=== PATIENT | female | born 1960 | race Caucasian/White ===

== ENCOUNTER 2020-07-26 17:53 | Inpatient (IN) | payer OTHER, SELFPAY ==
--- NOTE | 2020-07-26 | ECG_ITS ---
Test Reason : DIZZINESS Blood Pressure : / mmHG Vent. Rate : 098 BPM Atrial Rate : 098 BPM P-R Int : 146 ms QRS Dur : 078 ms QT Int : 362 ms P-R-T Axes : 041 049 022 degrees QTc Int : 462 ms Normal sinus rhythm Normal ECG When compared with ECG of 25-SEP-2008 08:14, No significant change was found Referred By: Generic ED Physician Electronically Signed By:DAKSHA LANDIS MD
--- NOTE | ~2020-07-26 | CT_ITS ---
EXAMINATION: CT ABDOMEN AND PELVIS WITH CONTRAST CLINICAL INFORMATION: Diffuse abdominal pain, worse in the right lower quadrant with distention COMPARISON: Abdominal ultrasound 07/26/2008 TECHNIQUE: Multidetector volumetric images were obtained from the superior aspect of the liver through the pubic symphysis following administration 85 mL of Omnipaque 350 intravenous contrast. Sagittal and coronal reformatted images were obtained on the technologist's workstation. Oral contrast: No This CT examination was performed using dose optimization techniques as appropriate, variously including the following: *Automated exposure control *Adjustment of mA and/or kV according to patient size (this includes techniques or standardized protocols for targeted exams where dose is matched to indication/reason for exam; i.e. extremities or head) *Use of iterative reconstruction technique DLP: 831 mGy-cm FINDINGS: LUNG BASES: The visualized lung bases are unremarkable. LIVER, GALLBLADDER, AND BILIARY TREE: The liver is enlarged and demonstrates decreased attenuation consistent with hepatic steatosis. There are some areas of focal fatty sparing adjacent to the gallbladder. Small hypodensity seen just beneath the dome of the right hemidiaphragm consistent with a small cyst. The gallbladder is unremarkable with no evidence of radiopaque gallstones, gallbladder wall thickening, or obvious pericholecystic inflammatory changes. PANCREAS: Unremarkable. SPLEEN: Unremarkable. ADRENAL GLANDS: Unremarkable. KIDNEYS AND URETERS: The kidneys are normal in size, shape, and attenuation. Indeterminate 1.5 cm mass noted in the right kidney that measures 32 Hounsfield units. This could represent a hyperattenuating cyst. No hydronephrosis, hydroureter, or calculi seen. No perinephric stranding. BLADDER: Unremarkable. GASTROINTESTINAL TRACT: Diverticular changes present in the colon without evidence of diverticulitis. The small and large bowel are unremarkable. The appendix is grossly abnormal. Dilated to nearly 2 cm. Marked inflammatory changes are present around the appendix. No extraluminal air is seen. No periappendiceal large fluid collections are seen. A tiny ill-defined fluid collection measuring 1 x 1.3 cm x 1 is seen (3:51). ABDOMINAL WALL: No significant hernia is appreciated. LYMPH NODES: No retroperitoneal lymphadenopathy. Some small retroperitoneal and brii hepatis lymph nodes are present. VASCULAR: Unremarkable. PELVIC VISCERA: An anteverted uterus is present. An abnormal adnexal mass or free intraperitoneal fluid is not seen. OSSEOUS STRUCTURES: Unremarkable. CT/CT abdomen pelvis w con IMPRESSION: 1. Acute appendicitis 2. Enlarged fatty liver 3. Benign right hepatic cyst 4. Indeterminate right renal mass. Differential diagnosis includes hyperattenuating cyst versus solid mass. Ultrasound recommended for further evaluation. This critical result was discussed with Dr. Tamara Beck at 11:45 PM on the day of the exam and it was ascertained that the content and urgency of the report was understood at the time of direct communication.
[2020-07-26 19:00] VITALS: BP 140/91; PULSE 102; RESP 16; TEMP 36.9; O2SAT 97; BMI 40.2
[2020-07-26 19:41] LABS: Glucose Urine UA NEG (NEG); Leukocyte Esterase Urine NEG (NEG); Nitrite Urine NEG (NEG); Specific Gravity - Urine <= 1.005 (1.005-1.025); Urine Blood NEG (NEG); Urine Ketones NEG (NEG); Urine Protein NEG (NEG-TRACE)
[2020-07-26 19:43] LABS: Appearance Urine CLEAR; Color Urine YELLOW
[2020-07-26 19:45] LABS: MANUAL DIFF FLAG NO
[2020-07-26 19:49] LABS: Basophils Absolute Auto 0.1 X10*3/uL (0.0-0.2); Basophils Percent Auto 0.3 % (0-2); Eosinophils Absolute Auto 0.1 X10*3/uL (0.0-0.4); Eosinophils Percent Auto 0.9 % (0-4); Hematocrit 43.3 % (37-47); Hemoglobin 14.9 g/dl (12.0-16.0); Imm Gran Abs Auto 0.06 X10*3/uL (0.00-0.03); Imm Gran Pct Auto 0.4 % (0.0-0.4); Lymphocytes Absolute Auto 2.6 X10*3/uL (1.2-4.9); Lymphocytes Percent Auto 15.7 % (20-40); Mean Corpuscular HGB Conc 34.4 g/dl (31.0-35.0); Mean Corpuscular Hemoglobin 29.6 pg (27.0-33.0); Mean Corpuscular Volume 85.9 fL (80-98); Mean Platelet Volume 9.2 fL (9.4-12.3); Monocytes Absolute Auto 1.3 X10*3/uL (0.1-1.2); Monocytes Percent Auto 7.7 % (2-11); Neutrophils Absolute Auto 12.4 X10*3/uL (2.0-8.3); Platelet Count 316 X10*3/uL (160-400); Red Blood Count 5.04 X10*6/uL (4.20-5.50); Red Cell Distribution Width 12.4 % (11.0-16.0); White Blood Count 16.5 X10*3/uL (4.8-10.8)
[2020-07-26 20:13] LABS: Alanine Aminotransferase 23 U/L (0-31); Albumin Level 4.6 g/dL (3.5-5.0); Alkaline Phosphatase 101 U/L (39-117); Anion Gap 18 (12-20); Aspartate Amino Transferase 12 U/L (5-31); Blood Urea Nitrogen 9 mg/dL (9-16); Calcium 9.9 mg/dL (8.4-10.2); Carbon Dioxide 22 mmol/L (22-29); Chloride 97 mmol/L (96-108); Creatinine Clr Calc Pharmacy 80.6; Estimated Glomerular Filt Rate > 60; Glucose Random 214 mg/dL (60-115); Lipase 16 U/L (8-78); Sodium 133 mmol/L (135-145); Total Protein 7.8 g/dL (6.5-8.0)
[2020-07-26 21:26] VITALS: BP 115/67; PULSE 84; RESP 16; O2SAT 97
--- NOTE | 2020-07-26 22:52 | ED.ABDPAIN ---
HPI - Abdominal Pain General Chief Complaint: Abdominal Pain Stated Complaint: abd pain Time Seen by Provider: 07/26/20 22:42 Source: patient Mode of arrival: ambulatory Limitations: no limitations History of Present Illness HPI narrative: Patient comes emergency room complaining of diffuse abdominal pain, worse in the right lower quadrant. Patient states it has been ongoing for 2 days, gradually getting worse, and more distended. Patient denies vomiting or diarrhea. Patient states she takes several medications that cause her to be constipated. Patient has used multiple enema has in the last 24 hours, has had bowel movements, the pain keeps increasing. MD elicited complaint: abdominal pain Related Data Home Medications Medication Instructions Recorded Confirmed ergocalciferol (vitamin D2) 1 cap PO QWEEK 07/27/20 07/27/20 hydroxychloroquine 1 tab PO BID 07/27/20 07/27/20 insulin detemir U-100 [Levemir See Protocol SUBCUT DIRECTED 07/27/20 07/27/20 U-100 Insulin] insulin syringe-needle U-100 [BD 07/27/20 07/27/20 Insulin Syringe Ultra-Fine] lisinopril 1 tab PO DAILY 07/27/20 07/27/20 lorazepam 1 tab PO TID PRN 07/27/20 07/27/20 ondansetron HCl 1 tab PO Q6-8H PRN 07/27/20 07/27/20 oxycodone 1 tab PO DIRECTED 07/27/20 07/27/20 ropinirole 1 tab PO BID 07/27/20 07/27/20 Allergies Allergy/AdvReac Type Severity Reaction Status Date / Time No Known Allergies Allergy Unverified 07/26/20 19:05 Codeine Sulfate Allergy Unknown Itching Uncoded 07/26/20 19:05 Review of Systems Review of Systems Constitutional : No Weight loss, No Fever, No Chills, No Night Sweats, No Fatigue, No Malaise ENT/Mouth : No Hearing loss, No Ear Pain, No Nasal Congestion, No Sinus Pain, No Hoarseness, No sore throat, No Rhinorrhea, No Swallowing Difficulty Eyes: No Eye Pain, No Swelling, No Redness, No Foreign Body, No Discharge, No Vision Changes Cardiovascular : No Chest Pain, No SOB, No Dyspnea on Exertion, No Orthopnea, No Edema, No Palpitations Respiratory : No Cough, No Sputum, No Wheezing, No Smoke Exposure, No Dyspnea Gastrointestinal : No Nausea, No Vomiting, No Diarrhea, chronic intermittent Constipation, complaining of diffuse abdominal pain, worse in the right lower quadrant, worsening abdominal distention over the last 24 hours. Genitourinary : no irregular bleeding, No Dysuria, No Urinary Frequency, No Hematuria, No Urinary Incontinence, No Urgency, No Flank Pain, No Urinary Flow Changes, No Hesitancy Musculoskeletal : No joint pain, No Myalgias, No Joint Swelling Skin : No Skin Lesions, No rash Neuro : No Weakness, No Numbness, No Paresthesias, No Loss of Consciousness, No Dizziness, No Headache Psych : No Anxiety/Panic, No Depression, No SI/HI/AH/VH, No Social Issues, Heme/Lymph: No Bruising, No Bleeding,No Lymphadenopathy Endocrine : No Polyuria, No Polydipsia, No Temperature Intolerance Physical Exam Vital Signs: Vital Signs: Last Vital Signs Temp 98.5 F 07/26/20 19:00 Pulse 84 07/26/20 21:26 Resp 18 07/26/20 23:05 BP 115/67 07/26/20 21:26 Pulse Ox 97 07/26/20 21:26 Body Mass Index 40.2 Appearance: Alert. Oriented X3. Looks very uncomfortable Eyes: Pupils equal, round and reactive to light. ENT: Pharynx normal. Neck: Normal inspection. Neck supple. No lymph nodes noted. No crepitus CVS: Normal heart rate and rhythm. Pulses normal. Normal S1 and S2 Respiratory: No respiratory distress. Breath sounds normal. No Wheezing. No rales Abdomen: Soft, diffuse pain to palpation, worse in the right lower quadrant with rebound Skin: Skin warm and dry. Normal skin color. Normal skin turgor. Extremities: No lower extremity edema. No lower extremity edema. No Lacerations. No Rash Neuro: Oriented X 3. No motor deficit. No sensory deficit. Moving all extermities. No slurred speech. Course Course Course Narrative: I discussed CT scan and labs with the patient, patient does have acute appendicitis. I also discussed the patient with Dr. Hillman, patient will be admitted, surgery will be done in the morning. MDM - Abdominal Pain Lab Data Result diagrams: 07/26/20 19:38 07/26/20 19:38 Labs: Lab Results 07/26/20 07/26/20 07/26/20 Range/Units 19:06 19:38 19:38 WBC 16.5 H (4.8-10.8) X10*3/uL RBC 5.04 (4.20-5.50) X10*6/uL Hgb 14.9 (12.0-16.0) g/dl Hct 43.3 (37-47) % MCV 85.9 (80-98) fL MCH 29.6 (27.0-33.0) pg MCHC 34.4 (31.0-35.0) g/dl RDW 12.4 (11.0-16.0) % Plt Count 316 (160-400) X10*3/uL MPV 9.2 L (9.4-12.3) fL Immature Gran % (Auto) 0.4 (0.0-0.4) % Neut % (Auto) 75.0 H (45-73) % Lymph % (Auto) 15.7 L (20-40) % [place] % (Auto) 7.7 (2-11) % Eos % (Auto) 0.9 (0-4) % Baso % (Auto) 0.3 (0-2) % Lymph # (Auto) 2.6 (1.2-4.9) X10*3/uL [place] # (Auto) 1.3 H (0.1-1.2) X10*3/uL Eos # (Auto) 0.1 (0.0-0.4) X10*3/uL Baso # (Auto) 0.1 (0.0-0.2) X10*3/uL Abs Immat Gran (auto) 0.06 H (0.00-0.03) X10*3/uL Absolute Neuts (auto) 12.4 H (2.0-8.3) X10*3/uL Absolute Nucleated RBC 0.000 (0.0-0.012) X10*3/uL Nucleated RBC % (auto) 0.0 (0.0-0.2) /100WBC Hold Blue Top SEE NOTE Sodium (135-145) mmol/L Potassium (3.3-5.1) mmol/L Chloride (96-108) mmol/L Carbon Dioxide (22-29) mmol/L Anion Gap (12-20) BUN (9-16) mg/dL Creatinine (0.5-1.4) mg/dL Estim Creat Clear Calc Estimated GFR Random Glucose (60-115) mg/dL Calcium (8.4-10.2) mg/dL Total Bilirubin (0.0-1.0) mg/dL AST (5-31) U/L ALT (0-31) U/L Alkaline Phosphatase (39-117) U/L Total Protein (6.5-8.0) g/dL Albumin (3.5-5.0) g/dL Lipase (8-78) U/L Urine Color YELLOW Urine Appearance CLEAR Urine pH 6.0 (5.0-8.0) Ur Specific [place] <= 1.005 (1.005-1.025) Urine Protein NEG (NEG-TRACE) MG/DL Urine Glucose (UA) NEG (NEG) MG/DL Urine Ketones NEG (NEG) MG/DL Urine Blood NEG (NEG) Urine Nitrite NEG (NEG) Ur Leukocyte Esterase NEG (NEG) 07/26/20 Range/Units 19:38 WBC (4.8-10.8) X10*3/uL RBC (4.20-5.50) X10*6/uL Hgb (12.0-16.0) g/dl Hct (37-47) % MCV (80-98) fL MCH (27.0-33.0) pg MCHC (31.0-35.0) g/dl RDW (11.0-16.0) % Plt Count (160-400) X10*3/uL MPV (9.4-12.3) fL Immature Gran % (Auto) (0.0-0.4) % Neut % (Auto) (45-73) % Lymph % (Auto) (20-40) % [place] % (Auto) (2-11) % Eos % (Auto) (0-4) % Baso % (Auto) (0-2) % Lymph # (Auto) (1.2-4.9) X10*3/uL [place] # (Auto) (0.1-1.2) X10*3/uL Eos # (Auto) (0.0-0.4) X10*3/uL Baso # (Auto) (0.0-0.2) X10*3/uL Abs Immat Gran (auto) (0.00-0.03) X10*3/uL Absolute Neuts (auto) (2.0-8.3) X10*3/uL Absolute Nucleated RBC (0.0-0.012) X10*3/uL Nucleated RBC % (auto) (0.0-0.2) /100WBC Hold Blue Top Sodium 133 L (135-145) mmol/L Potassium 4.0 (3.3-5.1) mmol/L Chloride 97 (96-108) mmol/L Carbon Dioxide 22 (22-29) mmol/L Anion Gap 18 (12-20) BUN 9 (9-16) mg/dL Creatinine 0.84 (0.5-1.4) mg/dL Estim Creat Clear Calc 80.6 Estimated GFR > 60 Random Glucose 214 H (60-115) mg/dL Calcium 9.9 (8.4-10.2) mg/dL Total Bilirubin 1.0 (0.0-1.0) mg/dL AST 12 (5-31) U/L ALT 23 (0-31) U/L Alkaline Phosphatase 101 (39-117) U/L Total Protein 7.8 (6.5-8.0) g/dL Albumin 4.6 (3.5-5.0) g/dL Lipase 16 (8-78) U/L Urine Color Urine Appearance Urine pH (5.0-8.0) Ur Specific [place] (1.005-1.025) Urine Protein (NEG-TRACE) MG/DL Urine Glucose (UA) (NEG) MG/DL Urine Ketones (NEG) MG/DL Urine Blood (NEG) Urine Nitrite (NEG) Ur Leukocyte Esterase (NEG) Imaging Data CT scan - abdomen: Radiologist's impression: FINDINGS: LUNG BASES: The visualized lung bases are unremarkable. LIVER, GALLBLADDER, AND BILIARY TREE: The liver is enlarged and demonstrates decreased attenuation consistent with hepatic steatosis. There are some areas of focal fatty sparing adjacent to the gallbladder. Small hypodensity seen just beneath the dome of the right hemidiaphragm consistent with a small cyst. The gallbladder is unremarkable with no evidence of radiopaque gallstones, gallbladder wall thickening, or obvious pericholecystic inflammatory changes. PANCREAS: Unremarkable. SPLEEN: Unremarkable. ADRENAL GLANDS: Unremarkable. KIDNEYS AND URETERS: The kidneys are normal in size, shape, and attenuation. Indeterminate 1.5 cm mass noted in the right kidney that measures 32 Hounsfield units. This could represent a hyperattenuating cyst. No hydronephrosis, hydroureter, or calculi seen. No perinephric stranding. BLADDER: Unremarkable. GASTROINTESTINAL TRACT: Diverticular changes present in the colon without evidence of diverticulitis. The small and large bowel are unremarkable. The appendix is grossly abnormal. Dilated to nearly 2 cm. Marked inflammatory changes are present around the appendix. No extraluminal air is seen. No periappendiceal large fluid collections are seen. A tiny ill-defined fluid collection measuring 1 x 1.3 cm x 1 is seen (3:51). ABDOMINAL WALL: No significant hernia is appreciated. LYMPH NODES: No retroperitoneal lymphadenopathy. Some small retroperitoneal and brii hepatis lymph nodes are present. VASCULAR: Unremarkable. PELVIC VISCERA: An anteverted uterus is present. An abnormal adnexal mass or free intraperitoneal fluid is not seen. OSSEOUS STRUCTURES: Unremarkable. CT/CT abdomen pelvis w con IMPRESSION: 1. Acute appendicitis 2. Enlarged fatty liver 3. Benign right hepatic cyst 4. Indeterminate right renal mass. Differential diagnosis includes hyperattenuating cyst versus solid mass. Ultrasound recommended for further evaluation. Discharge Plan Discharge Clinical Impression: Appendicitis Patient Disposition: Admitted As Inpatient Prescriptions: No Action ropinirole 1 mg tablet 1 tab PO BID RF: 0 lisinopril 20 mg tablet 1 tab PO DAILY RF: 0 ondansetron HCl 4 mg tablet 1 tab PO Q6-8H PRN (Reason: Nausea) RF: 0 lorazepam 0.5 mg tablet 1 tab PO TID PRN (Reason: anxiety) RF: 0 (DME) insulin syringe-needle U-100 [BD Insulin Syringe Ultra-Fine] 1 mL 31 gauge x 5/16 syringe MISCELLANEOUS DAILY RF: 0 ergocalciferol (vitamin D2) 1,250 mcg (50,000 unit) capsule 1 cap PO QWEEK RF: 0 hydroxychloroquine 200 mg tablet 1 tab PO BID RF: 0 Levemir U-100 Insulin 100 unit/mL solution See Protocol unit subcut DIRECTED RF: 0 oxycodone 10 mg tablet 1 tab PO DIRECTED RF: 0 PMFSH Past Medical History Medical History Diabetes Hypertension Pain syndrome, chronic Restless legs syndrome RSD (reflex sympathetic dystrophy) Social History Social History Alcohol intake: never Smoking Status: Never smoker Use of substances other than those prescribed or required for medical reasons: No Advance Directives: No Advance Directives Information Provided: No
[2020-07-26] MEDS: 0.9 % Sodium Chloride 1,000 ML 999 ML IVCONT (23:04)
[2020-07-26 23:05] VITALS: RESP 18
[2020-07-26] MEDS: HYDROmorphone HCl 1 MG/ML SYRINGE IVPUSH (23:06)
[2020-07-26] MEDS: ondansetron HCL 4 MG/2 ML VIAL IVPUSH (23:06)
[2020-07-26] MEDS: iohexoL 350 MG/ML 100 ML INFUS..BTL IV (23:22)
[2020-07-27] VITALS (16 sets, daily range): BP systolic 97–146; BP diastolic 59–89; PULSE 74–94; RESP 16–18; TEMP 36.3–37.1; O2SAT 95–99
[2020-07-27] MEDS: HYDROmorphone HCl 1 MG/ML SYRINGE IVPUSH ×5 (00:16→22:43)
[2020-07-27] MEDS: Piperacillin Sodium/Tazobactam 3.375 GM in 0.9 % Sodium Chloride 50 ML IV ×4 (00:21→22:43)
[2020-07-27 00:46] LABS: COVID-19 Test Negative (Negative)
[2020-07-27 01:26] LABS: Glucose, Whole Blood 172 mg/dL (60-115)
[2020-07-27] MEDS: Lactated Ringers 1,000 ML 100 ML IVCONT ×2 (01:53→20:17)
[2020-07-27] MEDS: Acetaminophen 325 MG TABLET 650 MG PO ×2 (02:49→09:50)
[2020-07-27] MEDS: LORazepam 0.5 MG TABLET PO ×2 (02:49→09:50)
[2020-07-27] MEDS: ondansetron HCL 4 MG/2 ML VIAL IVPUSH (02:50)
--- NOTE | 2020-07-27 07:32 | P.HPGS_ITS ---
History of Present Illness History of Present Illness Date of Service: 07/27/20 Chief complaint: Acute Appendicitis Narrative: Mary Hadley is a 60 year old female with a history of DM, an unspecified autoimmune disorder and RSD, presenting wih a two day history of abdominal pain starting in the mid abdomen and now localized to the right lower quadrant. The pain is associated with a low grade fever without chills, nausea without vomiting, and constipation. She denies previous episodes of similar pain. She presented to the ED and was found to be tender in the right lower quadrant and to have abdominal distension. WBC was elevated to 16K, and a CT of the abdomen revealed a thickened and inflamed appendix with a small fluid collection associated with the appendix consistent with acute appendicitis. Review of Systems Review of Systems: Yes all other systems are reviewed and are negative Constitutional: Constitutional: Reports anorexia, Reports difficulty sleeping, Denies excessive sweating and Reports poor appetite Cardiovascular: Cardiovascular: Reports no additional cardiovascular complaints Respiratory: Respiratory: Reports no additional respiratory complaints Gastrointestinal: Gastrointestinal: Reports as per HPI, Reports abdominal pain (right lower quadrant), Reports bloating, Denies diarrhea, Reports nausea and Denies vomiting Musculoskeletal: Musculoskeletal: Reports back pain Neurologic: Reports as per HPI Endocrine: Endocrine: Denies excessive sweating Hematologic/Lymphatic: Hematologic/Lymphatic: Denies lymphadenopathy PMFSH Past Medical History Medical History Diabetes Hypertension Pain syndrome, chronic Restless legs syndrome RSD (reflex sympathetic dystrophy) Social History Social History Household Members: Significant Other and Children Housing: House Alcohol intake: never Smoking Status: Current every day smoker Tobacco Type: Cigarette Cigarettes Per Day: 6 Smoked in Last 30 Days: Yes Patient Interested in Nicotine Replacement: Yes Patient Given Instructions on How to Stop Smoking: Yes Date Education Initiated: 07/27/20 Second Hand Smoke Exposure: Yes Use of substances other than those prescribed or required for medical reasons: No Substance Use Type: Marijuana Currently Displaying Signs/Symptoms of Drug Intoxication Withdrawal: No Have you been hit, kicked, punched, or otherwise hurt by someone within the past year? If so, by whom?: No Do you feel safe in your current relationship?: Yes Is there a partner from a previous relationship who is making you feel unsafe now?: No Are you made to feel afraid or neglected: No Advance Directives: No Advance Directives Information Provided: No Do you have thoughts of harming others: None Do you have a plan to hurt others: No Plan Recently lost weight without trying: No Eating poorly because of decreased appetite: No Nutrition Risks: No Nutritional Risk Patient : No : No Poor oral hygiene: No Meds Allergies Allergy/AdvReac Type Severity Reaction Status Date / Time No Known Allergies Allergy Unverified 07/26/20 19:05 Codeine Sulfate Allergy Unknown Itching Uncoded 07/26/20 19:05 Active Medications: Current Medications Generic Name Dose Route Start Last Admin Trade Name Freq PRN Reason Stop Dose Admin Acetaminophen 650 mg 07/27/20 01:12 07/27/20 02:49 Acetaminophen 325 Mg Tablet PO 650 mg Q6H PRN Administration Fever Hydromorphone HCl 1 mg 07/27/20 01:12 07/27/20 06:52 Hydromorphone Hcl 1 Mg/Ml Syringe IVPUSH 1 mg Q2H PRN Administration pain, severe Lactated Ringer's 1,000 mls @ 100 mls/hr 07/27/20 01:12 07/27/20 01:53 Lr IVCONT 100 mls/hr .Q10H [place] Administration Piperacillin Sod/Tazobactam 50 mls @ 100 mls/hr 07/27/20 06:00 07/27/20 06:52 Sod 3.375 gm/ Sodium Chloride IV 100 mls/hr Q6H [place] Administration Insulin Human Lispro 0 unit 07/27/20 06:00 Insulin Lispro 100 Unit/Ml 3 Ml Vial SUBCUT Q6H [place] Protocol Lisinopril 20 mg 07/27/20 09:00 Lisinopril 20 Mg Tablet PO DAILY [place] Protocol Lorazepam 0.5 mg 07/27/20 01:12 07/27/20 02:49 Lorazepam 0.5 Mg Tablet PO 0.5 mg TID PRN Administration anxiety Ondansetron HCl 4 mg 07/27/20 01:12 07/27/20 02:50 Ondansetron Hcl 4 Mg/2 Ml Vial IVPUSH 4 mg Q8H PRN Administration Nausea Ropinirole HCl 1 mg 07/27/20 09:00 Ropinirole Hcl 1 Mg Tablet PO BID [facility] Home Medications Medication Instructions Recorded Confirmed Last Taken Type ergocalciferol (vitamin D2) 1 cap PO Q7D 07/27/20 07/27/20 Unknown History hydroxychloroquine 1 tab PO BID 07/27/20 07/27/20 Unknown History insulin detemir U-100 [Levemir 82 unit SUBCUT BEDTIME 07/27/20 07/27/20 Unknown History U-100 Insulin] insulin syringe-needle U-100 [BD 07/27/20 07/27/20 Unknown History Insulin Syringe Ultra-Fine] lisinopril 1 tab PO DAILY 07/27/20 07/27/20 Unknown History lorazepam 1 tab PO TID PRN 07/27/20 07/27/20 Unknown History ondansetron HCl 1 tab PO Q6-8H PRN 07/27/20 07/27/20 Unknown History oxycodone 1 tab PO Q4H 07/27/20 07/27/20 Unknown History ropinirole 1 tab PO BID 07/27/20 07/27/20 Unknown History Physical Exam Vital Signs: Vital Signs: Last Vital Signs Temp 97.4 F 07/27/20 04:00 Pulse 82 07/27/20 04:00 Resp 16 07/27/20 04:00 BP 115/69 07/27/20 04:00 Pulse Ox 96 07/27/20 04:00 Body Mass Index 40.2 Const: General: cooperative, anxious, ill appearing and tired appearing Nutritional Appearance: underweight Orientation/consciousness: patient oriented x3 Limitations: no limitations HENMT: Head: Yes normocephalic and Yes atraumatic Neck: Neck: Yes normal visual inspection, Yes full ROM and Yes no JVD Resp: Effort & Inspection: normal respiratory effort, no cough, no grunting and not labored GI: Inspection: Yes Abdominal panniculus present Palpation (GI): Soft to palpation, Tenderness to palpation present (GI) in the RLQ and at McBurney's point and no masses Percussion: Yes dullness to percussion Skin: General skin exam: no rashes or lesions noted Neuro: General: patient oriented x3 Extrem: General: Yes no clubbing, cyanosis or edema Results Results Labs: Short CBC 07/26/20 Range/Units 19:38 WBC 16.5 H (4.8-10.8) X10*3/uL Hgb 14.9 (12.0-16.0) g/dl Hct 43.3 (37-47) % Plt Count 316 (160-400) X10*3/uL BMP 07/26/20 19:38 Sodium 133 L Potassium 4.0 Chloride 97 Carbon Dioxide 22 BUN 9 Creatinine 0.84 Calcium 9.9 Liver Function 07/26/20 Range/Units 19:38 Total Bilirubin 1.0 (0.0-1.0) mg/dL AST 12 (5-31) U/L ALT 23 (0-31) U/L Alkaline Phosphatase 101 (39-117) U/L Albumin 4.6 (3.5-5.0) g/dL Urine 07/26/20 Range/Units 19:06 Urine Color YELLOW Urine Appearance CLEAR Urine pH 6.0 (5.0-8.0) Ur Specific [place] <= 1.005 (1.005-1.025) Urine Protein NEG (NEG-TRACE) MG/DL Urine Glucose (UA) NEG (NEG) MG/DL Assessment and Plan (1) Appendicitis: Qualifiers: Appendicitis type: unspecified Qualified Code(s): K37 - Unspecified appendicitis Status: Acute 60 year old female patient with history of DM presenting with complaints of abdominal pain of several days duration presenting to the ED. She was determined to have appendicitis by CT abdomen and pelvis and is admitted to the surgical service for further management. I reviewed the lab and radiology findings with the patient and recommended a laparoscopic or possible open appendectomy. After discussing the procedure, alternatives and risks of the surgery, she gave her consent for the laparoscopic or possible open appendectomy. She is added on to the OR schedule for later today.
[2020-07-27 07:39] LABS: Glucose, Whole Blood 214 mg/dL (60-115)
[2020-07-27] MEDS: rOPINIRole HCL 1 MG TABLET PO ×2 (07:46→20:17)
[2020-07-27] MEDS: Insulin Lispro 100 UNIT/ML 3 ML VIAL SUBCUT ×2 (07:46→20:18)
[2020-07-27] MEDS: lisinopriL 20 MG TABLET PO (07:46)
--- NOTE | 2020-07-27 11:08 | HO.ANESPROP2 ---
[facility], [facility] Active Problems Active Problems: All Active Problems (Updated 07/27/20 @ 00:07 by Tamara Beck MD) Appendicitis (Acute) Past Medical History Medical History Diabetes Hypertension Pain syndrome, chronic Restless legs syndrome RSD (reflex sympathetic dystrophy) Social History Social History Household Members: Significant Other and Children Housing: House Alcohol intake: never Smoking Status: Current every day smoker Tobacco Type: Cigarette Cigarettes Per Day: 6 Years Smoked: 20 Smoked in Last 30 Days: Yes Patient Interested in Nicotine Replacement: Yes Patient Given Instructions on How to Stop Smoking: Yes Date Education Initiated: 07/27/20 Second Hand Smoke Exposure: Yes Use of substances other than those prescribed or required for medical reasons: No Substance Use Type: Marijuana Currently Displaying Signs/Symptoms of Drug Intoxication Withdrawal: No Have you been hit, kicked, punched, or otherwise hurt by someone within the past year? If so, by whom?: No Do you feel safe in your current relationship?: Yes Is there a partner from a previous relationship who is making you feel unsafe now?: No Are you made to feel afraid or neglected: No Are you DNR?: No Advance Directives: No Advance Directives Information Provided: No Do you have thoughts of harming others: None Do you have a plan to hurt others: No Plan Recently lost weight without trying: No Eating poorly because of decreased appetite: No Nutrition Risks: No Nutritional Risk Patient : No : No Poor oral hygiene: No Meds Allergies Allergy/AdvReac Type Severity Reaction Status Date / Time Codeine Sulfate Allergy Unknown Itching Uncoded 07/26/20 19:05 Active Medications: Current Medications Generic Name Dose Route Start Last Admin Trade Name Freq PRN Reason Stop Dose Admin Acetaminophen 650 mg 07/27/20 01:12 07/27/20 09:50 Acetaminophen 325 Mg Tablet PO 650 mg Q6H PRN Administration Fever Hydromorphone HCl 1 mg 07/27/20 01:12 07/27/20 06:52 Hydromorphone Hcl 1 Mg/Ml Syringe IVPUSH 1 mg Q2H PRN Administration pain, severe Lactated Ringer's 1,000 mls @ 100 mls/hr 07/27/20 01:12 07/27/20 01:53 Lr IVCONT 100 mls/hr .Q10H [place] Administration Piperacillin Sod/Tazobactam 50 mls @ 100 mls/hr 07/27/20 06:00 07/27/20 07:33 Sod 3.375 gm/ Sodium Chloride IV Infused Q6H [place] Infusion Insulin Human Lispro 0 unit 07/27/20 06:00 07/27/20 07:46 Insulin Lispro 100 Unit/Ml 3 Ml Vial SUBCUT 4 unit Q6H [place] Administration Protocol Lisinopril 20 mg 07/27/20 09:00 07/27/20 07:46 Lisinopril 20 Mg Tablet PO 20 mg DAILY [place] Administration Protocol Lorazepam 0.5 mg 07/27/20 01:12 07/27/20 09:50 Lorazepam 0.5 Mg Tablet PO 0.5 mg TID PRN Administration anxiety Ondansetron HCl 4 mg 07/27/20 01:12 07/27/20 02:50 Ondansetron Hcl 4 Mg/2 Ml Vial IVPUSH 4 mg Q8H PRN Administration Nausea Ropinirole HCl 1 mg 07/27/20 09:00 07/27/20 07:46 Ropinirole Hcl 1 Mg Tablet PO 1 mg BID [place] Administration Home Medications Medication Instructions Recorded Confirmed Last Taken Type ergocalciferol (vitamin D2) 1 cap PO Q7D 07/27/20 07/27/20 Unknown History hydroxychloroquine 1 tab PO BID 07/27/20 07/27/20 Unknown History insulin detemir U-100 [Levemir 82 unit SUBCUT BEDTIME 07/27/20 07/27/20 Unknown History U-100 Insulin] insulin syringe-needle U-100 [BD 07/27/20 07/27/20 Unknown History Insulin Syringe Ultra-Fine] lisinopril 1 tab PO DAILY 07/27/20 07/27/20 Unknown History lorazepam 1 tab PO TID PRN 07/27/20 07/27/20 Unknown History ondansetron HCl 1 tab PO Q6-8H PRN 07/27/20 07/27/20 Unknown History oxycodone 1 tab PO Q4H 07/27/20 07/27/20 Unknown History ropinirole 1 tab PO BID 07/27/20 07/27/20 Unknown History Exam Exam Date and Time: July 27, 2020 1108 Height,Weight and Vital Signs: Height 5 ft 2 in Weight 99.79 kg Last Vital Signs Temp 97.8 F 07/27/20 10:56 Pulse 87 07/27/20 10:56 Resp 16 07/27/20 10:56 BP 136/62 07/27/20 10:56 Pulse Ox 95 07/27/20 10:56 Pertinent Lab Results Pertinent Lab Results: Laboratory Tests 07/26/20 07/26/20 07/26/20 19:06 19:38 19:38 WBC 16.5 H RBC 5.04 Hgb 14.9 Hct 43.3 MCV 85.9 MCH 29.6 MCHC 34.4 RDW 12.4 Plt Count 316 MPV 9.2 L Immature Gran % (Auto) 0.4 Neut % (Auto) 75.0 H Lymph % (Auto) 15.7 L Mcminn % (Auto) 7.7 Eos % (Auto) 0.9 Baso % (Auto) 0.3 Lymph # (Auto) 2.6 Mcminn # (Auto) 1.3 H Eos # (Auto) 0.1 Baso # (Auto) 0.1 Abs Immat Gran (auto) 0.06 H Absolute Neuts (auto) 12.4 H Absolute Nucleated RBC 0.000 Nucleated RBC % (auto) 0.0 Hold Blue Top SEE NOTE Sodium Potassium Chloride Carbon Dioxide Anion Gap BUN Creatinine Estim Creat Clear Calc Estimated GFR POC Glucose Random Glucose Calcium Total Bilirubin AST ALT Alkaline Phosphatase Total Protein Albumin Lipase Urine Color YELLOW Urine Appearance CLEAR Urine pH 6.0 Ur Specific Kamuela <= 1.005 Urine Protein NEG Urine Glucose (UA) NEG Urine Ketones NEG Urine Blood NEG Urine Nitrite NEG Ur Leukocyte Esterase NEG COVID-19 ([facility]HA) COVID-19 Clin Com 07/26/20 07/27/20 07/27/20 19:38 00:23 01:16 WBC RBC Hgb Hct MCV MCH MCHC RDW Plt Count MPV Immature Gran % (Auto) Neut % (Auto) Lymph % (Auto) Mcminn % (Auto) Eos % (Auto) Baso % (Auto) Lymph # (Auto) Mcminn # (Auto) Eos # (Auto) Baso # (Auto) Abs Immat Gran (auto) Absolute Neuts (auto) Absolute Nucleated RBC Nucleated RBC % (auto) Hold Blue Top Sodium 133 L Potassium 4.0 Chloride 97 Carbon Dioxide 22 Anion Gap 18 BUN 9 Creatinine 0.84 Estim Creat Clear Calc 80.6 Estimated GFR > 60 POC Glucose 172 H Random Glucose 214 H Calcium 9.9 Total Bilirubin 1.0 AST 12 ALT 23 Alkaline Phosphatase 101 Total Protein 7.8 Albumin 4.6 Lipase 16 Urine Color Urine Appearance Urine pH Ur Specific Kamuela Urine Protein Urine Glucose (UA) Urine Ketones Urine Blood Urine Nitrite Ur Leukocyte Esterase COVID-19 (RADHA) Negative COVID-19 Clin Com See Note 07/27/20 07:25 WBC RBC Hgb Hct MCV MCH MCHC RDW Plt Count MPV Immature Gran % (Auto) Neut % (Auto) Lymph % (Auto) Mcminn % (Auto) Eos % (Auto) Baso % (Auto) Lymph # (Auto) Mcminn # (Auto) Eos # (Auto) Baso # (Auto) Abs Immat Gran (auto) Absolute Neuts (auto) Absolute Nucleated RBC Nucleated RBC % (auto) Hold Blue Top Sodium Potassium Chloride Carbon Dioxide Anion Gap BUN Creatinine Estim Creat Clear Calc Estimated GFR POC Glucose 214 H Random Glucose Calcium Total Bilirubin AST ALT Alkaline Phosphatase Total Protein Albumin Lipase Urine Color Urine Appearance Urine pH Ur Specific Kamuela Urine Protein Urine Glucose (UA) Urine Ketones Urine Blood Urine Nitrite Ur Leukocyte Esterase COVID-19 (RADHA) COVID-19 Clin Com Airway Mallampati Class: III TM Dist: >3cm Neck ROM: Full Heart: RRR Lungs: CTA
[2020-07-27] MEDS: Lactated Ringers 1,000 ML 20 ML IVCONT (11:11)
[2020-07-27 11:18] LABS: Glucose, Whole Blood 189 mg/dL (60-115)
--- NOTE | 2020-07-27 12:25 | MHC.SHP ---
Pre-Procedural Eval Section A The patient is an INPATIENT: Yes Section B Chief Complaint: Acute Appendicitis Allergies: Allergies Allergy/AdvReac Type Severity Reaction Status Date / Time Codeine Sulfate Allergy Unknown Itching Uncoded 07/26/20 19:05 Plan Diagnosis/Plan: Unchanged I have reviewed the history and physical and performed a pertinent physical examination on my patient. No changes have occurred unless specified.
--- NOTE | 2020-07-27 12:55 | MHC.CM.PN ---
PATIENT OFF UNIT DURING CASE MANAGEMENT ASSESSMENT. CONTACT CARD FOR THIS OVERAGE SHORTAGE AND DAMAGE CLERK LEFT BEDSIDE. \PER REVIEW OF CHART, PATIENT IS INDEPENDENT WITH HER ADLS, INCLUDING WORK CASE MANAGEMENT FOLLOWING FOR ANY DISCHARGE NEEDS.
--- NOTE | 2020-07-27 14:07 | W.PM.OPN ---
Operative Note Operative Note Date of Service: 07/27/20 Narrative: Preoperative diagnosis: Acute appendicitis Postoperative diagnosis: Same Procedure: Laparoscopic appendectomy Surgeon: Bryce Latif MD Ceramics Test Engineer: EDDIE Willson Anesthesia: General endotracheal Indications for procedure: 60 year old female patient presenting with complaints of abdominal pain in the right lower quadrant of 2 days duration found presentation to the emergency department to tenderness in the right lower quadrant. WBC is elevated at [address] of the abdomen and pelvis is positive for acute appendicitis. Operative findings: Acutely inflamed appendix with thickened mesentery Specimen: Appendix Estimated blood loss: 15 mL Complications: None Procedure details: Patient was brought to the OR and placed in a supine position. After administering general anesthesia the patient's abdomen was prepped with ChloraPrep and draped in a sterile fashion. A surgical time-out was called and consent confirmed. Patient received preoperative antibiotics and Venodyne boots were in place. Local anesthesia consisting of 0.25% Sensorcaine with epinephrine was infiltrated in periumbilical region. A 5 mm incision was made below the umbilicus and carried down through subcutaneous tissue. A Veress needle was then inserted while elevating abdominal cavity with towel clips. After a positive drop test the abdomen was insufflated to a pressure of 15 mm of mercury. The Veress needle was removed and a 5 mm trocar inserted. The camera was then inserted in the abdomen explored. A 2nd 5 mm trocars placed in the lower midline. A 12 mm trocar was then placed in the left lower quadrant. The patient was then placed in a Trendelenburg position and rotated to the left. The appendix was identified in the right lower quadrant and brought up using blunt dissecting clamps. The mesentery of the appendix was then divided using the LigaSure. The appendiceal artery was cauterized ligated with hemoclips and then divided using the LigaSure. Dissection was continued down to the base of the cecum. An Endo-ADAMS stapler with a purple reload was then used to divide the appendix at the base with the cecum. A 2nd firing of the staple or was required to come across the appendix. The appendix was then placed in Endo-Catch bag and brought out through the left lower quadrant incision. The abdomen was then irrigated with saline solution and suctioned dry. Wounds were checked for hemostasis. CO2 was then evacuated from the abdominal cavity and all trocars removed. Fascia was closed in the left lower quadrant incision using a [id number] 0 Polysorb suture. Skin was closed at all incisions using a subcuticular 4-0 Polysorb suture. Steri-Strips 2 x 2 gauze and Tegaderm were then applied. The patient tolerated the procedure well. Sponge, instrument, needle counts reported as correct. The patient was transferred to PACU in stable condition.
[2020-07-27] MEDS: fentaNYL citrate/PF 100 MCG/2 ML VIAL 25 MCG IVPUSH ×2 (14:51→14:57)
[2020-07-27] MEDS: oxyCODONE HCl Immed Release 5 MG TABLET 10 MG PO ×2 (14:54→20:18)
[2020-07-27 16:23] LABS: Glucose, Whole Blood 222 mg/dL (60-115)
[2020-07-27 20:14] LABS: Glucose, Whole Blood 265 mg/dL (60-115)
[2020-07-28] MEDS: HYDROmorphone HCl 1 MG/ML SYRINGE IVPUSH ×2 (02:28→08:15)
[2020-07-28] MEDS: oxyCODONE HCl Immed Release 5 MG TABLET 10 MG PO (05:05)
[2020-07-28] MEDS: Acetaminophen 325 MG TABLET 650 MG PO (05:05)
[2020-07-28] MEDS: Piperacillin Sodium/Tazobactam 3.375 GM in 0.9 % Sodium Chloride 50 ML IV (05:06)
[2020-07-28] MEDS: Lactated Ringers 1,000 ML 100 ML IVCONT (05:06)
--- NOTE | 2020-07-28 07:23 | P.PNGS_ITS ---
Subjective Subjective Date of Service: 07/28/20 Interval history: Patient is sore but overall feels improved. Tolerated po last night without nausea or vomiting Physical Exam Vital Signs: Vital Signs: Last Vital Signs Temp 97.3 F 07/27/20 23:43 Pulse 77 07/27/20 23:43 Resp 16 07/27/20 23:43 BP 97/59 L 07/27/20 23:43 Pulse Ox 96 07/27/20 23:43 Body Mass Index 40.2 Const: General: cooperative, comfortable, no acute distress, alert and awake Eyes: Sclerae: sclerae normal Resp: Effort & Inspection: normal respiratory effort GI: Other: incisions are clean, dry and intact with intact tegaderm dressings Skin: General skin exam: no rashes or lesions noted Extrem: General: Yes no clubbing, cyanosis or edema Progress Note: A&P Assessment and plan (1) Appendicitis: Status: Acute Assessment and Plan: POD #1 s/p laparoscopic appendectomy for acute appendicitis; patient tolerated the procedure well and her wounds are clean and intact. She is ready for discharge to home. Will follow up in the office in one week. No lifting > 10 pounds. She may resume a regular diet. She should call for fever, chills, increased abdominal pain, nausea, vomiting or other concerns. Fall Risk Details Current Medications: Current Medications Generic Name Dose Route Start Last Admin Trade Name Freq PRN Reason Stop Dose Admin Acetaminophen 650 mg 07/27/20 01:12 07/28/20 05:05 Acetaminophen 325 Mg Tablet PO 650 mg Q6H PRN Administration Fever Hydromorphone HCl 1 mg 07/27/20 14:06 07/28/20 02:28 Hydromorphone Hcl 1 Mg/Ml Syringe IVPUSH 1 mg Q2H PRN Administration Pain, Severe (Pain Scale 7-10) Lactated Ringer's 1,000 mls @ 100 mls/hr 07/27/20 01:12 07/28/20 05:06 Lr IVCONT 100 mls/hr .Q10H [place] Administration Piperacillin Sod/Tazobactam 50 mls @ 100 mls/hr 07/27/20 06:00 07/28/20 05:46 Sod 3.375 gm/ Sodium Chloride IV Infused Q6H [place] Infusion Insulin Human Lispro 0 unit 07/27/20 21:00 07/27/20 20:18 Insulin Lispro 100 Unit/Ml 3 Ml Vial SUBCUT 6 unit QIDACHS [facility] Administration Protocol Lisinopril 20 mg 07/27/20 09:00 07/27/20 07:46 Lisinopril 20 Mg Tablet PO 20 mg DAILY [place] Administration Protocol Lorazepam 0.5 mg 07/27/20 01:12 07/27/20 09:50 Lorazepam 0.5 Mg Tablet PO 0.5 mg TID PRN Administration anxiety Ondansetron HCl 4 mg 07/27/20 01:12 07/27/20 02:50 Ondansetron Hcl 4 Mg/2 Ml Vial IVPUSH 4 mg Q8H PRN Administration Nausea Oxycodone HCl 10 mg 07/27/20 15:48 07/28/20 05:05 Oxycodone Hcl Immed Release 5 Mg Tablet PO 10 mg Q4H PRN Administration Pain, Moderate (Pain Scale 4-6 Ropinirole HCl 1 mg 07/27/20 09:00 07/27/20 20:17 Ropinirole Hcl 1 Mg Tablet PO 1 mg BID [facility] Administration Time Spent With Patient Time: Total time spent is greater than 50% in coordination of care (as documented) at patient's floor/unit and/or counseling patient: Time with patient: 15 - 24 minutes
--- NOTE | 2020-07-28 07:26 | P.DS_ITS ---
DS: Providers Provider Date of Service: 07/28/20 Date of admission: 07/27/20 00:18 Primary care physician: Dayna Mancilla NP Attending physician on discharge: dave jackson DS: Diagnosis Discharge Diagnosis (1) Appendicitis: Status: Acute DS: Medications Discharge Medications Home Medications: Home Medications Medication Instructions Recorded Confirmed Levemir U-100 Insulin 82 unit SUBCUT BEDTIME 07/27/20 07/27/20 ergocalciferol (vitamin D2) 1 cap PO Q7D 07/27/20 07/27/20 hydroxychloroquine 1 tab PO BID 07/27/20 07/27/20 insulin syringe-needle U-100 [BD 07/27/20 07/27/20 Insulin Syringe Ultra-Fine] lisinopril 1 tab PO DAILY 07/27/20 07/27/20 lorazepam 1 tab PO TID PRN 07/27/20 07/27/20 ondansetron HCl 1 tab PO Q6-8H PRN 07/27/20 07/27/20 oxycodone 1 tab PO Q4H 07/27/20 07/27/20 ropinirole 1 tab PO BID 07/27/20 07/27/20 DS: Summary Hospital Course Hospital Course: Mary Hadley is a 60 year old female with a history of DM, an unspecified autoimmune disorder and RSD, presenting wih a two day history of abdominal pain starting in the mid abdomen and now localized to the right lower quadrant. The pain is associated with a low grade fever without chills, nausea without vomiting, and constipation. She denies previous episodes of similar pain. She presented to the ED and was found to be tender in the right lower quadrant and to have abdominal distension. WBC was elevated to 16K, and a CT of the abdomen revealed a thickened and inflamed appendix with a small fluid collection a ssociated with the appendix consistent with acute appendicitis. She underwent a laparoscopic appendectomy on 07/27/2020 and findings were consistent with acute appendicitis without perforation. She tolerated the procedure well and remained stable postoperatively. She was advanced to a regular diet and tolerated this. On POD #1 she is awake, reporting her chronic pain and left lower quadrant in cisional pain. She is back on her usual po pain medications. She feels ready for discharge. She will follow up in the office in one week. She should avoid lifting > 10 pounds for two weeks and avoid driving for one week. Time Spent with Patient Time attestation: Total time spent providing and/or coordinating discharge s ervices: Discharge coordination time: Less than 30 minutes Quality: Stroke Does the patient have a stroke diagnosis?: No Physical Exam Vital Signs: Vital Signs: Last Vital Signs Temp 97.3 F 07/27/20 23:43 Pulse 77 07/27/20 23:43 Resp 16 07/27/20 23:43 BP 97/59 L 07/27/20 23:43 Pulse Ox 96 07/27/20 23:43 Body Mass Index 40.2 Const: General: cooperative, comfortable and no acute distress Resp: Effort & Inspection: normal respiratory effort GI: Other: incision is clean, dry and intact with intact dressings Inspection: Yes normal to inspection Skin: General skin exam: no rashes or lesions noted Extrem: General: Yes no clubbing, cyanosis or edema DS: Data Data Completed and Pending Pending studies at discharge: Pending at discharge 07/27/20 13:51 Surgical [PTH] Routine Labs on day of discharge: Laboratory Results - last 24 hr 07/27/20 07/27/20 07/27/20 07:25 11:14 16:19 POC Glucose 214 H 189 H 222 H 07/27/20 20:05 POC Glucose 265 H Discharge Plan Discharge Patient Disposition: Home, Self-Care Discharge Diagnosis: Acute appendicitis Referrals: Dayna Mancilla NP [Primary Care Provider] - 1 Week Dave Jackson MD [Physician] - 1 Week Discharge Medications: Continued ropinirole 1 mg tablet 1 tab PO BID RF: 0 lisinopril 20 mg tablet 1 tab PO DAILY RF: 0 ondansetron HCl 4 mg tablet 1 tab PO Q6-8H PRN (Reason: Nausea) RF: 0 lorazepam 0.5 mg tablet 1 tab PO TID PRN (Reason: anxiety) RF: 0 (DME) insulin syringe-needle U-100 [BD Insulin Syringe Ultra-Fine] 1 mL 31 gauge x 5/16 syringe MISCELLANEOUS DAILY RF: 0 ergocalciferol (vitamin D2) 1,250 mcg (50,000 unit) capsule 1 cap PO Q7D RF: 0 hydroxychloroquine 200 mg tablet 1 tab PO BID RF: 0 oxycodone 10 mg tablet 1 tab PO Q4H RF: 0 Levemir U-100 Insulin 100 unit/mL solution 82 unit SUBCUT BEDTIME RF: 0 Discharge Orders: Discharge Order (Routine); Ordered 07/28/20 Ordered By: Dave Jackson Diet: advance to usual diet Activity on Discharge: No heavy lifting Stand Alone Forms: Patient Portal Discharge page Activity Restrictions/Additional Instructions: No lifting > 10 pounds for 2 weeks No driving for one week Ice to the incision x 24 hours Remove dressing in 3 days Follow up in office in one week. Care Plan Goals: Return to normal activity and diet in 2 weeks Health Concerns: Acute appendicitis Plan of Treatment: Laparoscopic appendectomy on Assessment: Acute appendicitis Patient Instructions: Laparoscopic Appendectomy (DC)
[2020-07-28 07:40] VITALS: BP 118/65; PULSE 72; RESP 20; TEMP 35.9; O2SAT 96
[2020-07-28 07:49] LABS: Glucose, Whole Blood 174 mg/dL (60-115)
[2020-07-28] MEDS: Insulin Lispro 100 UNIT/ML 3 ML VIAL SUBCUT (07:57)
[2020-07-28] MEDS: lisinopriL 20 MG TABLET PO (07:59)
[2020-07-28] MEDS: rOPINIRole HCL 1 MG TABLET PO (07:59)
--- NOTE | 2020-07-28 08:31 | MHC.CM.PN ---
PATIENT IS DISCHARGED HOME - SELF CARE. SHE IS ABLE TO ARRANGE HER TRANSPORT HOME. RN AWARE OF PLAN.
--- NOTE | 2020-07-28 10:23 | HO.POSTANES ---
Post Anesthesia Evaluation Post Anesthesia Evaluation Vital Signs: Vital Signs Temp Pulse Resp BP Pulse Ox 07/28/20 07:40 96.6 F L 72 20 118/65 96 07/27/20 23:43 97.3 F 77 16 97/59 L 96 Anesthesia: General Endotracheal-GETA Mental Status: Awake Pain Control: Satisfactory Nausea/Vomiting: None Hydration: Adequate Anesthesia-Related Issues: No Anes. Related Issues
--- NOTE | 2020-07-28 12:40 | MHC.CM.PN ---
pt discharged home today with no services prior to being seen by CM.
== END 2020-07-28 11:05 | disposition home or self-care (01) | DRG 342 ==
LOC: HO.ED 07-27 00:07 → HO.EDOVER 07-27 01:14 → HO.S3 07-27 02:02
PROVIDERS: Surgery; Admitting Provider Surgery; Emergency Provider Emergency Medicine; PCP Nurse Practitioner Adult Health; Visit Provider Surgery
PROC: 0DTJ4ZZ Resection of Appendix, Percutaneous Endoscopic Approach (ICD-10-PCS; CPT 44970; principal; 2020-07-27 12:00)
DX: K35.80 Unspecified acute appendicitis (principal); G90.50 Complex regional pain syndrome I, unspecified; G25.81 Restless legs syndrome; Z20.822 Contact with and (suspected) exposure to COVID-19; Z79.4 Long term (current) use of insulin; Z79.899 Other long term (current) drug therapy
CPT/HCPCS: 44970; 36415; 74177; 80053; 81003; 82947; 83690; 85025; 87635; 88304; 93005; 96365; 96375; 99024; 99285; J0131; J1100; J1170; J2250; J2405; J2543; J3010; Q9967

== ENCOUNTER → 2020-08-04 11:40 | Outpatient (BNVA) | payer OTHER, SELFPAY | PROVIDERS: PCP Nurse Practitioner Adult Health; Visit Provider Surgery ==

== ENCOUNTER 2021-06-26 15:52 | Emergency (ER) | payer OTHER, SELFPAY ==
--- NOTE | ~2021-06-26 | US_ITS ---
EXAMINATION: US ABDOMEN LIMITED CLINICAL INFORMATION: Right upper quadrant pain. COMPARISON: CT abdomen from 07/26/2020 TECHNIQUE: Real-time imaging of the right upper quadrant abdominal viscera. FINDINGS: PANCREAS: The visualized portions the pancreas are normal. No peripancreatic fluid. The pancreatic duct measures < 0.3 cm diameter. LIVER: There is hepatomegaly. The liver parenchyma is diffusely hyperechoic from steatosis. A small area of relative fat sparing is seen near the gallbladder fossa. No evidence of liver mass. No intrahepatic bile duct dilatation. GALLBLADDER: Normal. The gallbladder is physiologically distended without evidence of stones, sludge, polyps, wall thickening or pericholecystic fluid. COMMON BILE DUCT: The common duct measures up to maximum of 0.7 cm diameter. RIGHT KIDNEY: Normal. No hydronephrosis. No renal calculi or focal parenchymal lesions. The kidney measures 12.5 cm in maximum dimension. FREE FLUID: None. US/US abdomen limited IMPRESSION: * No acute sonographic abnormalities in the examined abdomen. * Diffuse hepatic steatosis and hepatomegaly. * No evidence of cholelithiasis, cholecystitis or biliary tract obstruction.
--- NOTE | ~2021-06-26 | CT_ITS ---
EXAMINATION: CT ABDOMEN AND PELVIS WITH CONTRAST CLINICAL INFORMATION: Right upper quadrant abdominal pain. COMPARISON: CT abdomen and pelvis from 07/26/2020. TECHNIQUE: Multidetector volumetric imaging was performed through the abdomen and pelvis after the administration of 85 mL of Omnipaque 350 intravenous contrast. Sagittal and coronal reformatted images were obtained on the technologist's workstation. This CT examination was performed using dose optimization techniques as appropriate, variously including the following: *Automated exposure control. *Adjustment of mA and/or kV according to patient size (this includes techniques or standardized protocols for targeted exams where dose is matched to indication/reason for exam; i.e. extremities or head). *Use of iterative reconstruction technique. DLP: 886 mGy-cm. FINDINGS: Lower Chest: Mild to moderate bilateral dependent atelectasis. Otherwise, no diffuse or focal parenchymal abnormalities in the visualized lung bases. No demonstrated significant abnormalities of the visualized cardiac structures. Liver, Biliary Ducts, and Gallbladder: The liver is enlarged, measuring up to 2.2 cm in craniocaudal dimension. Generalized hypoattenuation of the liver parenchyma consistent with underlying hepatic steatosis. Focal fatty sparing along the gallbladder fossa. There is a 1 cm hypoattenuating nodule along the right hepatic dome with characteristics of a small hepatic cyst versus hemangioma. No suspicious focal hepatic lesions. No biliary ductal dilatation. The gallbladder is physiologically distended without radiopaque gallstones, pericholecystic fluid, or significant gallbladder wall thickening. Pancreas: The pancreas is normal in appearance. Adrenal Glands: The adrenal glands are normal in appearance. Spleen: The spleen is normal in size. There is a nonspecific 2 cm hypoattenuating lesion within the lateral aspect of the spleen measuring greater than simple fluid density (30 Hounsfield units). Kidneys and Ureters: There is a 1.4 cm hypoattenuating lesion within the posterior aspect of the interpolar region of the right hepatic lobe that measures greater than simple fluid density (34-40 Hounsfield units). Otherwise, the kidneys demonstrate symmetric nephrograms without evidence of nephrolithiasis or hydronephrosis. No ureterolithiasis or hydroureter. Urinary Bladder: The urinary bladder is moderately distended without focal wall thickening. No bladder calculi are demonstrated. Gastrointestinal System: The stomach is decompressed and therefore not well evaluated on this exam. The small bowel is of normal caliber without regions of abnormal wall enhancement. Sigmoid colon diverticulosis without evidence of diverticulitis. Otherwise, the colon is normal in appearance without focal wall thickening or pericolonic inflammatory change. Changes of prior appendectomy. Genitourinary: No demonstrated adnexal soft tissue masses. Intra-abdominal and Retroperitoneal Spaces: No intra-abdominal free fluid collections or gas. No mesenteric, retroperitoneal, or inguinal lymphadenopathy. Vasculature: The abdominal aorta is of normal contour and caliber with mild calcific atherosclerotic disease. Musculoskeletal: Mild to moderate multilevel degenerative changes of the spine, most notably at L5-S1. No lytic or sclerotic osseous lesions demonstrated. Moderate subcutaneous edema within the inferior anterior abdominal wall suggestive of injection sites. No soft tissue masses demonstrated. CT/CT abdomen pelvis w con IMPRESSION: 1. No demonstrated acute intra-abdominal abnormalities to explain the patient's symptoms. 2. Hepatomegaly with hepatic steatosis. 3. A 1.4 cm lesion within the right kidney demonstrates nonsimple characteristics but is not fully characterized on this exam. While this may represent a complicated renal cyst, renal cortical CT or MR is recommended to fully characterize. 4. There is also a nonspecific 2 cm lesion within the spleen. This could be concurrently further characterized with multiphase CT or MRI. 5. Diverticulosis without evidence of diverticulitis.
[2021-06-26 16:45] VITALS: BP 149/87; PULSE 100; RESP 19; TEMP 36.7; O2SAT 95; BMI 38.8
[2021-06-26 16:51] LABS: MANUAL DIFF FLAG NO
[2021-06-26 17:06] LABS: Alanine Aminotransferase 21 U/L (0-31); Albumin Level 4.3 g/dL (3.5-5.0); Alkaline Phosphatase 131 U/L (39-117); Anion Gap 14 (12-20); Aspartate Amino Transferase 14 U/L (5-31); Bilirubin Total 0.6 mg/dL (0.0-1.0); Blood Urea Nitrogen 11 mg/dL (9-16); Calcium 9.6 mg/dL (8.4-10.2); Carbon Dioxide 23 mmol/L (22-29); Chloride 101 mmol/L (96-108); Creatinine Clr Calc Pharmacy 81.9; Estimated Glomerular Filt Rate > 60; Glucose Random 175 mg/dL (60-115); Potassium 4.3 mmol/L (3.3-5.1); Sodium 134 mmol/L (135-145); Total Protein 7.8 g/dL (6.5-8.0)
[2021-06-26 17:08] LABS: Basophils Percent Auto 0.3 % (0-2); Eosinophils Absolute Auto 0.3 X10*3/uL (0.0-0.4); Hematocrit 42.5 % (37.0-47.0); Hemoglobin 14.5 g/dl (12.0-16.0); Imm Gran Abs Auto 0.02 X10*3/uL (0.00-0.03); Imm Gran Pct Auto 0.2 % (0.0-0.4); Mean Corpuscular HGB Conc 34.1 g/dl (31.0-35.0); Mean Corpuscular Hemoglobin 29.4 pg (27.0-33.0); Mean Platelet Volume 9.4 fL (9.4-12.3); Monocytes Absolute Auto 0.9 X10*3/uL (0.1-1.2); Monocytes Percent Auto 6.9 % (2-11); Neutrophils Absolute Auto 8.2 x10*3/uL (2.0-8.3); Neutrophils Percent Auto 66.6 % (45-73); Platelet Count 315 X10*3/uL (160-400); Red Blood Count 4.94 X10*6/uL (4.20-5.50); Red Cell Distribution Width 12.4 % (11.0-16.0); White Blood Count 12.3 X10*3/uL (4.8-10.8)
[2021-06-26 17:27] LABS: Appearance Urine CLEAR; Color Urine YELLOW; Glucose Urine UA NEG (NEG); Leukocyte Esterase Urine NEG (NEG); Nitrite Urine NEG (NEG); PH 5.5 (5.0-8.0); Specific Gravity - Urine <= 1.005 (1.005-1.025); Urine Blood NEG (NEG); Urine Ketones NEG (NEG); Urine Protein NEG (NEG-TRACE)
[2021-06-26 21:58] LABS: Glucose, Whole Blood 144 mg/dL (60-115)
--- NOTE | 2021-06-26 22:11 | ED.ABDPAIN ---
HPI - Abdominal Pain General Chief Complaint: Abdominal Pain Stated Complaint: extreme stomach pain/nausea/headaches Time Seen by Provider: 06/26/21 22:03 Source: patient Mode of arrival: ambulatory Limitations: no limitations History of Present Illness HPI narrative: Patient with no significant abdominal complaints in the past status post appendectomy noticed pain in right upper quadrant since today morning gradual increasing increases on taking a deep breath and food feel nauseated did not eat much all day today feels slightly bloated, no fever no chills patient never had similar pain in the past no history of kidney stone noted urinary complaints Related Data Home Medications Medication Instructions Recorded Confirmed ergocalciferol (vitamin D2) 1,250 1 cap PO Q7D 07/27/20 08/04/20 mcg (50,000 unit) capsule hydroxychloroquine 200 mg tablet 1 tab PO BID 07/27/20 08/04/20 insulin detemir U-100 100 unit/mL 82 unit SUBCUT BEDTIME 07/27/20 08/04/20 subcutaneous solution (Levemir U-100 Insulin) insulin syringe-needle U-100 1 mL 07/27/20 08/04/20 31 gauge x 5/16 (BD Insulin Syringe Ultra-Fine) lisinopril 20 mg tablet 1 tab PO DAILY 07/27/20 08/04/20 lorazepam 0.5 mg tablet 1 tab PO TID PRN 07/27/20 08/04/20 ondansetron HCl 4 mg tablet 1 tab PO Q6-8H PRN 07/27/20 08/04/20 ropinirole 1 mg tablet 1 tab PO BID 07/27/20 08/04/20 Previous Rx's Medication Instructions Recorded fluconazole 100 mg tablet 100 mg PO DAILY #7 tab 08/04/20 (Diflucan) tramadol 50 mg tablet 50 mg PO Q6H PRN #20 tab 06/27/21 Allergies Allergy/AdvReac Type Severity Reaction Status Date / Time Codeine Sulfate Allergy Unknown Itching Uncoded 06/26/21 16:50 Review of Systems Review of Systems Yes all other systems are reviewed and are negative PMFSH Past Medical History Medical History Diabetes Hypertension Pain syndrome, chronic Restless legs syndrome RSD (reflex sympathetic dystrophy) Surgical History History of appendectomy Social History Social History Household Members: Significant Other and Children Housing: House Alcohol intake: never Cigarettes Per Day: 6 Years Smoked: 20 Second Hand Smoke Exposure: Yes Substance Use Type: Marijuana Advance Directives: No service: No Current occupational status: employed Physical Exam ED Vital Signs: Vital Signs - 24 hr 06/26/21 16:45 06/26/21 23:48 Temperature 98.1 F 98.5 F Pulse Rate 100 88 Respiratory Rate 19 16 Blood Pressure 149/87 H 106/52 L Pulse Oximetry 95 96 BMI result Body Mass Index 38.8 Appearance: Alert. Oriented X3. In moderate distress Eyes: No pallor or icterus ENT: Pharynx normal. Oral Mucosa moist Neck: Normal inspection. Neck supple. CVS: Normal heart rate and rhythm. Pulses normal. Respiratory: No respiratory distress. Equal air entry bilateral, no wheezing/rales/rhonchi Abdomen: Soft, right upper quadrant tenderness with guarding, Bowel sounds are present, no mass palpable, no CVA tenderness Skin: Skin warm and dry. Normal skin color. Normal skin turgor. Extremities: No lower extremity edema. No calf tenderness Neuro: Oriented X 3. MDM - Abdominal Pain MDM Narrative Medical decision making narrative: Patient right upper quadrant tenderness status post appendectomy likely has gallstones/cholecystitis will get ultrasound to rule out patient had CT scan done in 08/04 at that time there were no gallstones Patient's CT scan negative for any acute pathology likely patient's pain is from hepatic steatosis. Will discharge patient home on tramadol Differential Diagnosis Differential diagnosis: Likely calculus of kidney, diverticulitis, pancreatitis, peptic ulcer disease and small bowel obstruction Differential diagnosis narrative:: Cholecystitis Lab Data Attestation: I reviewed the patient's lab results. Result diagrams: 06/26/21 16:47 06/26/21 16:47 Labs: Lab Results 06/26/21 06/26/21 06/26/21 Range/Units 16:47 16:47 17:10 WBC 12.3 H (4.8-10.8) X10*3/uL RBC 4.94 (4.20-5.50) X10*6/uL Hgb 14.5 (12.0-16.0) g/dl Hct 42.5 (37.0-47.0) % MCV 86.0 (80.0-98.0) fL MCH 29.4 (27.0-33.0) pg MCHC 34.1 (31.0-35.0) g/dl RDW 12.4 (11.0-16.0) % Plt Count 315 (160-400) X10*3/uL MPV 9.4 (9.4-12.3) fL Immature Gran % (Auto) 0.2 (0.0-0.4) % Neut % (Auto) 66.6 (45-73) % Lymph % (Auto) 24.0 (20-40) % [place] % (Auto) 6.9 (2-11) % Eos % (Auto) 2.0 (0-4) % Baso % (Auto) 0.3 (0-2) % Lymph # (Auto) 3.0 (1.2-4.9) X10*3/uL [place] # (Auto) 0.9 (0.1-1.2) X10*3/uL Eos # (Auto) 0.3 (0.0-0.4) X10*3/uL Baso # (Auto) 0.0 (0.0-0.2) X10*3/uL Abs Immat Gran (auto) 0.02 (0.00-0.03) X10*3/uL Absolute Neuts (auto) 8.2 (2.0-8.3) x10*3/uL Absolute Nucleated RBC 0.000 (0.0-0.012) X10*3/uL Nucleated RBC % (auto) 0.0 (0.0-0.2) /100WBC Sodium 134 L (135-145) mmol/L Potassium 4.3 (3.3-5.1) mmol/L Chloride 101 (96-108) mmol/L Carbon Dioxide 23 (22-29) mmol/L Anion Gap 14 (12-20) BUN 11 (9-16) mg/dL Creatinine 0.80 (0.5-1.4) mg/dL Estim Creat Clear Calc 81.9 Estimated GFR > 60 POC Glucose (60-115) mg/dL Random Glucose 175 H (60-115) mg/dL Calcium 9.6 (8.4-10.2) mg/dL Total Bilirubin 0.6 (0.0-1.0) mg/dL AST 14 (5-31) U/L ALT 21 (0-31) U/L Alkaline Phosphatase 131 H D (39-117) U/L Total Protein 7.8 (6.5-8.0) g/dL Albumin 4.3 (3.5-5.0) g/dL Lipase 29 (8-78) U/L Urine Color YELLOW Urine Appearance CLEAR Urine pH 5.5 (5.0-8.0) Ur Specific [place] <= 1.005 (1.005-1.025) Urine Protein NEG (NEG-TRACE) MG/DL Urine Glucose (UA) NEG (NEG) MG/DL Urine Ketones NEG (NEG) MG/DL Urine Blood NEG (NEG) Urine Nitrite NEG (NEG) Ur Leukocyte Esterase NEG (NEG) 06/26/21 Range/Units 21:53 WBC (4.8-10.8) X10*3/uL RBC (4.20-5.50) X10*6/uL Hgb (12.0-16.0) g/dl Hct (37.0-47.0) % MCV (80.0-98.0) fL MCH (27.0-33.0) pg MCHC (31.0-35.0) g/dl RDW (11.0-16.0) % Plt Count (160-400) X10*3/uL MPV (9.4-12.3) fL Immature Gran % (Auto) (0.0-0.4) % Neut % (Auto) (45-73) % Lymph % (Auto) (20-40) % [place] % (Auto) (2-11) % Eos % (Auto) (0-4) % Baso % (Auto) (0-2) % Lymph # (Auto) (1.2-4.9) X10*3/uL [place] # (Auto) (0.1-1.2) X10*3/uL Eos # (Auto) (0.0-0.4) X10*3/uL Baso # (Auto) (0.0-0.2) X10*3/uL Abs Immat Gran (auto) (0.00-0.03) X10*3/uL Absolute Neuts (auto) (2.0-8.3) x10*3/uL Absolute Nucleated RBC (0.0-0.012) X10*3/uL Nucleated RBC % (auto) (0.0-0.2) /100WBC Sodium (135-145) mmol/L Potassium (3.3-5.1) mmol/L Chloride (96-108) mmol/L Carbon Dioxide (22-29) mmol/L Anion Gap (12-20) BUN (9-16) mg/dL Creatinine (0.5-1.4) mg/dL Estim Creat Clear Calc Estimated GFR POC Glucose 144 H (60-115) mg/dL Random Glucose (60-115) mg/dL Calcium (8.4-10.2) mg/dL Total Bilirubin (0.0-1.0) mg/dL AST (5-31) U/L ALT (0-31) U/L Alkaline Phosphatase (39-117) U/L Total Protein (6.5-8.0) g/dL Albumin (3.5-5.0) g/dL Lipase (8-78) U/L Urine Color Urine Appearance Urine pH (5.0-8.0) Ur Specific [place] (1.005-1.025) Urine Protein (NEG-TRACE) MG/DL Urine Glucose (UA) (NEG) MG/DL Urine Ketones (NEG) MG/DL Urine Blood (NEG) Urine Nitrite (NEG) Ur Leukocyte Esterase (NEG) Discharge Plan Discharge Clinical Impression: Abdominal pain Patient Disposition: Home, Self-Care Instructions: Abdominal Pain (ED) Additional Instructions: Etiology of abdominal pain is not very clear You have fat in your liver may be the cause for the pain Pain medication as prescribed and follow with PCP Prescriptions: New tramadol 50 mg tablet 50 mg PO Q6H PRN (Reason: pain) Qty: 20 0RF No Action ropinirole 1 mg tablet 1 tab PO BID 0RF lisinopril 20 mg tablet 1 tab PO DAILY 0RF ondansetron HCl 4 mg tablet 1 tab PO Q6-8H PRN (Reason: Nausea) 0RF lorazepam 0.5 mg tablet 1 tab PO TID PRN (Reason: anxiety) 0RF (DME) insulin syringe-needle U-100 [BD Insulin Syringe Ultra-Fine] 1 mL 31 gauge x 5/16 syringe MISCELLANEOUS DAILY 0RF ergocalciferol (vitamin D2) 1,250 mcg (50,000 unit) capsule 1 cap PO Q7D 0RF hydroxychloroquine 200 mg tablet 1 tab PO BID 0RF Levemir U-100 Insulin 100 unit/mL solution 82 unit SUBCUT BEDTIME 0RF fluconazole [Diflucan] 100 mg tablet 100 mg PO DAILY Qty: 7 0RF Stand Alone Forms: Work/School Release
[2021-06-26] MEDS: Morphine Sulfate 4 MG/ML CARTRIDGE IVPUSH (22:18)
[2021-06-26] MEDS: 0.9 % Sodium Chloride 1,000 ML 999 ML IV (22:18)
[2021-06-26] MEDS: ondansetron HCL 4 MG/2 ML VIAL IVPUSH (22:18)
--- NOTE | 2021-06-26 22:21 | PC.NURSE ---
Pt medicated for pain/nausea per MAR. U/S at bedside.
[2021-06-26 22:26] LABS: Lipase 29 U/L (8-78)
[2021-06-26] MEDS: iohexoL 350 MG/ML 100 ML INFUS..BTL 85 ML IV (23:29)
[2021-06-26 23:48] VITALS: BP 106/52; PULSE 88; RESP 16; TEMP 36.9; O2SAT 96
[2021-06-27] MEDS: Ketorolac Tromethamine 30 MG/ML VIAL IVPUSH (00:12)
[2021-06-27 09:07] LABS: Glucose, Whole Blood 175 mg/dL (60-115)
== END 2021-06-27 00:31 | disposition home or self-care (01) ==
PROVIDERS: Emergency Provider Internal Medicine
DX: R10.11 Right upper quadrant pain (principal); E11.9 Type 2 diabetes mellitus without complications; I10 Essential (primary) hypertension; F12.90 Cannabis use, unspecified, uncomplicated; Z79.4 Long term (current) use of insulin; Z79.899 Other long term (current) drug therapy
CPT/HCPCS: 36415; 74177; 76705; 80053; 81003; 82947; 83690; 85025; 96361; 96374; 96375; 99283; 99284; J1885; J2270; J2405; Q9967

== ENCOUNTER 2021-11-01 12:36 | Inpatient (IN) | payer OTHER, SELFPAY ==
--- NOTE | ~2021-11-01 | CT_ITS ---
EXAMINATION: CT HEAD WITHOUT CONTRAST CLINICAL INFORMATION: Lightheadedness. COMPARISON: CT of the head done on 09/24/2008. TECHNIQUE: Contiguous axial imaging was performed from the skull base to vertex without intravenous administration of contrast. This CT examination was performed using dose optimization techniques as appropriate, variously including the following: *Automated exposure control *Adjustment of mA and/or kV according to patient size (this includes techniques or standardized protocols for targeted exams where dose is matched to indication/reason for exam; i.e. extremities or head) *Use of iterative reconstruction technique DLP: 655.5 mGy-cm FINDINGS: There is no evidence of acute intracranial hemorrhage or territorial infarction. No abnormal mass effect or midline shift is seen. Hirsch to white matter differentiation is well preserved. No extra-axial fluid collections are identified. The ventricles are normal in size. Subcentimeter stable hypodensity is present within the left basal ganglia, most consistent with a prominent virchow paula space or old lacunar infarction (171:6). Mild prominent extra-axial space is noted around both frontal lobes, similar to prior study. The osseous structures and soft tissues are normal. Dense opacification associated with hypodensity within the left maxillary sinus associated with asymmetric sclerosis of the sinus marx, most consistent with chronic sinusitis with superimposed fungal disease or inspissated secretions (3:2) Partial opacification of the right mastoid air cell is also noted, new since prior study. CT/CT head/brain wo con IMPRESSION: 1. No acute intracranial pathology. Reidentified stable subcentimeter old lacunar infarction versus prominent virchow paula space at the left basal ganglia, unchanged since 09/24/2008. 2. Abnormal left maxillary sinus showing features consistent with chronic sinusitis with superimposed fungal disease or inspissated secretions shows progression since prior study. 3. Partial opacification of the right mastoid air cells, new since prior study.
--- NOTE | ~2021-11-01 | MR_ITS ---
EXAMINATION: MR BRAIN WITHOUT CONTRAST CLINICAL INFORMATION: Slurred speech. COMPARISON: CT head from 11/01/2021. Brain MRI from 10/03/2008. TECHNIQUE: MRI of the brain was obtained using routine sequences without contrast. FINDINGS: No focal restricted diffusion is demonstrated to suggest acute or subacute cerebral ischemia. No evidence of acute or chronic hemorrhagic products on heme-sensitive imaging. Scattered periventricular and deep white matter T2 FLAIR hyperintensities consistent with mild underlying microangiopathy. Prominent perivascular space caudal to the left basal ganglia. Proportional prominence of the ventricles and sulcal spaces without evidence of obstructive hydrocephalus. No abnormal mass effect. No midline shift. Normal appearance of the pituitary gland. Normal positioning of the cerebellar tonsils. Normal arterial and venous vascular flow voids are present. Normal, homogeneous marrow signal. Complete opacification of an atelectatic left maxillary sinus with T2 hypointense material suggestive of chronically inspissated mucus versus sequela of allergic fungal colonization. Otherwise, mild mucosal thickening of the paranasal sinuses. Moderate right-sided mastoid effusion. No signal abnormalities within the left-sided mastoid. MR/MR head/brain wo con IMPRESSION: 1. No acute intracranial abnormalities. 2. Mild underlying microangiopathy. 3. Complete opacification of an atelectatic left maxillary sinus with partially calcified material suggestive of chronic inspissated mucus versus sequela of allergic fungal colonization. Moderate right-sided mastoid effusion.
--- NOTE | ~2021-11-01 | XR_ITS ---
EXAMINATION: XR CHEST CLINICAL INFORMATION: Lightheadedness. COMPARISON: Chest done on 07/18/2008. TECHNIQUE: Frontal view of the chest was obtained. FINDINGS: Mild pulmonary venous congestion and mild enlargement of the cardiac mediastinal silhouette is present, may represent mild CHF. Both lungs are clear. No evidence of any pleural effusion or right upper abdomen is unremarkable. The findings are new since 07/18/2008. XR/XR chest 1V IMPRESSION: Mild pulmonary venous congestion and mild enlargement of the cardiac mediastinal silhouette, appear new since prior study, may represent mild CHF.
[2021-11-01 13:05] VITALS: BP 106/57; BP 119/78; PULSE 70; PULSE 75; RESP 16; TEMP 36.9; O2SAT 94; O2SAT 97; BMI 39.3
--- NOTE | 2021-11-01 14:16 | ECG_ITS ---
Test Reason : weakness Blood Pressure : / mmHG Vent. Rate : 071 BPM Atrial Rate : 071 BPM P-R Int : 154 ms QRS Dur : 072 ms QT Int : 396 ms P-R-T Axes : 036 038 021 degrees QTc Int : 430 ms Normal sinus rhythm Normal ECG When compared with ECG of 26-JUL-2020 21:40, No significant change was found Referred By: Montserrat Lopez Electronically Signed By:RODNEY HUGHES
--- NOTE | 2021-11-01 14:35 | ED_ITS ---
HPI - Weakness General Chief complaint: Weakness Stated complaint: NAUSEA/VOMITING Time Seen by Provider: 11/01/21 13:44 Source: patient and EMS Mode of arrival: EMS History of Present Illness HPI Narrative: 61-year-old female with a past medical history of diabetes, HTN, restless leg syndrome, chronic pain syndrome, BIBA c/o nausea, vomiting, fatigue/weakness, headache, and lightheadedness x3 days. Reports head pressure behind eyes, denies headache being maximal at onset. Denies taking AC. Sister and concerned patient was having a stroke due to slurred speech this a.m., & sister at bedside reports patient is still not at her baseline, appears slow to respond/not herself. Reports subjective fever and chills. Denies vision change/loss, neck pain, back pain, chest pain/shortness of breath, abdominal pain, diarrhea, numb ness/tingling MD Complaint: generalized weakness and lack of energy Onset (ago): day(s) Duration: constant Related Data Home Medications Medication Instructions Recorded Confirmed ergocalciferol (vitamin D2) 1,250 1 cap PO Q7D 07/27/20 08/04/20 mcg (50,000 unit) capsule hydroxychloroquine 200 mg tablet 1 tab PO BID 07/27/20 08/04/20 insulin detemir U-100 100 unit/mL 82 unit subcut BEDTIME 07/27/20 08/04/20 subcutaneous solution (Levemir U-100 Insulin) insulin syringe-needle U-100 1 mL 07/27/20 08/04/20 31 gauge x 5/16 (BD Insulin Syringe Ultra-Fine) lisinopril 20 mg tablet 1 tab PO DAILY 07/27/20 08/04/20 lorazepam 0.5 mg tablet 1 tab PO TID PRN anxiety 07/27/20 08/04/20 ondansetron HCl 4 mg tablet 1 tab PO Q6-8H PRN Nausea 07/27/20 08/04/20 ropinirole 1 mg tablet 1 tab PO BID 07/27/20 08/04/20 Previous Rx's Medication Instructions Recorded fluconazole 100 mg tablet 100 mg PO DAILY #7 tabs 08/04/20 (Diflucan) tramadol 50 mg tablet 50 mg PO Q6H PRN pain #20 tabs 06/27/21 Allergies Allergy/AdvReac Type Severity Reaction Status Date / Time Codeine Sulfate Allergy Unknown Itching Uncoded 06/26/21 16:50 Review of Systems Review of Systems: Constitutional: +subj Fever, + Chills, No Night Sweats, + Fatigue, + Malaise ENT/Mouth: No Hearing loss, No Ear Pain, No Nasal Congestion, + Sinus Pain, No Hoarseness, + sore throat, No Rhinorrhea, No Swallowing Difficulty Eyes: No Eye Pain, No Swelling, No Redness, No Vision Changes Cardiovascular: No Chest Pain, No SOB, No Dyspnea on Exertion, No Orthopnea, No Edema, No Palpitations Respiratory: No Cough, No Sputum, No Dyspnea Gastrointestinal: + Nausea, + Vomiting, No Diarrhea, No Constipation, No Abd ominal pain Genitourinary: No Dysuria, No Urinary Frequency, No Hematuria, No Urinary Incontinence/retention, No Urinary Flow Changes, No Hesitancy Musculoskeletal: No joint pain, + Myalgias, No Joint Swelling Skin: No Skin Lesions, No rash Neuro: + Weakness, No Numbness, No Paresthesias, No Loss of Consciousness, + lightheadedness, + Headache Yes all other systems are reviewed and are negative Constitutional: Constitutional: Reports as per HPI Neurologic: Denies Abnormal speech present [facility] Past Medical History Attestation statement: The following information was validated with the patient. Medical History Autoimmune disorder Diabetes Hypertension Pain syndrome, chronic Restless legs syndrome RSD (reflex sympathetic dystrophy) Surgical History History of appendectomy Social History Social History Household Members: Significant Other and Children Housing: House Alcohol intake: never Patient Tobacco Use Status: Current everyday Tobacco user Cigarettes Per Day: 6 Years Smoked: 20 Smoked in Last 30 Days: Yes Second Hand Smoke Exposure: Yes Use of substances other than those prescribed or required for medical reasons: Yes Substance Use Type: Marijuana Substance Use Frequency: Occasionally Substance Use Frequency Other:: uses marijuana for sleep Advance Directives: No service: No Current occupational status: employed Physical Exam Vital Signs: Vital Signs: Last Vital Signs Temp 98.5 F 11/01/21 13:05 Pulse 82 11/01/21 16:10 Resp 16 11/01/21 13:05 BP 118/64 11/01/21 16:10 Pulse Ox 94 11/01/21 13:05 O2 Del Method 11/01/21 13:05 BMI result Body Mass Index 39.3 Const: General: cooperative, healthy appearing, no acute distress, alert and awake Orientation/consciousness: patient oriented x3 Limitations: no limitations HEENT: Head: Yes normal to inspection and Yes atraumatic Ears: hearing grossly normal bilaterally, TM's normal bilaterally and mastoids normal General nose exam: Normal external nose present Face and sinus: Yes normal facial exam Mouth: Normal oral and palatal mucosa present Throat: Yes posterior oropharynx normal, Yes tonsils normal and No uvula laterally displaced Eyes: General: appearance normal, both eyes and all related structures Pupils: Equal, round and reactive pupils present EOM: EOMs intact bilaterally Neck: Neck: Yes normal visual inspection, Yes full ROM and Yes no meningeal signs Resp: Effort & Inspection: normal respiratory effort and no respiratory distress Auscultation: clear to auscultation bilaterally, no crackles, no rales and no rhonchi Cardio: Rate: regular rate Heart sounds: S1 normal heart sound present and S2 normal heart sound present GI: Inspection: Yes normal to inspection Palpation (GI): Soft to palpation, nontender, no guarding and not rigid : General: Yes no CVA tenderness Back/Spine/Pelvis: Back: no CVA tenderness Skin: Rashes: no rashes Wounds: no wounds Neuro: General: patient oriented x3, tone normal, moves all extremities, no meningeal signs, no focal motor deficits and CN's II-XI intact bilaterally Cranial nerves: Yes CN's II-XII intact bilaterally and Yes Equal, round and reactive pupils present Cognition (Neuro): normal cognition Speech: No Abnormal speech present Motor exam (neuro): 5/5 motor strength present throughout, Pronator motor function not present and no tremor noted Coordination: [id number] test normal Romberg Test: Negative Extrem: General: Yes normal to inspection and Yes no pedal edema Course Course Course Narrative: -1534--no leukocytosis. Chronic hyponatremia. Potassium mildly elevated to 5.2. Chloride mildly low and bicarb mildly elevated. -troponin negative. BNP 114 -UA negative. COVID-19 negative XR chest 1V IMPRESSION: Mild pulmonary venous congestion and mild enlargement of the cardiac mediastinal silhouette, appear new since prior study, may represent mild CHF. CT head/brain wo con IMPRESSION: 1. No acute intracranial pathology. Reidentified stable subcentimeter old lacunar infarction versus prominent virchow paula space at the left basal ganglia, unchanged since 09/24/2008. ? 2. Abnormal left maxillary sinus showing features consistent with chronic sinusitis with superimposed fungal disease or inspissated secretions shows progression since prior study. 3. Partial opacification of the right mastoid air cells, new since prior study. > Plan to admit for further management and likely MRI in the AM. Case discussed with Dr. Rodriguez who is in agreement with plan MDM - Weakness MDM Narrative Medical decision making narrative: 61-year-old female with a past medical history of diabetes, HTN, restless leg syndrome, chronic pain syndrome, BIBA c/o nausea, vomiting, fatigue/weakness, headache, and lightheadedness x3 days. On exam vital signs stable, NAD, A&O x3, no focal neuro deficits, lungs CTA, abdomen soft/nontender. Concern for viral illness vs metabolic/infectious etiologies including dehydration vs ? CVA/TIA. Lower suspicion for SAH. Unlikely appendicitis/diverticulitis/cholecystitis/lithiasis or pancreatitis NIHSS=0 Plan: EKG, labs, UA, CXR, head CT, IVF, orthostatic vital signs, re-evaluate, +/-admission Differential Diagnosis Differential diagnosis: Likely UTI, anemia, hypoglycemia and dehydration Medical Records Attestation: I reviewed the patient's medical records. Lab Data Attestation: I reviewed the patient's lab results. Result diagrams: 11/01/21 14:53 11/01/21 14:53 Labs: Lab Results 11/01/21 11/01/21 11/01/21 Range/Units 14:48 14:53 14:53 WBC 9.1 (4.8-10.8) X10*3/uL RBC 4.23 (4.20-5.50) X10*6/uL Hgb 12.6 (12.0-16.0) g/dl Hct 38.1 (37.0-47.0) % MCV 90.1 (80.0-98.0) fL MCH 29.8 (27.0-33.0) pg MCHC 33.1 (31.0-35.0) g/dl RDW 12.9 (11.0-16.0) % Plt Count 248 (160-400) X10*3/uL MPV 9.3 L (9.4-12.3) fL Immature Gran % (Auto) 0.2 (0.0-0.4) % Neut % (Auto) 72.2 (45-73) % Lymph % (Auto) 19.3 L (20-40) % Hawkins % (Auto) 7.3 (2-11) % Eos % (Auto) 0.7 (0-4) % Baso % (Auto) 0.3 (0-2) % Lymph # (Auto) 1.8 (1.2-4.9) X10*3/uL [place] # (Auto) 0.7 (0.1-1.2) X10*3/uL Eos # (Auto) 0.1 (0.0-0.4) X10*3/uL Baso # (Auto) 0.0 (0.0-0.2) X10*3/uL Abs Immat Gran (auto) 0.02 (0.00-0.03) X10*3/uL Absolute Neuts (auto) 6.5 (2.0-8.3) x10*3/uL Absolute Nucleated RBC 0.000 (0.0-0.012) X10*3/uL Nucleated RBC % (auto) 0.0 (0.0-0.2) /100WBC Sodium 133 L (135-145) mmol/L Potassium 5.2 H D (3.3-5.1) mmol/L Chloride 94 L (96-108) mmol/L Carbon Dioxide 33 H (22-29) mmol/L Anion Gap 11 L (12-20) BUN 12 (9-16) mg/dL Creatinine 0.75 (0.5-1.4) mg/dL Estim Creat Clear Calc 88.1 Estimated GFR > 60 Random Glucose 196 H (60-115) mg/dL Calcium 9.6 (8.4-10.2) mg/dL Magnesium 1.8 (1.6-2.6) mg/dL Total Bilirubin 0.7 (0.0-1.0) mg/dL Direct Bilirubin 0.2 (0.0-0.5) mg/dL AST 11 (5-31) U/L ALT 22 (0-31) U/L Alkaline Phosphatase 100 D (39-117) U/L Ammonia (13-55) umol/L Troponin I High Sens (<3.5-17.0) ng/L B-Natriuretic Peptide (<100) pg/mL Total Protein 6.8 (6.5-8.0) g/dL Albumin 4.0 (3.5-5.0) g/dL Lipase 15 (8-78) U/L Urine Color Urine Appearance Urine pH (5.0-8.0) Ur Specific [place] (1.005-1.025) Urine Protein (Neg-Trace) mg/dL Urine Glucose (UA) (Negative) mg/dL Urine Ketones (Negative) mg/dL Urine Blood (Negative) Urine Nitrite (Negative) Ur Leukocyte Esterase (Negative) COVID-19 (RADHA) Negative (Negative) COVID-19 Clin Com See Note 11/01/21 11/01/21 11/01/21 Range/Units 14:53 14:53 14:53 WBC (4.8-10.8) X10*3/uL RBC (4.20-5.50) X10*6/uL Hgb (12.0-16.0) g/dl Hct (37.0-47.0) % MCV (80.0-98.0) fL MCH (27.0-33.0) pg MCHC (31.0-35.0) g/dl RDW (11.0-16.0) % Plt Count (160-400) X10*3/uL MPV (9.4-12.3) fL Immature Gran % (Auto) (0.0-0.4) % Neut % (Auto) (45-73) % Lymph % (Auto) (20-40) % [place] % (Auto) (2-11) % Eos % (Auto) (0-4) % Baso % (Auto) (0-2) % Lymph # (Auto) (1.2-4.9) X10*3/uL [place] # (Auto) (0.1-1.2) X10*3/uL Eos # (Auto) (0.0-0.4) X10*3/uL Baso # (Auto) (0.0-0.2) X10*3/uL Abs Immat Gran (auto) (0.00-0.03) X10*3/uL Absolute Neuts (auto) (2.0-8.3) x10*3/uL Absolute Nucleated RBC (0.0-0.012) X10*3/uL Nucleated RBC % (auto) (0.0-0.2) /100WBC Sodium (135-145) mmol/L Potassium (3.3-5.1) mmol/L Chloride (96-108) mmol/L Carbon Dioxide (22-29) mmol/L Anion Gap (12-20) BUN (9-16) mg/dL Creatinine (0.5-1.4) mg/dL Estim Creat Clear Calc Estimated GFR Random Glucose (60-115) mg/dL Calcium (8.4-10.2) mg/dL Magnesium (1.6-2.6) mg/dL Total Bilirubin (0.0-1.0) mg/dL Direct Bilirubin (0.0-0.5) mg/dL AST (5-31) U/L ALT (0-31) U/L Alkaline Phosphatase (39-117) U/L Ammonia 24 (13-55) umol/L Troponin I High Sens < 3.5 (<3.5-17.0) ng/L B-Natriuretic Peptide 114 H (<100) pg/mL Total Protein (6.5-8.0) g/dL Albumin (3.5-5.0) g/dL Lipase (8-78) U/L Urine Color Urine Appearance Urine pH (5.0-8.0) Ur Specific [place] (1.005-1.025) Urine Protein (Neg-Trace) mg/dL Urine Glucose (UA) (Negative) mg/dL Urine Ketones (Negative) mg/dL Urine Blood (Negative) Urine Nitrite (Negative) Ur Leukocyte Esterase (Negative) COVID-19 (RADHA) (Negative) COVID-19 Clin Com 11/01/21 Range/Units 16:23 WBC (4.8-10.8) X10*3/uL RBC (4.20-5.50) X10*6/uL Hgb (12.0-16.0) g/dl Hct (37.0-47.0) % MCV (80.0-98.0) fL MCH (27.0-33.0) pg MCHC (31.0-35.0) g/dl RDW (11.0-16.0) % Plt Count (160-400) X10*3/uL MPV (9.4-12.3) fL Immature Gran % (Auto) (0.0-0.4) % Neut % (Auto) (45-73) % Lymph % (Auto) (20-40) % [place] % (Auto) (2-11) % Eos % (Auto) (0-4) % Baso % (Auto) (0-2) % Lymph # (Auto) (1.2-4.9) X10*3/uL [place] # (Auto) (0.1-1.2) X10*3/uL Eos # (Auto) (0.0-0.4) X10*3/uL Baso # (Auto) (0.0-0.2) X10*3/uL Abs Immat Gran (auto) (0.00-0.03) X10*3/uL Absolute Neuts (auto) (2.0-8.3) x10*3/uL Absolute Nucleated RBC (0.0-0.012) X10*3/uL Nucleated RBC % (auto) (0.0-0.2) /100WBC Sodium (135-145) mmol/L Potassium (3.3-5.1) mmol/L Chloride (96-108) mmol/L Carbon Dioxide (22-29) mmol/L Anion Gap (12-20) BUN (9-16) mg/dL Creatinine (0.5-1.4) mg/dL Estim Creat Clear Calc Estimated GFR Random Glucose (60-115) mg/dL Calcium (8.4-10.2) mg/dL Magnesium (1.6-2.6) mg/dL Total Bilirubin (0.0-1.0) mg/dL Direct Bilirubin (0.0-0.5) mg/dL AST (5-31) U/L ALT (0-31) U/L Alkaline Phosphatase (39-117) U/L Ammonia (13-55) umol/L Troponin I High Sens (<3.5-17.0) ng/L B-Natriuretic Peptide (<100) pg/mL Total Protein (6.5-8.0) g/dL Albumin (3.5-5.0) g/dL Lipase (8-78) U/L Urine Color Yellow Urine Appearance Clear Urine pH 6.0 (5.0-8.0) Ur Specific [place] 1.020 (1.005-1.025) Urine Protein Negative (Neg-Trace) mg/dL Urine Glucose (UA) 250 H (Negative) mg/dL Urine Ketones Negative (Negative) mg/dL Urine Blood Negative (Negative) Urine Nitrite Negative (Negative) Ur Leukocyte Esterase Negative (Negative) COVID-19 (RADHA) (Negative) COVID-19 Clin Com Discharge Plan Discharge Clinical Impression: Weakness, Nausea & vomiting, Lightheadedness Patient Disposition: Admitted As Inpatient Prescriptions: No Action ropinirole 1 mg tablet 1 tab PO BID lisinopril 20 mg tablet 1 tab PO DAILY ondansetron HCl 4 mg tablet 1 tab PO Q6-8H PRN (Reason: Nausea) lorazepam 0.5 mg tablet 1 tab PO TID PRN (Reason: anxiety) (DME) insulin syringe-needle U-100 [BD Insulin Syringe Ultra-Fine] 1 mL 31 gauge x 5/16 syringe MISCELLANEOUS DAILY ergocalciferol (vitamin D2) 1,250 mcg (50,000 unit) capsule 1 cap PO Q7D hydroxychloroquine 200 mg tablet 1 tab PO BID Levemir U-100 Insulin 100 unit/mL solution 82 unit SUBCUT BEDTIME tramadol 50 mg tablet 50 mg PO Q6H PRN (Reason: pain) Qty: 20 0RF fluconazole [Diflucan] 100 mg tablet 100 mg PO DAILY Qty: 7 0RF
[2021-11-01 14:59] LABS: MANUAL DIFF FLAG NO
[2021-11-01] MEDS: ondansetron HCL 4 MG/2 ML VIAL IVPUSH (15:03)
[2021-11-01] MEDS: diphenhydrAMINE HCL 50 MG/ML VIAL 12.5 MG IVPUSH (15:03)
[2021-11-01 15:06] LABS: Ammonia 24 umol/L (13-55)
[2021-11-01 15:07] LABS: Basophils Percent Auto 0.3 % (0-2); Eosinophils Absolute Auto 0.1 X10*3/uL (0.0-0.4); Eosinophils Percent Auto 0.7 % (0-4); Hematocrit 38.1 % (37.0-47.0); Hemoglobin 12.6 g/dl (12.0-16.0); Imm Gran Abs Auto 0.02 X10*3/uL (0.00-0.03); Imm Gran Pct Auto 0.2 % (0.0-0.4); Lymphocytes Absolute Auto 1.8 X10*3/uL (1.2-4.9); Lymphocytes Percent Auto 19.3 % (20-40); Mean Corpuscular HGB Conc 33.1 g/dl (31.0-35.0); Mean Corpuscular Hemoglobin 29.8 pg (27.0-33.0); Mean Corpuscular Volume 90.1 fL (80.0-98.0); Mean Platelet Volume 9.3 fL (9.4-12.3); Monocytes Absolute Auto 0.7 X10*3/uL (0.1-1.2); Monocytes Percent Auto 7.3 % (2-11); Neutrophils Absolute Auto 6.5 x10*3/uL (2.0-8.3); Neutrophils Percent Auto 72.2 % (45-73); Platelet Count 248 X10*3/uL (160-400); Red Blood Count 4.23 X10*6/uL (4.20-5.50); Red Cell Distribution Width 12.9 % (11.0-16.0); White Blood Count 9.1 X10*3/uL (4.8-10.8)
[2021-11-01] MEDS: 0.9 % Sodium Chloride 1,000 ML 999 ML IV (15:09)
[2021-11-01 15:16] LABS: Alanine Aminotransferase 22 U/L (0-31); Alkaline Phosphatase 100 U/L (39-117); Anion Gap 11 (12-20); Aspartate Amino Transferase 11 U/L (5-31); Bilirubin Direct 0.2 mg/dL (0.0-0.5); Bilirubin Total 0.7 mg/dL (0.0-1.0); Blood Urea Nitrogen 12 mg/dL (9-16); Calcium 9.6 mg/dL (8.4-10.2); Carbon Dioxide 33 mmol/L (22-29); Chloride 94 mmol/L (96-108); Creatinine Clr Calc Pharmacy 88.1; Estimated Glomerular Filt Rate > 60; Glucose Random 196 mg/dL (60-115); Lipase 15 U/L (8-78); Magnesium 1.8 mg/dL (1.6-2.6); Potassium 5.2 mmol/L (3.3-5.1); Sodium 133 mmol/L (135-145); Total Protein 6.8 g/dL (6.5-8.0)
[2021-11-01 15:16] LABS: COVID-19 Test Negative (Negative)
[2021-11-01 15:20] LABS: B Type Natriuretic Peptide 114 pg/mL (<100); Troponin-I High Sensitivity < 3.5 ng/L (<3.5-17.0)
[2021-11-01 16:05] VITALS: BP 103/60; PULSE 74
[2021-11-01 16:10] VITALS: BP 112/61; BP 118/64; PULSE 77; PULSE 82
--- NOTE | 2021-11-01 16:14 | PC.NURSE ---
pt a&ox3, vss, ortho stat vitals complete - pt noted some nausea upon sitting and slight dizziness on standing, urine sample obtained.
--- NOTE | 2021-11-01 16:25 | P.HPHOSP_ITS ---
History of Present Illness Date of Service: 11/01/21 Chief Complaint: Weakness 61-year-old female with a past medical history of diabetes, HTN, restless leg syndrome, chronic pain syndrome due to RSD, presented with nausea, vomiting, fatigue and generalized weakness, weakness, headache, and lightheadedness x3 days. she was having pressure behind her yees, and was having slur speech, and family was concern of her having stroke and brought to the ED. CT head show no acute finding. Labs are unremarkable other than sodium of 133 Review of Systems Review of Systems: Gen: no fever Resp: no sob, no cough CV: no chest, no LUKE, no leg edema GI: No n/v, no abd pain Neuro: No confusion [facility] Medical History Autoimmune disorder Diabetes Hypertension Pain syndrome, chronic Restless legs syndrome RSD (reflex sympathetic dystrophy) Surgical History History of appendectomy Social History Household Members: Significant Other and Children Housing: House Alcohol intake: never Patient Tobacco Use Status: Current everyday Tobacco user Tobacco use type: Cigarette Cigarettes Per Day: 6 Years Smoked: 20 Smoked in Last 30 Days: Yes Patient Interested in Nicotine Replacement: No Patient Given Instructions on How to Stop Smoking: No (declined) Second Hand Smoke Exposure: No Use of substances other than those prescribed or required for medical reasons: Yes Substance Use Type: Marijuana Substance Use Frequency: Occasionally Substance Use Frequency Other:: uses marijuana for sleep Advance Directives: No Advance Directives Information Provided: No Advance Directives on File: No service: No Current occupational status: employed Meds Allergies Allergy/AdvReac Type Severity Reaction Status Date / Time Codeine Sulfate Allergy Unknown Itching Uncoded 06/26/21 16:50 Active Medications: Current Medications Pharmacy Consult (Consult Rx Perform Med Rec) 1 each MISCELLANE ONCE PRN PRN Reason: Consult order Home Medications Medication Instructions Recorded Confirmed Last Taken Type hydroxychloroquine 200 mg tablet 1 tab PO BID 07/27/20 11/01/21 Unknown History insulin detemir U-100 100 unit/mL 50 unit subcut BID 07/27/20 11/01/21 11/01/21 History subcutaneous solution (Levemir U-100 Insulin) insulin syringe-needle U-100 1 mL 07/27/20 08/04/20 Unknown History 31 gauge x 5/16 (BD Insulin Syringe Ultra-Fine) lisinopril 20 mg tablet 1 tab PO BEDTIME 07/27/20 11/01/21 Unknown History lorazepam 0.5 mg tablet 1 tab PO TID PRN anxiety 07/27/20 11/01/21 Unknown History ondansetron HCl 4 mg tablet 1 tab PO Q8H PRN Nausea 07/27/20 11/01/21 Unknown Hi story ropinirole 1 mg tablet 2 tab PO BEDTIME 07/27/20 11/01/21 Unknown History aspirin 81 mg capsule 81 mg PO DAILY 11/01/21 11/01/21 Unknown History cholecalciferol (vitamin D3) 1,250 1 cap PO MO@1000 11/01/21 11/01/21 Unknown History mcg (50,000 unit) capsule dulaglutide 1.5 mg/0.5 mL 1.5 mg subcut SA@1000 11/01/21 11/01/21 Unknown History subcutaneous pen injector (Trulicity) duloxetine 20 mg capsule,delayed 20 mg PO BID 11/01/21 11/01/21 Unknown History release gabapentin 800 mg tablet 800 mg PO TID 11/01/21 11/01/21 Unknown History magnesium 250 mg tablet 250 mg PO DAILY 11/01/21 11/01/21 Unknown History nicotine 7 mg/24 hr daily 1 patch transdermal Q24H 11/01/21 11/01/21 Unknown History transdermal patch oxycodone 10 mg tablet 10 mg PO Q4H PRN Pain, Moderate 11/01/21 11/01/21 Unknown History oxycodone 15 mg tablet 15 mg PO BEDTIME PRN Pain (Scale 11/01/21 11/01/21 Unknown History Score 4-6) Physical Exam Vital Signs and Narrative: Vital Signs: Last Vital Signs Temp 98.5 F 11/01/21 13:05 Pulse 82 11/01/21 16:10 Resp 16 11/01/21 13:05 BP 118/64 11/01/21 16:10 Pulse Ox 94 11/01/21 13:05 O2 Del Method 11/01/21 13:05 BMI result Body Mass Index 39.3 Const: Other: Constitutional: Alert, in no distress, overweight. Mental Status: Oriented to person, place and time. Eyes: Pupils are equal, round and reactive to light. Ear, Nose and Throat: Oropharynx clear, mucous membranes moist. Ears and nose without eformities. Trachea midline. Respiratory: Clear to auscultation. No wheezing, rales or rhonchi. Cardiovascular: S1 S2 regular. No murmurs, rubs or gallops. Gastrointestinal: Abdomen soft, non-tender, non-distended. Normal bowel sounds.? Neurologic: Cranial nerves II-XII grossly intact. No focal neurological deficits. Moves all extremities spontaneously.? Skin: No rashes or lesions.? Musculoskeletal: No cyanosis or clubbing. Psychiatric: Normal mood and affect? Results Labs CBC and Chem 7: 11/01/21 14:53 11/01/21 14:53 Labs: Laboratory Results - last 24 hr 11/01/21 11/01/21 11/01/21 14:48 14:53 14:53 MCV 90.1 MCH 29.8 MCHC 33.1 RDW 12.9 Plt Count 248 MPV 9.3 L Immature Gran % (Auto) 0.2 Neut % (Auto) 72.2 Lymph % (Auto) 19.3 L [place] % (Auto) 7.3 Eos % (Auto) 0.7 Baso % (Auto) 0.3 Lymph # (Auto) 1.8 [place] # (Auto) 0.7 Eos # (Auto) 0.1 Baso # (Auto) 0.0 Abs Immat Gran (auto) 0.02 Absolute Neuts (auto) 6.5 Absolute Nucleated RBC 0.000 Nucleated RBC % (auto) 0.0 Anion Gap 11 L Estim Creat Clear Calc 88.1 Estimated GFR > 60 Random Glucose 196 H Calcium 9.6 Magnesium 1.8 Total Bilirubin 0.7 Direct Bilirubin 0.2 AST 11 ALT 22 Alkaline Phosphatase 100 D Ammonia B-Natriuretic Peptide Total Protein 6.8 Albumin 4.0 Lipase 15 COVID-19 (RADHA) Negative COVID-19 Clin Com See Note 11/01/21 11/01/21 14:53 14:53 MCV MCH MCHC RDW Plt Count MPV Immature Gran % (Auto) Neut % (Auto) Lymph % (Auto) [place] % (Auto) Eos % (Auto) Baso % (Auto) Lymph # (Auto) [place] # (Auto) Eos # (Auto) Baso # (Auto) Abs Immat Gran (auto) Absolute Neuts (auto) Absolute Nucleated RBC Nucleated RBC % (auto) Anion Gap Estim Creat Clear Calc Estimated GFR Random Glucose Calcium Magnesium Total Bilirubin Direct Bilirubin AST ALT Alkaline Phosphatase Ammonia 24 B-Natriuretic Peptide 114 H Total Protein Albumin Lipase COVID-19 (RADHA) COVID-19 Clin Com Imaging Radiologist's Impressions: Impressions Chest X-Ray 11/01/21 14:32 IMPRESSION: Mild pulmonary venous congestion and mild enlargement of the cardiac mediastinal silhouette, appear new since prior study, may represent mild CHF. Head CT 11/01/21 14:36 IMPRESSION: 1. No acute intracranial pathology. Reidentified stable subcentimeter old lacunar infarction versus prominent virchow paula space at the left basal ganglia, unchanged since 09/24/2008. 2. Abnormal left maxillary sinus showing features consistent with chronic sinusitis with superimposed fungal disease or inspissated secretions shows progression since prior study. 3. Partial opacification of the right mastoid air cells, new since prior study. Assessment and Plan (1) Weakness: Status: Resolved Plan Patient with nonspecific symptoms of generalized weakness, ? slur speech.. normal CT.. Doubt CVA or even TIA.. JACOBSON likely from sinusitis Plan: Observe overnight, MRI and consider neuro consult. Pain med PRN for headache, Sinusitis likely non-infectious, consider nasal steroid spray Quality Stroke Does the patient have a stroke diagnosis?: No VTE Prior VTE?: No VTE Risk Level:: Medical - low VTE Device Contraindication: Treatment Not Indicated VTE Drug Contraindication: Treatment Not Indicated
[2021-11-01 16:34] LABS: Appearance Urine Clear; Color Urine Yellow; Glucose Urine UA 250 mg/dL (Negative); Leukocyte Esterase Urine Negative (Negative); Nitrite Urine Negative (Negative); Urine Blood Negative (Negative); Urine Ketones Negative (Negative); Urine Protein Negative (Neg-Trace)
[2021-11-01 16:49] LABS: Amphetamine Screen Urine Not Detected (Not Detect); Barbiturates, Urine Not Detected (Not Detect); Benzodiazepines Screen Urine Not Detected (Not Detect); Cannabinoid Screen Urine POSITIVE (Not Detect); Cocaine Screen Urine Not Detected (Not Detect); Fentanyl, urine POSITIVE (Not Detect); Opiate Screen Urine Not Detected (Not Detect); Phencyclidine Screen Urine Not Detected (Not Detect)
--- NOTE | 2021-11-01 17:19 | PHA.MEDREC ---
MED REC COMPLETE, NO ISSUES. Of note, patient has run out of hydroxychloroquine and has not been taking for over a month, I left on list because she is still supposed to be on this as far as she knows. Pharmacy Consult ? Medication Reconciliation Pharmacy has completed the medication reconciliation.
[2021-11-01] MEDS: Butalb/Acetamin/Caff 50/325/40 TABLET 1 TAB PO (18:11)
[2021-11-01] MEDS: oxyCODONE HCl Immed Release 15 MG TABLET PO (20:27)
[2021-11-01] MEDS: Gabapentin 400 MG CAPSULE 800 MG PO (20:28)
[2021-11-01] MEDS: rOPINIRole HCL 1 MG TABLET 2 MG PO (21:11)
[2021-11-01 21:25] LABS: Glucose, Whole Blood 277 mg/dL (60-115)
[2021-11-01 21:56] VITALS: BP 111/61; PULSE 80; RESP 16; O2SAT 93
[2021-11-01] MEDS: Insulin Lispro 100 UNIT/ML 3 ML VIAL SUBCUT (22:02)
--- NOTE | 2021-11-01 23:08 | PC.NURSE ---
pt sleeping, RR even and unlabored.
--- NOTE | 2021-11-02 02:32 | PC.NURSE ---
RN-RN report given.
[2021-11-02] MEDS: ondansetron HCL 4 MG/2 ML VIAL IVPUSH (02:58)
[2021-11-02] MEDS: oxyCODONE HCl Immed Release 5 MG TABLET 10 MG PO ×3 (02:58→15:46)
[2021-11-02] MEDS: Acetaminophen 325 MG TABLET 650 MG PO ×2 (03:06→10:04)
[2021-11-02 03:31] VITALS: BMI 39.5
[2021-11-02 06:57] LABS: Cholesterol 285 mg/dL; HDL Cholesterol 32 mg/dL; LDL Cholesterol Calculated 190 mg/dl; Triglycerides 319 mg/dL
[2021-11-02 07:11] VITALS: BP 144/75; PULSE 66; RESP 12; TEMP 36.6; O2SAT 96
[2021-11-02 07:23] LABS: Glucose, Whole Blood 160 mg/dL (60-115)
[2021-11-02] MEDS: Insulin Lispro 100 UNIT/ML 3 ML VIAL SUBCUT ×2 (08:07→11:56)
[2021-11-02] MEDS: Gabapentin 400 MG CAPSULE 800 MG PO ×2 (08:09→15:45)
[2021-11-02] MEDS: 0.9 % Sodium Chloride Flush 3 ML SYRINGE IVFLUSH (08:12)
--- NOTE | 2021-11-02 09:37 | MHC.CM.PN ---
met with pt and dgter pt lives with spouse is independent does not anticapate needing services when dcd
--- NOTE | 2021-11-02 11:17 | P.CNNE_ITS ---
History of Present Illness Data of Consult Service Date: 11/02/21 Primary Care Provider: Dayna Mancilla NP [facility] Reason for consult: Slurred speech 61 years old woman with history of migraine headaches and young age and pain syndrome came to hospital with lethargy and apparently change in her speech. She said that she was suffering from a flu-like illness for few days and was having generalized body aches and pains and lethargy. Her initial evaluation revealed couple of findings prompting this consultation. When I saw her she was feeling better. There was no double vision or loss of vision. Review of Systems Review of Systems: As in HPI [facility] Past Medical History Medical History Autoimmune disorder Diabetes Hypertension Pain syndrome, chronic Restless legs syndrome RSD (reflex sympathetic dystrophy) Surgical History Surgical History History of appendectomy Social History Social History Household Members: Significant Other and Children Housing: House Alcohol intake: never Patient Tobacco Use Status: Current everyday Tobacco user Tobacco use type: Cigarette Cigarettes Per Day: 6 Years Smoked: 20 Smoked in Last 30 Days: Yes Patient Interested in Nicotine Replacement: No Patient Given Instructions on How to Stop Smoking: No (declined) Second Hand Smoke Exposure: No Use of substances other than those prescribed or required for medical reasons: Yes Substance Use Type: Marijuana Substance Use Frequency: Occasionally Substance Use Frequency Other:: uses marijuana for sleep Advance Directives: No Advance Directives Information Provided: No (Declined) Advance Directives on File: No service: No Current occupational status: employed Meds Allergies Allergy/AdvReac Type Severity Reaction Status Date / Time Codeine Sulfate Allergy Unknown Itching Uncoded 06/26/21 16:50 Active Medications: Current Medications Acetaminophen (Acetaminophen Supp 650 Mg Supp.Rect) 650 mg DC Q6H PRN PRN Reason: Pain, Mild (Pain Scale 1-3) Acetaminophen (Acetaminophen 325 Mg Tablet) 650 mg PO Q6H PRN PRN Reason: Breakthrough Pain Last Admin: 11/02/21 10:04 Dose: 650 mg Dextrose (Dextrose 50 % 25 Gm/50 Ml Syringe) 25 gm IVPUSH Q15M PRN; Protocol PRN Reason: per Hypoglycemia Standing Ord. Gabapentin (Gabapentin 400 Mg Capsule) 800 mg PO TID [facility] Last Admin: 11/02/21 08:09 Dose: 800 mg Glucose (Glucose Gel 15 Gm Gel..Gram.) 15 gm PO Q15M PRN; Protocol PRN Reason: per Hypoglycemia Standing Ord. Insulin Human Lispro (Insulin Lispro 100 Unit/Ml 3 Ml Vial) 0 unit SUBCUT QIDACHS [facility]; Protocol Last Admin: 11/02/21 08:07 Dose: 2 unit Ondansetron HCl (Ondansetron Hcl 4 Mg/2 Ml Vial) 4 mg IVPUSH Q8H PRN PRN Reason: Nausea and Vomiting Last Admin: 11/02/21 02:58 Dose: 4 mg Oxycodone HCl (Oxycodone Hcl Immed Release 15 Mg Tablet) 15 mg PO BEDTIME PRN PRN Reason: Pain (Scale Score 4-6) Last Admin: 11/01/21 20:27 Dose: 15 mg Oxycodone HCl (Oxycodone Hcl Immed Release 5 Mg Tablet) 10 mg PO Q4H PRN PRN Reason: Pain, Moderate Last Admin: 11/02/21 08:08 Dose: 10 mg Pharmacy Consult (Consult Rx Perform Med Rec) 1 each MISCELLANE ONCE PRN PRN Reason: Consult order Ropinirole HCl (Ropinirole Hcl 1 Mg Tablet) 2 mg PO BEDTIME [facility] Last Admin: 11/01/21 21:11 Dose: 2 mg Sodium Chloride (0.9 % Sodium Chloride Flush 3 Ml Syringe) [facility] Last Admin: 11/02/21 08:12 Dose: 3 ml Home Medications Medication Instructions Recorded Confirmed Last Taken Type hydroxychloroquine 200 mg tablet 1 tab PO BID 07/27/20 11/01/21 Unknown History insulin detemir U-100 100 unit/mL 50 unit subcut BID 07/27/20 11/01/21 11/01/21 History subcutaneous solution (Levemir U-100 Insulin) insulin syringe-needle U-100 1 mL 07/27/20 08/04/20 Unknown History 31 gauge x 5/16 (BD Insulin Syringe Ultra-Fine) lisinopril 20 mg tablet 1 tab PO BEDTIME 07/27/20 11/01/21 Unknown History lorazepam 0.5 mg tablet 1 tab PO TID PRN anxiety 07/27/20 11/01/21 Unknown History ondansetron HCl 4 mg tablet 1 tab PO Q8H PRN Nausea 07/27/20 11/01/21 Unknown History ropinirole 1 mg tablet 2 tab PO BEDTIME 07/27/20 11/01/21 Unknown History aspirin 81 mg capsule 81 mg PO DAILY 11/01/21 11/01/21 Unknown History cholecalciferol (vitamin D3) 1,250 1 cap PO MO@1000 11/01/21 11/01/21 Unknown History mcg (50,000 unit) capsule dulaglutide 1.5 mg/0.5 mL 1.5 mg subcut SA@1000 11/01/21 11/01/21 Unknown History subcutaneous pen injector (Trulicity) duloxetine 20 mg capsule,delayed 20 mg PO BID 11/01/21 11/01/21 Unknown History release gabapentin 800 mg tablet 800 mg PO TID 11/01/21 11/01/21 Unknown History magnesium 250 mg tablet 250 mg PO DAILY 11/01/21 11/01/21 Unknown History nicotine 7 mg/24 hr daily 1 patch transdermal Q24H 11/01/21 11/01/21 Unknown History transdermal patch oxycodone 10 mg tablet 10 mg PO Q4H PRN Pain, Moderate 11/01/21 11/01/21 Unknown History oxycodone 15 mg tablet 15 mg PO BEDTIME PRN Pain (Scale 11/01/21 11/01/21 Unknown History Score 4-6) Physical Exam Vital Signs: Vital Signs: Last Vital Signs Temp 97.9 F 11/02/21 07:11 Pulse 66 11/02/21 07:11 Resp 12 11/02/21 07:11 BP 144/75 H 11/02/21 07:11 Pulse Ox 96 11/02/21 07:11 O2 Del Method 11/02/21 07:11 BMI result Body Mass Index 39.5 Neuro: Other: she was alert and awake with normal spontaneity of speech fluency comprehension and affect. She was able to name and repeat. Speech was normal. Face was symmetrical. Tongue was midline. Visual hernandez were normal. There was no pronator drift. Oupcfe-ub-mgmv testing was normal. Deep tendon reflexes were trace to absent with flexor plantars. Results Labs CBC & Chem 7: 11/01/21 14:53 11/01/21 14:53 Labs: Short CBC 11/01/21 Range/Units 14:53 WBC 9.1 (4.8-10.8) X10*3/uL Hgb 12.6 (12.0-16.0) g/dl Hct 38.1 (37.0-47.0) % Plt Count 248 (160-400) X10*3/uL BMP 11/01/21 14:53 Sodium 133 L Potassium 5.2 H D Chloride 94 L Carbon Dioxide 33 H BUN 12 Creatinine 0.75 Calcium 9.6 Liver Function 11/01/21 Range/Units 14:53 Total Bilirubin 0.7 (0.0-1.0) mg/dL Direct Bilirubin 0.2 (0.0-0.5) mg/dL AST 11 (5-31) U/L ALT 22 (0-31) U/L Alkaline Phosphatase 100 D (39-117) U/L Albumin 4.0 (3.5-5.0) g/dL Urine 11/01/21 Range/Units 16:23 Urine Color Yellow Urine Appearance Clear Urine pH 6.0 (5.0-8.0) Ur Specific Grayling 1.020 (1.005-1.025) Urine Protein Negative (Neg-Trace) mg/dL Urine Glucose (UA) 250 H (Negative) mg/dL Noncontrast head CT of brain revealed [id number]-[id number] cortical frontoparietal atrophy in the left maxillary sinus lesion probably chronic sinusitis. MRI of brain revealed minimal microvascular changes and the left maxillary sinus lesion Assessment and Plan (1) Encephalopathy: Status: Acute probably multifactorial reason for lethargy and difficulty speaking at onset from drugs, migraine, and metabolic abnormalities including hyponatremia. Now she was better. She should readdress her pain medicines to avoid complications. (2) Migraine headache without aura: Status: Acute For now, sumatriptan 50 mg 1 q.day p.r.n. 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 Outpatient ENT evaluation is recommen ded. Procedures Date of Service Date of Service: 11/02/21
[2021-11-02 11:20] VITALS: BP 134/65; PULSE 82; RESP 16; TEMP 36.7; O2SAT 98
[2021-11-02 11:32] LABS: Glucose, Whole Blood 270 mg/dL (60-115)
--- NOTE | 2021-11-02 12:15 | MHC.CM.PN ---
pt dcd home no skilled services ordered by
--- NOTE | 2021-11-02 15:48 | P.DS_ITS ---
DS: Providers Provider Date of Service: 11/02/21 Date of admission: 11/02/21 01:49 Primary care physician: Dayna Mancilla NP Consults: 11/01/21 17:33 Consult to Neurology Routine Consulting Provider: Shena Kaplan Reason for consultation: slurs speech Has provider been notified: No 11/02/21 11:29 Consult to Infectious Diseases Routine Consulting Provider: Carmelina Moy Reason for consultation: ? fungal sinusitis Has provider been notified: No DS: Diagnosis Discharge Diagnosis (1) Weakness: Status: Resolved DS: Summary Hospital Course Hospital Course: Patient was observed observed overnight without any further neurological changes. MRI showed no acute finding but maxiliar sinusitis as below. She was seen by Neurology and recommended to to be be treated with sumatriptin for likely migraine and outpatient follow up with sinus finding Time Spent with Patient Time attestation: Total time spent providing and/or coordinating discharge services: Discharge coordination time: Less than 30 minutes Quality: Safe Use of Opioids Does Pt have an Active Cancer Diagnosis on the Problem List?: No Quality: Stroke Does the patient have a stroke diagnosis?: No Physical Exam Vital Signs: Vital Signs: Last Vital Signs Temp 97.2 F 11/02/21 16:00 Pulse 78 11/02/21 16:00 Resp 18 11/02/21 16:00 BP 143/72 H 11/02/21 16:00 Pulse Ox 94 11/02/21 16:00 O2 Del Method 11/02/21 16:00 BMI result Body Mass Index 39.5 DS: Data Data Completed and Pending Completed studies during hospitalization [Text1]: Procedures Resection of Appendix, Percutaneous Endoscopic Approach (07/27/20) Discharge Plan Discharge Anticipated Discharge Date/Time: 11/02/21 16:09 Patient Disposition: Home, Self-Care Discharge Diagnosis: Migraine headach Referrals: Dayna Mancilla NP [Primary Care Provider] - 1 Week Discharge Medications: New sumatriptan succinate [Imitrex] 50 mg tablet 50 mg PO DAILY MRX1 PRN (Reason: migraine headache) Qty: 10 0RF Rx Instructions: do not exceed 4 doses per 24 hrs Continued ropinirole 1 mg tablet 2 tab PO BEDTIME Label Comments: PATIENT TAKES BOTH TABS AT BEDTIME INSTEAD OF BID lisinopril 20 mg tablet 1 tab PO BEDTIME ondansetron HCl 4 mg tablet 1 tab PO Q8H PRN (Reason: Nausea) lorazepam 0.5 mg tablet 1 tab PO TID PRN (Reason: anxiety) (DME) insulin syringe-needle U-100 [BD Insulin Syringe Ultra-Fine] 1 mL 31 gauge x 5/16 syringe MISCELLANEOUS DAILY hydroxychloroquine 200 mg tablet 1 tab PO BID Levemir U-100 Insulin 100 unit/mL solution 50 unit SUBCUT BID magnesium 250 mg Tablet 250 mg PO DAILY aspirin 81 mg Capsule 81 mg PO DAILY Trulicity 1.5 mg/0.5 mL Pen Injector 1.5 mg SUBCUT SA@1000 oxycodone 15 mg Tablet 15 mg PO BEDTIME PRN (Reason: Pain (Scale Score 4-6)) gabapentin 800 mg Tablet 800 mg PO TID oxycodone 10 mg Tablet 10 mg PO Q4H PRN (Reason: Pain, Moderate) Label Comments: TAKES 10 MG DURING DAYTIME, AND 15 MG ONLY AT NIGHT cholecalciferol (vitamin D3) 1,250 mcg (50,000 unit) capsule 1 cap PO MO@1000 duloxetine 20 mg Capsule,Delayed Release(Dr/Ec) 20 mg PO BID nicotine 7 mg/24 hr Patch 24 Hour 1 patch TRANSDERMAL Q24H Discharge Orders: Discharge Order (Routine); Ordered 11/02/21 Ordered By: Francois Gomez Diet: Advance to usual diet Activity on Discharge: As tolerated Stand Alone Forms: Patient Portal Discharge page Care Plan Goals: full work up of sinus mass and resolution of migraine headache Health Concerns: sinus mass, migraine headache Plan of Treatment: tKE IMITREX RECOMMENDED FOR MIGRAINE HEADACHE, FOLLOW UP WITH YOUR DOCTOR IN A WEE FOLLOW UP WITH AN ENT DOCTOR FOR MASS IN SINUS: CALL FOR APPOINTMENT [facility], [facility] [address], [place] [address] ENT [facility] Assessment: ABOVE Discharge Date/Time: 11/02/21 16:42
[2021-11-02 16:00] VITALS: BP 143/72; PULSE 78; RESP 18; TEMP 36.2; O2SAT 94
== END 2021-11-02 16:42 | disposition home or self-care (01) | DRG 103 ==
LOC: HO.ED 16:44 → HO.EDOVER 11-02 01:51 → HO.IMC 11-02 02:17
PROVIDERS: Physician Assistant; Admitting Provider Hospitalist; Emergency Provider Emergency Medicine; PCP Nurse Practitioner Adult Health; Visit Provider Internal Medicine
DX: G43.009 Migraine without aura, not intractable, without status migrainosus (principal); G90.50 Complex regional pain syndrome I, unspecified; G93.40 Encephalopathy, unspecified; E87.1 Hypo-osmolality and hyponatremia; I10 Essential (primary) hypertension; J32.9 Chronic sinusitis, unspecified; G25.81 Restless legs syndrome; E11.9 Type 2 diabetes mellitus without complications; F17.210 Nicotine dependence, cigarettes, uncomplicated; Z20.822 Contact with and (suspected) exposure to COVID-19; Z71.6 Tobacco abuse counseling; Z88.5 Allergy status to narcotic agent; Z79.4 Long term (current) use of insulin; Z79.82 Long term (current) use of aspirin; Z79.899 Other long term (current) drug therapy
CPT/HCPCS: 36415; 70450; 70551; 71045; 80048; 80061; 80076; 80307; 81003; 82140; 82947; 83690; 83735; 83880; 84484; 85025; 87635; 93005; 96361; 96374; 96375; 99219; 99285; J1200; J2405

== ENCOUNTER 2023-07-18 00:38 | Emergency (ER) | payer OTHER, SELFPAY ==
--- NOTE | 2023-07-18 | ECG_ITS ---
Test Reason : CHEST PAIN Blood Pressure : / mmHG Vent. Rate : 094 BPM Atrial Rate : 094 BPM P-R Int : 140 ms QRS Dur : 074 ms QT Int : 356 ms P-R-T Axes : 061 064 038 degrees QTc Int : 445 ms Normal sinus rhythm Normal ECG When compared with ECG of 01-NOV-2021 14:26, No significant change was found Referred By: Generic ED Physician Electronically Signed By:ANGEL TERESA
[2023-07-18 01:01] VITALS: BP 156/87; PULSE 105; RESP 16; TEMP 37.4; O2SAT 95; BMI 45.0
[2023-07-18 01:19] LABS: MANUAL DIFF FLAG NO
[2023-07-18 01:24] LABS: Basophils Absolute Auto 0.1 X10*3/uL (0.0-0.2); Basophils Percent Auto 0.4 % (0-2); Eosinophils Absolute Auto 0.3 X10*3/uL (0.0-0.4); Hematocrit 40.8 % (37.0-47.0); Hemoglobin 13.8 g/dl (12.0-16.0); Imm Gran Abs Auto 0.06 X10*3/uL (0.00-0.03); Imm Gran Pct Auto 0.5 % (0.0-0.4); Lymphocytes Absolute Auto 2.5 X10*3/uL (1.2-4.9); Lymphocytes Percent Auto 18.6 % (20-40); Mean Corpuscular HGB Conc 33.8 g/dl (31.0-35.0); Mean Corpuscular Volume 88.7 fL (80.0-98.0); Mean Platelet Volume 9.1 fL (9.4-12.3); Monocytes Percent Auto 7.2 % (2-11); Neutrophils Absolute Auto 9.4 x10*3/uL (2.0-8.3); Neutrophils Percent Auto 71.3 % (45-73); Platelet Count 282 X10*3/uL (160-400); Red Cell Distribution Width 12.9 % (11.0-16.0); White Blood Count 13.2 X10*3/uL (4.8-10.8)
[2023-07-18 01:33] LABS: Anion Gap 16 (12-20); Blood Urea Nitrogen 11 mg/dL (9-16); Carbon Dioxide 25 mmol/L (22-29); Chloride 101 mmol/L (96-108); Estimated Glomerular Filt Rate > 60; Glucose Random 123 mg/dL (60-115); Potassium 4.1 mmol/L (3.3-5.1); Sodium 138 mmol/L (135-145)
[2023-07-18 01:43] LABS: Troponin-I High Sensitivity < 2.7 ng/L (<3.5-17.0)
--- OUTSIDE RECORDS SUMMARY | 2023-07-18 03:24 | XMS_ITS | Continuity of Care Document ---
Author Organization [facility] ter Address [address] [place] [id number]- Care Team Providers Care Sheep Sorter Name Role Phone Charo DUMONT, Dayna Primary Care Physician [phone] [place] [facility] [place] 04/19/22 - 05/29/[address] [id number] Attending Physician: Chelsea Zhu MD Admitting Physician: Chelsea Zhu MD Referring Physician: Dayna Mancilla NP Allergies, Adverse Reactions, Alerts Substance Reaction Severity Status codeine Active Lactose Active Immunizations Given and Recorded Vaccine Date Status Refusal Reason SARS-CoV-2 (COVID-19) mRNA-1273 vaccine 03/30/21 R ecorded influenza virus vaccine, inactivated 1 01/16/17 Gi daniel influenza virus vaccine, inactivated 01/12/16 Give n influenza virus vaccine, inactivated 02/04/15 Give n pneumococcal 23-valent vaccine 02/04/15 Given 1Result Comment: 54299-324-06 Medications aspirin 81 mg oral tablet 1 tablet = 81 mg, By Mouth, Daily, # 30 tablet, 0 Refills, Maintenance, Tablet Start Date: 11/12/11 Status: Ordered BD INSULIN SYR UF 1 ML [id number] BD INSULIN SYR UF 1 ML [id number], See Instructions, # 100 Unknown, 3 Refills, Maintenance, USE TO INJECT INSULIN ONCE A DAY FOR DX E11.9, 157.4, cm, 08/01/20 11:31:00 EDT, Height Start Date: 10/09/20 Status: Ordered BD INSULIN SYR UF 1 ML [id number] BD INSULIN SYR UF 1 ML [id number], See Instructions, # 180 Unknown, 1 Refills, Maintenance, USE TO INJECT INSULIN TWICE A DAY FOR DX E11.9, 04/18/22 10:30:00 EST, 156, cm, 04/18/22 9:46:00 EST, Height Start Date: 04/18/22 Status: Ordered duloxetine 20 mg oral enteric coated capsule 1 capsule, By Mouth, 2 times a day, # 180 capsule, 1 Refills, Maintenance, 02/25/22 9:26:00 EST, [id number], 156, cm, 01/14/22 15:09:00 EDT, Height Start Date: 02/25/22 Status: Ordered Fish Oil By Mouth, Daily, 0 Refills, Maintenance, 01/27/19 9:06:45 EST Start Date: 01/27/19 Status: Ordered gabapentin 800 mg oral tablet 1 tablet = 800 mg, By Mouth, 3 times a day with meals, # 270 tablet, 2 Refills, Maintenance, 10/05/21 10:32:00 EDT, Tablet, [facility]/pharmacy #[id number], 156, cm, 07/26/21 9:18:00 EDT, Height Start Date: 10/05/21 Stop Date: 07/02/22 Status: Ordered hydrocortisone 2.5% topical cream 1 application, Topically, 3 times a day, # 56 Gm, 1 Refills, Maintenance, 08/19/14 9:54:02, Cream, 1 application Topically 3 times a day,x30 days Start Date: 08/19/14 Stop Date: 10/18/14 Status: Ordered hydroxychloroquine 200 mg oral tablet 1 tablet = 200 mg, By Mouth, 2 times a day, 0 Refills, Maintenance Start Date: 04/10/11 Status: Ordered insulin detemir 100 units/mL subcutaneous solution = 50 units, Subcutaneous Injection, 2 times a day, # 30 mL, 5 Refills, Maintenance, 02/01/22 13:33:00 EST, Solution, [id number], please fill early . higher dose, 156, cm, 01/14/22 15:09:00 EDT, Height Start Date: 02/01/22 Stop Date: 07/31/22 Status: Ordered Insulin Syringe, BD Ultra-Fine 1 cc 31 G x 8 mm (5/16in) See Instructions, # 100 each, Refills 3, Tot. Refills 3, Maintenance, use to inject insulin twice aday for DX E11.9, 12/27/21 9:49:00 EDT, Compound, 156, cm, 07/26/21 9:18:00 EDT, Height Start Date: 12/27/21 Status: Ordered lisinopril 20 mg oral tablet 1, tablet, By Mouth, Daily, # 90 tablet, Refills 1, Maintenance, 04/01/22 6:54:00 EST, Route to Pharmacy Electronically, [id number], 156, cm, 01/14/22 15:09:00 EDT, Height Start Date: 04/01/22 Status: Ordered LORazepam 0.5 mg oral tablet 1 tablet = 0.5 mg, By Mouth, 3 times a day, PRN for anxiety, for 30 days, # 30 tablet, 1 Refills, Acute 07/12/22 9:53:00 EDT, 05/13/22 9:53:00 EST, Tablet, [facility]/pharmacy #[id number], 156, cm, 05/10/22 10:53:00 EST, Height Start Date: 05/13/22 Stop Date: 07/12/22 Status: Ordered Nicoderm C-Q 7 mg/24 hr transdermal film, extended release 1 patch, By Mouth, Daily, # 30 patch, 5 Refills, Maintenance, 07/26/21 9:34:00 EDT, [facility]/pharmacy #[id number], 156, cm, 07/26/21 9:18:00 EDT, Height Start Date: 07/26/21 Stop Date: 01/22/22 Status: Ordered ondansetron 4 mg oral tablet 1 tablet, By Mouth, Every 8 hours, PRN NEEDED FOR NAUSEA AND VOMITING FOR, # 9 tablet, 3 Refills, Maintenance, 03/15/22 15:20:00 EST, [id number], 156, cm, 01/14/22 15:09:00 EDT, Height Start Date: 03/15/22 Stop Date: 03/20/22 Status: Ordered One Touch Ultra 2 Glucose Meter See Instructions, # 1 each, Refills 0, Tot. Refills 0, Maintenance, Test Blood sugar twice daily Dxe11.9, 05/30/17 15:14:47, Replacement meter. Pt meter is not working, Compound Start Date: 05/30/17 Status: Ordered One Touch Ultra Test Strips See Instructions, # 200 each, Refills 3, Tot. Refills 3, Maintenance, DX: E11.9 test blood sugars 2times daily 90 day supply, 12/08/19 11:14:00 EDT, Compound, 157.4, cm, 09/01/19 8:41:00 EDT, Height Start Date: 12/08/19 Status: Ordered oxyCODONE 10 mg oral tablet 1 tablet = 10 mg, By Mouth, Every 4 hours, for 28 days, [employer] checked., # 168 tablet, 0 Refills, Acute 06/10/22 14:02:00 EDT, 05/13/22 14:02:00 EST, [facility]/pharmacy #[id number], Partial fill upon patient request;, 156, cm, 05/10/22 10:53:00 EST, Height Start Date: 05/13/22 Stop Date: 06/10/22 Status: Ordered oxyCODONE 15 mg oral tablet 1 tablet = 15 mg, By Mouth, Daily at bedtime, PRN as needed for pain, fill on 05/24/22, # 28 tablet,0 Refills, Maintenance, 05/23/22 18:35:00 EST, Tablet, [facility]/pharmacy #[id number], Partial fill upon patient request if the prescription is for a schedule II o... Start Date: 05/23/22 Stop Date: 06/20/22 Status: Ordered Pt.'s Own Meds CBD, Daily, Maintenance, 01/27/19 9:06:59 EST Start Date: 01/27/19 Status: Ordered rOPINIRole 1 mg oral tablet 1 tablet, By Mouth, 2 times a day, # 180 tablet, 1 Refills, Maintenance, 03/27/22 18:34:00 EST, [id number], 156, cm, 01/14/22 15:09:00 EDT, Height Start Date: 03/27/22 Status: Ordered Trulicity Pen 1.5 mg/0.5 mL subcutaneous solution See Instructions, INJECT 0.5 ML SUBCUTANEOUS INJECTION EVERY WEEK, # 2 Unknown, 2 Refills, Maintenance, 04/29/22 10:00:00 EST, [id number], 156, cm, 04/18/22 9:46:00 EST, Height Start Date: 04/29/22 Status: Ordered Vitamin B Complex oral tablet, extended release 1 tablet, By Mouth, Daily, 0 Refills, Maintenance, 11/26/18 9:26:13 EDT Start Date: 11/26/18 Status: Ordered Vitamin D3 50,000 intl units oral capsule 1 capsule = 1,250 mcg, By Mouth, Every week, # 12 capsule, 2 Refills, Maintenance, 06/26/21 8:37:00EDT, Capsule, [id number], Partial fill upon patient request if the prescription is for a schedule II opioid drug., 156, cm, 03/15/21 15:01:00 E... Start Date: 06/26/21 Status: Ordered Problem List Condition Confirmation Course Effective Dates Status Health St atus Informant DJD (degenerative joint disease) of cervical spine Confirmed Active Current use of insulin Confirmed Active Depression Confirmed Active Diabetes mellitus Confirmed Active DM (diabetes mellitus), type 2 Confirmed Active Dyslipidemia Confirmed Active Family history: Breast disease Confirmed Active GERD - Gastro-esophageal reflux disease Confirmed Active Long-term current use of opiate analgesic Confirmed Active Hypertension Confirmed Active RSD (reflex sympathetic dystrophy) Confirmed Active Severe obesity (BMI 35.0-39.9) with comorbidity Confirmed Active Tinea pedis Confirmed 09/01/11 Active Tobacco abuse disorder Confirmed Active Tobacco Use Disorder Confirmed Active Social History Social History Type Response Smoking Status Current every day sm oker; Type: Cigarettes; Tobacco use times per day: 4-5; entered on: 01/16/17 Sex Patient Care team information Care Team Personnel Name: Dayna Mancilla NP Position: S PCO Associate Professional Member Role: PCP Address: Address: [address] [place] [address], [address] [place] [address]- Care Team Related Persons Name: IRMA FUNG Address: [address] [place] [address] Name: NONE, [place] Address: [place] [address]
--- OUTSIDE RECORDS SUMMARY | 2023-07-18 03:24 | XMS_ITS | Continuity of Care Document ---
Author Organization [facility] Address [address] [place] [address]- Care Team Providers Care Manufacturing Engineering Intern Name Role Phone Charo DUMONT, Dayna Primary Care Physician Encounter [facility] [place] Date(s): 05/19/23 - 06/18/23 [facility] [address] [place] [id number]- Allergies, Adverse Reactions, Alerts Substance Reaction Severity Status codeine Active Lactose Active Immunizations Given and Recorded Vaccine Date Status Refusal Reason SARS-CoV-2 (COVID-19) mRNA-1273 vaccine 03/30/21 R ecorded influenza virus vaccine, inactivated 1 01/16/17 Gi daniel influenza virus vaccine, inactivated 01/12/16 Give n influenza virus vaccine, inactivated 02/04/15 Give n pneumococcal 23-valent vaccine 02/04/15 Given 1Result Comment: 32105-989-05 Medications aspirin 81 mg oral tablet 1 tablet = 81 mg, By Mouth, Daily, # 30 tablet, 0 Refills, Maintenance, Tablet Start Date: 11/12/11 Status: Ordered Dexcom 7 reader Dexcom 7 reader, See Instructions, # 1 each, Refills 0, Tot. Refills 0, Maintenance, DX: E11.9 testblood sugars 4 times daily, 05/09/23 14:07:00 EST, Supply, 156, cm, 04/10/23 7:57:00 EST, Height Start Date: 05/09/23 Status: Ordered Dexcom 7 sensors Dexcom 7 sensors, See Instructions, # 3 each, Refills 11, Tot. Refills 11, Maintenance, DX: E11.9 Test blood sugars 4 times daily, 05/09/23 14:07:00 EST, Supply, 156, cm, 04/10/23 7:57:00 EST, Height Start Date: 05/09/23 Status: Ordered duloxetine 20 mg oral enteric coated capsule 1 capsule, By Mouth, 2 times a day, # 180 capsule, 1 Refills, Maintenance, 02/13/23 8:22:00 EST, [facility], 156, cm, 01/03/23 11:15:00 EDT, Height Start Date: 02/13/23 Status: Ordered Fiasp FlexTouch 100 units/mL injectable solution = 22 units, Subcutaneous Infusion, 3 times a day before meals, # 20 mL, 11 Refills, Maintenance, 04/11/23 10:00:00 EST, [id number], Partial fill upon patient request if the prescription is for a schedule II opioid drug., 156, cm, 04/10/23 7:57... Start Date: 04/11/23 Stop Date: 04/05/24 Status: Ordered Fish Oil By Mouth, Daily, 0 Refills, Maintenance, 01/27/19 9:06:45 EST Start Date: 01/27/19 Status: Ordered gabapentin 800 mg oral tablet 1 tablet, By Mouth, 3 times a day with meals, # 270 tablet, 2 Refills, Maintenance, 02/20/23 17:40:00 EST, [facility], 156, cm, 01/03/23 11:15:00 EDT, Height Start Date: 02/20/23 Status: Ordered Humalog Kwik Pen 100 units/mL subcutaneous injection = 15 units, Subcutaneous Injection, 3 times a day before meals, # 15 mL, 2 Refills, Maintenance, 01/24/23 11:19:00 EST, Solution, [id number], Partial fill upon patient request if the prescription is for a schedule II opioid drug., 156, cm, 10... Start Date: 01/24/23 Stop Date: 04/24/23 Status: Ordered hydrocortisone 2.5% topical cream 1 application, Topically, 3 times a day, # 56 Gm, 1 Refills, Maintenance, 08/19/14 9:54:02, Cream, 1 application Topically 3 times a day,x30 days Start Date: 08/19/14 Stop Date: 10/18/14 Status: Ordered hydroxychloroquine 200 mg oral tablet 1 tablet = 200 mg, By Mouth, 2 times a day, 0 Refills, Maintenance Start Date: 04/10/11 Status: Ordered Insulin Lispro KwikPen 100 units/mL injectable solution See Instructions, INJECT 22 UNITS SUBCUTANEOUS THREE TIMES DAILY BEFORE A MEAL, # 20 mL, 11 Refills, Maintenance, 04/11/23 8:04:00 EST, [facility]/pharmacy #[id number], 156, cm, 04/10/23 7:57:00 EST, Height Start Date: 04/11/23 Status: Ordered Insulin Syringe, BD Ultra-Fine 1 [...] Daily, # 90 tablet, Refills 1, Maintenance, 02/13/23 8:22:00 EST, Route to Pharmacy Electronically, [id number], 156, cm, 01/03/23 11:15:00 EDT, Height Start Date: 02/13/23 Status: Ordered Nicoderm C-Q 7 mg/24 hr transdermal film, extended release 1 patch, By Mouth, Daily, # 30 patch, 5 Refills, Maintenance, 07/26/21 9:34:00 EDT, [facility]/pharmacy #[id number], 156, cm, 07/26/21 9:18:00 EDT, Height Start Date: 07/26/21 Stop Date: 01/22/22 Status: Ordered ondansetron 4 mg oral tablet 1 tablet, By Mouth, Every 8 hours, # 15 tablet, 1 Refills, Maintenance, 05/19/23 14:51:00 EST, [facility], 156, cm, 04/10/23 7:57:00 EST, Height Start Date: 05/19/23 Stop Date: 05/24/23 Status: Ordered oxyCODONE 10 mg oral tablet 1 tablet = 10 mg, By Mouth, Every 4 hours, HAND II THERMAL CUTTER checked. 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 Fill on 06/17/23, # 28 tablet, 0 Refills, Maintenance, 06/16/23 12:11:00 EDT, Tablet, [facility]/pharmacy #[id number], Partial fillupon patient request if the prescription is for a s... Start Date: 06/16/23 Stop Date: 07/14/23 Status: Ordered Pen [place], 31 G x 5 mm BD Ultra Fine III See Instructions, # 100 each, Refills 5, Tot. Refills 5, Maintenance, use as directed for Type 2 Diabetes Mellitus, 01/04/23 17:52:00 EDT, Supply, 156, cm, 01/03/23 11:15:00 EDT, Height Start Date: 01/04/23 Stop Date: 07/03/23 Status: Ordered Pt.'s Own Meds CBD, Daily, Maintenance, 01/27/19 9:06:59 EST Start Date: 01/27/19 Status: Ordered rOPINIRole 1 mg oral tablet 1 tablet, By Mouth, 2 times a day, # 180 tablet, 1 Refills, Maintenance, 03/12/23 8:31:00 EST, [id number], 156, cm, 01/03/23 11:15:00 EDT, Height Start Date: 03/12/23 Status: Ordered Toujeo SoloStar 300 units/mL subcutaneous solution See Instructions, INJECT 40 UNITS SUBCUTANEOUS INJECTION 2 TIMES A DAY,X30 DAYS, # 9 Unknown, 2 Refills, Maintenance, 03/30/23 19:14:00 EST, [facility]/pharmacy #[id number], 156, cm, 01/03/23 11:15:00 EDT, Height Start Date: 03/30/23 Status: Ordered Vitamin B Complex oral tablet, extended release 1 tablet, By Mouth, Daily, 0 Refills, Maintenance, 11/26/18 9:26:13 EDT Start Date: 11/26/18 Status: Ordered Vitamin D3 50,000 intl units oral capsule 1 capsule = 1,250 mcg, By Mouth, Every week, # 13 capsule, 3 Refills, Maintenance, 07/21/22 10:38:00 EDT, Capsule, [id number], Partial fill upon patient request if the prescription is for a schedule II opioid drug., 156, cm, 07/12/22 13:52:00... Start Date: 07/21/22 Stop Date: 07/16/23 Status: Ordered Problem List Condition Confirmation Course [...] (reflex sympathetic dystrophy) Confirmed Active Severe obesity Confirmed Active Tinea pedis Confirmed 09/01/11 Active Tobacco abuse disorder Confirmed Active Tobacco Use Disorder Confirmed Active Social History Social History Type Response Smoking Status Current every day sm oker; Type: Cigarettes; Tobacco use times per day: 4-5; entered on: 01/16/17 Sex Patient Care team information Care Team Personnel Name: Dayna Mancilla NP Position: [facility] PCO Associate Professional Member Role: PCP Address: Address: [address] [place] [address], [address] [place] [address]- Care Team Related Persons Name: IRMA FUNG Address: home [address] [place] [address] Name: NONE, GIVEN Address: [place] [address]
--- OUTSIDE RECORDS SUMMARY | 2023-07-18 03:24 | XMS_ITS | Continuity of Care Document ---
Author Organization [facility] Address [address] [place] [address]- Care Team Providers Care Penal Officer Name Role Phone Dayna Mancilla NP Primary Care Physician [place] [facility] [place] [id number] Date(s): 03/15/21 - 03/22/21 [facility] [address] [place] [id number]- Encounter Diagnosis Annual visit for general adult medical examination without abnormal findings (Discharge Diagnosis) - 03/18/21 Attending Physician: Dayna Mancilla NP Allergies, Adverse Reactions, Alerts Substance Reaction Severity Status codeine Active Lactose Active Immunizations Given and Recorded Vaccine Date Status Refusal Reason influenza virus vaccine, inactivated 1 01/16/17 Gi daniel influenza virus vaccine, inactivated 01/12/16 Give n influenza virus vaccine, inactivated 02/04/15 Give n pneumococcal 23-valent vaccine 02/04/15 Given 1Result Comment: [id number] Medications aspirin 81 mg oral tablet 1 tablet = 81 mg, By Mouth, Daily, # 30 tablet, 0 Refills, Maintenance, Tablet Start Date: 11/12/11 Status: Ordered BD INSULIN SYR UF 1 ML [id number] BD INSULIN SYR UF 1 ML [id number], See Instructions, # 100 Unknown, 3 Refills, Maintenance, USE TO INJECT INSULIN ONCE A DAY FOR DX E11.9, 157.4, cm, 08/01/20 11:31:00 EDT, Height Start Date: 10/09/20 Status: Ordered buPROPion 150 mg/12 hours (SR) oral tablet, extended release 1 tablet = 150 mg, By Mouth, 2 times a day, # 60 tablet, 5 Refills, Maintenance, 05/03/20 11:33:00 EST, ER Tablet, [facility]/pharmacy #[id number], 157.4, cm, 04/13/20 9:03:00 EST, Height Start Date: 05/03/20 Stop Date: 10/30/20 Status: Ordered Fish Oil By Mouth, Daily, 0 Refills, Maintenance, 01/27/19 9:06:45 EST Start Date: 01/27/19 Status: Ordered gabapentin 800 mg oral tablet 1 tablet = 800 mg, By Mouth, 3 times a day with meals, # 270 tablet, 2 Refills, Maintenance, 09/04/20 17:31:00 EDT, Tablet, [facility]/pharmacy #[id number], 157.4, cm, 08/01/20 11:31:00 EDT, Height Start Date: 09/04/20 Stop Date: 06/01/21 Status: Ordered hydrocortisone 2.5% topical cream 1 [...] insulin detemir 100 units/mL subcutaneous solution = 42 units, Subcutaneous Injection, 2 times a day, for 30 days, # 20 mL, 5 Refills, Hard Stop 05/21/21 9:09:00 EST, 11/22/20 9:09:00 EDT, Solution, [facility]/pharmacy #[id number], please fill early . higher dose, 157.4, cm, 11/09/20 15:53:00 EDT, Height Start Date: 11/22/20 Stop Date: 05/21/21 Status: Ordered Insulin Syringe, BD Ultra-Fine 1 cc 31 G x 8 mm (5/16in) See Instructions, # 100 each, Refills 3, Tot. Refills 3, Maintenance, use to inject insulin once a day for DX E11.9, 02/07/21 11:48:00 EST, Compound, 157.4, cm, 12/11/20 13:18:00 EDT, Height Start Date: 02/07/21 Status: Ordered lisinopril 20 mg oral tablet 20 mg, 1, tablet, By Mouth, Daily, # 90 tablet, Refills 1, Tot. Refills 1, Maintenance, 10/20/20 8:36:00 EDT, [id number].4, cm, 08/01/20 11:31:00 EDT, Height Start Date: 10/20/20 Stop Date: 04/18/21 Status: Ordered LORazepam 0.5 mg oral tablet 1 tablet = 0.5 mg, By Mouth, 3 times a day, PRN for anxiety, for 30 days, # 30 tablet, 3 Refills, Acute 06/23/21 8:00:00 EDT, 02/23/21 8:00:00 EST, [id number] 157.4, cm, 12/11/20 13:18:00 EDT, Height Start Date: 02/23/21 Stop Date: 06/23/21 Status: Ordered Nicoderm C-Q 7 mg/24 hr transdermal film, extended release 1 patch, By Mouth, Daily, # 30 patch, 5 Refills, Maintenance, 09/01/19 9:18:00 EDT, [facility]/pharmacy #[id number], 157.4, cm, 09/01/19 8:41:00 EDT, Height Start Date: 09/01/19 Stop Date: 02/28/20 Status: Ordered One Touch Ultra 2 Glucose [...] Height Start Date: 12/08/19 Status: Ordered oxyCODONE 15 mg oral tablet 1 tablet = 15 mg, By Mouth, Daily at bedtime, PRN as needed for pain, for 28 days, Fill on 03/06/21, # 28 tablet, 0 Refills, Acute 04/02/21 12:35:00 EST, 03/05/21 12:35:00 EST, Tablet, [facility]/pharmacy #[id number], Partial fill upon patient request if the presc... Start Date: 03/05/21 Stop Date: 04/02/21 Status: Ordered Pt.'s Own Meds CBD, Daily, Maintenance, 01/27/19 9:06:59 EST Start Date: 01/27/19 Status: Ordered rOPINIRole 1 mg oral tablet 1 tablet, By Mouth, 2 times a day, # 180 tablet, 1 Refills, Maintenance, 10/06/20 14:51:00 EDT, [facility], 157.4, cm, 08/01/20 11:31:00 EDT, Height Start Date: 10/06/20 Status: Ordered Trulicity Pen 0.75 mg/0.5 mL subcutaneous solution 0.5 mL = 0.75 mg, Subcutaneous Injection, Every week, rotate injection sites, # 2.5 mL, 5 Refills, Maintenance, 08/31/20 16:54:00 EDT, Solution, [facility]/pharmacy #[id number], Partial fill upon patient request if the prescription is for a schedule II opioid drug... Start Date: 08/31/20 Stop Date: 02/27/21 Status: Ordered Vitamin B Complex oral tablet, extended release 1 tablet, By Mouth, Daily, 0 Refills, Maintenance, 11/26/18 9:26:13 EDT Start Date: 11/26/18 Status: Ordered Vitamin D3 50,000 intl units oral capsule 1 capsule = 50,000 International_Units, By Mouth, Every week, # 13 capsule, 3 Refills, Maintenance,10/19/15 16:05:10, Capsule Start Date: 10/19/15 Stop Date: 10/13/16 Status: Ordered Problem List Condition Effective Dates Status Health Status Inform ant DJD (degenerative joint dise ase) of cervical spine(Confirmed) Active Current use of insulin(Confirmed) Active Depression(Confirmed) Active Diabetes mellitus(Confirmed) Active DM (diabetes mellitus), type 2(Confirmed) Active Dyslipidemia(Confirmed) Active Family history: Breast disease(Confirmed) Active GERD - Gastro-esophageal ref lux disease(Confirmed) Active Long-term current use of opi ate analgesic(Confirmed) Active Hypertension(Confirmed) Active RSD (reflex sympathetic dystrophy)(Confirmed) Active Severe obesity(Confirmed) Active Tinea pedis(Confirmed) 09/01/11 Active Tobacco abuse disorder(Confirmed) Active Tobacco Use Disorder(Confirmed) Active Diagnosis Diagnosis Type Effective Dates Health Status Clinical Service Informant Annual visit for general adult medical examination without abnormal findings Discharge Diagnosis 03/18/21 Vital Signs Most recent to oldest [Reference Range]: 1 Height 156 cm (03/15/21 3:01 PM) Weight 98.6 kg (03/15/21 3:01 PM) Oxygen Saturation [94-100 %] 98 % (03/15/21 3:01 PM) Pulse Rate [55-90 bpm] 104 bpm *H* (03/15/21 3:01 PM) Body Mass Index [18.5-24.99] 40.52 *>HHI* (03/15/21 3:01 PM) Blood Pressure [90-138/55-84 mm Hg] 132/ 86mm Hg (03/15/21 3:01 PM) Temperature [96.8-100.4 DegF] 98.4 DegF (03/15/21 3:01 PM) Mode of Delivery (Oxygen) Room air (03/15/21 3:01 PM) Blood pressure sites Arm, left (03/15/21 3:01 PM) Temperature Route Oral (03/15/21 3:01 PM) Weight Obtained Via Standing scale (03/15/21 3:01 PM) Social History Social History Type Response Smoking Status Current every day osmany lam; Type: Cigarettes; Tobacco use times per day: 4-5; entered on: 01/16/17 Sex
--- OUTSIDE RECORDS SUMMARY | 2023-07-18 03:24 | XMS_ITS | Continuity of Care Document ---
Author Organization [facility] Address [address] [place] [id number]- Care Team Providers Care Customer Service Advisor Name Role Phone Charo DUMONT, Dayna Primary Care Physician [phone] Encounter [facility] Date(s): 04/29/22 - 05/29/22 [facility] [address] [place] [id number] Allergies, Adverse Reactions, Alerts Substance Reaction Severity Status codeine Active Lactose Active Immunizations Given and Recorded Vaccine Date Status Refusal Reason SARS-CoV-2 (COVID-19) mRNA-1273 vaccine 03/30/21 R ecorded influenza virus vaccine, inactivated 1 01/16/17 Gi daniel influenza virus vaccine, inactivated 01/12/16 Give n influenza virus vaccine, inactivated 02/04/15 Give n pneumococcal 23-valent vaccine 02/04/15 Given 1Result Comment: [id number] Medications aspirin 81 mg oral tablet 1 tablet = 81 mg, By Mouth, Daily, # 30 tablet, 0 Refills, Maintenance, Tablet Start Date: 11/12/11 Status: Ordered BD INSULIN SYR UF 1 ML [id number] BD INSULIN SYR UF 1 ML [id number], See Instructions, # 100 Unknown, 3 Refills, Maintenance, USE TO INJECT INSULIN ONCE A DAY FOR DX E11.9, 157.4, cm, 08/01/20 11:31:00 EDT, Height Start Date: 10/09/20 Status: Ordered BD INSULIN SYR UF 1 ML [id number] BD INSULIN SYR UF 1 ML [id number], See Instructions, # 180 Unknown, 1 Refills, Maintenance, USE TO INJECT INSULIN TWICE A DAY FOR DX E11.9, 04/18/22 10:30:00 EST, 156, cm, 04/18/22 9:46:00 EST, Height Start Date: 04/18/22 Status: Ordered duloxetine 20 mg oral enteric coated capsule 1 capsule, By Mouth, 2 times a day, # 180 capsule, 1 Refills, Maintenance, 02/25/22 9:26:00 EST, [facility], 156, cm, 01/14/22 15:09:00 EDT, Height Start Date: 02/25/22 Status: Ordered Fish Oil By Mouth, Daily, 0 Refills, Maintenance, 01/27/19 9:06:45 EST Start Date: 01/27/19 Status: Ordered gabapentin 800 mg oral tablet 1 tablet = 800 mg, By Mouth, 3 times a day with meals, # 270 tablet, 2 Refills, Maintenance, 10/05/21 10:32:00 EDT, Tablet, [facility]/pharmacy #[id number], 156, cm, 07/26/21 9:18:00 EDT, Height [...] 5 Refills, Maintenance, 02/01/22 13:33:00 EST, Solution, [facility]/pharmacy #[id number], please fill early . higher dose, [...] 04/01/22 6:54:00 EST, Route to Pharmacy Electronically, [id number], 156, cm, 01/14/22 15:09:00 EDT, Height Start Date: 04/01/22 Status: Ordered LORazepam 0.5 mg oral tablet 1 tablet = 0.5 mg, By Mouth, 3 times a day, PRN for anxiety, for 30 days, # 30 tablet, 1 Refills, Acute 07/12/22 9:53:00 EDT, 05/13/22 9:53:00 EST, Tablet, [facility]/pharmacy #[id number], 156, cm, 05/10/22 10:53:00 EST, Height Start Date: 05/13/22 Stop Date: 07/12/22 Status: Ordered Nicoderm C-Q 7 mg/24 hr transdermal film, extended release 1 patch, By Mouth, Daily, # 30 patch, 5 Refills, Maintenance, 07/26/21 9:34:00 EDT, [facility]/pharmacy #[id number], 156, cm, 07/26/21 9:18:00 EDT, Height Start Date: 07/26/21 Stop Date: 01/22/22 Status: Ordered ondansetron 4 mg oral tablet 1 tablet, By Mouth, Every 8 hours, PRN NEEDED FOR NAUSEA AND VOMITING FOR, # 9 tablet, 3 Refills, Maintenance, 03/15/22 15:20:00 EST, [facility], 156, cm, 01/14/22 15:09:00 EDT, Height Start [...] Mouth, Every 4 hours, for 28 days, VALVE FITTER checked., # 168 tablet, 0 Refills, Acute 06/10/22 14:02:00 EDT, 05/13/22 14:02:00 EST, [facility]/pharmacy #[id number], Partial fill upon patient request;, 156, cm, 05/10/22 10:53:00 EST, Height Start Date: 05/13/22 Stop Date: 06/10/22 Status: Ordered oxyCODONE 15 mg oral tablet 1 tablet = 15 mg, By Mouth, Daily at bedtime, PRN as needed for pain, fill on 05/24/22, # 28 tablet,0 Refills, Maintenance, 05/23/22 18:35:00 EST, Tablet, [facility]/pharmacy #[id number], Partial fill upon patient request if the prescription is for a schedule II o... Start Date: 05/23/22 Stop Date: 06/20/22 Status: Ordered Pt.'s Own Meds CBD, Daily, Maintenance, 01/27/19 9:06:59 EST Start Date: 01/27/19 Status: Ordered rOPINIRole 1 mg oral tablet 1 tablet, By Mouth, 2 times a day, # 180 tablet, 1 Refills, Maintenance, 03/27/22 18:34:00 EST, [facility], 156, cm, 01/14/22 15:09:00 EDT, Height Start Date: 03/27/22 Status: Ordered Trulicity Pen 1.5 mg/0.5 mL subcutaneous solution See Instructions, INJECT 0.5 ML SUBCUTANEOUS INJECTION EVERY WEEK, # 2 Unknown, 2 Refills, Maintenance, 04/29/22 10:00:00 EST, [facility], 156, cm, 04/18/22 9:46:00 EST, Height Start Date: 04/29/22 Status: Ordered Vitamin B Complex oral tablet, extended release 1 tablet, By Mouth, Daily, 0 Refills, Maintenance, 11/26/18 9:26:13 EDT Start Date: 11/26/18 Status: Ordered Vitamin D3 50,000 intl units oral capsule 1 capsule = 1,250 mcg, By Mouth, Every week, # 12 capsule, 2 Refills, Maintenance, 06/26/21 8:37:00EDT, Capsule, [id number], Partial fill upon patient request if the [...] Team Personnel Name: Dayna Mancilla NP Position: [facility] PCO Associate Professional Member Role: PCP Address: Address: [address] [place] [address], [address] [place] [address]- Care Team Related Persons Name: IRMA FUNG Address: [address] [place] [address] Name: NONE, GIVEN Address: [place] [address]
--- OUTSIDE RECORDS SUMMARY | 2023-07-18 03:24 | XMS_ITS | Continuity of Care Document ---
Author Organization [facility] Adult Address [address] [place] [address]- Care Team Providers Care Governor Assembler Name Role Phone Charo DUMONT, Dayna Primary Care Physician Encounter [facility] [place] Date(s): 10/25/20 - 11/24/20 [facility] [address] [place] [phone]- Allergies, Adverse Reactions, Alerts Substance Reaction Severity Status codeine Active Lactose Active Immunizations Given and Recorded Vaccine Date Status Refusal Reason influenza virus vaccine, inactivated 1 01/16/17 Gi daniel influenza virus vaccine, inactivated 01/12/16 Give n influenza virus vaccine, inactivated 02/04/15 Give n pneumococcal 23-valent vaccine 02/04/15 Given 1Result Comment: 95150-523-42 Medications aspirin 81 mg oral tablet 1 tablet = 81 mg, By Mouth, Daily, # 30 tablet, 0 Refills, Maintenance, Tablet Start Date: 11/12/11 Status: Ordered BD INSULIN SYR UF 1 ML [id number] BD INSULIN SYR UF 1 ML [id number], See Instructions, # 100 Unknown, 3 Refills, Maintenance, USE TO INJECT INSULIN ONCE A DAY FOR DX E11.9, 157.4, cm, 08/01/20 11:31:00 EDT, Height Start Date: 10/09/20 Status: Ordered buPROPion 150 mg/12 hours (SR) oral tablet, extended release 1 tablet = 150 mg, By Mouth, 2 times a day, # 60 tablet, 5 Refills, Maintenance, 05/03/20 11:33:00 EST, ER Tablet, [id number], 157.4, cm, 04/13/20 9:03:00 EST, Height Start Date: 05/03/20 Stop Date: 10/30/20 Status: Ordered Fish Oil By Mouth, Daily, 0 Refills, Maintenance, 01/27/19 9:06:45 EST Start Date: 01/27/19 Status: Ordered gabapentin 800 mg oral tablet 1 tablet = 800 mg, By Mouth, 3 times a day with meals, # 270 tablet, 2 Refills, Maintenance, 09/04/20 17:31:00 EDT, Tablet, [facility] #[id number], 157.4, cm, 08/01/20 11:31:00 EDT, Height [...] 05/21/21 9:09:00 EST, 11/22/20 9:09:00 EDT, Solution, [facility]/pharmacy #[id number], please fill early . higher dose, 157.4, cm, 11/09/20 15:53:00 EDT, Height Start Date: 11/22/20 Stop Date: 05/21/21 Status: Ordered Insulin Syringe, BD Ultra-Fine 1 cc 31 G x 8 mm (5/16in) See Instructions, # 100 each, Refills 3, Tot. Refills 3, Maintenance, use to inject insulin once a day for DX E11.9, 08/01/20 14:49:00 EDT, Compound, 157.4, cm, 08/01/20 11:31:00 EDT, Height Start Date: 08/01/20 Status: Ordered lisinopril 20 mg oral tablet 20 mg, 1, tablet, By Mouth, Daily, # 90 tablet, Refills 1, Tot. Refills 1, Maintenance, 10/20/20 8:36:00 EDT, [id number] 157.4, cm, 08/01/20 11:31:00 EDT, Height Start Date: 10/20/20 Stop Date: 04/18/21 Status: Ordered LORazepam 0.5 mg oral tablet 1 tablet = 0.5 mg, By Mouth, 3 times a day, PRN for anxiety, for 30 days, # 30 tablet, 3 Refills, Acute 02/06/21 9:44:00 EST, 10/09/20 9:44:00 EDT, Tablet, [facility]/pharmacy #[id number], 157.4, cm, 08/01/20 11:31:00 EDT, Height Start Date: 10/09/20 Stop Date: 02/06/21 Status: Ordered Nicoderm C-Q 7 mg/24 hr transdermal film, extended release 1 patch, By Mouth, Daily, # 30 patch, 5 Refills, Maintenance, 09/01/19 9:18:00 EDT, [facility]/pharmacy #[id number], 157.4, cm, 09/01/19 8:41:00 EDT, Height Start Date: 09/01/19 Stop Date: 02/28/20 Status: Ordered ondansetron 4 mg oral tablet 1 tablet, By Mouth, Every 8 hours, PRN NEEDED FOR NAUSEA AND VOMITING, for 5 days, # 9 tablet, 3Refills, Physician Stop, [id number], 157.4, cm, 11/09/20 15:53:00 EDT, Height Start Date: 11/23/20 Stop Date: 11/28/20 Status: Ordered One Touch Ultra 2 Glucose [...] 10 mg, By Mouth, Every 4 hours, FLAT SHEET MAKER checked., # 168 tablet, 0 Refills, Acute 03/16/21 14:35:00 EST, 09/12/20 16:45:00 EDT, [id number], Partial fill upon patient request;, 09/13/20,157.4, cm, 08/01/20 11:31:00 EDT, Height Start Date: 09/12/20 Stop Date: 03/16/21 Status: Ordered OxyCONTIN 15 mg oral tablet, extended release 1 tablet = 15 mg, By Mouth, Daily at bedtime, # 28 tablet, 0 Refills, Maintenance, 11/09/20 16:21:00 EDT, ER Tablet, [facility]/pharmacy #[id number], Partial fill upon patient request if the prescription is for aschedule II opioid drug., 157.4, cm, 11/09/20 15:53... Start Date: 11/09/20 Stop Date: 12/07/20 Status: Ordered Pt.'s Own Meds CBD, Daily, Maintenance, 01/27/19 9:06:59 EST Start Date: 01/27/19 Status: Ordered rOPINIRole 1 mg oral tablet 1 tablet, By Mouth, 2 times a day, # 180 tablet, 1 Refills, Maintenance, 10/06/20 14:51:00 EDT, [id number], 157.4, cm, 08/01/20 11:31:00 EDT, Height Start Date: 10/06/20 Status: Ordered Trulicity Pen 0.75 mg/0.5 mL subcutaneous solution 0.5 mL = 0.75 mg, Subcutaneous Injection, Every week, rotate injection sites, # 2.5 mL, 5 Refills, Maintenance, 08/31/20 16:54:00 EDT, Solution, [facility]/pharmacy #[id number], Partial fill upon patient request if the [...] Hypertension(Confirmed) Active RSD (reflex sympathetic dystrophy)(Confirmed) Active Tinea pedis(Confirmed) 09/01/11 Active Tobacco abuse disorder(Confirmed) Active Tobacco Use Disorder(Confirmed) Active Social History Social History Type Response Smoking Status Current every day osmany lam; Type: Cigarettes; Tobacco use times per day: 4-5; entered on: 01/16/17 Sex
--- OUTSIDE RECORDS SUMMARY | 2023-07-18 03:24 | XMS_ITS | Continuity of Care Document ---
Author Organization [facility] Adult Address [address] [place] [address]- Care Team Providers Care Early Education Teacher Name Role Phone Charo DUMONT, Dayna Primary Care Physician [place] [facility] [place](s[place] 05/20/23 - 06/19/23 [facility] [address] [place] [phone]- Allergies, Adverse Reactions, Alerts Substance Reaction Severity Status codeine Active Lactose Active Immunizations Given and Recorded Vaccine Date Status Refusal Reason SARS-CoV-2 (COVID-19) mRNA-1273 vaccine 03/30/21 R ecorded influenza virus vaccine, inactivated 1 01/16/17 Gi daniel influenza virus vaccine, inactivated 01/12/16 Give n influenza virus vaccine, inactivated 02/04/15 Give n pneumococcal 23-valent vaccine 02/04/15 Given 1Result Comment: 86281-646-20 Medications aspirin 81 mg oral tablet 1 [...] capsule, 1 Refills, Maintenance, 02/13/23 8:22:00 EST, [id number], 156, cm, 01/03/23 11:15:00 EDT, Height Start [...] Refills, Maintenance, 02/20/23 17:40:00 EST, [facility], 156, cm, 01/03/23 11:15:00 EDT, Height Start [...] mL, 11 Refills, Maintenance, 04/11/23 8:04:00 EST, [facility]/pharmacy #[id number], 156, cm, 04/10/23 7:57:00 EST, Height [...] EST, Route to Pharmacy Electronically, [facility], 156, cm, 01/03/23 11:15:00 EDT, Height Start Date: 02/13/23 Status: Ordered Nicoderm C-Q 7 mg/24 hr transdermal film, extended release 1 patch, By Mouth, Daily, # 30 patch, 5 Refills, Maintenance, 07/26/21 9:34:00 EDT, [facility]/pharmacy #[id number], 156, cm, 07/26/21 9:18:00 EDT, Height Start Date: 07/26/21 Stop Date: 01/22/22 Status: Ordered ondansetron 4 mg oral tablet 1 tablet, By Mouth, Every 8 hours, # 15 tablet, 1 Refills, Maintenance, 05/19/23 14:51:00 EST, [facility], 156, cm, 04/10/23 7:57:00 EST, Height Start Date: 05/19/23 Stop Date: 05/24/23 Status: Ordered oxyCODONE 10 mg oral tablet 1 tablet = 10 mg, By Mouth, Every 4 hours, AREA SECRETARY checked. fill on 06/05/23, # 168 tablet, 0 Refills, Maintenance, 06/03/23 7:13:00 EDT, [id number], Partial fill upon patient request;, 156, cm, 04/10/23 7:57:00 EST, Height Start Date: 06/03/23 Stop Date: 07/01/23 Status: Ordered oxyCODONE 15 mg oral tablet 1 tablet = 15 mg, By Mouth, Daily at bedtime, PRN as needed for pain, superintendent generating plant checked. Fill on 06/17/23, # 28 tablet, 0 Refills, Maintenance, 06/16/23 12:11:00 EDT, Tablet, [facility]/pharmacy #[id number], Partial fillupon patient request if the prescription is for a s... Start Date: 06/16/23 Stop Date: 07/14/23 Status: Ordered Pen [place], 31 G x 5 mm BD Ultra [...] tablet, 1 Refills, Maintenance, 03/12/23 8:31:00 EST, [facility] ST[facility] [id number], 156, cm, 01/03/23 11:15:00 EDT, Height Start Date: 03/12/23 Status: Ordered Toujeo SoloStar 300 units/mL subcutaneous solution See Instructions, INJECT 40 UNITS SUBCUTANEOUS INJECTION 2 TIMES A DAY,X30 DAYS, # 9 Unknown, 2 Refills, Maintenance, 03/30/23 19:14:00 EST, [facility]/pharmacy #[id number], 156, cm, 01/03/23 11:15:00 EDT, Height Start Date: 03/30/23 Status: Ordered Vitamin B Complex oral tablet, extended release 1 tablet, By Mouth, Daily, 0 Refills, Maintenance, 11/26/18 9:26:13 EDT Start Date: 11/26/18 Status: Ordered Vitamin D3 50,000 intl units oral capsule 1 capsule = 1,250 mcg, By Mouth, Every week, # 13 capsule, 3 Refills, Maintenance, 07/21/22 10:38:00 EDT, Capsule, [id number], Partial fill upon patient request if the [...] Team Personnel Name: Dayna Mancilla NP Position: [facility] PCO Associate Professional Member Role: PCP Address: Address: [address] [place] [address], [address] [place] [address]- Care Team Related Persons Name: IRMA FUNG Address: home [address] [place] [address] Name: NONE, GIVEN Address: [place] [address]
--- OUTSIDE RECORDS SUMMARY | 2023-07-18 03:24 | XMS_ITS | Continuity of Care Document ---
Author Organization [facility] Adult Address [address] [place] [address]- Care Team Providers Care Insurance Claims Specialist Name Role Phone Charo DUMONT, Dayna Primary Care Physician [phone] Encounter [facility] Date(s): 06/03/22 - 07/03/22 [facility] Adult [address] [place] [address]- Allergies, Adverse Reactions, Alerts Substance Reaction Severity Status codeine Active Lactose Active Immunizations Given and Recorded Vaccine Date Status Refusal Reason SARS-CoV-2 (COVID-19) mRNA-1273 vaccine 03/30/21 R ecorded influenza virus vaccine, inactivated 1 01/16/17 Gi daniel influenza virus vaccine, inactivated 01/12/16 Give n influenza virus vaccine, inactivated 02/04/15 Give n pneumococcal 23-valent vaccine 02/04/15 Given 1Result Comment: 48750-737-35 Medications aspirin 81 mg oral tablet 1 tablet = 81 mg, By Mouth, Daily, # 30 tablet, 0 Refills, Maintenance, Tablet Start Date: 11/12/11 Status: Ordered BD INSULIN SYR UF 1 ML [id number] BD INSULIN SYR UF 1 ML [id number], See Instructions, # 100 Unknown, 3 Refills, Maintenance, USE TO INJECT INSULIN ONCE A DAY FOR DX E11.9, 157.4, cm, 08/01/20 11:31:00 EDT, Height Start Date: 10/09/20 Status: Ordered BD INSULIN SYR UF 1 ML [id number] BD INSULIN SYR UF 1 ML [id number], See Instructions, # 180 Unknown, 1 Refills, Maintenance, USE TO INJECT INSULIN TWICE A DAY FOR DX E11.9, 04/18/22 10:30:00 EST, 156, cm, 04/18/22 9:46:00 EST, Height Start Date: 04/18/22 Status: Ordered duloxetine 20 mg oral enteric coated capsule 1 capsule, By Mouth, 2 times a day, # 180 capsule, 1 Refills, Maintenance, 02/25/22 9:26:00 EST, [facility], 156, cm, 01/14/22 15:09:00 EDT, Height Start Date: 02/25/22 Status: Ordered Fish Oil By Mouth, Daily, 0 Refills, Maintenance, 01/27/19 9:06:45 EST Start Date: 01/27/19 Status: Ordered gabapentin 800 mg oral tablet 1 tablet = 800 mg, By Mouth, 3 times a day with meals, # 270 tablet, 2 Refills, Maintenance, 10/05/21 10:32:00 EDT, Tablet, [facility]/pharmacy #[id number], 156, cm, 07/26/21 9:18:00 EDT, Height Start Date: 10/05/21 Stop Date: 07/02/22 Status: Ordered Humalog Kwik Pen 100 units/mL subcutaneous injection = 15 units, Subcutaneous Injection, 3 times a day before meals, # 15 mL, 0 Refills, Maintenance, 06/07/22 12:45:00 EDT, Solution, [id number], Partial fill upon patient request if the prescription is for a schedule II opioid drug., 156, cm, ... Start Date: 06/07/22 Stop Date: 07/07/22 Status: Ordered hydrocortisone 2.5% topical cream 1 [...] insulin detemir 100 units/mL subcutaneous solution = 80 units, Subcutaneous Injection, 2 times a day, # 50 mL, 5 Refills, Maintenance, 06/10/22 11:10:00 EDT, Solution, [id number], please fill early . higher dose, 156, cm, 05/10/22 10:53:00 EST, Height Start Date: 06/10/22 Stop Date: 12/07/22 Status: Ordered Insulin Syringe, BD Ultra-Fine 1 cc 31 G x 8 mm (516in) See Instructions, # 100 each, Refills 3, Tot. Refills 3, Maintenance, use to inject insulin twice aday for DX E11.9, 12/27/21 9:49:00 EDT, Compound, 156, cm, 07/26/21 9:18:00 EDT, Height Start Date: 12/27/21 Status: Ordered lisinopril 20 mg oral tablet 1, tablet, By Mouth, Daily, # 90 tablet, Refills 1, Maintenance, 04/01/22 6:54:00 EST, Route to Pharmacy Electronically, [facility] [id number], 156, cm, 01/14/22 15:09:00 EDT, Height Start Date: 04/01/22 Status: Ordered LORazepam 0.5 mg oral tablet 1 tablet = 0.5 mg, By Mouth, 3 times a day, PRN for anxiety, for 30 days, # 30 tablet, 1 Refills, Acute 07/12/22 9:53:00 EDT, 05/13/22 9:53:00 EST, Tablet, [facility]/pharmacy #[id number], 156, cm, 05/10/22 10:53:00 EST, Height Start Date: 05/13/22 Stop Date: 07/12/22 Status: Ordered Nicoderm C-Q 7 mg/24 hr transdermal film, extended release 1 patch, By Mouth, Daily, # 30 patch, 5 Refills, Maintenance, 07/26/21 9:34:00 EDT, [facility]/pharmacy #0373, 156, cm, 07/26/21 9:18:00 EDT, Height Start Date: 07/26/21 Stop Date: 01/22/22 Status: Ordered ondansetron 4 mg oral tablet 1 tablet, By Mouth, Every 8 hours, PRN NEEDED FOR NAUSEA AND VOMITING FOR, # 9 tablet, 3 Refills, Maintenance, 06/27/22 10:42:00 EDT, [facility]/pharmacy #[id number], 156, cm, 05/10/22 10:53:00 EST, Height Start Date: 06/27/22 Stop Date: 07/17/22 Status: Ordered One Touch Ultra 2 Glucose [...] Mouth, Every 4 hours, for 28 days, MOTOR ANALYST checked., # 168 tablet, 0 Refills, Acute 07/08/22 11:09:00 EDT, 06/10/22 11:09:00 EDT, [id number], [facility] fill upon patient request;, 156, cm, 05/10/22 10:53:00 EST, Height Start Date: 06/10/22 Stop Date: 07/08/22 Status: Ordered oxyCODONE 15 mg oral tablet 1 tablet = 15 mg, By Mouth, Daily at bedtime, PRN as needed for pain, bath steward/stewardess checked, # 28 tablet, 0 Refills, Maintenance, 06/21/22 7:10:00 EDT, Tablet, [id number], Partial fill upon patient request if the prescription is for a schedule II opioid... Start Date: 06/21/22 Stop Date: 07/19/22 Status: Ordered Pen [place], 31 G x 5 mm BD Ultra Fine III See Instructions, # 100 each, Refills 5, Tot. Refills 5, Maintenance, use as directed for Type 2 Diabetes Mellitus, 06/07/22 12:51:00 EDT, Supply, 156, cm, 05/10/22 10:53:00 EST, Height Start Date: 06/07/22 Stop Date: 12/04/22 Status: Ordered Pt.'s Own Meds CBD, Daily, Maintenance, 01/27/19 9:06:59 EST Start Date: 01/27/19 Status: Ordered rOPINIRole 1 mg oral tablet 1 tablet, By Mouth, 2 times a day, # 180 tablet, 1 Refills, Maintenance, 03/27/22 18:34:00 EST, [facility], 156, cm, 01/14/22 15:09:00 EDT, Height Start Date: 03/27/22 Status: Ordered Trulicity Pen 1.5 mg/0.5 mL subcutaneous solution See Instructions, INJECT 0.5 ML SUBCUTANEOUS INJECTION EVERY WEEK, # 2 Unknown, 2 Refills, Maintenance, 04/29/22 10:00:00 EST, [facility]20, 156, cm, 04/18/22 9:46:00 EST, Height Start Date: 04/29/22 Status: Ordered Vitamin B Complex oral tablet, extended release 1 tablet, By Mouth, Daily, 0 Refills, Maintenance, 11/26/18 9:26:13 EDT Start Date: 11/26/18 Status: Ordered Vitamin D3 50,000 intl units oral capsule 1 capsule = 1,250 mcg, By Mouth, Every week, # 12 capsule, 2 Refills, Maintenance, 06/26/21 8:37:00EDT, Capsule, [facility]/pharmacy #[id number], Partial fill upon patient request if the [...] Team Personnel Name: Dayna Mancilla NP Position: [facility] PCO Associate Professional Member Role: PCP Address: Address: [address] [place] [address] Floor [facility] [place] [address]- Care Team Related Persons Name: IRMA FUNG Address: [address] [place] [address] Name: NONE, GIVEN Address: [place] [address]
--- OUTSIDE RECORDS SUMMARY | 2023-07-18 03:24 | XMS_ITS | Continuity of Care Document ---
Author Organization [facility] Adult Address [address] [place] [address]- Care Team Providers Care Candy Puller Name Role Phone Dayna Mancilla NP Primary Care Physician [phone] Encounter [facility] [place] Date(s): 04/26/19 - 05/03/19 [facility] Adult [address] [place] [phone]- [facility] Encounter Diagnosis Abdominal pain(Discharge Diagnosis) - 04/26/19 Long-term current use of opiate analgesic(Discharge Diagnosis) - 04/26/19 Attending Physician: Dayna Mancilla NP Allergies, Adverse Reactions, Alerts Substance Reaction Severity Status codeine Active Lactose Active Immunizations Given and Recorded Vaccine Date Status Refusal Reason influenza virus vaccine, inactivated 1 01/16/17 Gi daniel influenza virus vaccine, inactivated 01/12/16 Give n influenza virus vaccine, inactivated 02/04/15 Give n pneumococcal 23-valent vaccine 02/04/15 Given 1Result Comment: [id number] Medications aspirin 81 mg oral tablet 1 tablet = 81 mg, By Mouth, Daily, # 30 tablet, 0 Refills, Maintenance, Tablet Start Date: 11/12/11 Status: Ordered Chantix Continuing Month 1 mg oral tablet 1 tablet = 1 mg, By Mouth, 2 times a day, for 4 week(s), # 56 tablet, 5 Refills, Acute 05/13/19 9:48:30 EST, 11/26/18 9:48:30 EDT, Tablet Start Date: 11/26/18 Stop Date: 05/13/19 Status: Ordered Chantix Starter Pack 0.5 mg-1 mg oral tablet 1 tablet, By Mouth, 2 times a day, as directed on package labeling, # 53 tablet, 0 Refills, Maintenance, 11/26/18 9:48:20 EDT, Tablet, 1 tablet By Mouth 2 times a day,Instr:as directed on package labeling Start Date: 11/26/18 Status: Ordered Fish Oil By Mouth, Daily, 0 Refills, Maintenance, 01/27/19 9:06:45 EST Start Date: 01/27/19 Status: Ordered gabapentin 800 mg oral tablet 1 tablet = 800 mg, By Mouth, 3 times a day with meals, # 270 tablet, 2 Refills, Maintenance, 01/06/19 18:27:00 EDT, Tablet Start Date: 01/06/19 Stop Date: 10/03/19 Status: Ordered hydrocortisone 2.5% topical cream 1 [...] insulin detemir 100 units/mL subcutaneous solution = 20 units, Subcutaneous Injection, Daily at bedtime, # 10 mL, 2 Refills, Maintenance, 08/07/18 15:18:24 EDT, Solution Start Date: 08/07/18 Stop Date: 11/05/18 Status: Ordered Insulin Syringe, BD Ultra-Fine 1 cc 31 G x 8 mm (5/16in) See Instructions, # 100 each, Refills 3, Tot. Refills 3, Maintenance, use to inject insulin once a day for DX E11.9, 08/28/18 9:06:32 EDT, Compound Start Date: 08/28/18 Status: Ordered lisinopril 20 mg oral tablet 20 mg, 1, tablet, By Mouth, Daily, # 90 tablet, Refills 1, Tot. Refills 1, Maintenance, 05/03/19 12:16:00 EST, Route to Pharmacy Electronically, [facility]/pharmacy #[id number], 157.4, cm, 04/26/19 15:53:00 EST, Height Start Date: 05/03/19 Stop Date: 10/30/19 Status: Ordered LORazepam 0.5 mg oral tablet 1 tablet = 0.5 mg, By Mouth, 2 times a day, PRN as needed for anxiety, for 30 days, # 60 tablet, 2 Refills, Acute 06/05/19 13:57:00 EDT, 03/07/19 13:57:00 EST, Tablet, [facility]/pharmacy #0373, 157.4, cm, 03/04/19 8:46:00 EST, Height Start Date: 03/07/19 Stop Date: 06/05/19 Status: Ordered LORazepam 0.5 mg oral tablet 1 tablet = 0.5 mg, By Mouth, 3 times a day, PRN for anxiety, for 10 days, # 30 tablet, 0 Refills, Acute 05/06/19 16:28:00 EST, 04/26/19 16:28:00 EST, Tablet, [facility]/pharmacy #[id number], 157.4, cm, 04/26/19 15:53:00 EST, Height Start Date: 04/26/19 Stop Date: 05/06/19 Status: Ordered One Touch Ultra 2 Glucose Meter See Instructions, # 1 each, Refills 0, Tot. Refills 0, Maintenance, Test Blood sugar twice daily Dxe11.9, 05/30/17 15:14:47, Replacement meter. Pt meter is not working, Compound Start Date: 05/30/17 Status: Ordered One Touch Ultra Test Strips See Instructions, # 3 box, Refills 0, Tot. Refills 0, Maintenance, use to test BS 2 times a day forDX E11.9 90 day supply, 05/28/17 10:53:07, Compound Start Date: 05/28/17 Status: Ordered oxyCODONE 10 mg oral tablet 1 tablet = 10 mg, By Mouth, Every 4 hours, for 28 days, HEAD START DIRECTOR checked., # 168 tablet, 0 Refills, Acute 05/24/19 16:25:00 EDT, 04/26/19 16:25:00 EST, [id number], Partial fill upon patient request; ok to fill early traveling, 157.4, cm, 04/26/19 1... Start Date: 04/26/19 Stop Date: 05/24/19 Status: Ordered Pt.'s Own Meds CBD, Daily, Maintenance, 01/27/19 9:06:59 EST Start Date: 01/27/19 Status: Ordered ranitidine 300 mg oral capsule 1 capsule = 300 mg, By Mouth, Daily at bedtime, # 30 capsule, 1 Refills, Maintenance, 05/08/17 16:47:03, Capsule Start Date: 05/08/17 Stop Date: 07/07/17 Status: Ordered rOPINIRole 1 mg oral tablet 1 tablet = 1 mg, By Mouth, 2 times a day, # 180 tablet, 1 Refills, Maintenance, 01/06/19 11:43:21 EDT Start Date: 01/06/19 Status: Ordered Vitamin B Complex oral tablet, [...] Current use of insulin(Confirmed) Active Depression(Confirmed) Active DM (diabetes mellitus), type 2(Confirmed) Active Dyslipidemia(Confirmed) Active Family history: Breast disease(Confirmed) Active GERD - Gastro-esophageal ref lux disease(Confirmed) Active Long-term current use of opi ate analgesic(Confirmed) Active Hypertension(Confirmed) Active RSD (reflex sympathetic dystrophy)(Confirmed) Active Tinea pedis(Confirmed) 09/01/11 Active Tobacco abuse disorder(Confirmed) Active Tobacco Use Disorder(Confirmed) Active Diagnosis Diagnosis Type Effective Dates Health Status Cl inical Service Informant Abdominal pain Discharge Diagnosis 04/26/19 Long-term current use of opiate analgesic Discharge Diagnosis 04/26/19 Vital Signs Most recent to oldest [Reference Range]: 1 Height 157.40 cm (04/26/19 3:53 PM) Weight 98.4 kg (04/26/19 3:53 PM) Oxygen Saturation [94-100 %] 98 % (04/26/19 3:53 PM) Pulse Rate [55-90 bpm] 89 bpm (04/26/19 3:53 PM) Body Mass Index [18.5-24.99] 39.72 *>HHI* (04/26/19 3:53 PM) Blood Pressure [90-138/55-84 mm Hg] 130/ 70mm Hg (04/26/19 3:53 PM) Blood pressure sites Arm, left (04/26/19 3:53 PM) Temperature Route Oral (04/26/19 3:53 PM) Weight Obtained Via Standing scale (04/26/19 3:53 PM) Social History Social History Type Response Smoking Status Current every day osmany lam; Type: Cigarettes; Tobacco use times per day: 4-5; entered on: 01/16/17 Sex
--- OUTSIDE RECORDS SUMMARY | 2023-07-18 03:24 | XMS_ITS | Continuity of Care Document ---
Author Organization [facility] Adult Address [address] [place] [address]- Care Team Providers Care Pharm Tech Name Role Phone Charo DUMONT, Dayna Primary Care Physician [phone] [place]counter [facility] [place](s[place] 04/10/23 - 04/17/23 [facility] Adult [address] [place] [phone]- Attending Physician: Not on Staff, Attending MD Allergies, Adverse Reactions, Alerts Substance Reaction Severity Status codeine Active Lactose Active Immunizations Given and Recorded Vaccine Date Status Refusal Reason SARS-CoV-2 (COVID-19) mRNA-1273 vaccine 03/30/21 R ecorded influenza virus vaccine, inactivated 1 01/16/17 Gi daniel influenza virus vaccine, inactivated 01/12/16 Give n influenza virus vaccine, inactivated 02/04/15 Give n pneumococcal 23-valent vaccine 02/04/15 Given 1Result Comment: [id number] Medications aspirin 81 mg oral tablet 1 tablet = 81 mg, By Mouth, Daily, # 30 tablet, 0 Refills, Maintenance, Tablet Start Date: 11/12/11 Status: Ordered duloxetine 20 mg oral enteric coated capsule 1 capsule, By Mouth, 2 times a day, # 180 capsule, 1 Refills, Maintenance, 02/13/23 8:22:00 EST, [id number], 156, cm, 01/03/23 11:15:00 EDT, Height Start Date: 02/13/23 Status: Ordered Fiasp FlexTouch 100 units/mL injectable solution = 22 units, Subcutaneous Infusion, 3 times a day before meals, # 20 mL, 11 Refills, Maintenance, 04/11/23 10:00:00 EST, [id number], Partial fill upon patient request if the prescription is for a schedule II opioid drug., 156, cm, 04/10/23 7:57... Start Date: 04/11/23 Stop Date: 04/05/24 Status: Ordered Fish Oil By Mouth, Daily, 0 Refills, Maintenance, 01/27/19 9:06:45 EST Start Date: 01/27/19 Status: Ordered Freestyle Ganesh Monitor See Instructions, # 1 each, Maintenance, Freestle 2 ganesh DX: E11.9 test blood sugars 5 times daily, 08/07/22 11:57:00 EDT, Supply, 156, cm, 07/12/22 13:52:00 EDT, Height Start Date: 08/07/22 Stop Date: 09/06/22 Status: Ordered Freestyle Ganesh Sensor See Instructions, # 6 each, Refills 3, Tot. Refills 3, Maintenance, Freestyle 2 sensors DX: E11.9 test blood sugars 5 times daily change sensors every 1 days, 08/07/22 12:00:00 EDT, Supply, 156, cm, 07/12/22 13:52:00 EDT, Height Start Date: 08/07/22 Stop Date: 12/05/22 Status: Ordered gabapentin 800 mg oral tablet 1 tablet, By Mouth, 3 times a day with meals, # 270 tablet, 2 Refills, Maintenance, 02/20/23 17:40:00 EST, [id number], 156, cm, 01/03/23 11:15:00 EDT, Height Start Date: 02/20/23 Status: Ordered Humalog Kwik Pen 100 units/mL subcutaneous injection = 15 units, Subcutaneous Injection, 3 times a day before meals, # 15 mL, 2 Refills, Maintenance, 01/24/23 11:19:00 EST, Solution, [facility]/pharmacy #[id number], Partial fill upon patient request if the prescription is for a schedule II opioid drug., 156, cm, ... Start Date: 01/24/23 Stop Date: 04/24/23 Status: [...] mL, 11 Refills, Maintenance, 04/11/23 8:04:00 EST, [facility]/pharmacy #[id number], 156, cm, 04/10/23 7:57:00 EST, Height [...] EST, Route to Pharmacy Electronically, [facility], 156, cm, 01/03/23 11:15:00 EDT, Height Start Date: 02/13/23 Status: Ordered Nicoderm C-Q 7 mg/24 hr transdermal film, extended release 1 patch, By Mouth, Daily, # 30 patch, 5 Refills, Maintenance, 07/26/21 9:34:00 EDT, [facility]/pharmacy #[id number], 156, cm, 07/26/21 9:18:00 EDT, Height Start Date: 07/26/21 Stop Date: 01/22/22 Status: Ordered ondansetron 4 mg oral tablet 1 tablet, By Mouth, Every 8 hours, # 15 tablet, 1 Refills, Maintenance, 02/27/23 15:56:00 EST, [facility], 156, cm, 01/03/23 11:15:00 EDT, Height Start Date: 02/27/23 Stop Date: 03/04/23 Status: Ordered One Touch Ultra 2 Glucose [...] 10 mg, By Mouth, Every 4 hours, MODELING DIRECTOR checked., # 168 tablet, 0 Refills, Maintenance, 04/10/23 10:51:00 EST, [facility]/pharmacy #[id number], Partial fill upon patient request;, 156, cm, 04/10/23 7:57:00EST, Height Start Date: 04/10/23 Stop Date: 05/08/23 Status: Ordered oxyCODONE 15 mg oral tablet 1 tablet = 15 mg, By Mouth, Daily at bedtime, PRN as needed for pain, ground support agent checked fill 04/23/23, # 28tablet, 0 Refills, Maintenance, 04/17/23 17:59:00 EST, Tablet, [id number], Partial fill upon patient request if the prescription is for a sched... Start Date: 04/17/23 Stop Date: 05/15/23 Status: Ordered Pen [place], 31 G x 5 mm BD Ultra [...] tablet, 1 Refills, Maintenance, 03/12/23 8:31:00 EST, [facility], 156, cm, 01/03/23 11:15:00 EDT, Height Start Date: 03/12/23 Status: Ordered Toujeo SoloStar 300 units/mL subcutaneous solution See Instructions, INJECT 40 UNITS SUBCUTANEOUS INJECTION 2 TIMES A DAY,X30 DAYS, # 9 Unknown, 2 Refills, Maintenance, 03/30/23 19:14:00 EST, [id number], 156, cm, 01/03/23 11:15:00 EDT, Height Start Date: 03/30/23 Status: Ordered Vitamin B Complex oral tablet, extended release 1 tablet, By Mouth, Daily, 0 Refills, Maintenance, 11/26/18 9:26:13 EDT Start Date: 11/26/18 Status: Ordered Vitamin D3 50,000 intl units oral capsule 1 capsule = 1,250 mcg, By Mouth, Every week, # 13 capsule, 3 Refills, Maintenance, 07/21/22 10:38:00 EDT, Capsule, [id number], Partial fill upon patient request [...] Confirmed Active Tobacco Use Disorder Confirmed Active Vital Signs Most recent to oldest [Reference Range]: 1 Height 156 cm (04/10/23 7:57 AM) Weight Obtained Via Patient/family state d (04/10/23 7:57 AM) Social History Social History Type Response Smoking Status Current every day sm oker; Type: Cigarettes; Tobacco use times per day: 4-5; entered on: 01/16/17 Sex Patient Care team information Care Team Personnel Name: Dayna Mancilla NP Position: S PCO Associate Professional Member Role: PCP Address: Address: [address] [facility], [address] [place] [address]- Care Team Related Persons Name: IRMA FUNG Address: home [address] [place] [address] Name: NONE, GIVEN Address: [place] [address]
--- OUTSIDE RECORDS SUMMARY | 2023-07-18 03:24 | XMS_ITS | Continuity of Care Document ---
Author Organization [facility] Adult Address [address] [place] [address]- Care Team Providers Care Small Equipment Operator Name Role Phone Charo DUMONT, Dayna Primary Care Physician Encounter [facility] [place] Date(s): 11/29/21 - 12/29/21 [facility] Adult [address] [place] [address]- Allergies, Adverse Reactions, Alerts Substance Reaction Severity Status codeine Active Lactose Active Immunizations Given and Recorded Vaccine Date Status Refusal Reason SARS-CoV-2 (COVID-19) mRNA-1273 vaccine 03/30/21 R ecorded influenza virus vaccine, inactivated 1 01/16/17 Gi daniel influenza virus vaccine, inactivated 01/12/16 Give n influenza virus vaccine, inactivated 02/04/15 Give n pneumococcal 23-valent vaccine 02/04/15 Given 1Result Comment: 47505-548-41 Medications aspirin 81 mg oral tablet 1 tablet = 81 mg, By Mouth, Daily, # 30 tablet, 0 Refills, Maintenance, Tablet Start Date: 11/12/11 Status: Ordered BD INSULIN SYR UF 1 ML [id number] BD INSULIN SYR UF 1 ML [id number], See Instructions, # 100 Unknown, 3 Refills, Maintenance, USE TO INJECT INSULIN ONCE A DAY FOR DX E11.9, 157.4, cm, 08/01/20 11:31:00 EDT, Height Start Date: 10/09/20 Status: Ordered duloxetine 20 mg oral enteric coated capsule See Instructions, TAKE 1 CAPSULE BY MOUTH TWICE A DAY, # 60 capsule, 5 Refills, [facility] [id number], 156, cm, 07/26/21 9:18:00 EDT, Height Start Date: 09/05/21 Status: Ordered Fish Oil By Mouth, Daily, 0 Refills, Maintenance, 01/27/19 9:06:45 EST Start Date: 01/27/19 Status: Ordered gabapentin 800 mg oral tablet 1 tablet = 800 mg, By Mouth, 3 times a day with meals, # 270 tablet, 2 Refills, Maintenance, 10/05/21 10:32:00 EDT, Tablet, [facility]/pharmacy #[id number], 156, cm, 07/26/21 9:18:00 EDT, [...] day, # 30 mL, 5 Refills, Maintenance, 07/26/21 9:29:00 EDT, Solution, [facility]/pharmacy #[id number], please fill early . higher dose, 156, cm, 07/26/21 9:18:00 EDT,Height Start Date: 07/26/21 Stop Date: 01/22/22 Status: Ordered Insulin Syringe, BD Ultra-Fine 1 [...] Mouth, Daily, # 90 tablet, Refills 1, Route to Pharmacy Electronically, [facility] [id number], 156, cm, 07/26/21 9:18:00 EDT, Height Start Date: 09/29/21 Status: Ordered LORazepam 0.5 mg oral tablet 1 tablet = 0.5 mg, By Mouth, 3 times a day, PRN for anxiety, for 30 days, # 30 tablet, 3 Refills, Acute 01/05/22 9:32:00 EDT, 09/07/21 9:32:00 EDT, Tablet, [facility]/pharmacy #[id number], 156, cm, 07/26/21 9:18:00 EDT, Height Start Date: 09/07/21 Stop Date: 01/05/22 Status: Ordered Medrol Dosepak 4 mg oral tablet See Instructions, 1 pack/packet By Mouth Once, # 1 pack/packet, 0 Refills, Soft Stop, 09/14/21 13:28:00 EDT, Tablet, [facility]/pharmacy #[id number], Partial fill upon patient request if the prescription is for aschedule II opioid drug., 156, cm, 07/26/21 9:18:00... Start Date: 09/14/21 Status: Ordered Nicoderm C-Q 7 mg/24 hr transdermal film, extended release 1 patch, By Mouth, Daily, # 30 patch, 5 Refills, Maintenance, 07/26/21 9:34:00 EDT, [facility]/pharmacy #[id number], 156, cm, 07/26/21 9:18:00 EDT, Height Start Date: 07/26/21 Stop Date: 01/22/22 Status: Ordered ondansetron 4 mg oral tablet 1 tablet, By Mouth, Every 8 hours, PRN NEEDED FOR NAUSEA AND VOMITING FOR, # 15 tablet, 1 Refills, Maintenance, 12/03/21 9:44:00 EDT, [facility] 12258, 156, cm, 07/26/21 9:18:00 EDT, Height Start Date: 12/03/21 Stop Date: 12/08/21 Status: Ordered One Touch Ultra 2 Glucose [...] 10 mg, By Mouth, Every 4 hours, [employer] checked.fill on 12/28/21, # 168 tablet, 0 Refills, Acute 03/16/22 13:49:00 EST, 12/13/21 8:05:00 EDT, [id number], Partial fill upon patient request;, 156, cm, 07/26/21 9:18:00 EDT, Height Start Date: 12/13/21 Stop Date: 03/16/22 Status: Ordered oxyCODONE 15 mg oral tablet 1 tablet = 15 mg, By Mouth, Daily at bedtime, PRN as needed for pain, for 28 days, fill on 12/08/21,# 28 tablet, 0 Refills, Acute 01/01/22 19:48:00 EDT, 12/04/21 19:48:00 EDT, Tablet, [id number], Partial fill upon patient request if the prescr... Start Date: 12/04/21 Stop Date: 01/01/22 Status: Ordered Pt.'s Own Meds CBD, Daily, Maintenance, 01/27/19 9:06:59 EST Start Date: 01/27/19 Status: Ordered rOPINIRole 1 mg oral tablet 1 tablet, By Mouth, 2 times a day, # 180 tablet, 1 Refills, Maintenance, 10/06/20 14:51:00 EDT, [facility], 157.4, cm, 08/01/20 11:31:00 EDT, Height Start Date: 10/06/20 Status: Ordered rOPINIRole 1 mg oral tablet See Instructions, TAKE 1 TABLET BY MOUTH TWICE A DAY, # 180 tablet, 1 Refills, 10/05/21 11:54:00 EDT, [id number], 156, cm, 07/26/21 9:18:00 EDT, Height Start Date: 10/05/21 Status: Ordered Trulicity Pen 1.5 mg/0.5 mL subcutaneous solution See Instructions, INJECT 0.5 ML SUBCUTANEOUS INJECTION EVERY WEEK, # 2 Unknown, 5 Refills, Maintenance, 12/24/21 14:39:00 EDT, [facility], 156, cm, 07/26/21 9:18:00 EDT, Height Start Date: 12/24/21 Status: Ordered Vitamin B Complex oral tablet, extended release 1 tablet, By Mouth, Daily, 0 Refills, Maintenance, 11/26/18 9:26:13 EDT Start Date: 11/26/18 Status: Ordered Vitamin D3 50,000 intl units oral capsule 1 capsule = 1,250 mcg, By Mouth, Every week, # 12 capsule, 2 Refills, Maintenance, 06/26/21 8:37:00EDT, Capsule, [id number], Partial fill upon patient request if [...] opiate analgesic Confirmed Active Hypertension Confirmed Active Obese class II Confirmed Active RSD (reflex sympathetic dystrophy) Confirmed Active Tinea pedis Confirmed 09/01/11 Active Tobacco abuse disorder Confirmed Active Tobacco Use Disorder Confirmed Active Social History Social History Type Response Smoking Status Current every day sm oker; Type: Cigarettes; Tobacco use times per day: 4-5; entered on: 01/16/17 Sex Patient Care team information Personnel Name: Dayna Mancilla NP Address: Address: [address] [place] [address], [address] [place], [place] [address]
--- OUTSIDE RECORDS SUMMARY | 2023-07-18 03:24 | XMS_ITS | Continuity of Care Document ---
Author Organization [facility] Adult Address [address] [place] [phone]- Care Team Providers Care Dining Room Hostess Name Role Phone Charo DUMONT, Dayna Primary Care Physician [place] [facility] [place]/02[place]22 - 05/02/22 [facility] Adult [address] [place] [address]- Allergies, Adverse Reactions, Alerts Substance Reaction Severity Status codeine Active Lactose Active Immunizations Given and Recorded Vaccine Date Status Refusal Reason SARS-CoV-2 (COVID-19) mRNA-1273 vaccine 03/30/21 R ecorded influenza virus vaccine, inactivated 1 01/16/17 Gi daniel influenza virus vaccine, inactivated 01/12/16 Give n influenza virus vaccine, inactivated 02/04/15 Give n pneumococcal 23-valent vaccine 02/04/15 Given 1Result Comment: 29084-245-06 Medications aspirin 81 mg oral tablet 1 tablet = 81 mg, By Mouth, Daily, # 30 tablet, 0 Refills, Maintenance, Tablet Start Date: 11/12/11 Status: Ordered BD INSULIN SYR UF 1 ML [id number] BD INSULIN SYR UF 1 ML [id number], See Instructions, # 100 Unknown, 3 Refills, Maintenance, USE TO INJECT INSULIN ONCE A DAY FOR DX E11.9, 157.4, cm, 08/01/20 11:31:00 EDT, Height Start Date: 10/09/20 Status: Ordered BD INSULIN SYR UF 1 ML [id number] BD INSULIN SYR UF 1 ML [id number], See Instructions, # 180 Unknown, 1 Refills, Maintenance, USE TO INJECT INSULIN TWICE A DAY FOR DX E11.9, 04/18/22 10:30:00 EST, 156, cm, 04/18/22 9:46:00 EST, Height Start Date: 04/18/22 Status: Ordered duloxetine 20 mg oral enteric coated capsule 1 capsule, By Mouth, 2 times a day, # 180 capsule, 1 Refills, Maintenance, 02/25/22 9:26:00 EST, [facility], 156, cm, 01/14/22 15:09:00 EDT, Height Start Date: 02/25/22 Status: Ordered Fish Oil By Mouth, Daily, 0 Refills, Maintenance, 01/27/19 9:06:45 EST Start Date: 01/27/19 Status: Ordered gabapentin 800 mg oral tablet 1 tablet = 800 mg, By Mouth, 3 times a day with meals, # 270 tablet, 2 Refills, Maintenance, 10/05/21 10:32:00 EDT, Tablet, [id number], 156, cm, 07/26/21 9:18:00 EDT, [...] 04/01/22 6:54:00 EST, Route to Pharmacy Electronically, [id number], 156, cm, 01/14/22 15:09:00 EDT, Height Start Date: 04/01/22 Status: Ordered LORazepam 0.5 mg oral tablet 1 tablet = 0.5 mg, By Mouth, 3 times a day, PRN for anxiety, for 30 days, # 30 tablet, 3 Refills, Acute 05/14/22 17:30:00 EST, 01/14/22 17:30:00 EDT, Tablet, [facility]/pharmacy #[id number], 156, cm, 01/14/22 15:09:00 EDT, Height Start Date: 01/14/22 Stop Date: 05/14/22 Status: Ordered Nicoderm C-Q 7 mg/24 hr transdermal film, extended release 1 patch, By Mouth, Daily, # 30 patch, 5 Refills, Maintenance, 07/26/21 9:34:00 EDT, [facility]/pharmacy #0373, 156, cm, 07/26/21 9:18:00 EDT, Height Start Date: 07/26/21 Stop Date: 01/22/22 Status: Ordered ondansetron 4 mg oral tablet 1 tablet, By Mouth, Every 8 hours, PRN NEEDED FOR NAUSEA AND VOMITING FOR, # 9 tablet, 3 Refills, Maintenance, 03/15/22 15:20:00 EST, [facility], 156, cm, 01/14/22 15:09:00 EDT, Height Start [...] 10 mg, By Mouth, Every 4 hours, AIRCRAFT METALSMITH checked. ok to fill early pt is leaving town tomorrow. cancel previous script that was sent, # 168 tablet, 0 Refills, Acute 03/16/23 16:16:00 EST, 04/15/22 17:08:00 EST, [id number], [facility] fill u... Start Date: 04/15/22 Stop Date: 03/16/23 Status: Ordered oxyCODONE 15 mg oral tablet 1 tablet = 15 mg, By Mouth, Daily at bedtime, PRN as needed for pain, for 28 days, fill on 04/26/22,# 28 tablet, 0 Refills, Acute 05/23/22 13:06:00 EST, 04/25/22 13:06:00 EST, Tablet, [id number], Partial fill upon patient request if the prescr... Start Date: 04/25/22 Stop Date: 05/23/22 Status: Ordered Pt.'s Own Meds CBD, Daily, Maintenance, 01/27/19 9:06:59 EST Start Date: 01/27/19 Status: Ordered rOPINIRole 1 mg oral tablet 1 tablet, By Mouth, 2 times a day, # 180 tablet, 1 Refills, Maintenance, 03/27/22 18:34:00 EST, [facility], 156, cm, 01/14/22 15:09:00 EDT, Height Start Date: 03/27/22 Status: Ordered Trulicity Pen 1.5 mg/0.5 mL subcutaneous solution See Instructions, INJECT 0.5 ML SUBCUTANEOUS INJECTION EVERY WEEK, # 2 Unknown, 2 Refills, Maintenance, 04/29/22 10:00:00 EST, [facility], 156, cm, 04/18/22 9:46:00 EST, Height Start Date: 04/29/22 Status: Ordered Vitamin B Complex oral tablet, extended release 1 tablet, By Mouth, Daily, 0 Refills, Maintenance, 11/26/18 9:26:13 EDT Start Date: 11/26/18 Status: Ordered Vitamin D3 50,000 intl units oral capsule 1 capsule = 1,250 mcg, By Mouth, Every week, # 12 capsule, 2 Refills, Maintenance, 06/26/21 8:37:00EDT, Capsule, [facility], Partial fill upon patient request if the [...] dystrophy) Confirmed Active Severe obesity Confirmed Active Severe obesity (BMI 35.0-39.9) with [...] Associate Professional Member Role: PCP Address: Address: [address] [place] [address], [address] [place] [address]- Care Team Related Persons Name: IRMA FUNG Address: home [address] [place] [address] Name: NONE, GIVEN Address: [place] [address]
--- OUTSIDE RECORDS SUMMARY | 2023-07-18 03:24 | XMS_ITS | Continuity of Care Document ---
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 Name Role Phone Charo DUMONT, Dayna Primary Care Physician Encounter [facility] [place] Date(s): 12/14/19 - 01/13/20 [facility] Adult [address] [place] [address]- [facility] Allergies, Adverse Reactions, Alerts Substance Reaction Severity Status codeine Active Lactose Active Immunizations Given and Recorded Vaccine Date Status Refusal Reason influenza virus vaccine, inactivated 1 01/16/17 Gi daniel influenza virus vaccine, inactivated 01/12/16 Give n influenza virus vaccine, inactivated 02/04/15 Give n pneumococcal 23-valent vaccine 02/04/15 Given 1Result Comment: 46247-298-41 Medications aspirin 81 mg oral tablet 1 tablet = 81 mg, By Mouth, Daily, # 30 tablet, 0 Refills, Maintenance, Tablet Start Date: 11/12/11 Status: Ordered buPROPion 150 mg/12 hours (SR) oral tablet, extended release 1 tablet = 150 mg, By Mouth, 2 times a day, # 60 tablet, 5 Refills, Maintenance, 09/28/19 7:36:00 EDT, ER Tablet, [facility], 157.4, cm, 09/01/19 8:41:00 EDT, Height Start Date: 09/28/19 Stop Date: 03/26/20 Status: Ordered Fish Oil By Mouth, Daily, 0 Refills, Maintenance, 01/27/19 9:06:45 EST Start Date: 01/27/19 Status: Ordered gabapentin 800 mg oral tablet 1 tablet = 800 mg, By Mouth, 3 times a day with meals, # 270 tablet, 2 Refills, Maintenance, 12/15/19 8:56:00 EDT, Tablet, [facility]/pharmacy #4200, 157.4, cm, 09/01/19 8:41:00 EDT, Height Start Date: 12/15/19 Stop Date: 09/10/20 Status: Ordered hydrocortisone 2.5% topical cream 1 [...] insulin detemir 100 units/mL subcutaneous solution = 55 units, Subcutaneous Injection, Daily at bedtime, # 15 mL, 2 Refills, Maintenance, 02/16/20 15:41:00 EST, Solution, [facility]/pharmacy #0373, 157.4, cm, 09/01/19 8:41:00 EDT, Height Start Date: 02/16/20 Stop Date: 05/16/20 Status: Ordered insulin detemir 100 units/mL subcutaneous solution = 55 units, Subcutaneous Injection, Daily at bedtime, for 30 days, # 15 mL, 2 Refills, Hard Stop 02/16/20 15:41:00 EST, 11/18/19 15:41:00 EDT, Solution, [facility]/pharmacy #0373, 157.4, cm, 09/01/19 8:41:00 EDT, Height Start Date: 11/18/19 Stop Date: 02/16/20 Status: Ordered Insulin Syringe, BD Ultra-Fine 1 cc 31 G x 8 mm (5/16in) See Instructions, # 100 each, Refills 3, Tot. Refills 3, Maintenance, use to inject insulin once a day for DX E11.9, 09/09/19 13:23:00 EDT, [facility], 157.4, cm, 09/01/19 8:41:00 EDT, Height Start Date: 09/09/19 Status: Ordered lisinopril 20 mg oral tablet 20 mg, 1, tablet, By Mouth, Daily, # 90 tablet, Refills 1, Tot. Refills 1, Maintenance, 10/26/19 8:36:00 EDT, Route to Pharmacy Electronically, [facility]/pharmacy #0373, 157.4, cm, 09/01/19 8:41:00 EDT, Height Start Date: 10/26/19 Stop Date: 04/23/20 Status: Ordered LORazepam 0.5 mg oral tablet 1 tablet = 0.5 mg, By Mouth, 3 times a day, PRN for anxiety, for 30 days, # 30 tablet, 3 Refills, Acute 05/06/20 16:04:00 EST, 01/07/20 16:04:00 EDT, Tablet, [facility]/pharmacy #0373, 157.4, cm, 01/07/20 15:32:00 EDT, Height Start Date: 01/07/20 Stop Date: 05/06/20 Status: Ordered Nicoderm C-Q 7 mg/24 hr transdermal film, extended release 1 patch, By Mouth, Daily, # 30 patch, 5 Refills, Maintenance, 09/01/19 9:18:00 EDT, [facility]/pharmacy #0373, 157.4, cm, 09/01/19 8:41:00 EDT, Height [...] 10 mg, By Mouth, Every 4 hours, DIE DESIGNER APPRENTICE 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
--- OUTSIDE RECORDS SUMMARY | 2023-07-18 03:24 | XMS_ITS | Continuity of Care Document ---
Author Organization [facility] Adult Address [address] [place] [address]- Care Team Providers Care Excelsior Cutter Name Role Phone Charo DUMONT, Dayna Primary Care Physician Encounter [facility] [place] Date(s): 07/22/19 - 08/21/19 [facility] Adult [address] [place] [phone]- [facility] Attending Physician: Delvin Bustillos Admitting Physician: Delvin Bustillos Referring Physician: AdmtrDelvin Allergies, Adverse Reactions, Alerts Substance Reaction Severity Status codeine Active Lactose Active Immunizations Given and Recorded Vaccine Date Status Refusal Reason influenza virus vaccine, inactivated 1 01/16/17 Gi daniel influenza virus vaccine, inactivated 01/12/16 Give n influenza virus vaccine, inactivated 02/04/15 Give n pneumococcal 23-valent vaccine 02/04/15 Given 1Result Comment: 24593-537-15 Medications aspirin 81 mg oral tablet 1 tablet = 81 mg, By Mouth, Daily, # 30 tablet, 0 Refills, Maintenance, Tablet Start Date: 11/12/11 Status: Ordered Chantix Starter Pack 0.5 mg-1 [...] 05/03/19 12:16:00 EST, Route to Pharmacy Electronically, [facility]0373, 157.4, cm, 04/26/19 15:53:00 EST, Height Start Date: 05/03/19 Stop Date: 10/30/19 Status: Ordered One Touch Ultra 2 Glucose [...] 10 mg, By Mouth, Every 4 hours, BELT LOOP MAKER 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
--- OUTSIDE RECORDS SUMMARY | 2023-07-18 03:24 | XMS_ITS | Continuity of Care Document ---
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 Name Role Phone Charo DUMONT, Dayna Primary Care Physician Encounter [facility] [place] Date(s): 07/22/19 - 07/29/19 [facility] ([facility] Adult [address] [place] [address]- [facility] Encounter Diagnosis DM (diabetes mellitus), type 2(Discharge Diagnosis) - 07/22/19 Attending Physician: Not on Staff, Attending MD Allergies, Adverse Reactions, Alerts Substance Reaction Severity Status codeine Active Lactose Active Immunizations Given and Recorded Vaccine Date Status Refusal Reason influenza virus vaccine, inactivated 1 01/16/17 Gi daniel influenza virus vaccine, inactivated 01/12/16 Give n influenza virus vaccine, inactivated 02/04/15 Give n pneumococcal 23-valent vaccine 02/04/15 Given 1Result Comment: [id number] Medications aspirin 81 mg oral tablet 1 [...] 05/03/19 12:16:00 EST, Route to Pharmacy Electronically, [facility]/pharmacy #[id number], 157.4, cm, 04/26/19 15:53:00 EST, [...] 10 mg, By Mouth, Every 4 hours, RETURN TO FACTORY CLERK checked., # 168 tablet, 0 Refills, Acute 03/16/20 16:00:00 EST, 07/20/19 16:49:00 EDT, [facility]/pharmacy #[id number], Partial fill upon patient request;, 07/21/19,157.4, cm, 06/03/19 8:51:00 EDT, Height Start Date: 07/20/19 Stop Date: 03/16/20 Status: Ordered Pt.'s Own [...] tablet, 0 Refills, Maintenance, 07/08/19 10:01:00 EDT, [facility]/pharmacy #0373, 157.4, cm, 06/03/19 8:51:00 EDT, [...] Dates Health Status Cl inical Service Informant DM (diabetes mellitus), type 2 Discharge Diagnosis 07/22/19 Social History Social History Type Response Smoking Status Current every day osmany lam; Type: Cigarettes; Tobacco use times per day: 4-5; entered on: 01/16/17 Sex
--- OUTSIDE RECORDS SUMMARY | 2023-07-18 03:25 | XMS_ITS | Continuity of Care Document ---
Author Organization [facility] Adult Address [address] [place] [address]- Care Team Providers Care Ethical Hacker Name Role Phone Charo DUMONT, Dayna Primary Care Physician [phone] Encounter [facility] Date(s): 07/28/20 - 08/27/20 [facility] Adult [address] [place] [address]- Allergies, Adverse Reactions, Alerts Substance Reaction Severity Status codeine Active Lactose Active Immunizations Given and Recorded Vaccine Date Status Refusal Reason influenza virus vaccine, inactivated 1 01/16/17 Gi daniel influenza virus vaccine, inactivated 01/12/16 Give n influenza virus vaccine, inactivated 02/04/15 Give n pneumococcal 23-valent vaccine 02/04/15 Given 1Result Comment: 55577-806-68 Medications aspirin 81 mg oral tablet 1 tablet = 81 mg, By Mouth, Daily, # 30 tablet, 0 Refills, Maintenance, Tablet Start Date: 11/12/11 Status: Ordered buPROPion 150 mg/12 hours (SR) oral tablet, extended release 1 tablet = 150 mg, By Mouth, 2 times a day, # 60 tablet, 5 Refills, Maintenance, 05/03/20 11:33:00 EST, ER Tablet, [facility]/pharmacy #0373, 157.4, cm, 04/13/20 9:03:00 EST, Height Start Date: 05/03/20 Stop Date: 10/30/20 Status: Ordered Fish Oil By Mouth, Daily, 0 Refills, Maintenance, 01/27/19 9:06:45 EST Start Date: 01/27/19 Status: Ordered gabapentin 800 mg oral tablet 1 tablet = 800 mg, By Mouth, 3 times a day with meals, # 270 tablet, 2 Refills, Maintenance, 12/15/19 8:56:00 EDT, Tablet, [facility]/pharmacy #[id number], 157.4, cm, 09/01/19 8:41:00 EDT, Height [...] insulin detemir 100 units/mL subcutaneous solution = 82 units, Subcutaneous Injection, Daily at bedtime, for 30 days, # 15 mL, 5 Refills, Hard Stop 02/05/21 13:11:00 EST, 08/09/20 13:11:00 EDT, Solution, [facility]/pharmacy #0373, please fill early . higherdose, 157.4, cm, 08/01/20 11:31:00 EDT, Height Start Date: 08/09/20 Stop Date: 02/05/21 Status: Ordered Insulin Syringe, BD Ultra-Fine 1 [...] tablet, Refills 1, Tot. Refills 1, Maintenance, 04/23/20 8:36:00 EST, Route to Pharmacy Electronically, [facility]/pharmacy #0373, 157.4, cm, 04/13/20 9:03:00 EST, Height Start Date: 04/23/20 Stop Date: 10/20/20 Status: Ordered LORazepam 0.5 mg oral tablet 1 tablet = 0.5 mg, By Mouth, 3 times a day, PRN for anxiety, for 30 days, # 30 tablet, 3 Refills, Acute 10/13/20 16:18:00 EDT, 06/15/20 16:18:00 EDT, Tablet, [facility]/pharmacy #0373, 157.4, cm, 04/13/20 9:03:00 EST, Height Start Date: 06/15/20 Stop Date: 10/13/20 Status: Ordered Nicoderm C-Q 7 mg/24 hr transdermal film, extended release 1 patch, By Mouth, Daily, # 30 patch, 5 Refills, Maintenance, 09/01/19 9:18:00 EDT, [facility]/pharmacy #[facility]3, 157.4, cm, 09/01/19 8:41:00 EDT, Height Start Date: 09/01/19 Stop Date: 02/28/20 Status: Ordered ondansetron 4 mg oral tablet See Instructions, TAKE 1 TABLET BY MOUTH EVERY 8 HOURS NEEDED FOR NAUSEA AND VOMITING FOR 5 DAYS, # 9 tablet, 3 Refills, Maintenance, [facility], 157.4, cm, 04/13/20 9:03:00 EST, Height Start Date: 07/17/20 Status: Ordered One Touch Ultra 2 Glucose [...] 10 mg, By Mouth, Every 4 hours, LINER MAN checked., # 168 tablet, 0 Refills, Acute 03/16/21 11:04:00 EST, 08/15/20 13:05:00 EDT, [facility], Partial fill upon patient request;, 08/16/20,157.4, cm, 05/18/21 11:31:00 EDT, Height Start Date: 08/15/20 Stop Date: 03/16/21 Status: Ordered Pt.'s Own Meds CBD, Daily, Maintenance, 01/27/19 9:06:59 EST Start Date: 01/27/19 Status: Ordered rOPINIRole 1 mg oral tablet 1 tablet = 1 mg, By Mouth, 2 times a day, # 180 tablet, 1 Refills, Maintenance, 04/17/20 13:52:00 EST, [facility], 157.4, cm, 04/13/20 9:03:00 EST, Height Start Date: 04/17/20 Status: Ordered Trulicity Pen 0.75 mg/0.5 mL subcutaneous solution 0.5 mL = 0.75 mg, Subcutaneous Injection, Every week, rotate injection sites, # 2.5 mL, 0 Refills, Maintenance, 07/25/20 14:16:00 EDT, Solution, [id number], Partial fill upon patient request if the prescription is for a schedule II opioid drug... Start Date: 07/25/20 Stop Date: 08/24/20 Status: Ordered Vitamin B Complex oral tablet, extended release 1 tablet, By Mouth, Daily, 0 Refills, Maintenance, 11/26/18 9:26:13 EDT Start Date: 11/26/18 Status: Ordered Vitamin D3 50,000 intl units oral capsule 1 capsule = 50,000 International_Units, By Mouth, Every week, # 13 capsule, 3 Refills, Maintenance,10/19/15 16:05:10, Capsule Start Date: 10/19/15 Stop Date: 10/13/16 Status: Ordered Zofran 4 mg oral tablet 1 tablet = 4 mg, By Mouth, Every 8 hours, PRN as needed for nausea/vomiting, # 15 tablet, 1 Refills, Maintenance, 04/13/20 9:35:00 EST, Tablet, [id number], Partial fill upon patient request if the prescription is for a schedule II opioid drug.... Start Date: 04/13/20 Stop Date: 04/23/20 Status: Ordered Problem List Condition Effective Dates [...]
--- OUTSIDE RECORDS SUMMARY | 2023-07-18 03:25 | XMS_ITS | Continuity of Care Document ---
Author Organization [facility] Adult Address [address] [place] [address]- Care Team Providers Care Anode Rebuilder Name Role Phone Charo DUMONT, Dayna Primary Care Physician [phone] Encounter [facility] Date(s): 01/23/22 - 02/22/22 [facility] Adult [address] [place] [address]- Allergies, Adverse Reactions, Alerts Substance Reaction Severity Status codeine Active Lactose Active Immunizations Given and Recorded Vaccine Date Status Refusal Reason SARS-CoV-2 (COVID-19) mRNA-1273 vaccine 03/30/21 R ecorded influenza virus vaccine, inactivated 1 01/16/17 Gi daniel influenza virus vaccine, inactivated 01/12/16 Give n influenza virus vaccine, inactivated 02/04/15 Give n pneumococcal 23-valent vaccine 02/04/15 Given 1Result Comment: [id number] Medications aspirin 81 mg oral tablet 1 tablet = 81 mg, By Mouth, Daily, # 30 tablet, 0 Refills, Maintenance, Tablet Start Date: 11/12/11 Status: Ordered BD INSULIN SYR UF 1 ML [id number] BD INSULIN SYR UF 1 ML [id number], See Instructions, # 100 Unknown, 3 Refills, Maintenance, USE TO INJECT INSULIN ONCE A DAY FOR DX E11.9, 157.4, cm, 08/01/20 11:31:00 EDT, Height Start Date: 10/09/20 Status: Ordered duloxetine 20 mg oral enteric coated capsule See Instructions, TAKE 1 CAPSULE BY MOUTH TWICE A DAY, # 60 capsule, 5 Refills, [id number], 156, cm, 07/26/21 9:18:00 EDT, Height Start Date: 09/05/21 Status: Ordered Fish Oil By Mouth, Daily, 0 Refills, Maintenance, 01/27/19 9:06:45 EST Start Date: 01/27/19 Status: Ordered gabapentin 800 mg oral tablet 1 tablet = 800 mg, By Mouth, 3 times a day with meals, # 270 tablet, 2 Refills, Maintenance, 10/05/21 10:32:00 EDT, Tablet, [facility]/pharmacy #2071, 156, cm, 07/26/21 9:18:00 EDT, [...] 5 Refills, Maintenance, 02/01/22 13:33:00 EST, Solution, [facility]/pharmacy #[id number], please fill early . higher [...] tablet, Refills 1, Route to Pharmacy Electronically, [facility], 156, cm, 07/26/21 9:18:00 EDT, Height Start Date: 09/29/21 Status: Ordered LORazepam 0.5 mg oral tablet 1 tablet = 0.5 mg, By Mouth, 3 times a day, PRN for anxiety, for 30 days, # 30 tablet, 3 Refills, Acute 05/14/22 17:30:00 EST, 01/14/22 17:30:00 EDT, Tablet, [facility]/pharmacy #[id number], 156, cm, 01/14/22 15:09:00 EDT, Height Start Date: 01/14/22 Stop Date: 05/14/22 Status: Ordered Medrol Dosepak 4 mg oral tablet See Instructions, 1 pack/packet By Mouth Once, # 1 pack/packet, 0 Refills, Soft Stop, 09/14/21 13:28:00 EDT, Tablet, [facility]/pharmacy #[id number], Partial fill upon patient request if the prescription is for aschedule II opioid drug., 156, cm, 07/26/21 9:18:00... Start Date: 09/14/21 Status: Ordered Nicoderm C-Q 7 mg/24 hr transdermal film, extended release 1 patch, By Mouth, Daily, # 30 patch, 5 Refills, Maintenance, 07/26/21 9:34:00 EDT, [facility]/pharmacy #0373, 156, cm, 07/26/21 9:18:00 EDT, Height Start Date: 07/26/21 Stop Date: 01/22/22 Status: Ordered ondansetron 4 mg oral tablet 1 tablet, By Mouth, Every 8 hours, PRN NEEDED FOR NAUSEA AND VOMITING FOR, # 9 tablet, 3 Refills, Maintenance, 01/22/22 16:28:00 EST, [facility], 156, cm, 01/14/22 15:09:00 EDT, Height Start Date: 01/22/22 Stop Date: 01/27/22 Status: Ordered One Touch Ultra 2 Glucose [...] 10 mg, By Mouth, Every 4 hours, DIRECTOR SEARCH checked.Fill on 02/20/22, # 168 tablet, 0 Refills, Acute 03/15/23 16:09:00 EST, 02/19/22 17:40:00 EST, [id number], Partial fill upon patient request;, 156, cm, 01/14/22 15:09:00 EDT, Height Start Date: 02/19/22 Stop Date: 03/15/23 Status: Ordered oxyCODONE 15 mg oral tablet 1 tablet = 15 mg, By Mouth, Daily at bedtime, PRN as needed for pain, for 28 days, fill on 02/01/22, # 28 tablet, 0 Refills, Acute 03/01/22 9:28:00 EST, 02/01/22 9:28:00 EST, Tablet, [id number], Partial fill upon patient request if the prescri... Start Date: 02/01/22 Stop Date: 03/01/22 Status: Ordered Pt.'s Own Meds CBD, Daily, Maintenance, 01/27/19 9:06:59 EST Start Date: 01/27/19 Status: Ordered rOPINIRole 1 mg oral tablet 1 tablet, By Mouth, 2 times a day, # 180 tablet, 1 Refills, Maintenance, 10/06/20 14:51:00 EDT, [facility], 157.4, cm, 08/01/20 11:31:00 EDT, Height Start Date: 10/06/20 Status: Ordered rOPINIRole 1 mg oral tablet See Instructions, TAKE 1 TABLET BY MOUTH TWICE A DAY, # 180 tablet, 1 Refills, 10/05/21 11:54:00 EDT, [id number], 156, cm, 07/26/21 9:18:00 EDT, Height Start Date: 10/05/21 Status: Ordered Trulicity Pen 3 mg/0.5 mL subcutaneous solution 0.5 mL = 3 mg, Subcutaneous Injection, Every week, rotate injection sites, # 2.5 mL, 1 Refills, Maintenance, 01/14/22 15:32:00 EDT, Solution, [id number], Partial fill upon patient request if the prescription is for a schedule II opioid drug.,... Start Date: 01/14/22 Stop Date: 03/15/22 Status: Ordered Vitamin B Complex oral tablet, extended release 1 tablet, By Mouth, Daily, 0 Refills, Maintenance, 11/26/18 9:26:13 EDT Start Date: 11/26/18 Status: Ordered Vitamin D3 50,000 intl units oral capsule 1 capsule = 1,250 mcg, By Mouth, Every week, # 12 capsule, 2 Refills, Maintenance, 06/26/21 8:37:00EDT, Capsule, [facility], Partial fill upon patient request if the [...] Professional Member Role: PCP Address: Address: [address] [facility], [address] [place] [address]- Care Team Related Persons Name: IRMA FUNG Address: home [address] [place] [address] Name: NONE, GIVEN Address: [place] [address]
--- OUTSIDE RECORDS SUMMARY | 2023-07-18 03:25 | XMS_ITS | Continuity of Care Document ---
Author Organization [facility] Adult Address [address] [place] [address]- Care Team Providers Care Glazier Helper Name Role Phone Charo DUMONT, Dayna Primary Care Physician Encounter [facility] [place] Date(s): 02/25/23 - 03/27/23 [facility] Adult [address] [place] [address]- Allergies, Adverse Reactions, Alerts Substance Reaction Severity Status codeine Active Lactose Active Immunizations Given and Recorded Vaccine Date Status Refusal Reason SARS-CoV-2 (COVID-19) mRNA-1273 vaccine 03/30/21 R ecorded influenza virus vaccine, inactivated 1 01/16/17 Gi daniel influenza virus vaccine, inactivated 01/12/16 Give n influenza virus vaccine, inactivated 02/04/15 Give n pneumococcal 23-valent vaccine 02/04/15 Given 1Result Comment: [id number] Medications aspirin 81 mg oral tablet 1 tablet = 81 mg, By Mouth, Daily, # 30 tablet, 0 Refills, Maintenance, Tablet Start Date: 11/12/11 Status: Ordered duloxetine 20 mg oral enteric coated capsule 1 capsule, By Mouth, 2 times a day, # 180 capsule, 1 Refills, Maintenance, 02/13/23 8:22:00 EST, [facility], 156, cm, 01/03/23 11:15:00 EDT, Height Start Date: 02/13/23 Status: Ordered Fish Oil By Mouth, Daily, [...] Refills, Maintenance, 02/20/23 17:40:00 EST, [facility], 156, cm, 01/03/23 11:15:00 EDT, Height Start Date: 02/20/23 Status: Ordered Humalog Kwik Pen 100 units/mL subcutaneous injection = 15 units, Subcutaneous Injection, 3 times a day before meals, # 15 mL, 2 Refills, Maintenance, 01/24/23 11:19:00 EST, Solution, [id number], Partial fill upon patient request if the prescription is for a schedule II opioid drug., 156, cm, 10/... Start Date: 01/24/23 Stop Date: 04/24/23 Status: [...] Maintenance Start Date: 04/10/11 Status: Ordered insulin glargine (concentrated) 300 units/mL subcutaneous solution = 40 units, Subcutaneous Injection, 2 times a day, # 6 mL, 4 Refills, Maintenance, 11/27/22 14:19:00 EDT, Solution, [id number], Partial fill upon patient request if the prescription is for a schedule II opioid drug., 156, cm, 10/16/22 15:36:00... Start Date: 11/27/22 Stop Date: 04/26/23 Status: Ordered Insulin Syringe, BD Ultra-Fine 1 [...] 02/13/23 8:22:00 EST, Route to Pharmacy Electronically, [facility], 156, cm, 01/03/23 11:15:00 EDT, Height Start Date: 02/13/23 Status: Ordered Nicoderm C-Q 7 mg/24 hr transdermal film, extended release 1 patch, By Mouth, Daily, # 30 patch, 5 Refills, Maintenance, 07/26/21 9:34:00 EDT, [facility], 156, cm, 07/26/21 9:18:00 EDT, Height Start Date: 07/26/21 Stop Date: 01/22/22 Status: Ordered ondansetron 4 mg oral tablet 1 tablet, By Mouth, Every 8 hours, # 15 tablet, 1 Refills, Maintenance, 02/27/23 15:56:00 EST, [facility], 156, cm, 01/03/23 11:15:00 EDT, Height Start [...] 10 mg, By Mouth, Every 4 hours, BATTERY STARTER checked. fill on 03/14/23, # 168 tablet, 0 Refills, Maintenance, 03/13/23 14:40:00 EST, [facility]/pharmacy #[id number], Partial fill upon patient request;, 156, cm,01/03/23 11:15:00 EDT, Height Start Date: 03/13/23 Stop Date: 04/10/23 Status: Ordered oxyCODONE 15 mg oral tablet 1 tablet = 15 mg, By Mouth, Daily at bedtime, PRN as needed for pain, patrol captain checked fill 03/26/23, # 28 tablet, 0 Refills, Maintenance, 03/24/23 12:53:00 EST, Tablet, [facility]/pharmacy #2071, Partial fill upon patient request if the prescription is for a sche... Start Date: 03/24/23 Stop Date: 04/21/23 Status: Ordered Pen [place], 31 G x 5 mm BD Ultra [...] tablet, 1 Refills, Maintenance, 03/12/23 8:31:00 EST, [facility] 220[facility], 156, cm, 01/03/23 11:15:00 EDT, Height Start Date: 03/12/23 Status: Ordered Vitamin B Complex oral tablet, extended release 1 tablet, By Mouth, Daily, 0 Refills, Maintenance, 11/26/18 9:26:13 EDT Start Date: 11/26/18 Status: Ordered Vitamin D3 50,000 intl units oral capsule 1 capsule = 1,250 mcg, By Mouth, Every week, # 13 capsule, 3 Refills, Maintenance, 07/21/22 10:38:00 EDT, Capsule, [facility], Partial fill upon patient request if the [...] Team Personnel Name: Dayna Mancilla NP Position: [facility] PCO Associate Professional Member Role: PCP Address: Address: [address] [place] [address], [address] [place] [address]- Care Team Related Persons Name: IRMA FUNG Address: home [address] [place] [id number] Name: NONE, GIVEN Address: [place] [address]
--- OUTSIDE RECORDS SUMMARY | 2023-07-18 03:25 | XMS_ITS | Continuity of Care Document ---
Author Organization [facility] Address [address] [place] [address]- Care Team Providers Care Public Finance Specialist Name Role Phone Charo DUMONT, Dayna Primary Care Physician Encounter [facility] Date(s): 09/04/20 - 10/04/20 [facility] [address] [place] [address]- Allergies, Adverse Reactions, Alerts Substance Reaction Severity Status codeine Active Lactose Active Immunizations Given and Recorded Vaccine Date Status Refusal Reason influenza virus vaccine, inactivated 1 01/16/17 Gi daniel influenza virus vaccine, inactivated 01/12/16 Give n influenza virus vaccine, inactivated 02/04/15 Give n pneumococcal 23-valent vaccine 02/04/15 Given 1Result Comment: [id number] Medications aspirin 81 mg oral tablet 1 tablet = 81 mg, By Mouth, Daily, # 30 tablet, 0 Refills, Maintenance, Tablet Start Date: 11/12/11 Status: Ordered buPROPion 150 mg/12 hours (SR) oral tablet, extended release 1 tablet = 150 mg, By Mouth, 2 times a day, # 60 tablet, 5 Refills, Maintenance, 05/03/20 11:33:00 EST, ER Tablet, [facility]/pharmacy #0373, 157.4, cm, 04/13/20 9:03:00 EST, Height Start Date: 05/03/20 Stop Date: 10/30/20 Status: Ordered Fish Oil By Mouth, Daily, 0 Refills, Maintenance, 01/27/19 9:06:45 EST Start Date: 01/27/19 Status: Ordered gabapentin 800 mg oral tablet 1 tablet = 800 mg, By Mouth, 3 times a day with meals, # 270 tablet, 2 Refills, Maintenance, 09/04/20 17:31:00 EDT, Tablet, [facility]/pharmacy #2071, 157.4, cm, 08/01/20 11:31:00 EDT, Height [...] Daily at bedtime, for 30 days, # 20 mL, 5 Refills, Hard Stop 03/06/21 13:42:00 EST, 09/07/20 13:42:00 EDT, Solution, [facility]/pharmacy #2071, please fill early . higherdose, 157.4, cm, 08/01/20 11:31:00 EDT, Height Start Date: 09/07/20 Stop Date: 03/06/21 Status: Ordered Insulin Syringe, BD Ultra-Fine 1 [...] 04/23/20 8:36:00 EST, Route to Pharmacy Electronically, [facility]/pharmacy #0373, 157.4, cm, 04/13/20 9:03:00 EST, Height Start Date: 04/23/20 Stop Date: 10/20/20 Status: Ordered LORazepam 0.5 mg oral tablet 1 tablet = 0.5 mg, By Mouth, 3 times a day, PRN for anxiety, for 30 days, # 30 tablet, 3 Refills, Acute 10/13/20 16:18:00 EDT, 06/15/20 16:18:00 EDT, Tablet, [facility]/pharmacy #0373, 157.4, cm, 04/13/20 9:03:00 EST, Height [...] 9 tablet, 3 Refills, Maintenance, [facility], 157.4, cm, 04/13/20 9:03:00 EST, Height Start [...] 10 mg, By Mouth, Every 4 hours, SHEET ROLLER OPERATOR checked., # 168 tablet, 0 Refills, Acute 03/16/21 14:35:00 EST, 09/12/20 16:45:00 EDT, [id number], Partial fill upon patient request;, 09/13/20,157.4, cm, 08/01/20 11:31:00 EDT, Height Start Date: 09/12/20 Stop Date: 03/16/21 Status: Ordered Pt.'s Own [...] 5 Refills, Maintenance, 08/31/20 16:54:00 EDT, Solution, [facility], Partial fill upon [...] nausea/vomiting, # 15 tablet, 1 Refills, Maintenance, 09/04/20 14:45:00 EDT, Tablet, [facility]/pharmacy #3171, Partial fill upon patient request if the prescription is for a schedule II opioid drug... Start Date: 09/04/20 Stop Date: 09/14/20 Status: Ordered Problem List Condition Effective Dates [...]
--- OUTSIDE RECORDS SUMMARY | 2023-07-18 03:25 | XMS_ITS | Continuity of Care Document ---
Author Organization [facility] Adult Address [address] [place] [address]- Care Team Providers Care Plant Pathology Teacher Name Role Phone Charo TOOL ROOM MACHINIST, Dayna Primary Care Physician Encounter [facility] [place] Date(s): 02/02/20 - 03/03/20 [facility] Adult [address] [place] [address]- Allergies, Adverse Reactions, Alerts Substance Reaction Severity Status codeine Active Lactose Active Immunizations Given and Recorded Vaccine Date Status Refusal Reason influenza virus vaccine, inactivated 1 01/16/17 Gi daniel influenza virus vaccine, inactivated 01/12/16 Give n influenza virus vaccine, inactivated 02/04/15 Give n pneumococcal 23-valent vaccine 02/04/15 Given 1Result Comment: [id number] Medications aspirin 81 mg oral tablet 1 [...] Date: 09/28/19 Stop Date: 03/26/20 Status: Ordered ergocalciferol 06510 iu oral capsule TAKE 1 CAPSULE BY MOUTH ONCE A WEEK Start Date: 01/31/20 Status: Ordered Fish Oil By Mouth, Daily, 0 Refills, Maintenance, 01/27/19 9:06:45 EST Start Date: 01/27/19 Status: Ordered gabapentin 800 mg oral tablet 1 tablet = 800 mg, By Mouth, 3 times a day with meals, # 270 tablet, 2 Refills, Maintenance, 12/15/19 8:56:00 EDT, Tablet, [facility]/pharmacy #4200, 157.4, cm, 09/01/19 8:41:00 EDT, Height [...] 2 Refills, Maintenance, 02/16/20 15:41:00 EST, Solution, [facility]/pharmacy #0373, 157.4, cm, 09/01/19 8:41:00 EDT, Height Start Date: 02/16/20 Stop Date: 05/16/20 Status: Ordered insulin detemir 100 units/mL subcutaneous solution = 70 units, Subcutaneous Injection, Daily at bedtime, for 30 days, # 15 mL, 5 Refills, Hard Stop 08/09/20 12:53:00 EDT, 02/11/20 12:53:00 EST, Solution, [facility]/pharmacy #0373, please fill early . higherdose, 157.4, cm, 02/02/20 12:10:00 EST, Height Start Date: 02/11/20 Stop Date: 08/09/20 Status: Ordered Insulin Syringe, BD Ultra-Fine 1 [...] 10/26/19 8:36:00 EDT, Route to Pharmacy Electronically, [facility]/pharmacy #0373, 157.4, cm, 09/01/19 8:41:00 EDT, Height Start Date: 10/26/19 Stop Date: 04/23/20 Status: Ordered LORazepam 0.5 mg oral tablet 1 tablet = 0.5 mg, By Mouth, 3 times a day, PRN for anxiety, for 30 days, # 30 tablet, 3 Refills, Acute 05/06/20 16:04:00 EST, 01/07/20 16:04:00 EDT, Tablet, [facility]/pharmacy #0373, 157.4, cm, 01/07/20 15:32:00 EDT, Height Start Date: 01/07/20 Stop Date: 05/06/20 Status: Ordered Nicoderm C-Q 7 mg/24 hr transdermal film, extended release 1 patch, By Mouth, Daily, # 30 patch, 5 Refills, Maintenance, 09/01/19 9:18:00 EDT, [facility]/pharmacy #0373, 157.4, cm, 09/01/19 8:41:00 EDT, Height [...] 10 mg, By Mouth, Every 4 hours, TEST HOLE DRILLER checked., # 168 tablet, 0 Refills, Acute 03/16/20 13:59:00 EST, 02/29/20 14:33:00 EST, [facility]/pharmacy #0373, Partial fill upon patient request;, 157.4, cm, 02/02/20 12:10:00 EST, Height Start Date: 02/29/20 Stop Date: 03/16/20 Status: Ordered Pt.'s Own Meds CBD, Daily, Maintenance, 01/27/19 9:06:59 EST Start Date: 01/27/19 Status: Ordered rOPINIRole 1 mg oral tablet 1 tablet = 1 mg, By Mouth, 2 times a day, # 180 tablet, 1 Refills, Maintenance, 10/12/19 15:53:00 EDT, [facility]/pharmacy #0373, 157.4, cm, 09/01/19 8:41:00 EDT, Height [...]
--- OUTSIDE RECORDS SUMMARY | 2023-07-18 03:25 | XMS_ITS | Continuity of Care Document ---
Author Organization [facility] Adult Address [address] [place] [address]- Care Team Providers Care Dot Net Architect Name Role Phone Charo DUMONT, Dayna Primary Care Phys[place] [facility] [place] 01[place]10[place]23 [facility] [address] [place] [id number]- Attending Physician: Dayna Mancilla NP Allergies, Adverse Reactions, Alerts Substance Reaction Severity Status codeine Active Lactose Active Immunizations Given and Recorded Vaccine Date Status Refusal Reason SARS-CoV-2 (COVID-19) mRNA-1273 vaccine 03/30/21 R ecorded influenza virus vaccine, inactivated 1 01/16/17 Gi daniel influenza virus vaccine, inactivated 01/12/16 Give n influenza virus vaccine, inactivated 02/04/15 Give n pneumococcal 23-valent vaccine 02/04/15 Given 1Result Comment: [id number] Medications aspirin 81 mg oral tablet 1 tablet = 81 mg, By Mouth, Daily, # 30 tablet, 0 Refills, Maintenance, Tablet Start Date: 11/12/11 Status: Ordered duloxetine 20 mg oral enteric coated capsule 1 capsule, By Mouth, 2 times a day, # 180 capsule, 1 Refills, Maintenance, 10/14/22 11:08:00 EDT, [id number], 156, cm, 07/12/22 13:52:00 EDT, Height Start Date: 10/14/22 Status: Ordered Fish Oil By Mouth, Daily, [...] 2 Refills, Maintenance, 10/05/21 10:32:00 EDT, Tablet, [facility]acy #[id number], 156, cm, 07/26/21 9:18:00 EDT, Height Start Date: 10/05/21 Stop Date: 07/02/22 Status: Ordered Humalog Kwik Pen 100 units/mL subcutaneous injection = 15 units, Subcutaneous Injection, 3 times a day before meals, # 15 mL, 5 Refills, Maintenance, 07/12/22 14:12:00 EDT, Solution, [facility]/pharmacy #[id number], Partial fill upon patient request if the prescription is for a schedule II opioid drug., 156, cm, ... Start Date: 07/12/22 Stop Date: 01/08/23 Status: Ordered hydrocortisone 2.5% topical cream 1 [...] 4 Refills, Maintenance, 11/27/22 14:19:00 EDT, Solution, [facility]/pharmacy #[id number], Partial fill upon patient request [...] Daily, # 90 tablet, Refills 1, Maintenance, 09/24/22 19:24:00 EDT, Route to Pharmacy Electronically, [id number], 156, cm, 07/12/22 13:52:00 EDT, Height Start Date: 09/24/22 Status: Ordered LORazepam 0.5 mg oral tablet 1 tablet = 0.5 mg, By Mouth, 3 times a day, PRN for anxiety, for 30 days, # 30 tablet, 1 Refills, Acute 03/04/23 11:39:00 EST, 01/03/23 11:39:00 EDT, Tablet, [id number], 156, cm, 01/03/23 11:15:00 EDT, Height Start Date: 01/03/23 Stop Date: 03/04/23 Status: Ordered Nicoderm C-Q 7 mg/24 hr transdermal film, extended release 1 patch, By Mouth, Daily, # 30 patch, 5 Refills, Maintenance, 07/26/21 9:34:00 EDT, [id number], 156, cm, 07/26/21 9:18:00 EDT, Height Start Date: 07/26/21 Stop Date: 01/22/22 Status: Ordered ondansetron 4 mg oral tablet 1 tablet = 4 mg, By Mouth, Every 8 hours, # 15 tablet, 1 Refills, Maintenance, 01/03/23 11:41:00 EDT, Tablet, [id number], Partial fill upon patient request if the prescription is for a schedule II opioid drug., 156, cm, 01/03/23 11:15:00 EDT,... Start Date: 01/03/23 Stop Date: 01/13/23 Status: Ordered ondansetron 4 mg oral tablet 1 tablet, By Mouth, Every 8 hours, PRN NEEDED FOR NAUSEA AND VOMITING FOR, # 9 tablet, 3 Refills, Maintenance, 06/27/22 10:42:00 EDT, [id number], 156, cm, 05/10/22 10:53:00 EST, Height [...] 10 mg, By Mouth, Every 4 hours, [employer] [employer] checked. fill on 12/24/22, # 168 tablet, 0 Refills, Maintenance, 12/20/22 9:01:00 EDT, [id number], Partial fill upon patient request;, 156, cm, 10/16/22 15:36:00 EDT, Height Start Date: 12/20/22 Stop Date: 01/17/23 Status: Ordered oxyCODONE 15 mg oral tablet 1 tablet = 15 mg, By Mouth, Daily at bedtime, PRN as needed for pain, eeo officer checked fill 12/04/22, # 28 tablet, 0 Refills, Maintenance, 12/31/22 14:48:00 EDT, Tablet, [id number], Partial fill upon patient request if the prescription is for a sche... Start Date: 12/31/22 Stop Date: 01/28/23 Status: Ordered Pen [place], 31 G x 5 mm BD Ultra [...] day, # 180 tablet, 1 Refills, Maintenance, 09/20/22 12:48:00 EDT, [id number], 156, cm, 07/12/22 13:52:00 EDT, Height Start Date: 09/20/22 Status: Ordered Vitamin B Complex oral tablet, [...] oldest [Reference Range]: 1 Height 156 cm (01/03/23 11:15 AM) Weight 105 kg (01/03/23 11:15 AM) Oxygen Saturation [94-100 %] 95 % (01/03/23 11:15 AM) Pulse Rate [55-90 bpm] 93 bpm *H* (01/03/23 11:15 AM) Body Mass Index [18.5-24.99 kg/m2] 43.15 kg/m2 *>HHI* (01/03/23 11:15 AM) Blood Pressure [90-138/55-84 mm Hg] 134/ 77mm Hg (01/03/23 11:15 AM) Mode of Delivery (Oxygen) Room air (01/03/23 11:15 AM) Blood pressure sites Arm, left (01/03/23 11:15 AM) Weight Obtained Via Standing scale (01/03/23 11:15 AM) Social History Social History Type Response Smoking Status Current every day sm oker; Type: Cigarettes; Tobacco use times per day: 4-5; entered on: 01/16/17 Sex Note * Christen Collins: PERFORM, SIGN, VERIFY Event Display: Patient Education/Instruction Authored Date: [id number] [facility] *[facility] Clinical Summary Name FRANCIS FUNG Age 62 Years 1960 PCP Charo DUMONT, Dayna PCP Visit Date 01/03/2023 11:11:00 Additional Instructions: next comp eval avialable 3 motnh lian phone dm Scheduled Appointments?? Future Appointments ?Diabetic??Teachi ?Phone:??--?Fax:??-- ?Appt. Date:??01/28/2023?9:00 AM ?Scheduled Provider:??Maryuri Dutta Follow-Up Instructions ?? 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 Discuss any questions related to medications with your provider. New Medications [facility] [address], [place] [id number], [phone] Lorazepam (LORazepam 0.5 mg oral tablet) 1 tab(s) Oral 3 times a day as needed for anxiety for 30 Days. Refills: 1. Next Dose: Medications to Continue with No Changes [id number] [address], [place] [id number], [phone] Ondansetron (ondansetron 4 mg oral tablet) 1 tab(s) Oral every 8 hours for 5 Days. Refills: 1. Next Dose: Oxycodone (oxyCODONE 10 mg oral tablet) 1 tab(s) Oral every 4 hours for 28 Days. [employer] checked. fill on 12/24/22. Refills: 0. Next Dose: These medications were not printed or sent to your pharmacy Aspirin (aspirin 81 mg oral tablet) 1 tab(s) Oral Daily. Refills: 0. Next Dose: Cholecalciferol (Vitamin D3 50,000 intl units oral capsule) 1 capsule Oral every week for 90 Days. Refills: 3. Next Dose: Duloxetine (duloxetine 20 mg oral enteric coated capsule) 1 capsule Oral twice a day. Refills: 1. Next Dose: Durable Medical Equipment (Freestyle Ganesh Monitor) Freestle 2 ganesh DX: E11.9 test blood sugars 5 times daily. Refills: 0. Next Dose: Durable Medical Equipment (Freestyle Ganesh Sensor) Freestyle 2 sensors DX: E11.9 test blood sugars 5 times daily change sensors every 1 days. Refills: 3. Next Dose: Durable Medical Equipment (Insulin Syringe, BD Ultra-Fine 1 cc 31 G x 8 mm (5/16in)) use to inject insulin twice a day for DX E11.9. Refills: 3. Next Dose: Durable Medical Equipment (One Touch Ultra 2 Glucose Meter) Test Blood sugar twice daily Dx e11.9. Refills: 0. Next Dose: Durable Medical Equipment (One Touch Ultra Test Strips) DX: E11.9 test blood sugars 2 times daily 90 day supply. Refills: 3. Next Dose: Durable Medical Equipment (Pen [place], 31 G x 5 mm BD Ultra Fine III) use as directed for Type 2 Diabetes Mellitus. Refills: 5. Next Dose: Gabapentin (gabapentin 800 mg oral tablet) 1 tab(s) Oral 3 times a day with meals for 90 Days. Refills: 2. Next Dose: Hydrocortisone Topical (hydrocortisone 2.5% topical cream) 1 flip Topically 3 times a day for 30 Days. Refills: 1. Next Dose: Hydroxychloroquine (hydroxychloroquine 200 mg oral tablet) 1 tab(s) Oral twice a day. Next Dose: Insulin Detemir (insulin detemir 100 units/mL subcutaneous solution) 80 unit(s) Subcutaneous Injection twice a day for 30 Days. Refills: 5. Next Dose: Insulin Glargine (insulin glargine (concentrated) 300 units/mL subcutaneous solution) 40 unit(s) Subcutaneous Injection twice a day for 30 Days. Refills: 4. Next Dose: Insulin Lispro (Humalog Kwik Pen 100 units/mL subcutaneous injection) 15 unit(s) Subcutaneous Injection 3 times a day before meals for 30 Days. Refills: 5. Next Dose: Lisinopril (lisinopril 20 mg oral tablet) 1 tab(s) Oral Daily. Refills: 1. Next Dose: Miscellaneous Rx (BD INSULIN SYR UF 1 ML [id number]) USE TO INJECT INSULIN ONCE A DAY FOR DX E11.9. Refills: 3. Next Dose: Miscellaneous Rx (BD INSULIN SYR UF 1 ML [id number]) USE TO INJECT INSULIN TWICE A DAY FOR DX E11.9. Refills: 1. Next Dose: Multivitamin (Vitamin B Complex oral tablet, extended release) 1 tab(s) Oral Daily. Next Dose: Nicotine (Nicoderm C-Q 7 mg/24 hr transdermal film, extended release) 1 patch(es) Oral Daily for 30Days. Refills: 5. Next Dose: [place]-3 Polyunsaturated Fatty Acids (Fish Oil) Oral Daily. Next Dose: Ondansetron (ondansetron 4 mg oral tablet) 1 tab(s) Oral every 8 hours as needed NEEDED FOR NAUSEA AND VOMITING FOR for 5 Days. Refills: 3. Next Dose: Oxycodone (oxyCODONE 15 mg oral tablet) 1 tab(s) Oral Daily at Bedtime as needed as needed for painfor 28 Days. eeo officer checked fill 12/04/22. Refills: 0. Next Dose: Pt.'s Own Meds CBD Daily. Next Dose: Ropinirole (rOPINIRole 1 mg oral tablet) 1 tab(s) Oral twice a day. Refills: 1. Next Dose: Allergy Info:?? Lactose; codeine Medications Given This Visit Future Orders ?Lumbar Spine 2 or 3 Views? Order Date:01/03/23?- Complete on or after?01/03/23 Vital Signs Height 156 cm Weight 105 kg BMI 43.15 kg/m2 Blood Pressure 134 mm Hg/77 mm Hg Temperature Pulse Rate 93 bpm Respiratory Rate 02 Sat Mode of Delivery 95 %/Room air You can now view a summary of your hospital visit from the comfort of your home through a free online portal called [email or web address]. [email or web address] is a website that allows you to securely view your medical information including discharge summary, medications and follow-up visits. ??You can alsosend a secure electronic message to your doctor???s office to request appointments, renew medications or just ask a question. You can enroll at [email or web address] or register during your next office visit. Disclaimer:?? The information provided is of a general nature and is intended to be used in conjunction with the recommendations and advice of your health care practitioner. ??Every effort has been made to ensure that the information provided is accurate and complete at the time it is provided to you however, as your needs change, or, as new ??information becomes available, different or additional instructions may be required. If you have questions, please consult with your primary care provider or pharmacist, as appropriate. ??This information is not intended to serve as substitution for assessment and evaluation by a qualified health care provider. If you do not have a primary care provider, you may find a [facility] provider by calling [employer] at [phone]. [facility], in keeping with [facility] guidance, no longer requires face masks for staff, patientsor visitors in most situations. Similar to time spent indoors at other locations, there is the chance that you were exposed to respiratory viruses during your time with us (such as flu or COVID-19).? If you develop symptoms concerning for a viral respiratory infection, please seek testing (and treatment if indicated) from your medical provider or home test kit. For information about the plan of care including goals and instructions for your diagnosis, please see the patient education orders section of this document. Patient Education Materials?? The content of this educational material or handout may have been modified, supplemented, or adapted from its original content and format to support your individualized medical care. * Jamel Mayes: PERFORM, SIGN, VERIFY Event Display: Patient Education/Instruction Authored Date: [id number] [facility] *B[facility] Clinical Summary Name FRANCIS FUNG Age 62 Years 1960 PCP Charo DUMONT, Dayna PCP Visit Date 01/03/2023 11:11:00 Additional Instructions: next comp eval avialable 3 motnh lian phone dm Scheduled Appointments?? Future Appointments ?Diabetic??Teachi ?Phone:??--?Fax:??-- ?Appt. Date:??01/28/2023?9:00 AM ?Scheduled Provider:??Maryuri Dutta Follow-Up Instructions ?? 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 Discuss any questions related to medications with your provider. New Medications [id number] [address], [place] [id number], [phone] Lorazepam (LORazepam 0.5 mg oral tablet) 1 tab(s) Oral 3 times a day as needed for anxiety for 30 Days. Refills: 1. Next Dose: Medications to Continue with No Changes [id number] [address], [place] [id number], [phone] Ondansetron (ondansetron 4 mg oral tablet) 1 tab(s) Oral every 8 hours for 5 Days. Refills: 1. Next Dose: Oxycodone (oxyCODONE 10 mg oral tablet) 1 tab(s) Oral every 4 hours for 28 Days. [employer] checked. fill on 12/24/22. Refills: 0. Next Dose: These medications were not printed or sent to your pharmacy Aspirin (aspirin 81 mg oral tablet) 1 tab(s) Oral Daily. Refills: 0. Next Dose: Cholecalciferol (Vitamin D3 50,000 intl units oral capsule) 1 capsule Oral every week for 90 Days. Refills: 3. Next Dose: Duloxetine (duloxetine 20 mg oral enteric coated capsule) 1 capsule Oral twice a day. Refills: 1. Next Dose: Durable Medical Equipment (Freestyle Ganesh Monitor) Freestle 2 ganesh DX: E11.9 test blood sugars 5 times daily. Refills: 0. Next Dose: Durable Medical Equipment (Freestyle Ganesh Sensor) Freestyle 2 sensors DX: E11.9 test blood sugars 5 times daily change sensors every 1 days. Refills: 3. Next Dose: Durable Medical Equipment (Insulin Syringe, BD Ultra-Fine 1 cc 31 G x 8 mm (5/16in)) use to inject insulin twice a day for DX E11.9. Refills: 3. Next Dose: Durable Medical Equipment (One Touch Ultra 2 Glucose Meter) Test Blood sugar twice daily Dx e11.9. Refills: 0. Next Dose: Durable Medical Equipment (One Touch Ultra Test Strips) DX: E11.9 test blood sugars 2 times daily 90 day supply. Refills: 3. Next Dose: Durable Medical Equipment (Pen [place], 31 G x 5 mm BD Ultra Fine III) use as directed for Type 2 Diabetes Mellitus. Refills: 5. Next Dose: Gabapentin (gabapentin 800 mg oral tablet) 1 tab(s) Oral 3 times a day with meals for 90 Days. Refills: 2. Next Dose: Hydrocortisone Topical (hydrocortisone 2.5% topical cream) 1 flip Topically 3 times a day for 30 Days. Refills: 1. Next Dose: Hydroxychloroquine (hydroxychloroquine 200 mg oral tablet) 1 tab(s) Oral twice a day. Next Dose: Insulin Detemir (insulin detemir 100 units/mL subcutaneous solution) 80 unit(s) Subcutaneous Injection twice a day for 30 Days. Refills: 5. Next Dose: Insulin Glargine (insulin glargine (concentrated) 300 units/mL subcutaneous solution) 40 unit(s) Subcutaneous Injection twice a day for 30 Days. Refills: 4. Next Dose: Insulin Lispro (Humalog Kwik Pen 100 units/mL subcutaneous injection) 15 unit(s) Subcutaneous Injection 3 times a day before meals for 30 Days. Refills: 5. Next Dose: Lisinopril (lisinopril 20 mg oral tablet) 1 tab(s) Oral Daily. Refills: 1. Next Dose: Miscellaneous Rx (BD INSULIN SYR UF 1 ML [id number]) USE TO INJECT INSULIN ONCE A DAY FOR DX E11.9. Refills: 3. Next Dose: Miscellaneous Rx (BD INSULIN SYR UF 1 ML [id number]) USE TO INJECT INSULIN TWICE A DAY FOR DX E11.9. Refills: 1. Next Dose: Multivitamin (Vitamin B Complex oral tablet, extended release) 1 tab(s) Oral Daily. Next Dose: Nicotine (Nicoderm C-Q 7 mg/24 hr transdermal film, extended release) 1 patch(es) Oral Daily for 30Days. Refills: 5. Next Dose: [place]-3 Polyunsaturated Fatty Acids (Fish Oil) Oral Daily. Next Dose: Ondansetron (ondansetron 4 mg oral tablet) 1 tab(s) Oral every 8 hours as needed NEEDED FOR NAUSEA AND VOMITING FOR for 5 Days. Refills: 3. Next Dose: Oxycodone (oxyCODONE 15 mg oral tablet) 1 tab(s) Oral Daily at Bedtime as needed as needed for painfor 28 Days. eeo officer checked fill 12/04/22. Refills: 0. Next Dose: Pt.'s Own Meds CBD Daily. Next Dose: Ropinirole (rOPINIRole 1 mg oral tablet) 1 tab(s) Oral twice a day. Refills: 1. Next Dose: Allergy Info:?? Lactose; codeine Medications Given This Visit Future Orders ?Lumbar Spine 2 or 3 Views? Order Date:01/03/23?- Complete on or after?01/03/23 Vital Signs Height 156 cm Weight 105 kg BMI 43.15 kg/m2 Blood Pressure 134 mm Hg/77 mm Hg Temperature Pulse Rate 93 bpm Respiratory Rate 02 Sat Mode of Delivery 95 %/Room air You can now view a summary of your hospital visit from the comfort of your home through a free online portal called [email or web address]. [email or web address] is a website that allows you to securely view your medical information including discharge summary, medications and follow-up visits. ??You can alsosend a secure electronic message to your doctor???s office to request appointments, renew medications or just ask a question. You can enroll at [email or web address] or register during your next office visit. Disclaimer:?? The information provided is of a general nature and is intended to be used in conjunction with the recommendations and advice of your health care practitioner. ??Every effort has been made to ensure that the information provided is accurate and complete at the time it is provided to you however, as your needs change, or, as new ??information becomes available, different or additional instructions may be required. If you have questions, please consult with your primary care provider or pharmacist, as appropriate. ??This information is not intended to serve as substitution for assessment and evaluation by a qualified health care provider. If you do not have a primary care provider, you may find a [facility] provider by calling [employer] [facility] at [phone]. [facility], in keeping with [facility] guidance, no longer requires face masks for staff, patientsor visitors in most situations. Similar to time spent indoors at other locations, there is the chance that you were exposed to respiratory viruses during your time with us (such as flu or COVID-19).? If you develop symptoms concerning for a viral respiratory infection, please seek testing (and treatment if indicated) from your medical provider or home test kit. For information about the plan of care including goals and instructions for your diagnosis, please see the patient education orders section of this document. Patient Education Materials?? The content of this educational material or handout may have been modified, supplemented, or adapted from its original content and format to support your individualized medical care. * Dayna Mancilla NP: PERFORM, SIGN, VERIFY Event Display: Patient Education/Instruction Authored Date: [id number] [facility] *BMP [place] [facility] Clinical Summary Name FRANCIS FUNG Age 62 Years 1960 PCP Dayna Mancilla NP PCP Visit Date 01/03/2023 11:11:00 Additional Instructions: next comp eval avialable 3 motnh lian phone dm Scheduled Appointments?? Future Appointments ?Diabetic??Teachi ?Phone:??--?Fax:??-- ?Appt. Date:??01/28/2023?9:00 AM ?Scheduled Provider:??Mayruri Dutta Follow-Up Instructions ?? 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 Discuss any questions related to medications with your provider. New Medications [id number] [address], [place] [id number], [phone] Lorazepam (LORazepam 0.5 mg oral tablet) 1 tab(s) Oral 3 times a day as needed for anxiety for 30 Days. Refills: 1. Next Dose: Medications to Continue with No Changes [id number] [address], [place] [id number], [phone] Ondansetron (ondansetron 4 mg oral tablet) 1 tab(s) Oral every 8 hours for 5 Days. Refills: 1. Next Dose: Oxycodone (oxyCODONE 10 mg oral tablet) 1 tab(s) Oral every 4 hours for 28 Days. [employer] checked. fill on 12/24/22. Refills: 0. Next Dose: These medications were not printed or sent to your pharmacy Aspirin (aspirin 81 mg oral tablet) 1 tab(s) Oral Daily. Refills: 0. Next Dose: Cholecalciferol (Vitamin D3 50,000 intl units oral capsule) 1 capsule Oral every week for 90 Days. Refills: 3. Next Dose: Duloxetine (duloxetine 20 mg oral enteric coated capsule) 1 capsule Oral twice a day. Refills: 1. Next Dose: Durable Medical Equipment (Freestyle Ganesh Monitor) Freestle 2 ganesh DX: E11.9 test blood sugars 5 times daily. Refills: 0. Next Dose: Durable Medical Equipment (Freestyle Ganesh Sensor) Freestyle 2 sensors DX: E11.9 test blood sugars 5 times daily change sensors every 1 days. Refills: 3. Next Dose: Durable Medical Equipment (Insulin Syringe, BD Ultra-Fine 1 cc 31 G x 8 mm (5/16in)) use to inject insulin twice a day for DX E11.9. Refills: 3. Next Dose: Durable Medical Equipment (One Touch Ultra 2 Glucose Meter) Test Blood sugar twice daily Dx e11.9. Refills: 0. Next Dose: Durable Medical Equipment (One Touch Ultra Test Strips) DX: E11.9 test blood sugars 2 times daily 90 day supply. Refills: 3. Next Dose: Durable Medical Equipment (Pen [place], 31 G x 5 mm BD Ultra Fine III) use as directed for Type 2 Diabetes Mellitus. Refills: 5. Next Dose: Gabapentin (gabapentin 800 mg oral tablet) 1 tab(s) Oral 3 times a day with meals for 90 Days. Refills: 2. Next Dose: Hydrocortisone Topical (hydrocortisone 2.5% topical cream) 1 flip Topically 3 times a day for 30 Days. Refills: 1. Next Dose: Hydroxychloroquine (hydroxychloroquine 200 mg oral tablet) 1 tab(s) Oral twice a day. Next Dose: Insulin Detemir (insulin detemir 100 units/mL subcutaneous solution) 80 unit(s) Subcutaneous Injection twice a day for 30 Days. Refills: 5. Next Dose: Insulin Glargine (insulin glargine (concentrated) 300 units/mL subcutaneous solution) 40 unit(s) Subcutaneous Injection twice a day for 30 Days. Refills: 4. Next Dose: Insulin Lispro (Humalog Kwik Pen 100 units/mL subcutaneous injection) 15 unit(s) Subcutaneous Injection 3 times a day before meals for 30 Days. Refills: 5. Next Dose: Lisinopril (lisinopril 20 mg oral tablet) 1 tab(s) Oral Daily. Refills: 1. Next Dose: Miscellaneous Rx (BD INSULIN SYR UF 1 ML [id number]) USE TO INJECT INSULIN ONCE A DAY FOR DX E11.9. Refills: 3. Next Dose: Miscellaneous Rx (BD INSULIN SYR UF 1 ML [id number]) USE TO INJECT INSULIN TWICE A DAY FOR DX E11.9. Refills: 1. Next Dose: Multivitamin (Vitamin B Complex oral tablet, extended release) 1 tab(s) Oral Daily. Next Dose: Nicotine (Nicoderm C-Q 7 mg/24 hr transdermal film, extended release) 1 patch(es) Oral Daily for 30Days. Refills: 5. Next Dose: [place]-3 Polyunsaturated Fatty Acids (Fish Oil) Oral Daily. Next Dose: Ondansetron (ondansetron 4 mg oral tablet) 1 tab(s) Oral every 8 hours as needed NEEDED FOR NAUSEA AND VOMITING FOR for 5 Days. Refills: 3. Next Dose: Oxycodone (oxyCODONE 15 mg oral tablet) 1 tab(s) Oral Daily at Bedtime as needed as needed for painfor 28 Days. eeo officer checked fill 12/04/22. Refills: 0. Next Dose: Pt.'s Own Meds CBD Daily. Next Dose: Ropinirole (rOPINIRole 1 mg oral tablet) 1 tab(s) Oral twice a day. Refills: 1. Next Dose: Allergy Info:?? Lactose; codeine Medications Given This Visit Future Orders ?Lumbar Spine 2 or 3 Views? Order Date:01/03/23?- Complete on or after?01/03/23 Vital Signs Height 156 cm Weight 105 kg BMI 43.15 kg/m2 Blood Pressure 134 mm Hg/77 mm Hg Temperature Pulse Rate 93 bpm Respiratory Rate 02 Sat Mode of Delivery 95 %/Room air You can now view a summary of your hospital visit from the comfort of your home through a free online portal called [email or web address]. [email or web address] is a website that allows you to securely view your medical information including discharge summary, medications and follow-up visits. ??You can alsosend a secure electronic message to your doctor???s office to request appointments, renew medications or just ask a question. You can enroll at [email or web address] or register during your next office visit. Disclaimer:?? The information provided is of a general nature and is intended to be used in conjunction with the recommendations and advice of your health care practitioner. ??Every effort has been made to ensure that the information provided is accurate and complete at the time it is provided to you however, as your needs change, or, as new ??information becomes available, different or additional instructions may be required. If you have questions, please consult with your primary care provider or pharmacist, as appropriate. ??This information is not intended to serve as substitution for assessment and evaluation by a qualified health care provider. If you do not have a primary care provider, you may find a [facility] provider by calling [employer] [facility] at [phone]. [facility], in keeping with [facility] guidance, no longer requires face masks for staff, patientsor visitors in most situations. Similar to time spent indoors at other locations, there is the chance that you were exposed to respiratory viruses during your time with us (such as flu or COVID-19).? If you develop symptoms concerning for a viral respiratory infection, please seek testing (and treatment if indicated) from your medical provider or home test kit. For information about the plan of care including goals and instructions for your diagnosis, please see the patient education orders section of this document. Patient Education Materials?? The content of this educational material or handout may have been modified, supplemented, or adapted from its original content and format to support your individualized medical care. Patient Care team information Care Team Personnel Name: Dayna Mancilla NP Position: [facility] Associate Professional Member Role: PCP Address: Address: [address], [address]rd [place] [address]- Care Team Related Persons Name: IRMA FUNG Address: home [address] [place] [address] Name: NONE, GIVEN Address: [place] [address]
--- OUTSIDE RECORDS SUMMARY | 2023-07-18 03:25 | XMS_ITS | Continuity of Care Document ---
Author Organization [facility] Adult Address [address] [place] [address]- Care Team Providers Care Care Attendant Name Role Phone Charo DUMONT, Dayna Primary Care Physician Encounter [facility] Date(s): 01/14/22 - 01/21/22 [facility] Adult [address] [place] [address]- Attending Physician: Not on Staff, Attending MD [...] pneumococcal 23-valent vaccine 02/04/15 Given 1Result Comment: [id number] Medications aspirin 81 mg oral tablet 1 tablet = 81 mg, By Mouth, Daily, # 30 tablet, 0 Refills, Maintenance, Tablet Start Date: 11/12/11 Status: Ordered BD INSULIN SYR UF 1 ML [id number] BD INSULIN SYR UF 1 ML [id number], See Instructions, # 100 Unknown, 3 Refills, Maintenance, USE TO INJECT INSULIN ONCE A DAY FOR DX E11.9, 157.4, cm, 08/01/20 11:31:00 EDT, Height Start Date: 10/09/20 Status: Ordered duloxetine 20 mg oral enteric coated capsule See Instructions, TAKE 1 CAPSULE BY MOUTH TWICE A DAY, # 60 capsule, 5 Refills, [facility], 156, cm, 07/26/21 9:18:00 EDT, Height Start Date: 09/05/21 Status: Ordered Fish Oil By Mouth, Daily, 0 Refills, Maintenance, 01/27/19 9:06:45 EST Start Date: 01/27/19 Status: Ordered gabapentin 800 mg oral tablet 1 tablet = 800 mg, By Mouth, 3 times a day with meals, # 270 tablet, 2 Refills, Maintenance, 10/05/21 10:32:00 EDT, Tablet, [facility]/pharmacy #2071, 156, cm, 07/26/21 9:18:00 EDT, [...] 5 Refills, Maintenance, 07/26/21 9:29:00 EDT, Solution, [facility]/pharmacy #0373, please fill early . higher dose, [...] tablet, Refills 1, Route to Pharmacy Electronically, [facility], 156, cm, 07/26/21 9:18:00 EDT, Height Start Date: 09/29/21 Status: Ordered LORazepam 0.5 mg oral tablet 1 tablet = 0.5 mg, By Mouth, 3 times a day, PRN for anxiety, for 30 days, # 30 tablet, 3 Refills, Acute 05/14/22 17:30:00 EST, 01/14/22 17:30:00 EDT, Tablet, [facility]/pharmacy #[id number], 156, cm, 01/14/22 15:09:00 EDT, Height Start Date: 01/14/22 Stop Date: 05/14/22 Status: Ordered Medrol Dosepak 4 mg oral tablet See Instructions, 1 pack/packet By Mouth Once, # 1 pack/packet, 0 Refills, Soft Stop, 09/14/21 13:28:00 EDT, Tablet, [facility]/pharmacy #[id number], Partial fill upon patient request if the prescription is for aschedule II opioid drug., 156, cm, 07/26/21 9:18:00... Start Date: 09/14/21 Status: Ordered Nicoderm C-Q 7 mg/24 hr transdermal film, extended release 1 patch, By Mouth, Daily, # 30 patch, 5 Refills, Maintenance, 07/26/21 9:34:00 EDT, [facility]/pharmacy #0373, 156, cm, 07/26/21 9:18:00 EDT, Height Start Date: 07/26/21 Stop Date: 01/22/22 Status: Ordered ondansetron 4 mg oral tablet 1 tablet, By Mouth, Every 8 hours, PRN NEEDED FOR NAUSEA AND VOMITING FOR, # 15 tablet, 1 Refills, Maintenance, 12/03/21 9:44:00 EDT, [facility], 156, cm, 07/26/21 9:18:00 EDT, Height Start [...] 10 mg, By Mouth, Every 4 hours, CONTINUITY MANAGER checked.fill on 12/28/21, # 168 tablet, 0 Refills, Acute 03/16/22 13:49:00 EST, 12/13/21 8:05:00 EDT, [id number], Partial fill upon patient request;, 156, cm, 07/26/21 9:18:00 EDT, Height Start Date: 12/13/21 Stop Date: 03/16/22 Status: Ordered oxyCODONE 15 mg oral tablet 1 tablet = 15 mg, By Mouth, Daily at bedtime, PRN as needed for pain, for 28 days, fill on 01/04/22, # 28 tablet, 0 Refills, Acute 01/31/22 17:10:00 EST, 01/03/22 17:10:00 EDT, Tablet, [id number], Partial fill upon patient request if the presc... Start Date: 01/03/22 Stop Date: 01/31/22 Status: Ordered Pt.'s Own Meds CBD, Daily, Maintenance, 01/27/19 9:06:59 EST Start Date: 01/27/19 Status: Ordered rOPINIRole 1 mg oral tablet 1 tablet, By Mouth, 2 times a day, # 180 tablet, 1 Refills, Maintenance, 10/06/20 14:51:00 EDT, [facility], 157.4, cm, 08/01/20 11:31:00 EDT, Height Start [...] Refills, Maintenance, 01/14/22 15:32:00 EDT, Solution, [facility], Partial fill upon patient request if the [...] 2 Refills, Maintenance, 06/26/21 8:37:00EDT, Capsule, [facility], Partial fill upon patient request if the [...] oldest [Reference Range]: 1 Height 156 cm (01/14/22 3:09 PM) Weight 97.7 kg (01/14/22 3:09 PM) Oxygen Saturation [94-100 %] 98 % (01/14/22 3:09 PM) Pulse Rate [55-90 bpm] 96 bpm *H* (01/14/22 3:09 PM) Body Mass Index [18.5-24.99 kg/m2] 40.15 kg/m2 *>HHI* (01/14/22 3:09 PM) Blood Pressure [90-138/55-84 mm Hg] 116/ 79mm Hg (01/14/22 3:09 PM) Blood pressure sites Arm, right (01/14/22 3:09 PM) Weight Obtained Via Standing scale (01/14/22 3:09 PM) Social History Social History Type Response Smoking Status Current every day osmany genaro; Type: Cigarettes; Tobacco use times per day: 4-5; entered on: 01/16/17 Sex Note * Carolyn Delgadillo: PERFORM, SIGN, VERIFY Event Display: Patient Education/Instruction Authored Date: [id number] [facility] *[facility] Clinical Summary Name FRANCIS FUNG Age 61 Years 1960 PCP Charo DUMONT, Dayna PCP Visit Date 01/14/2022 14:49:00 Additional Instructions: Scheduled Appointments?? Future Appointments ?No Future Appointments Scheduled Follow-Up Instructions ?? Diagnosis Hyperlipidemia, unspecified; Spondylosis without myelopathy or radiculopathy, cervical region; Polyneuropathy, unspecified; Type 2 diabetes mellitus without complications; Essential (primary) hypertension Medications: Please continue your medications until treatment is completed or stopped by your provider. Discuss any questions related to medications with your provider. Medications to Continue Taking That Have Changed [facility]/pharmacy #[id number], [address] [facility], [place] [id number], [phone] - dulaglutide (Trulicity Pen 3 mg/0.5 mL subcutaneous solution) 0.5 Milliliter Subcutaneous Injection every week for 30 Days. rotate injection sites. Refills: 1. Next Dose: Medications to Continue with No Changes These medications were not printed or sent to your pharmacy Aspirin (aspirin 81 mg oral tablet) 1 tab(s) Oral Daily. Refills: 0. Next Dose: Cholecalciferol (Vitamin D3 50,000 intl units oral capsule) 1 capsule Oral every week. Refills: 2. Next Dose: Duloxetine (duloxetine 20 mg oral enteric coated capsule) TAKE 1 CAPSULE BY MOUTH TWICE A DAY. Refills: 5. Next Dose: Durable Medical Equipment (Insulin Syringe, [...] 90 day supply. Refills: 3. Next Dose: Gabapentin (gabapentin 800 mg oral [...] Detemir (insulin detemir 100 units/mL subcutaneous solution) 50 unit(s) Subcutaneous Injection twice a day for 30 Days. Refills: 5. Next Dose: Lisinopril (lisinopril 20 mg oral tablet) 1 tab(s) Oral Daily. Refills: 1. Next Dose: MethylPREDNISolone (Medrol Dosepak 4 mg oral tablet) 1 pack/packet By Mouth Once. Refills: 0. Next Dose: Miscellaneous Rx (BD INSULIN SYR UF 1 ML [id number]) USE TO INJECT INSULIN ONCE A DAY FOR DX E11.9. Refills: 3. Next Dose: Multivitamin (Vitamin B Complex oral tablet, extended release) 1 tab(s) Oral Daily. Next Dose: Nicotine (Nicoderm C-Q 7 mg/24 hr transdermal film, extended release) 1 patch(es) Oral Daily for 30Days. Refills: 5. Next Dose: [place]-3 Polyunsaturated Fatty Acids (Fish Oil) Oral Daily. Next Dose: Ondansetron (ondansetron 4 mg oral tablet) 1 tab(s) Oral every 8 hours as needed NEEDED FOR NAUSEA AND VOMITING FOR for 5 Days. Refills: 1. Next Dose: Oxycodone (oxyCODONE 10 mg oral tablet) 1 tab(s) Oral every 4 hours. CONTINUITY MANAGER checked.fill on 12/28/21. Refills: 0. Next Dose: Oxycodone (oxyCODONE 15 mg oral tablet) 1 tab(s) Oral Daily at Bedtime as needed as needed for painfor 28 Days. fill on 01/04/22. Refills: 0. Next Dose: Pt.'s Own Meds CBD Daily. Next Dose: Ropinirole (rOPINIRole 1 mg oral tablet) TAKE 1 TABLET BY MOUTH TWICE A DAY. Refills: 1. Next Dose: Ropinirole (rOPINIRole 1 mg oral tablet) 1 tab(s) Oral twice a day. Refills: 1. Next Dose: Allergy Info:?? Lactose; codeine Medications Given This Visit Future Orders ?Comprehensive Metabolic Panel? Order Date:01/14/22?- Complete on or after?01/14/22 ?Lipid Panel? Order Date:01/14/22?- Complete on or after?01/14/22 ?Hemoglobin A1C (Monitoring)? Order Date:01/14/22?- Complete on or after?01/14/22 Vital Signs Height 156 cm Weight 97.7 kg BMI 40.15 kg/m2 Blood Pressure 116 mm Hg/79 mm Hg Temperature Pulse Rate 96 bpm Respiratory Rate 02 Sat Mode of Delivery 98 %/ You can now view a summary of your hospital visit from the comfort of your home through a free online portal called [employer]. [employer] is a website that allows you to securely view your medical information including discharge summary, medications and follow-up visits. ??You can alsosend a secure electronic message to your doctor???s office to request appointments, renew medications or just ask a question. You can enroll at [email or web address] or register during your next office visit. [...] primary care provider, you may find a [facility] provider by calling [facility] at [phone]. For information about the plan of care including goals and instructions for your diagnosis, please see the patient education orders section of this document. Patient Education Materials?? The content of this educational material or handout may have been modified, supplemented, or adapted from its original content and format to support your individualized medical care. * Christen Collins: PERFORM, SIGN, VERIFY Event Display: Patient Education/Instruction Authored Date: [facility] *[facility] Clinical Summary Name FRANCIS FUNG Age 61 Years 1960 PCP Charo DUMONT, Dayna PCP Visit Date 01/14/2022 14:49:00 Additional Instructions: Scheduled Appointments?? Future Appointments ?No Future Appointments Scheduled Follow-Up Instructions ?? Diagnosis Hyperlipidemia, unspecified; Spondylosis without myelopathy or radiculopathy, cervical region; Polyneuropathy, unspecified; Type 2 diabetes mellitus without complications; Essential (primary) hypertension Medications: Please continue your medications until treatment is completed or stopped by your provider. Discuss any questions related to medications with your provider. Medications to Continue Taking That Have Changed [facility]/pharmacy #[id number], [address] [place], [place] [id number], [phone] - dulaglutide (Trulicity Pen 3 mg/0.5 mL subcutaneous solution) 0.5 Milliliter Subcutaneous Injection every week for 30 Days. rotate injection sites. Refills: 1. Next Dose: Medications to Continue with No Changes These medications were not printed or sent to your pharmacy Aspirin (aspirin 81 mg oral tablet) 1 tab(s) Oral Daily. Refills: 0. Next Dose: Cholecalciferol (Vitamin D3 50,000 intl units oral capsule) 1 capsule Oral every week. Refills: 2. Next Dose: Duloxetine (duloxetine 20 mg oral enteric coated capsule) TAKE 1 CAPSULE BY MOUTH TWICE A DAY. Refills: 5. Next Dose: Durable Medical Equipment (Insulin Syringe, [...] 90 day supply. Refills: 3. Next Dose: Gabapentin (gabapentin 800 mg oral [...] Detemir (insulin detemir 100 units/mL subcutaneous solution) 50 unit(s) Subcutaneous Injection twice a day for 30 Days. Refills: 5. Next Dose: Lisinopril (lisinopril 20 mg oral tablet) 1 tab(s) Oral Daily. Refills: 1. Next Dose: MethylPREDNISolone (Medrol Dosepak 4 mg oral tablet) 1 pack/packet By Mouth Once. Refills: 0. Next Dose: Miscellaneous Rx (BD INSULIN SYR UF 1 ML [id number]) USE TO INJECT INSULIN ONCE A DAY FOR DX E11.9. Refills: 3. Next Dose: Multivitamin (Vitamin B Complex oral tablet, extended release) 1 tab(s) Oral Daily. Next Dose: Nicotine (Nicoderm C-Q 7 mg/24 hr transdermal film, extended release) 1 patch(es) Oral Daily for 30Days. Refills: 5. Next Dose: [place]-3 Polyunsaturated Fatty Acids (Fish Oil) Oral Daily. Next Dose: Ondansetron (ondansetron 4 mg oral tablet) 1 tab(s) Oral every 8 hours as needed NEEDED FOR NAUSEA AND VOMITING FOR for 5 Days. Refills: 1. Next Dose: Oxycodone (oxyCODONE 10 mg oral tablet) 1 tab(s) Oral every 4 hours. CONTINUITY MANAGER checked.fill on 12/28/21. Refills: 0. Next Dose: Oxycodone (oxyCODONE 15 mg oral tablet) 1 tab(s) Oral Daily at Bedtime as needed as needed for painfor 28 Days. fill on 01/04/22. Refills: 0. Next Dose: Pt.'s Own Meds CBD Daily. Next Dose: Ropinirole (rOPINIRole 1 mg oral tablet) TAKE 1 TABLET BY MOUTH TWICE A DAY. Refills: 1. Next Dose: Ropinirole (rOPINIRole 1 mg oral tablet) 1 tab(s) Oral twice a day. Refills: 1. Next Dose: Allergy Info:?? Lactose; codeine Medications Given This Visit Future Orders ?Comprehensive Metabolic Panel? Order Date:01/14/22?- Complete on or after?01/14/22 ?Lipid Panel? Order Date:01/14/22?- Complete on or after?01/14/22 ?Hemoglobin A1C (Monitoring)? Order Date:01/14/22?- Complete on or after?01/14/22 Vital Signs Height 156 cm Weight 97.7 kg BMI 40.15 kg/m2 Blood Pressure 116 mm Hg/79 mm Hg Temperature Pulse Rate 96 bpm Respiratory Rate 02 Sat Mode of Delivery 98 %/ You can now view a summary of your hospital visit from the comfort of your home through a free online portal called [employer]ss[employer]vy. [employer]vy is a website that allows you to securely view your medical information including discharge summary, medications and follow-up visits. ??You can alsosend a secure electronic message to your doctor???s office to request appointments, renew medications or just ask a question. You can enroll at [email or web address] or register during your next office visit. [...] primary care provider, you may find a [facility] provider by calling [facility] at [phone]. For information about the plan of care [...] Team Personnel Name: Dayna Mancilla NP Position: [facility] Associate Professional Member Role: PCP Address: Address: [address] [facility], [address]rd [place] [address]- Care Team Related Persons Name: IRMA FUNG Address: home [address] [place] [id number] Name: NONE, GIVEN Address: [place] [address]
--- OUTSIDE RECORDS SUMMARY | 2023-07-18 03:25 | XMS_ITS | Continuity of Care Document ---
Author Organization [facility] Adult Address [address] [place] [address]- Care Team Providers Care Operating System Designer Name Role Phone Charo DUMONT, Dayna Primary Care Physician [phone] [facility] Date(s): 09/01/19 - 10/01/19 [facility] Adult [address] [place] [address] [facility] Attending Physician: Delvin Bustillos Admitting Physician: Delvin Bustillos Referring Physician: AdmtrDelvin Allergies, Adverse Reactions, Alerts Substance Reaction Severity Status codeine Active Lactose Active Immunizations Given and Recorded Vaccine Date Status Refusal Reason influenza virus vaccine, inactivated 1 01/16/17 Gi daniel influenza virus vaccine, inactivated 01/12/16 Give n influenza virus vaccine, inactivated 02/04/15 Give n pneumococcal 23-valent vaccine 02/04/15 Given 1Result Comment: [id number] Medications aspirin 81 mg oral tablet 1 [...] insulin detemir 100 units/mL subcutaneous solution = 30 units, Subcutaneous Injection, Daily at bedtime, # 10 mL, 2 Refills, Maintenance, 09/09/19 13:23:00 EDT, Solution, [facility]/pharmacy #0373, 157.4, cm, 09/01/19 8:41:00 EDT, Height Start Date: 09/09/19 Stop Date: 12/08/19 Status: Ordered Insulin Syringe, BD Ultra-Fine 1 [...] 05/03/19 12:16:00 EST, Route to Pharmacy Electronically, [facility]/pharmacy #0373, 157.4, cm, 04/26/19 15:53:00 EST, Height Start Date: 05/03/19 Stop Date: 10/30/19 Status: Ordered Nicoderm C-Q 7 mg/24 hr transdermal film, extended release 1 patch, By Mouth, Daily, # 30 patch, 5 Refills, Maintenance, 09/01/19 9:18:00 EDT, [facility]/pharmacy #0373, 157.4, cm, 09/01/19 8:41:00 EDT, [...] 10 mg, By Mouth, Every 4 hours, ORGANIZATION DEVELOPMENT CONSULTANT checked., # 168 tablet, 0 Refills, Acute 03/16/20 10:12:00 EST, 09/07/19 12:33:00 EDT, [facility]/pharmacy #[id number], Partial fill upon patient request; [place] to fillearly for travel, 09/13/19, 157.4, cm, 09/01/19 8:4... Start Date: 09/07/19 Stop Date: 03/16/20 Status: Ordered Pt.'s Own [...] tablet, 0 Refills, Maintenance, 07/08/19 10:01:00 EDT, [facility]/pharmacy #0373, 157.4, cm, 06/03/19 8:51:00 EDT, [...]
--- OUTSIDE RECORDS SUMMARY | 2023-07-18 03:25 | XMS_ITS | Continuity of Care Document ---
Author Organization [facility] Adult Address [address] [place] [address]- Care Team Providers Care Non Emergency Services Ambulance Driver Name Role Phone Charo DUMONT, Dayna Primary Care Physician [phone] Encounter [facility] Date(s): 05/10/22 - 06/09/22 [facility] Adult [address] [place] [address]- Allergies, Adverse Reactions, Alerts Substance Reaction Severity Status codeine Active Lactose Active Immunizations Given and Recorded Vaccine Date Status Refusal Reason SARS-CoV-2 (COVID-19) mRNA-1273 vaccine 03/30/21 R ecorded influenza virus vaccine, inactivated 1 01/16/17 Gi daniel influenza virus vaccine, inactivated 01/12/16 Give n influenza virus vaccine, inactivated 02/04/15 Give n pneumococcal 23-valent vaccine 02/04/15 Given 1Result Comment: [id number] Medications aspirin 81 mg oral tablet 1 tablet = 81 mg, By Mouth, Daily, # 30 tablet, 0 Refills, Maintenance, Tablet Start Date: 11/12/11 Status: Ordered BD INSULIN SYR UF 1 ML [id number] BD INSULIN SYR UF 1 ML [id number], See Instructions, # 100 Unknown, 3 Refills, Maintenance, USE TO INJECT INSULIN ONCE A DAY FOR DX E11.9, 157.4, cm, 08/01/20 11:31:00 EDT, Height Start Date: 10/09/20 Status: Ordered BD INSULIN SYR UF 1 ML [id number] BD INSULIN SYR UF 1 ML [id number], See Instructions, # 180 Unknown, 1 Refills, Maintenance, USE TO INJECT INSULIN TWICE A DAY FOR DX E11.9, 04/18/22 10:30:00 EST, 156, cm, 04/18/22 9:46:00 EST, Height Start Date: 04/18/22 Status: Ordered duloxetine 20 mg oral enteric coated capsule 1 capsule, By Mouth, 2 times a day, # 180 capsule, 1 Refills, Maintenance, 02/25/22 9:26:00 EST, [facility], 156, cm, 01/14/22 15:09:00 EDT, Height Start Date: 02/25/22 Status: Ordered Fish Oil By Mouth, Daily, 0 Refills, Maintenance, 01/27/19 9:06:45 EST Start Date: 01/27/19 Status: Ordered gabapentin 800 mg oral tablet 1 tablet = 800 mg, By Mouth, 3 times a day with meals, # 270 tablet, 2 Refills, Maintenance, 10/05/21 10:32:00 EDT, Tablet, [facility]/pharmacy #2071, 156, cm, 07/26/21 9:18:00 EDT, [...] EST, Route to Pharmacy Electronically, [facility], 156, cm, 01/14/22 15:09:00 EDT, Height Start Date: 04/01/22 Status: Ordered LORazepam 0.5 mg oral tablet 1 tablet = 0.5 mg, By Mouth, 3 times a day, PRN for anxiety, for 30 days, # 30 tablet, 1 Refills, Acute 07/12/22 9:53:00 EDT, 05/13/22 9:53:00 EST, Tablet, [facility]/pharmacy #2071, 156, cm, 05/10/22 10:53:00 EST, Height Start Date: 05/13/22 Stop Date: 07/12/22 Status: Ordered Nicoderm C-Q 7 mg/24 hr transdermal film, extended release 1 patch, By Mouth, Daily, # 30 patch, 5 Refills, Maintenance, 07/26/21 9:34:00 EDT, [facility]/pharmacy #0373, 156, cm, 07/26/21 9:18:00 EDT, Height Start Date: 07/26/21 Stop Date: 01/22/22 Status: Ordered ondansetron 4 mg oral tablet 1 tablet, By Mouth, Every 8 hours, PRN NEEDED FOR NAUSEA AND VOMITING FOR, # 9 tablet, 3 Refills, Maintenance, 03/15/22 15:20:00 EST, [facility], 156, cm, 01/14/22 15:09:00 EDT, Height Start [...] Mouth, Every 4 hours, for 28 days, IMPLEMENTATION ADVISOR checked., # 168 tablet, 0 Refills, Acute 06/10/22 14:02:00 EDT, 05/13/22 14:02:00 EST, [id number], [facility] fill upon patient request;, 156, cm, 05/10/22 10:53:00 EST, Height Start Date: 05/13/22 Stop Date: 06/10/22 Status: Ordered oxyCODONE 15 mg oral tablet 1 tablet = 15 mg, By Mouth, Daily at bedtime, PRN as needed for pain, fill on 05/24/22, # 28 tablet,0 Refills, Maintenance, 05/23/22 18:35:00 EST, Tablet, [id number], Partial fill upon patient request if the prescription is for a schedule II o... Start Date: 05/23/22 Stop Date: 06/20/22 Status: Ordered Pen Patriot, 31 G x 5 mm BD Ultra [...] 1 Refills, Maintenance, 03/27/22 18:34:00 EST, [facility], 156, cm, 01/14/22 15:09:00 EDT, Height Start Date: 03/27/22 Status: Ordered Trulicity Pen 1.5 mg/0.5 mL subcutaneous solution See Instructions, INJECT 0.5 ML SUBCUTANEOUS INJECTION EVERY WEEK, # 2 Unknown, 2 Refills, Maintenance, 04/29/22 10:00:00 EST, [facility], 156, cm, 04/18/22 9:46:00 EST, Height Start Date: 04/29/22 Status: Ordered Vitamin B Complex oral tablet, extended release 1 tablet, By Mouth, Daily, 0 Refills, Maintenance, 11/26/18 9:26:13 EDT Start Date: 11/26/18 Status: Ordered Vitamin D3 50,000 intl units oral capsule 1 capsule = 1,250 mcg, By Mouth, Every week, # 12 capsule, 2 Refills, Maintenance, 06/26/21 8:37:00EDT, Capsule, [facility]/pharmacy #0373, Partial fill upon patient request if [...] Associate Professional Member Role: PCP Address: Address: [address] [place] [address], [address] Floor [facility] [place] [address]- [place] Care Team Related Persons Name: IRMA FUNG Address: [address] [place] [address] Name: NONE, GIVEN Address: [place] [address]
--- OUTSIDE RECORDS SUMMARY | 2023-07-18 03:25 | XMS_ITS | Continuity of Care Document ---
Author Organization [facility] Adult Address [address] [place] [address]- Care Team Providers Care Blood Bank Calendar Control Clerk Name Role Phone Charo DUMONT, Dayna Primary Care Physician Encounter [facility] Date(s): 08/05/22 - 09/04/22 [facility] Adult [address] [place] [phone]- Allergies, Adverse Reactions, Alerts Substance Reaction Severity Status codeine Active Lactose Active Immunizations Given and Recorded Vaccine Date Status Refusal Reason SARS-CoV-2 (COVID-19) mRNA-1273 vaccine 03/30/21 R ecorded influenza virus vaccine, inactivated 1 01/16/17 Gi daniel influenza virus vaccine, inactivated 01/12/16 Give n influenza virus vaccine, inactivated 02/04/15 Give n pneumococcal 23-valent vaccine 02/04/15 Given 1Result Comment: 21057-430-76 Medications aspirin 81 mg oral tablet 1 tablet = 81 mg, By Mouth, Daily, # 30 tablet, 0 Refills, Maintenance, Tablet Start Date: 11/12/11 Status: Ordered BD INSULIN SYR UF 1 ML [id number] BD INSULIN SYR UF 1 ML [id number], See Instructions, # 100 Unknown, 3 Refills, Maintenance, USE TO INJECT INSULIN ONCE A DAY FOR DX E11.9, 157.4, cm, 08/01/20 11:31:00 EDT, Height Start Date: 10/09/20 Status: Ordered BD INSULIN SYR UF 1 ML [id number] BD INSULIN SYR UF 1 ML [id number], See Instructions, # 180 Unknown, 1 Refills, Maintenance, USE TO INJECT INSULIN TWICE A DAY FOR DX E11.9, 04/18/22 10:30:00 EST, 156, cm, 04/18/22 9:46:00 EST, Height Start Date: 04/18/22 Status: Ordered duloxetine 20 mg oral enteric coated capsule 1 capsule, By Mouth, 2 times a day, # 180 capsule, 1 Refills, Maintenance, 02/25/22 9:26:00 EST, [facility], 156, cm, 01/14/22 15:09:00 EDT, Height Start [...] 2 Refills, Maintenance, 10/05/21 10:32:00 EDT, Tablet, [facility]/pharmacy #207, 156, cm, 07/26/21 9:18:00 EDT, Height Start Date: 10/05/21 Stop Date: 07/02/22 Status: Ordered Humalog Kwik Pen 100 units/mL subcutaneous injection = 15 units, Subcutaneous Injection, 3 times a day before meals, # 15 mL, 5 Refills, Maintenance, 07/12/22 14:12:00 EDT, [facility], [id number], [facility] upon [...] 5 Refills, Maintenance, 06/10/22 11:10:00 EDT, Solution, [facility]/pharmacy #[id number], please fill early . higher [...] 04/01/22 6:54:00 EST, Route to Pharmacy Electronically, [id number], 156, cm, 01/14/22 15:09:00 EDT, Height Start Date: 04/01/22 Status: Ordered LORazepam 0.5 mg oral tablet 1 tablet = 0.5 mg, By Mouth, 3 times a day, PRN for anxiety, for 30 days, # 30 tablet, 1 Refills, Acute 09/30/22 18:20:00 EDT, 08/01/22 18:20:00 EDT, Tablet, [facility]/pharmacy #[id number], 156, cm, 07/12/22 13:52:00 EDT, Height Start Date: 08/01/22 Stop Date: 09/30/22 Status: Ordered Nicoderm C-Q 7 mg/24 hr transdermal film, extended release 1 patch, By Mouth, Daily, # 30 patch, 5 Refills, Maintenance, 07/26/21 9:34:00 EDT, [facility]/pharmacy #0373, 156, cm, 07/26/21 9:18:00 EDT, Height Start Date: 07/26/21 Stop Date: 01/22/22 Status: Ordered ondansetron 4 mg oral tablet 1 tablet, By Mouth, Every 8 hours, PRN NEEDED FOR NAUSEA AND VOMITING FOR, # 9 tablet, 3 Refills, Maintenance, 06/27/22 10:42:00 EDT, [facility]/pharmacy #[id number], 156, cm, 05/10/22 10:53:00 EST, [...] 10 mg, By Mouth, Every 4 hours, HEALTH INFORMATION ASSISTANT checked. fill 09/03/22, # 168 tablet, 0 Refills, Maintenance, 09/03/22 7:02:00 EDT, [facility]/pharmacy #[id number], Partial fill upon patient request;, 156, cm, 07/12/22 13:52:00 EDT, Height Start Date: 09/03/22 Stop Date: 10/01/22 Status: Ordered oxyCODONE 15 mg oral tablet 1 tablet = 15 mg, By Mouth, Daily at bedtime, PRN as needed for pain, sql tech checked fill 07/19 23, # 28tablet, 0 Refills, Maintenance, 07/16/22 7:43:00 EDT, Tablet, [id number], Partial fill uponpatient request if the prescription is for a schedu... Start Date: 07/16/22 Stop Date: 08/13/22 Status: Ordered Pen [place], 31 G x 5 mm BD Ultra [...] 1 Refills, Maintenance, 03/27/22 18:34:00 EST, [facility], 156, cm, 01/14/22 15:09:00 EDT, Height Start Date: 03/27/22 Status: Ordered Vitamin B Complex oral tablet, [...] Associate Professional Member Role: PCP Address: Address: [address] [place] [address], [address] [place] [address]- Care Team Related Persons Name: IRMA FUNG Address: home [address] [place] [address] Name: NONE, GIVEN Address: [place] [address]
--- OUTSIDE RECORDS SUMMARY | 2023-07-18 03:25 | XMS_ITS | Continuity of Care Document ---
Author Organization [facility] Adult Address [address] [place] [address]- Care Team Providers Care Supervisor Microbiology Technologists Name Role Phone Charo DUMONT, Dayna Primary Care Physician [phone] [place] [facility] [place](s): 07/10/23 - 07/17/23 [facility] Adult [address] [place] [phone]- Attending Physician: Dayna Mancilla NP Allergies, Adverse Reactions, Alerts Substance Reaction Severity Status codeine Active Lactose Active Immunizations Given and Recorded Vaccine Date Status Refusal Reason SARS-CoV-2 (COVID-19) mRNA-1273 vaccine 03/30/21 R ecorded influenza virus vaccine, inactivated 1 01/16/17 Gi daniel influenza virus vaccine, inactivated 01/12/16 Give n influenza virus vaccine, inactivated 02/04/15 Give n pneumococcal 23-valent vaccine 02/04/15 Given 1Result Comment: 42431-335-81 Medications aspirin 81 mg oral tablet 1 [...] capsule, 1 Refills, Maintenance, 02/13/23 8:22:00 EST, [facility], 156, cm, 01/03/23 11:15:00 EDT, Height Start [...] Refills, Maintenance, 02/20/23 17:40:00 EST, [facility], 156, cm, 01/03/23 11:15:00 EDT, Height Start [...] mL, 11 Refills, Maintenance, 04/11/23 8:04:00 EST, [facility]/pharmacy #0373, 156, cm, 04/10/23 7:57:00 EST, Height [...] 02/13/23 8:22:00 EST, Route to Pharmacy Electronically, [id number], 156, cm, 01/03/23 11:15:00 EDT, Height Start Date: 02/13/23 Status: Ordered Mounjaro 2.5 mg/0.5 mL subcutaneous solution = 2.5 mg, Subcutaneous Injection, Every week, rotate injection sites, # 4 each, 0 Refills, Maintenance, 07/10/23 8:43:00 EDT, Solution, [facility]/pharmacy #[id number], Partial fill upon patient request if the prescription is for a schedule II opioid drug., 156, c... Start Date: 07/10/23 Stop Date: 08/09/23 Status: Ordered nicotine 14 mg/24 hr transdermal film, extended release 1 patch, Topically, Daily, # 30 patch, 1 Refills, Maintenance, 07/10/23 8:49:00 EDT, Patch, [facility]/pharmacy #[id number], Partial fill upon patient request if the prescription is for a schedule II opioid drug., 1 patch Topically Daily,x30 days, 156, cm, 2... Start Date: 07/10/23 Stop Date: 09/08/23 Status: Ordered ondansetron 4 mg oral tablet 1 tablet, By Mouth, Every 8 hours, # 15 tablet, 1 Refills, Maintenance, 07/11/23 10:48:00 EDT, [facility], 156, cm, 07/10/23 8:06:00 EDT, Height Start Date: 07/11/23 Stop Date: 07/16/23 Status: Ordered oxyCODONE 10 mg oral tablet 1 tablet = 10 mg, By Mouth, Every 4 hours, PRODUCT ADVISOR checked. fill on 07/03/23, # 168 tablet, 0 Refills, Maintenance, 06/30/23 14:37:00 EDT, [id number], Partial fill upon patient request;, 156, cm, 04/10/23 7:57:00 EST, Height Start Date: 06/30/23 Stop Date: 07/28/23 Status: Ordered oxyCODONE 15 mg oral tablet 1 tablet = 15 mg, By Mouth, Daily at bedtime, PRN as needed for pain, reconciliation manager checked. Fill on 07/15/23,# 28 tablet, 0 Refills, Maintenance, 07/14/23 17:18:00 EDT, Tablet, [id number], Partial fill upon patient request if the prescription is for a... Start Date: 07/14/23 Stop Date: 08/11/23 Status: Ordered Pen [place], 31 G x 5 mm BD Ultra [...] Refills, Maintenance, 03/12/23 8:31:00 EST, [facility], 156, cm, 01/03/23 11:15:00 EDT, Height Start [...] oldest [Reference Range]: 1 Height 156 cm (07/10/23 8:06 AM) Weight 102.27 kg (07/10/23 8:06 AM) Body Mass Index [18.5-24.99 kg/m2] 42.02 kg/m2 *>HHI* (07/10/23 8:06 AM) Weight Obtained Via Patient/family state d (07/10/23 8:06 AM) Social History Social History Type Response Smoking Status Current every day sm oker; Type: Cigarettes; Tobacco use times per day: 4-5; entered on: 01/16/17 Sex Patient Care team information Care Team Personnel Name: Dayna Mancilla NP Position: [facility] PCO Associate Professional Member Role: PCP Address: Address: [address] [facility], 3rd [place] [address]- Care Team Related Persons Name: IRMA FUNG Address: home [address] [place] [address] Name: NONE, GIVEN Address: [place] [address]
--- OUTSIDE RECORDS SUMMARY | 2023-07-18 03:25 | XMS_ITS | Continuity of Care Document ---
Author Organization [facility] Adult Address [address] [place] [address]- Care Team Providers Care Condenser Operator Name Role Phone Charo DUMONT, Dayna Primary Care Physician En[place] [facility] [place] Date(s): 10/17/22 - 11/16/22 [facility] Adult [address] [place] [phone]- Attending Physician: Delvin Bustillos Admitting Physician: AdmDelvin elder Referring Physician: AdmtrDelvin Allergies, Adverse Reactions, Alerts Substance Reaction Severity Status codeine Active Lactose Active Immunizations Given and Recorded Vaccine Date Status Refusal Reason SARS-CoV-2 (COVID-19) mRNA-1273 vaccine 03/30/21 R ecorded influenza virus vaccine, inactivated 1 01/16/17 Gi daniel influenza virus vaccine, inactivated 01/12/16 Give n influenza virus vaccine, inactivated 02/04/15 Give n pneumococcal 23-valent vaccine 02/04/15 Given 1Result Comment: [id number] Medications aspirin 81 mg oral tablet 1 tablet = 81 mg, By Mouth, Daily, # 30 tablet, 0 Refills, Maintenance, Tablet Start Date: 11/12/11 Status: Ordered BD INSULIN SYR UF 1 ML [id number] BD INSULIN SYR UF 1 ML [id number], See Instructions, # 100 Unknown, 3 Refills, Maintenance, USE TO INJECT INSULIN ONCE A DAY FOR DX E11.9, 157.4, cm, 08/01/20 11:31:00 EDT, Height Start Date: 10/09/20 Status: Ordered BD INSULIN SYR UF 1 ML [id number] BD INSULIN SYR UF 1 ML [id number], See Instructions, # 180 Unknown, 1 Refills, Maintenance, USE TO INJECT INSULIN TWICE A DAY FOR DX E11.9, 04/18/22 10:30:00 EST, 156, cm, 04/18/22 9:46:00 EST, Height Start Date: 04/18/22 Status: Ordered duloxetine 20 mg oral enteric coated capsule 1 capsule, By Mouth, 2 times a day, # 180 capsule, 1 Refills, Maintenance, 10/14/22 11:08:00 EDT, [facility], 156, cm, 07/12/22 13:52:00 EDT, Height Start [...] 5 Refills, Maintenance, 06/10/22 11:10:00 EDT, Solution, [facility]/pharmacy #[id number], please fill early . higher dose, 156, cm, 05/10/22 10:53:00 EST, Height Start Date: 06/10/22 Stop Date: 12/07/22 Status: Ordered insulin glargine (concentrated) 300 units/mL subcutaneous solution = 40 units, Subcutaneous Injection, 2 times a day, # 6 mL, 0 Refills, Maintenance, 10/21/22 10:09:00 EDT, Solution, [facility]/pharmacy #[id number], Partial fill upon patient request if the prescription is for a schedule II opioid drug., 156, cm, 10/16/22 15:36:00... Start Date: 10/21/22 Stop Date: 11/20/22 Status: Ordered Insulin Syringe, BD Ultra-Fine 1 [...] 09/24/22 19:24:00 EDT, Route to Pharmacy Electronically, [facility], 156, cm, 07/12/22 13:52:00 EDT, Height Start Date: 09/24/22 Status: Ordered Nicoderm C-Q 7 mg/24 hr transdermal film, extended release 1 patch, By Mouth, Daily, # 30 patch, 5 Refills, Maintenance, 07/26/21 9:34:00 EDT, [facility]/pharmacy #0373, 156, cm, 07/26/21 9:18:00 EDT, Height Start Date: 07/26/21 Stop Date: 01/22/22 Status: Ordered ondansetron 4 mg oral tablet 1 tablet, By Mouth, Every 8 hours, PRN NEEDED FOR NAUSEA AND VOMITING FOR, # 9 tablet, 3 Refills, Maintenance, 06/27/22 10:42:00 EDT, [facility]/pharmacy #[id number], 156, cm, 05/10/22 10:53:00 EST, Height [...] 10 mg, By Mouth, Every 4 hours, ICING AND GLAZE MAKER checked. fill on 10/29/22, # 168 tablet, 0 Refills, Maintenance, 10/19/22 8:45:00 EDT, [facility]/pharmacy #[id number], Partial fill upon patient request;, 156, cm, 10/16/22 15:36:00 EDT, Height Start Date: 10/19/22 Stop Date: 11/16/22 Status: Ordered oxyCODONE 15 mg oral tablet 1 tablet = 15 mg, By Mouth, Daily at bedtime, PRN as needed for pain, lecturer in marketing checked fill 11/06/22, # 28 tablet, 0 Refills, Maintenance, 11/04/22 12:38:00 EDT, Tablet, [facility]/pharmacy #[id number], Partial fill upon patient request if the prescription is for a sche... Start Date: 11/04/22 Stop Date: 12/02/22 Status: Ordered Pen [place], 31 G x 5 mm BD Ultra [...] 3 Refills, Maintenance, 07/21/22 10:38:00 EDT, Capsule, [facility]/pharmacy #[id number], Partial fill upon patient request if [...] Response Smoking Status Current every day sm genaro; Type: Cigarettes; Tobacco use times per day: 4-5; entered on: 01/16/17 Sex EKG study * Event Display: EKG Authored Date: * Event Display: EKG Authored Date: Laboratory * Event Display: Non BH Lab Results Authored Date: * Event Display: Laboratory Result Scanned Authored Date: * Event Display: Laboratory Result Scanned Authored Date: Radiology * Event Display: Ultrasound Abdomen, Non-BH Authored Date: * Event Display: X-Ray Spine, Non- BH Authored Date: Patient Care team information Care Team Personnel Name: Dayna Mancilla NP Position: [facility] PCO Associate Professional Member Role: PCP Address: Address: [address] [place] [address], [address] [place] [address]- Care Team Related Persons Name: IRMA FUNG Address: home [address] [place] [id number] Name: NONE, GIVEN Address: [place] [address]
--- OUTSIDE RECORDS SUMMARY | 2023-07-18 03:25 | XMS_ITS | Continuity of Care Document ---
Author Organization [facility] Adult Address [address] [place] [address]- Care Team Providers Care Cellophane Bath Mixer Name Role Phone Charo DUMONT, Dayna Primary Care Physician [phone] [place] [facility] [place]23 [facility] Adult [address] [place] [phone]- Allergies, Adverse Reactions, Alerts Substance Reaction Severity Status codeine Active Lactose Active Immunizations Given and Recorded Vaccine Date Status Refusal Reason SARS-CoV-2 (COVID-19) mRNA-1273 vaccine 03/30/21 R ecorded influenza virus vaccine, inactivated 1 01/16/17 Gi daniel influenza virus vaccine, inactivated 01/12/16 Give n influenza virus vaccine, inactivated 02/04/15 Give n pneumococcal 23-valent vaccine 02/04/15 Given 1Result Comment: 47605-439-66 Medications aspirin 81 mg oral tablet 1 tablet = 81 mg, By Mouth, Daily, # 30 tablet, 0 Refills, Maintenance, Tablet Start Date: 11/12/11 Status: Ordered duloxetine 20 mg oral enteric coated capsule 1 capsule, By Mouth, 2 times a day, # 180 capsule, 1 Refills, Maintenance, 02/13/23 8:22:00 EST, [facility], 156, cm, 01/03/23 11:15:00 EDT, Height Start [...] Refills, Maintenance, 02/20/23 17:40:00 EST, [facility], 156, cm, 01/03/23 11:15:00 EDT, Height Start [...] 02/13/23 8:22:00 EST, Route to Pharmacy Electronically, [facility] 70[facility], 156, cm, 01/03/23 11:15:00 EDT, Height Start [...] tablet, 1 Refills, Maintenance, 02/27/23 15:56:00 EST, [facility] 06[facility], 156, cm, 01/03/23 11:15:00 EDT, Height Start [...] 10 mg, By Mouth, Every 4 hours, CHAIN MAKER MACHINE checked. fill on 03/14/23, # 168 tablet, 0 Refills, Maintenance, 03/13/23 14:40:00 EST, [facility]/pharmacy #[id number], Partial fill upon patient request;, 156, cm,01/03/23 11:15:00 EDT, Height Start Date: 03/13/23 Stop Date: 04/10/23 Status: Ordered oxyCODONE 15 mg oral tablet 1 tablet = 15 mg, By Mouth, Daily at bedtime, PRN as needed for pain, form setter checked fill 02/26/23, # 28 tablet, 0 Refills, Maintenance, 02/24/23 19:09:00 EST, Tablet, [facility]/pharmacy #[id number], Partial fill upon patient request if the prescription is for a rex... Start Date: 02/24/23 Stop Date: 03/24/23 Status: Ordered Pen [place], 31 G x 5 mm BD Ultra [...] tablet, 1 Refills, Maintenance, 03/12/23 8:31:00 EST, [facility] ST[facility] 15514, 156, cm, 01/03/23 11:15:00 EDT, Height Start Date: 03/12/23 Status: Ordered Vitamin B Complex oral tablet, extended release 1 tablet, By Mouth, Daily, 0 Refills, Maintenance, 11/26/18 9:26:13 EDT Start Date: 11/26/18 Status: Ordered Vitamin D3 50,000 intl units oral capsule 1 capsule = 1,250 mcg, By Mouth, Every week, # 13 capsule, 3 Refills, Maintenance, 07/21/22 10:38:00 EDT, Capsule, [facility], Partial fill upon patient request if the [...] Associate Professional Member Role: PCP Address: Address: [address] [place] [address], [address] [place] [address]- Care Team Related Persons Name: IRMA FUNG Address: home [address] [place] [address] Name: NONE, GIVEN Address: [place] [address]
--- OUTSIDE RECORDS SUMMARY | 2023-07-18 03:25 | XMS_ITS | Continuity of Care Document ---
Author Organization [facility] Adult Address [address] [place] [address]- Care Team Providers Care Timber Framer Helper Name Role Phone Charo DUMONT, Dyana Primary Care Physician [phone] Encounter [facility] [place] Date(s): 04/26/19 - 05/06/19 [facility] Adult [address] [place] [address]- [facility] Attending Physician: Delvin Bustillos Admitting Physician: Delvin Bustillos Referring Physician: AdmtrDelvin Allergies, Adverse Reactions, Alerts Substance Reaction Severity Status codeine Active Lactose Active Immunizations Given and Recorded Vaccine Date Status Refusal Reason influenza virus vaccine, inactivated 1 01/16/17 Gi daniel influenza virus vaccine, inactivated 01/12/16 Give n influenza virus vaccine, inactivated 02/04/15 Give n pneumococcal 23-valent vaccine 02/04/15 Given 1Result Comment: 25115-414-91 Medications aspirin 81 mg oral tablet 1 [...] 05/03/19 12:16:00 EST, Route to Pharmacy Electronically, [facility]/pharmacy #0373, 157.4, cm, 04/26/19 15:53:00 EST, Height Start Date: 05/03/19 Stop Date: 10/30/19 Status: Ordered LORazepam 0.5 mg oral tablet 1 tablet = 0.5 mg, By Mouth, 2 times a day, PRN as needed for anxiety, for 30 days, # 60 tablet, 2 Refills, Acute 06/05/19 13:57:00 EDT, 03/07/19 13:57:00 EST, Tablet, [facility]/pharmacy #0373, 157.4, cm, 03/04/19 8:46:00 EST, Height Start Date: 03/07/19 Stop Date: 06/05/19 Status: Ordered One Touch Ultra 2 Glucose [...] Mouth, Every 4 hours, for 28 days, VICE PRESIDENT OF DEVELOPMENT checked., # 168 tablet, 0 Refills, Acute 05/24/19 16:25:00 EDT, 04/26/19 16:25:00 EST, [facility]/pharmacy #0373, Partial fill upon patient request; ok [...]
--- OUTSIDE RECORDS SUMMARY | 2023-07-18 03:25 | XMS_ITS | Continuity of Care Document ---
Author Organization [facility] Adult Address [address] [place] [address]- Care Team Providers Care Plant Machinist Name Role Phone Charo DUMONT, Dayna Primary Care Physician [phone] En[place] [facility] [place] Date(s): 10/17/22 - 10/24/22 [facility] Adult [address] [place] [address]- Attending Physician: Not on Staff, Attending MD [...] pneumococcal 23-valent vaccine 02/04/15 Given 1Result Comment: [id number] Medications aspirin 81 mg oral tablet 1 tablet = 81 mg, By Mouth, Daily, # 30 tablet, 0 Refills, Maintenance, Tablet Start Date: 11/12/11 Status: Ordered BD INSULIN SYR UF 1 ML [id number] BD INSULIN SYR UF 1 ML [id number], See Instructions, # 100 Unknown, 3 Refills, Maintenance, USE TO INJECT INSULIN ONCE A DAY FOR DX E11.9, 157.4, cm, 08/01/20 11:31:00 EDT, Height Start Date: 10/09/20 Status: Ordered BD INSULIN SYR UF 1 ML [id number] BD INSULIN SYR UF 1 ML [id number], See Instructions, # 180 Unknown, 1 Refills, Maintenance, USE TO INJECT INSULIN TWICE A DAY FOR DX E11.9, 04/18/22 10:30:00 EST, 156, cm, 04/18/22 9:46:00 EST, Height Start Date: 04/18/22 Status: Ordered duloxetine 20 mg oral enteric coated capsule 1 capsule, By Mouth, 2 times a day, # 180 capsule, 1 Refills, Maintenance, 10/14/22 11:08:00 EDT, [facility], 156, cm, 07/12/22 13:52:00 EDT, Height Start [...] 2 Refills, Maintenance, 10/05/21 10:32:00 EDT, Tablet, [facility]/pharmacy #[id number], 156, cm, 07/26/21 9:18:00 EDT, [...] 5 Refills, Maintenance, 06/10/22 11:10:00 EDT, Solution, [facility]/pharmacy #2071, please fill early . higher dose, 156, cm, 05/10/22 10:53:00 EST, Height Start Date: 06/10/22 Stop Date: 12/07/22 Status: Ordered insulin glargine (concentrated) 300 units/mL subcutaneous solution = 40 units, Subcutaneous Injection, 2 times a day, # 6 mL, 0 Refills, Maintenance, 10/21/22 10:09:00 EDT, Solution, [facility]/pharmacy #[id number], Partial fill upon patient request [...] 09/24/22 19:24:00 EDT, Route to Pharmacy Electronically, [facility] 43144, 156, cm, 07/12/22 13:52:00 EDT, Height Start Date: 09/24/22 Status: Ordered Nicoderm C-Q 7 mg/24 hr transdermal film, extended release 1 patch, By Mouth, Daily, # 30 patch, 5 Refills, Maintenance, 07/26/21 9:34:00 EDT, [facility]/pharmacy #0373, 156, cm, 07/26/21 9:18:00 EDT, Height Start Date: 07/26/21 Stop Date: 01/22/22 Status: Ordered ondansetron 4 mg oral tablet 1 tablet, By Mouth, Every 8 hours, PRN NEEDED FOR NAUSEA AND VOMITING FOR, # 9 tablet, 3 Refills, Maintenance, 06/27/22 10:42:00 EDT, [facility]/pharmacy #[id number], 156, cm, 05/10/22 10:53:00 EST, [...] 10 mg, By Mouth, Every 4 hours, PATIENT FINANCIAL SERVICES SPECIALIST checked. fill on 10/29/22, # 168 tablet, 0 Refills, Maintenance, 10/19/22 8:45:00 EDT, [facility]/pharmacy #[id number], Partial fill upon patient request;, 156, cm, 10/16/22 15:36:00 EDT, Height Start Date: 10/19/22 Stop Date: 11/16/22 Status: Ordered oxyCODONE 15 mg oral tablet 1 tablet = 15 mg, By Mouth, Daily at bedtime, PRN as needed for pain, title examiner checked fill 10/09/22, # 28 tablet, 0 Refills, Maintenance, 10/08/22 5:58:00 EDT, Tablet, [id number], Partial fill upon patient request if the prescription is for a sched... Start Date: 10/08/22 Stop Date: 11/05/22 Status: Ordered Pen [place], 31 G x 5 mm BD Ultra [...] oldest [Reference Range]: 1 Height 156 cm (10/16/22 3:36 PM) Weight 97.72 kg (10/16/22 3:36 PM) Body Mass Index [18.5-24.99 kg/m2] 40.15 kg/m2 *>HHI* (10/16/22 3:36 PM) Weight Obtained Via Patient/family state d (10/16/22 3:36 PM) Social History Social History Type Response Smoking Status Current every day sm oker; Type: Cigarettes; Tobacco use times per day: 4-5; entered on: 01/16/17 Sex Patient Care team information Care Team Personnel Name: Dayna Mancilla NP Position: [facility] PCO Associate Professional Member Role: PCP Address: Address: [address] [place] [address], [address] [place] [address]- Care Team Related Persons Name: IRMA FUNG Address: home [address] [place] [id number] Name: NONE, GIVEN Address: [place] [address]
--- OUTSIDE RECORDS SUMMARY | 2023-07-18 03:26 | XMS_ITS | Continuity of Care Document ---
Author Organization [facility] Adult Address [address] [place] [address]- Care Team Providers Care Medical Apparatus Model Maker Name Role Phone Charo DUMONT, Dayna Primary Care Physician Encounter [facility] Date(s): 03/27/20 - 04/26/20 [facility] Adult [address] [place] [address]- Allergies, Adverse Reactions, Alerts Substance Reaction Severity Status codeine Active Lactose Active Immunizations Given and Recorded Vaccine Date Status Refusal Reason influenza virus vaccine, inactivated 1 01/16/17 Gi daniel influenza virus vaccine, inactivated 01/12/16 Give n influenza virus vaccine, inactivated 02/04/15 Give n pneumococcal 23-valent vaccine 02/04/15 Given 1Result Comment: 47918-612-00 Medications aspirin 81 mg oral tablet 1 [...] 2 Refills, Maintenance, 12/15/19 8:56:00 EDT, Tablet, [facility]/pharmacy #[id number], 157.4, cm, 09/01/19 8:41:00 [...] 08/09/20 12:53:00 EDT, 02/11/20 12:53:00 EST, Solution, [facility]/pharmacy #0373, please fill early . higherdose, 157.4, cm, 02/02/20 12:10:00 EST, Height Start Date: 02/11/20 Stop Date: 08/09/20 Status: Ordered insulin detemir 100 units/mL subcutaneous solution = 82 units, Subcutaneous Injection, Daily at bedtime, for 30 days, # 15 mL, 5 Refills, Hard Stop 10/17/20 11:28:00 EDT, 04/20/20 11:28:00 EST, Solution, [facility]/pharmacy #0373, please fill early . higherdose, 157.4, cm, 04/13/20 9:03:00 EST, Height Start Date: 04/20/20 Stop Date: 10/17/20 Status: Ordered Insulin Syringe, BD Ultra-Fine 1 [...] 04/23/20 8:36:00 EST, [id number], cm, 04/13/20 9:03:00 EST, Height Start Date: 04/23/20 Stop Date: 10/20/20 Status: Ordered LORazepam 0.5 mg oral tablet 1 tablet = 0.5 mg, By Mouth, 3 times a day, PRN for anxiety, for 30 days, # 30 tablet, 3 Refills, Acute 07/25/20 12:25:00 EDT, 03/27/20 12:25:00 EST, [facility].4, cm, 02/02/20 12:10:00 EST, Height Start Date: 03/27/20 Stop Date: 07/25/20 Status: Ordered Nicoderm C-Q 7 mg/24 hr transdermal film, extended release 1 patch, By Mouth, Daily, # 30 patch, 5 Refills, Maintenance, 09/01/19 9:18:00 EDT, [facility]/pharmacy #0373, 157.4, cm, 09/01/19 8:41:00 EDT, Height [...] 10 mg, By Mouth, Every 4 hours, CUSTOMS AND BORDER PROTECTION OFFICER checked., # 168 tablet, 0 Refills, Acute 03/16/21 14:07:00 EST, 04/25/20 14:49:00 EST, [facility]/pharmacy #[id number], Partial fill upon patient request;, 04/26/20,157.4, cm, 04/13/20 9:03:00 EST, Height Start Date: 04/25/20 Stop Date: 03/16/21 Status: Ordered Pt.'s Own Meds CBD, Daily, Maintenance, 01/27/19 9:06:59 EST Start Date: 01/27/19 Status: Ordered rOPINIRole 1 mg oral tablet 1 tablet = 1 mg, By Mouth, 2 times a day, # 180 tablet, 1 Refills, Maintenance, 04/17/20 13:52:00 EST, [facility], 157.4, cm, 04/13/20 9:03:00 EST, Height Start Date: 04/17/20 Status: Ordered Vitamin B Complex oral tablet, [...]
--- OUTSIDE RECORDS SUMMARY | 2023-07-18 03:26 | XMS_ITS | Continuity of Care Document ---
Author Organization [facility] Adult Address [address] [place] [address]- Care Team Providers Care Product Test Specialist Name Role Phone Charo DUMONT, Dayna Primary Care Physician [phone] Encounter [facility] Date(s): 07/26/20 - 08/25/20 [facility] Adult [address] [place] [address]- Allergies, Adverse Reactions, Alerts Substance Reaction Severity Status codeine Active Lactose Active Immunizations Given and Recorded Vaccine Date Status Refusal Reason influenza virus vaccine, inactivated 1 01/16/17 Gi daniel influenza virus vaccine, inactivated 01/12/16 Give n influenza virus vaccine, inactivated 02/04/15 Give n pneumococcal 23-valent vaccine 02/04/15 Given 1Result Comment: [id number] Medications aspirin 81 mg oral tablet 1 tablet = 81 mg, By Mouth, Daily, # 30 tablet, 0 Refills, Maintenance, Tablet Start Date: 11/12/11 Status: Ordered buPROPion 150 mg/12 hours (SR) oral tablet, extended release 1 tablet = 150 mg, By Mouth, 2 times a day, # 60 tablet, 5 Refills, Maintenance, 05/03/20 11:33:00 EST, ER Tablet, [facility]/pharmacy #0373, 157.4, cm, 04/13/20 9:03:00 EST, Height Start Date: 05/03/20 Stop Date: 10/30/20 Status: Ordered Fish Oil By Mouth, Daily, 0 Refills, Maintenance, 01/27/19 9:06:45 EST Start Date: 01/27/19 Status: Ordered gabapentin 800 mg oral tablet 1 tablet = 800 mg, By Mouth, 3 times a day with meals, # 270 tablet, 2 Refills, Maintenance, 12/15/19 8:56:00 EDT, Tablet, [facility]/pharmacy #[id number], 157.4, cm, 09/01/19 8:41:00 EDT, Height [...] EST, 08/09/20 13:11:00 EDT, Solution, [facility]/pharmacy #0373, please fill early . higherdose, 157.4, [...] EST, Route to Pharmacy Electronically, [facility]/pharmacy #0373, 157.4, cm, 04/13/20 9:03:00 EST, Height Start Date: 04/23/20 Stop Date: 10/20/20 Status: Ordered LORazepam 0.5 mg oral tablet 1 tablet = 0.5 mg, By Mouth, 3 times a day, PRN for anxiety, for 30 days, # 30 tablet, 3 Refills, Acute 10/13/20 16:18:00 EDT, 06/15/20 16:18:00 EDT, Tablet, [facility]/pharmacy #0373, 157.4, cm, 04/13/20 9:03:00 EST, Height [...] 9 tablet, 3 Refills, Maintenance, [facility], 157.4, cm, 04/13/20 9:03:00 EST, Height Start [...] 10 mg, By Mouth, Every 4 hours, BANQUET STEWARDESS checked., # 168 tablet, 0 Refills, Acute 03/16/21 11:04:00 EST, 08/15/20 13:05:00 EDT, [id number], Partial fill upon patient request;, 08/16/20,157.4, cm, [...]
--- OUTSIDE RECORDS SUMMARY | 2023-07-18 03:26 | XMS_ITS | Continuity of Care Document ---
Author Organization [facility] ter Address [address] [place] [id number]- Care Team Providers Care Master Planner Name Role Phone Dayna Mancilla NP Primary Care Physician [place] [facility] [place] [place] [id number] Date(s): 10/10/22 - 01/23/[address] [address]- Attending Physician: Chelsea Blue MD Admitting Physician: Chelsea Blue MD Referring Physician: Dayna Mancilla NP Allergies, Adverse Reactions, Alerts Substance Reaction Severity Status codeine Active Lactose Active Immunizations Given and Recorded Vaccine Date Status Refusal Reason SARS-CoV-2 (COVID-19) mRNA-5176 vaccine 03/30/21 R ecorded influenza virus vaccine, inactivated 1 01/16/17 Gi daniel influenza virus vaccine, inactivated 01/12/16 Give n influenza virus vaccine, inactivated 02/04/15 Give n pneumococcal 23-valent vaccine 02/04/15 Given 1Result Comment: [id number] Medications aspirin 81 mg oral tablet 1 tablet = 81 mg, By Mouth, Daily, # 30 tablet, 0 Refills, Maintenance, Tablet Start Date: 11/12/11 Status: Ordered duloxetine 20 mg oral enteric coated capsule 1 capsule, By Mouth, 2 times a day, # 180 capsule, 1 Refills, Maintenance, 10/14/22 11:08:00 EDT, [facility], 156, cm, 07/12/22 13:52:00 EDT, Height Start [...] 2 Refills, Maintenance, 10/05/21 10:32:00 EDT, Tablet, [facility]/pharmacy #[id number], 156, cm, 07/26/21 9:18:00 EDT, Height Start Date: 10/05/21 Stop Date: 07/02/22 Status: Ordered Humalog Kwik Pen 100 units/mL subcutaneous injection = 15 units, Subcutaneous Injection, 3 times a day before meals, # 15 mL, 5 Refills, Maintenance, 07/12/22 14:12:00 EDT, Solution, [facility]/pharmacy #[id number], Partial fill upon patient [...] 4 Refills, Maintenance, 11/27/22 14:19:00 EDT, Solution, [facility]/pharmacy #[id number], Partial fill upon patient [...] 09/24/22 19:24:00 EDT, Route to Pharmacy Electronically, [id number], 156, cm, 07/12/22 13:52:00 EDT, Height Start Date: 09/24/22 Status: Ordered LORazepam 0.5 mg oral tablet 1 tablet = 0.5 mg, By Mouth, 3 times a day, PRN for anxiety, for 30 days, # 30 tablet, 1 Refills, Acute 03/04/23 11:39:00 EST, 01/03/23 11:39:00 EDT, Tablet, [facility]/pharmacy #[id number], 156, cm, 01/03/23 11:15:00 EDT, Height Start Date: 01/03/23 Stop Date: 03/04/23 Status: Ordered Nicoderm C-Q 7 mg/24 hr transdermal film, extended release 1 patch, By Mouth, Daily, # 30 patch, 5 Refills, Maintenance, 07/26/21 9:34:00 EDT, [facility]/pharmacy #0373, 156, cm, 07/26/21 9:18:00 EDT, Height Start Date: 07/26/21 Stop Date: 01/22/22 Status: Ordered ondansetron 4 mg oral tablet 1 tablet = 4 mg, By Mouth, Every 8 hours, # 15 tablet, 1 Refills, Maintenance, 01/03/23 11:41:00 EDT, Tablet, [facility]/pharmacy #[id number], Partial fill upon patient [...] 10 mg, By Mouth, Every 4 hours, EQUIPMENT VALIDATION SPECIALIST checked., # 168 tablet, 0 Refills, Maintenance, 01/17/23 15:16:00 EDT, [id number], Partial fill upon patient request;, 156, cm, 01/03/23 11:15:00 EDT, Height Start Date: 01/17/23 Stop Date: 02/14/23 Status: Ordered oxyCODONE 15 mg oral tablet 1 tablet = 15 mg, By Mouth, Daily at bedtime, PRN as needed for pain, hazard mitigation officer checked fill 12/04/22, # 28 tablet, 0 Refills, Maintenance, 12/31/22 14:48:00 EDT, Tablet, [facility], Partial fill upon patient request if the prescription is for a sche... Start Date: 12/31/22 Stop Date: 01/28/23 Status: Ordered Pen Dexter, 31 G x 5 mm BD Ultra [...] Associate Professional Member Role: PCP Address: Address: [address] [place] [address], [address] [place] [address]- Care Team Related Persons Name: IRMA FUNG Address: home [address] [place] [id number] Name: NONE, GIVEN Address: [place] [address]
--- OUTSIDE RECORDS SUMMARY | 2023-07-18 03:26 | XMS_ITS | Continuity of Care Document ---
Author Organization [facility] Adult Address [address] [place] [address]- Care Team Providers Care Sleep Technician Name Role Phone Charo DUMONT, Dayna Primary Care Physician Encounter [facility] Date(s): 06/26/22 - 07/26/22 [facility] Adult [address] [place] [phone]- Allergies, Adverse Reactions, Alerts Substance Reaction Severity Status codeine Active Lactose Active Immunizations Given and Recorded Vaccine Date Status Refusal Reason SARS-CoV-2 (COVID-19) mRNA-1273 vaccine 03/30/21 R ecorded influenza virus vaccine, inactivated 1 01/16/17 Gi daniel influenza virus vaccine, inactivated 01/12/16 Give n influenza virus vaccine, inactivated 02/04/15 Give n pneumococcal 23-valent vaccine 02/04/15 Given 1Result Comment: [id number] Medications aspirin 81 mg oral tablet 1 tablet = 81 mg, By Mouth, Daily, # 30 tablet, 0 Refills, Maintenance, Tablet Start Date: 11/12/11 Status: Ordered BD INSULIN SYR UF 1 ML [id number] BD INSULIN SYR UF 1 ML [id number], See Instructions, # 100 Unknown, 3 Refills, Maintenance, USE TO INJECT INSULIN ONCE A DAY FOR DX E11.9, 157.4, cm, 08/01/20 11:31:00 EDT, Height Start Date: 10/09/20 Status: Ordered BD INSULIN SYR UF 1 ML [id number] BD INSULIN SYR UF 1 ML [id number], See Instructions, # 180 Unknown, 1 Refills, Maintenance, USE TO INJECT INSULIN TWICE A DAY FOR DX E11.9, 04/18/22 10:30:00 EST, 156, cm, 04/18/22 9:46:00 EST, Height Start Date: 04/18/22 Status: Ordered duloxetine 20 mg oral enteric coated capsule 1 capsule, By Mouth, 2 times a day, # 180 capsule, 1 Refills, Maintenance, 02/25/22 9:26:00 EST, [facility] 147[facility], 156, cm, 01/14/22 15:09:00 EDT, Height Start Date: 02/25/22 Status: Ordered Fish Oil By Mouth, Daily, 0 Refills, Maintenance, 01/27/19 9:06:45 EST Start Date: 01/27/19 Status: Ordered gabapentin 800 mg oral tablet 1 tablet = 800 mg, By Mouth, 3 times a day with meals, # 270 tablet, 2 Refills, Maintenance, 10/05/21 10:32:00 EDT, Tablet, [facility]/pharmacy #2071, 156, cm, 07/26/21 9:18:00 EDT, [...] 04/01/22 6:54:00 EST, Route to Pharmacy Electronically, [facility], 156, cm, 01/14/22 15:09:00 EDT, Height Start Date: 04/01/22 Status: Ordered Nicoderm C-Q 7 mg/24 hr transdermal film, extended release 1 patch, By Mouth, Daily, # 30 patch, 5 Refills, Maintenance, 07/26/21 9:34:00 EDT, [facility]/pharmacy #0373, 156, cm, 07/26/21 9:18:00 EDT, Height Start Date: 07/26/21 Stop Date: 01/22/22 Status: Ordered ondansetron 4 mg oral tablet 1 tablet, By Mouth, Every 8 hours, PRN NEEDED FOR NAUSEA AND VOMITING FOR, # 9 tablet, 3 Refills, Maintenance, 06/27/22 10:42:00 EDT, [facility]/pharmacy #[id number], 156, cm, 05/10/22 10:53:00 EST, [...] Mouth, Every 4 hours, for 28 days, DESULFURIZER MACHINE checked. ok to fill on 07/07/22 doregardprevious script, # 168 tablet, 0 Refills, Acute 08/02/22 17:20:00 EDT, 07/05/22 17:20:00 EDT, [facility]/pharmacy #[id number], Partial fill upon patient request;, 1... Start Date: 07/05/22 Stop Date: 08/02/22 Status: Ordered oxyCODONE 15 mg oral tablet 1 tablet = 15 mg, By Mouth, Daily at bedtime, PRN as needed for pain, material cutter checked fill 07/19 22, # 28tablet, 0 Refills, Maintenance, 07/16/22 7:43:00 EDT, Tablet, [facility]/pharmacy #[id number], Partial fill uponpatient request if the prescription is for a schedu... Start Date: 07/16/22 Stop Date: 08/13/22 Status: Ordered Pen Rice, 31 G x 5 mm BD Ultra [...] tablet, 1 Refills, Maintenance, 03/27/22 18:34:00 EST, [id number], cm, 01/14/22 15:09:00 EDT, Height Start Date: 03/27/22 Status: Ordered Vitamin B Complex oral tablet, extended release 1 tablet, By Mouth, Daily, 0 Refills, Maintenance, 11/26/18 9:26:13 EDT Start Date: 11/26/18 Status: Ordered Vitamin D3 50,000 intl units oral capsule 1 capsule = 1,250 mcg, By Mouth, Every week, # 13 capsule, 3 Refills, Maintenance, 07/21/22 10:38:00 EDT, Capsule, [facility], Partial fill upon patient request if the [...] Associate Professional Member Role: PCP Address: Address: [address] [place] [address], [address] [place] [address]- Care Team Related Persons Name: IRMA FUNG Address: home [address] [place] [id number] Name: NONE, GIVEN Address: [place] [address]
--- OUTSIDE RECORDS SUMMARY | 2023-07-18 03:26 | XMS_ITS | Continuity of Care Document ---
Author Organization [facility] Adult Address [address] [place] [address]- Care Team Providers Care Inventory Planner Name Role Phone Dayna Mancilla NP Primary Care Physician Encounter [facility] Date(s): 07/25/20 - 08/01/20 [facility] Adult [address] [place] [address]- Attending Physician: Dayna Mancilla NP Allergies, Adverse Reactions, Alerts Substance Reaction Severity Status codeine Active Lactose Active Immunizations Given and Recorded Vaccine Date Status Refusal Reason influenza virus vaccine, inactivated 1 01/16/17 Gi daniel influenza virus vaccine, inactivated 01/12/16 Give n influenza virus vaccine, inactivated 02/04/15 Give n pneumococcal 23-valent vaccine 02/04/15 Given 1Result Comment: [id number] Medications aspirin 81 mg oral tablet 1 [...] 08/09/20 12:53:00 EDT, 02/11/20 12:53:00 EST, Solution, [facility]/pharmacy #0373, please fill early . higherdose, 157.4, cm, 02/02/20 12:10:00 EST, Height Start Date: 02/11/20 Stop Date: 08/09/20 Status: Ordered insulin detemir 100 units/mL subcutaneous solution = 82 units, Subcutaneous Injection, Daily at bedtime, for 30 days, # 15 mL, 5 Refills, Hard Stop 10/17/20 11:28:00 EDT, 04/20/20 11:28:00 EST, Solution, [facility]/pharmacy #0373, please [...] 8:36:00 EST, [facility] 157.4, cm, 04/13/20 9:03:00 EST, Height [...] 5 Refills, Maintenance, 09/01/19 9:18:00 EDT, [facility]/pharmacy #0373, 157.4, cm, 09/01/19 8:41:00 EDT, Height Start Date: 09/01/19 Stop Date: 02/28/20 Status: Ordered ondansetron 4 mg oral tablet See Instructions, TAKE 1 TABLET BY MOUTH EVERY 8 HOURS NEEDED FOR NAUSEA AND VOMITING FOR 5 DAYS, # 9 tablet, 3 Refills, Maintenance, [facility], 157.4, cm, 04/13/20 9:03:00 EST, Height Start [...] 10 mg, By Mouth, Every 4 hours, SUPERVISOR UNLOADING checked., # 168 tablet, 0 Refills, Acute 03/16/21 15:47:00 EST, 07/17/20 15:54:00 EDT, [facility]/pharmacy #[id number], Partial fill upon patient request; [place] to fillearly pt going on vacation, 07/19/20, 157.4, cm, 01... Start Date: 07/17/20 Stop Date: 03/16/21 Status: Ordered oxyCODONE 5 mg oral tablet 5 mg, 1, tablet, By Mouth, Every 4 hours, PRN, for 14 days, # 84 tablet, Refills 0, Tot. Refills 0,Acute 08/15/20 15:15:00 EDT, as needed for pain, 08/01/20 15:15:00 EDT, Route to Pharmacy [facility]ically, [id number], Partial fill upon patient... Start Date: 08/01/20 Stop Date: 08/15/20 Status: Ordered Pt.'s Own Meds CBD, Daily, [...] 1 Refills, Maintenance, 04/13/20 9:35:00 EST, Tablet, [facility]/pharmacy #5523, Partial fill upon patient request if the [...] abuse disorder(Confirmed) Active Tobacco Use Disorder(Confirmed) Active Vital Signs Most recent to oldest [Reference Range]: 1 Height 157.40 cm (07/25/20 1:42 PM) Social History Social History Type Response Smoking Status Current every day sm genaro; Type: Cigarettes; Tobacco use times per day: 4-5; entered on: 01/16/17 Sex
--- OUTSIDE RECORDS SUMMARY | 2023-07-18 03:26 | XMS_ITS | Continuity of Care Document ---
Author Organization [facility] Address [address] [place] [address]- Care Team Providers Care Corking Machine Operator Name Role Phone Charo DUMONT, Dayna Primary Care Physician [phone] [place] [facility] [place] 11[place]08[place]20 [facility] [address] [place] [address]- Allergies, Adverse Reactions, Alerts Substance Reaction Severity Status codeine Active Lactose Active Immunizations Given and Recorded Vaccine Date Status Refusal Reason influenza virus vaccine, inactivated 1 01/16/17 Gi daniel influenza virus vaccine, inactivated 01/12/16 Give n influenza virus vaccine, inactivated 02/04/15 Give n pneumococcal 23-valent vaccine 02/04/15 Given 1Result Comment: [id number] Medications aspirin 81 mg oral tablet 1 tablet = 81 mg, By Mouth, Daily, # 30 tablet, 0 Refills, Maintenance, Tablet Start Date: 11/12/11 Status: Ordered BD INSULIN SYR UF 1 ML [id number] BD INSULIN SYR UF 1 ML [id number], See Instructions, # 100 Unknown, 3 Refills, [...] 2 Refills, Maintenance, 09/04/20 17:31:00 EDT, Tablet, [facility]/pharmacy #[id number], 157.4, cm, 08/01/20 11:31:00 EDT, Height [...] 03/06/21 13:42:00 EST, 09/07/20 13:42:00 EDT, Solution, [facility]/pharmacy #2071, please fill early . higherdose, 157.4, [...] 10/20/20 8:36:00 EDT, Route to Pharmacy Electronically, [facility]/pharmacy #[id number], 157.4, cm, 08/01/20 11:31:00 EDT, Height Start Date: 10/20/20 Stop Date: 04/18/21 Status: Ordered LORazepam 0.5 mg oral tablet 1 tablet = 0.5 mg, By Mouth, 3 times a day, PRN for anxiety, for 30 days, # 30 tablet, 3 Refills, Acute 02/06/21 9:44:00 EST, 10/09/20 9:44:00 EDT, Tablet, [facility]/pharmacy #2071, 157.4, cm, 08/01/20 11:31:00 EDT, Height Start Date: 10/09/20 Stop Date: 02/06/21 Status: Ordered Nicoderm C-Q 7 mg/24 hr transdermal film, extended release 1 patch, By Mouth, Daily, # 30 patch, 5 Refills, Maintenance, 09/01/19 9:18:00 EDT, [facility]/pharmacy #0373, 157.4, cm, 09/01/19 8:41:00 EDT, Height Start Date: 09/01/19 Stop Date: 02/28/20 Status: Ordered ondansetron 4 mg oral tablet See Instructions, TAKE 1 TABLET BY MOUTH EVERY 8 HOURS NEEDED FOR NAUSEA AND VOMITING FOR 5 DAYS, # 9 tablet, 3 Refills, Maintenance, [facility]138, 157.4, cm, 04/13/20 9:03:00 EST, Height Start [...] 10 mg, By Mouth, Every 4 hours, DINKEY DRIVER checked., # 168 tablet, 0 Refills, Acute 03/16/21 14:35:00 EST, 09/12/20 16:45:00 EDT, [facility]/pharmacy #[id number], Partial fill upon patient request;, 09/13/20,157.4, cm, 08/01/20 11:31:00 EDT, Height Start Date: 09/12/20 Stop Date: 03/16/21 Status: Ordered Pt.'s Own Meds CBD, Daily, Maintenance, 01/27/19 9:06:59 EST Start Date: 01/27/19 Status: Ordered rOPINIRole 1 mg oral tablet 1 tablet, By Mouth, 2 times a day, # 180 tablet, 1 Refills, Maintenance, 10/06/20 14:51:00 [facility], [facility], 157.[facility], cm, 08/01/20 11:31:00 EDT, Height Start Date: 10/06/20 Status: Ordered Trulicity Pen 0.75 mg/0.5 mL subcutaneous solution 0.5 mL = 0.75 mg, Subcutaneous Injection, Every week, rotate injection sites, # 2.5 mL, 5 Refills, Maintenance, 08/31/20 16:54:00 EDT, Solution, [facility]/pharmacy #0982, Partial fill upon patient request if the [...] 1 Refills, Maintenance, 09/04/20 14:45:00 EDT, Tablet, [facility], Partial fill upon patient request if the [...]
--- OUTSIDE RECORDS SUMMARY | 2023-07-18 03:26 | XMS_ITS | Continuity of Care Document ---
Author Organization [facility] Adult Address [address] [place] [address]- Care Team Providers Care Sandblast Operator Name Role Phone Charo DUMONT, Dayna Primary Care Physician Encounter [facility] Date(s): 01/17/23 - 02/16/23 [facility] Adult [address] [place] [phone]- Allergies, Adverse Reactions, Alerts Substance Reaction Severity Status codeine Active Lactose Active Immunizations Given and Recorded Vaccine Date Status Refusal Reason SARS-CoV-2 (COVID-19) mRNA-1273 vaccine 03/30/21 R ecorded influenza virus vaccine, inactivated 1 01/16/17 Gi daniel influenza virus vaccine, inactivated 01/12/16 Give n influenza virus vaccine, inactivated 02/04/15 Give n pneumococcal 23-valent vaccine 02/04/15 Given 1Result Comment: 44143-225-88 Medications aspirin 81 mg oral tablet 1 tablet = 81 mg, By Mouth, Daily, # 30 tablet, 0 Refills, Maintenance, Tablet Start Date: 11/12/11 Status: Ordered duloxetine 20 mg oral enteric coated capsule 1 capsule, By Mouth, 2 times a day, # 180 capsule, 1 Refills, Maintenance, 02/13/23 8:22:00 EST, [id number], 156, cm, 01/03/23 11:15:00 EDT, Height Start [...] Refills, Maintenance, 10/05/21 10:32:00 EDT, Tablet, [facility]/pharmacy #[id number], 156, cm, 07/26/21 9:18:00 EDT, Height Start Date: 10/05/21 Stop Date: 07/02/22 Status: Ordered Humalog Kwik Pen 100 units/mL subcutaneous injection = 15 units, Subcutaneous Injection, 3 times a day before meals, # 15 mL, 2 Refills, Maintenance, 01/24/23 11:19:00 EST, Solution, [facility]/pharmacy #[id number], Partial fill upon patient [...] 02/13/23 8:22:00 EST, Route to Pharmacy Electronically, [facility] STORE [id number], 156, cm, 01/03/23 11:15:00 EDT, Height Start Date: 02/13/23 Status: Ordered LORazepam 0.5 mg oral tablet 1 tablet = 0.5 mg, By Mouth, 3 times a day, PRN for anxiety, for 30 days, # 30 tablet, 1 Refills, Acute 03/04/23 11:39:00 EST, 01/03/23 11:39:00 EDT, Tablet, [facility]/pharmacy #[id number], 156, cm, 01/03/23 11:15:00 EDT, Height [...] 3 Refills, Maintenance, 06/27/22 10:42:00 EDT, [facility]/pharmacy #[id number], 156, cm, 05/10/22 10:53:00 EST, [...] 10 mg, By Mouth, Every 4 hours, APPAREL SALES ASSOCIATE checked. fill on 02/14/23, # 168 tablet, 0 Refills, Maintenance, 02/13/23 18:55:00 EST, [id number], Partial fill upon patient request;, 156, cm, 01/03/23 11:15:00 EDT, Height Start Date: 02/13/23 Stop Date: 03/13/23 Status: Ordered oxyCODONE 15 mg oral tablet 1 tablet = 15 mg, By Mouth, Daily at bedtime, PRN as needed for pain, computer science professor checked fill 01/29/23, # 28 tablet, 0 Refills, Maintenance, 01/27/23 12:27:00 EST, Tablet, [id number], Partial fill upon patient request if the prescription is for a rex... Start Date: 01/27/23 Stop Date: 02/24/23 Status: Ordered Pen [place], 31 G x 5 mm BD Ultra [...] Team Personnel Name: Dayna Mancilla NP Position: [facility] Associate Professional Member Role: PCP Address: Address: [address] [place] [address], [address] [place] [address]- Care Team Related Persons Name: IRMA FUNG Address: home [address] [place] [address] Name: NONE, G[place]EN Address: [place] [address]
--- OUTSIDE RECORDS SUMMARY | 2023-07-18 03:26 | XMS_ITS | Continuity of Care Document ---
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 Name Role Phone Charo DUMONT, Dayna Primary Care Physician Encounter [facility] Date(s): 09/14/21 - 10/14/21 [facility] Adult [address] [place] [phone]- Allergies, Adverse Reactions, Alerts Substance Reaction Severity Status codeine Active Lactose Active Immunizations Given and Recorded Vaccine Date Status Refusal Reason SARS-CoV-2 (COVID-19) mRNA-1273 vaccine 03/30/21 R ecorded influenza virus vaccine, inactivated 1 01/16/17 Gi daniel influenza virus vaccine, inactivated 01/12/16 Give n influenza virus vaccine, inactivated 02/04/15 Give n pneumococcal 23-valent vaccine 02/04/15 Given 1Result Comment: [id number] Medications aspirin 81 mg oral tablet 1 tablet = 81 mg, By Mouth, Daily, # 30 tablet, 0 Refills, Maintenance, Tablet Start Date: 11/12/11 Status: Ordered BD INSULIN SYR UF 1 ML [id number] BD INSULIN SYR UF 1 ML [id number], See Instructions, # 100 Unknown, 3 Refills, Maintenance, USE TO INJECT INSULIN ONCE A DAY FOR DX E11.9, 157.4, cm, 08/01/20 11:31:00 EDT, Height Start Date: 10/09/20 Status: Ordered duloxetine 20 mg oral enteric coated capsule See Instructions, TAKE 1 CAPSULE BY MOUTH TWICE A DAY, # 60 capsule, 5 Refills, [facility] ST[facility], 156, cm, 07/26/21 9:18:00 EDT, Height Start Date: 09/05/21 Status: Ordered Fish Oil By Mouth, Daily, 0 Refills, Maintenance, 01/27/19 9:06:45 EST Start Date: 01/27/19 Status: Ordered gabapentin 800 mg oral tablet 1 tablet = 800 mg, By Mouth, 3 times a day with meals, # 270 tablet, 2 Refills, Maintenance, 10/05/21 10:32:00 EDT, Tablet, [facility]/pharmacy #[id number], 156, cm, 07/26/21 9:18:00 [...] 5 Refills, Maintenance, 07/26/21 9:29:00 EDT, Solution, [facility]/pharmacy #[id number], please fill early . higher dose, 156, cm, 07/26/21 9:18:00 EDT,Height Start Date: 07/26/21 Stop Date: 01/22/22 Status: Ordered Insulin Syringe, BD Ultra-Fine 1 cc 31 G x 8 mm (5/16in) See Instructions, # 100 each, Refills 3, Tot. Refills 3, Maintenance, use to inject insulin twice aday for DX E11.9, 04/30/21 16:48:00 EST, [facility], 156, cm, 03/15/21 15:01:00 EST, Height Start Date: 04/30/21 Status: Ordered lisinopril 20 mg oral tablet 1, tablet, By Mouth, Daily, # 90 tablet, Refills 1, Route to Pharmacy Electronically, [facility] STORE [id number], 156, cm, 07/26/21 9:18:00 EDT, Height Start Date: 09/29/21 Status: Ordered LORazepam 0.5 mg oral tablet 1 tablet = 0.5 mg, By Mouth, 3 times a day, PRN for anxiety, for 30 days, # 30 tablet, 3 Refills, Acute 01/05/22 9:32:00 EDT, 09/07/21 9:32:00 EDT, Tablet, [facility]/pharmacy #[id number], 156, cm, 07/26/21 9:18:00 EDT, Height Start Date: 09/07/21 Stop Date: 01/05/22 Status: Ordered Medrol Dosepak 4 mg oral tablet See Instructions, 1 pack/packet By Mouth Once, # 1 pack/packet, 0 Refills, Soft Stop, 09/14/21 13:28:00 EDT, Tablet, [facility]/pharmacy #[id number], Partial fill upon patient request if the prescription is for aschedule II opioid drug., 156, cm, 07/26/21 9:18:00... Start Date: 09/14/21 Status: Ordered Nicoderm C-Q 7 mg/24 hr transdermal film, extended release 1 patch, By Mouth, Daily, # 30 patch, 5 Refills, Maintenance, 07/26/21 9:34:00 EDT, [facility]/pharmacy #0373, 156, cm, 07/26/21 9:18:00 EDT, Height Start Date: 07/26/21 Stop Date: 01/22/22 Status: Ordered One Touch Ultra 2 Glucose [...] 10 mg, By Mouth, Every 4 hours, SERVICE SPRINKLER HELPER checked.fill on 10/05/21, # 168 tablet, 0 Refills, Acute 03/16/22 8:40:00 EST, 10/04/21 17:29:00 EDT, [id number], Partial fill upon patient request;, 156, cm, 07/26/21 9:18:00 EDT, Height Start Date: 10/04/21 Stop Date: 03/16/22 Status: Ordered oxyCODONE 15 mg oral tablet 1 tablet = 15 mg, By Mouth, Daily at bedtime, PRN as needed for pain, for 28 days, fill on 10/12/21,# 28 tablet, 0 Refills, Acute 11/06/21 6:45:00 EDT, 10/09/21 6:45:00 EDT, Tablet, [id number], Partial fill upon patient request if the prescrip... Start Date: 10/09/21 Stop Date: 11/06/21 Status: Ordered Pt.'s Own Meds CBD, Daily, Maintenance, 01/27/19 9:06:59 EST Start Date: 01/27/19 Status: Ordered rOPINIRole 1 mg oral tablet 1 tablet, By Mouth, 2 times a day, # 180 tablet, 1 Refills, Maintenance, 10/06/20 14:51:00 EDT, [facility], 157.4, cm, 08/01/20 11:31:00 EDT, Height Start [...] EVERY WEEK, # 2 Unknown, 2 Refills, [facility], 156, cm, 07/26/21 9:18:00 EDT, Height Start Date: 09/30/21 Status: Ordered Vitamin B Complex oral tablet, extended release 1 tablet, By Mouth, Daily, 0 Refills, Maintenance, 11/26/18 9:26:13 EDT Start Date: 11/26/18 Status: Ordered Vitamin D3 50,000 intl units oral capsule 1 capsule = 1,250 mcg, By Mouth, Every week, # 12 capsule, 2 Refills, Maintenance, 06/26/21 8:37:00EDT, Capsule, [facility]/pharmacy #7503, Partial fill upon patient request if the prescription is for a schedule II opioid drug., 156, cm, 03/15/21 15:01:00 E... Start Date: 06/26/21 Status: Ordered Zofran 4 mg oral tablet 1 tablet = 4 mg, By Mouth, Every 8 hours, PRN as needed for nausea/vomiting, # 15 tablet, 1 Refills, Maintenance, 06/15/21 14:48:00 EDT, Tablet, [facility]/pharmacy #[id number], Partial fill upon patient request if the prescription is for a schedule II opioid drug... Start Date: 06/15/21 Stop Date: 06/25/21 Status: Ordered Problem List Condition Effective Dates Status Health Status Inform ant DJD (degenerative joint dise ase) of cervical spine(Confirmed) Active Current use of insulin(Confirmed) Active Depression(Confirmed) Active Diabetes mellitus(Confirmed) Active DM (diabetes mellitus), type 2(Confirmed) Active Dyslipidemia(Confirmed) Active Family history: Breast disease(Confirmed) Active GERD - Gastro-esophageal ref lux disease(Confirmed) Active Long-term current use of opi ate analgesic(Confirmed) Active Hypertension(Confirmed) Active Obese class II(Confirmed) Active RSD (reflex sympathetic dystrophy)(Confirmed) Active Tinea pedis(Confirmed) 09/01/11 Active Tobacco abuse disorder(Confirmed) Active Tobacco Use Disorder(Confirmed) Active Social History Social History Type Response Smoking Status Current every day osmany lam; Type: Cigarettes; Tobacco use times per day: 4-5; entered on: 01/16/17 Sex
--- OUTSIDE RECORDS SUMMARY | 2023-07-18 03:26 | XMS_ITS | Continuity of Care Document ---
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 Molding Machine Operator Name Role Phone Charo DUMONT, Dayna Primary Care Physician Encounter [facility] [place] Date(s): 05/18/21 - 06/17/21 [facility] [address] [place] [address]- Allergies, Adverse Reactions, Alerts Substance Reaction Severity Status codeine Active Lactose Active Immunizations Given and Recorded Vaccine Date Status Refusal Reason SARS-CoV-2 (COVID-19) mRNA-1273 vaccine 03/30/21 R ecorded influenza virus vaccine, inactivated 1 01/16/17 Gi daniel influenza virus vaccine, inactivated 01/12/16 Give n influenza virus vaccine, inactivated 02/04/15 Give n pneumococcal 23-valent vaccine 02/04/15 Given 1Result Comment: [id number] Medications aspirin 81 mg oral tablet 1 tablet = 81 mg, By Mouth, Daily, # 30 tablet, 0 Refills, Maintenance, Tablet Start Date: 11/12/11 Status: Ordered BD INSULIN SYR UF 1 ML [id number] BD INSULIN SYR UF 1 ML [id number], See Instructions, # 100 Unknown, 3 Refills, [...] Maintenance, 09/04/20 17:31:00 EDT, Tablet, [facility]/pharmacy #[id number], 157.4, cm, 08/01/20 11:31:00 EDT, Height [...] Subcutaneous Injection, 2 times a day, # 20 mL, 5 Refills, Maintenance, 04/23/21 14:55:00 EST, Solution, [facility]/pharmacy #[id number], please fill early . higher dose, 156, cm, 03/15/21 15:01:00 EST, Height Start Date: 04/23/21 Stop Date: 10/20/21 Status: Ordered Insulin Syringe, BD Ultra-Fine 1 [...] tablet, Refills 1, Route to Pharmacy Electronically, [facility] STORE [facility], 156, cm, 03/15/21 15:01:00 EST, Height Start Date: 04/01/21 Status: Ordered LORazepam 0.5 mg oral tablet 1 tablet = 0.5 mg, By Mouth, 3 times a day, PRN for anxiety, for 30 days, # 30 tablet, 3 Refills, Acute 06/23/21 8:00:00 EDT, 02/23/21 8:00:00 EST, Tablet, [facility]/pharmacy #[id number], 157.4, cm, 12/11/20 13:18:00 EDT, Height Start Date: 02/23/21 Stop Date: 06/23/21 Status: Ordered Nicoderm C-Q 7 mg/24 hr transdermal film, extended release 1 patch, By Mouth, Daily, # 30 patch, 5 Refills, Maintenance, 09/01/19 9:18:00 EDT, [facility]/pharmacy #0373, 157.4, cm, 09/01/19 8:41:00 EDT, Height [...] 10 mg, By Mouth, Every 4 hours, COATING MIXER SUPERVISOR checked. fill on 06/17/21, # 168 tablet, 0 Refills, Acute 03/16/22 14:46:00 EST, 06/17/21 10:53:00 EDT, [facility]/pharmacy #[id number], Partial fill upon patient request;, 156, cm, 03/15/21 15:01:00 EST, Height Start Date: 06/17/21 Stop Date: 03/16/22 Status: Ordered oxyCODONE 15 mg oral tablet 1 tablet = 15 mg, By Mouth, Daily at bedtime, PRN as needed for pain, for 28 days, Fill on 05/29/21,# 28 tablet, 0 Refills, Acute 06/25/21 17:34:00 EDT, 05/28/21 17:34:00 EDT, Tablet, [facility]/pharmacy #[id number], Partial fill upon patient request if the prescr... Start Date: 05/28/21 Stop Date: 06/25/21 Status: Ordered Pt.'s Own Meds CBD, Daily, Maintenance, 01/27/19 9:06:59 EST Start Date: 01/27/19 Status: Ordered rOPINIRole 1 mg oral tablet See Instructions, TAKE 1 TABLET BY MOUTH TWICE A DAY, # 180 tablet, 1 Refills, [facility], 156, cm, 03/15/21 15:01:00 EST, Height Start Date: 04/03/21 Status: Ordered rOPINIRole 1 mg oral tablet 1 tablet, By Mouth, 2 times a day, # 180 tablet, 1 Refills, Maintenance, 10/06/20 14:51:00 EDT, [facility], 157.4, cm, 08/01/20 11:31:00 EDT, Height Start Date: 10/06/20 Status: Ordered Trulicity Pen 0.75 mg/0.5 mL subcutaneous solution See Instructions, INJECT 0.5ML SUBCUTANEOUSLY EVERY WEEK. ROTATE INJECTION SITES, # 2 Unknown, 7 Refills, [facility], 156, cm, 03/15/21 15:01:00 EST, Height Start Date: 04/01/21 Status: Ordered Trulicity Pen 0.75 mg/0.5 mL subcutaneous solution See Instructions, INJECT 0.5 ML SUBCUTANEOUS INJECTION EVERY WEEK,X30 DAYS,INSTR:ROTATE INJECTION SITES, # 2 Unknown, 0 Refills, [facility], 156, cm, 03/15/21 15:01:00 EST, Height Start Date: 04/01/21 Status: Ordered Vitamin B Complex oral tablet, [...] 1 Refills, Maintenance, 06/15/21 14:48:00 EDT, Tablet, [facility]/pharmacy #[id number], Partial fill upon patient request if the [...]
--- OUTSIDE RECORDS SUMMARY | 2023-07-18 03:26 | XMS_ITS | Continuity of Care Document ---
Author Organization [facility] Adult Address [address] [place] [address]- Care Team Providers Care Solar Energy System Installer Name Role Phone Charo DUMONT, Dayna Primary Care Physician Encounter [facility] Date(s): 12/28/20 - 01/27/21 [facility] Adult [address] [place] [address]- Allergies, Adverse Reactions, Alerts Substance Reaction Severity Status codeine Active Lactose Active Immunizations Given and Recorded Vaccine Date Status Refusal Reason influenza virus vaccine, inactivated 1 01/16/17 Gi daniel influenza virus vaccine, inactivated 01/12/16 Give n influenza virus vaccine, inactivated 02/04/15 Give n pneumococcal 23-valent vaccine 02/04/15 Given 1Result Comment: [id number] Medications aspirin 81 mg oral tablet 1 tablet = 81 mg, By Mouth, Daily, # 30 tablet, 0 Refills, Maintenance, Tablet Start Date: 11/12/11 Status: Ordered BD INSULIN SYR UF 1 ML [id number] BD INSULIN SYR UF 1 ML [id number], See Instructions, # 100 Unknown, 3 Refills, [...] Refills, Maintenance, 09/04/20 17:31:00 EDT, Tablet, [facility]/pharmacy #[id number], 157.4, cm, 08/01/20 11:31:00 EDT, [...] 9:09:00 EST, 11/22/20 9:09:00 EDT, Solution, [facility]/pharmacy #[id number], please fill early . higher [...] 10/20/20 8:36:00 EDT, Route to Pharmacy Electronically, [facility]/pharmacy #[id number], 157.4, cm, 08/01/20 11:31:00 EDT, Height Start Date: 10/20/20 Stop Date: 04/18/21 Status: Ordered LORazepam 0.5 mg oral tablet 1 tablet = 0.5 mg, By Mouth, 3 times a day, PRN for anxiety, for 30 days, # 30 tablet, 3 Refills, Acute 02/06/21 9:44:00 EST, 10/09/20 9:44:00 EDT, Tablet, [facility]/pharmacy #207, 157.4, cm, 08/01/20 11:31:00 EDT, Height Start Date: 10/09/20 Stop Date: 02/06/21 Status: Ordered Nicoderm C-Q 7 mg/24 hr transdermal film, extended release 1 patch, By Mouth, Daily, # 30 patch, 5 Refills, Maintenance, 09/01/19 9:18:00 EDT, [facility]/pharmacy #0373, 157.4, cm, 09/01/19 8:41:00 EDT, [...] 10 mg, By Mouth, Every 4 hours, PROGRAM SUPPORT CLERK checked. fill on 01/01/21, # 168 tablet, 0 Refills, Acute 03/16/21 15:21:00 EST, 12/13/20 18:22:00 EDT, [facility]/pharmacy #[id number], Partial fill upon patient request;, 01/01/21, 157.4, cm, 12/11/20 13:18:00 EDT,... Start Date: 12/13/20 Stop Date: 03/16/21 Status: Ordered oxyCODONE 15 mg oral tablet 1 tablet = 15 mg, By Mouth, Daily at bedtime, PRN as needed for pain, for 28 days, # 28 tablet, 0 Refills, Acute 02/06/21 11:56:00 EST, 01/09/21 11:56:00 EDT, Tablet, [facility]/pharmacy #[id number], Partial fillupon patient request if the prescription is for a s... Start Date: 01/09/21 Stop Date: 02/06/21 Status: Ordered Pt.'s Own Meds CBD, Daily, Maintenance, 01/27/19 9:06:59 EST Start Date: 01/27/19 Status: Ordered rOPINIRole 1 mg oral tablet 1 tablet, By Mouth, 2 times a day, # 180 tablet, 1 Refills, Maintenance, 10/06/20 14:51:00 EDT, [facility], 157.4, cm, 08/01/20 11:31:00 EDT, Height Start Date: 10/06/20 Status: Ordered Trulicity Pen 0.75 mg/0.5 mL subcutaneous solution 0.5 mL = 0.75 mg, Subcutaneous Injection, Every week, rotate injection sites, # 2.5 mL, 5 Refills, Maintenance, 08/31/20 16:54:00 EDT, Solution, [facility]/pharmacy #[id number], Partial fill upon patient request if the [...]
--- OUTSIDE RECORDS SUMMARY | 2023-07-18 03:26 | XMS_ITS | Continuity of Care Document ---
Author Organization [facility] Adult Address [address] [place] [address]- Care Team Providers Care Airplane Flight Attendant Name Role Phone Charo DUMONT, Dayna Primary Care Physician Encounter [facility] Date(s): 09/06/21 - 10/06/21 [facility] [address] [place] [phone]- Allergies, Adverse Reactions, Alerts Substance Reaction Severity Status codeine Active Lactose Active Immunizations Given and Recorded Vaccine Date Status Refusal Reason SARS-CoV-2 (COVID-19) mRNA-1273 vaccine 03/30/21 R ecorded influenza virus vaccine, inactivated 1 01/16/17 Gi daniel influenza virus vaccine, inactivated 01/12/16 Give n influenza virus vaccine, inactivated 02/04/15 Give n pneumococcal 23-valent vaccine 02/04/15 Given 1Result Comment: [id number] Medications aspirin 81 mg oral tablet 1 tablet = 81 mg, By Mouth, Daily, # 30 tablet, 0 Refills, Maintenance, Tablet Start Date: 11/12/11 Status: Ordered BD INSULIN SYR UF 1 ML [id number] BD INSULIN SYR UF 1 ML [id number], See Instructions, # 100 Unknown, 3 Refills, Maintenance, USE TO INJECT INSULIN ONCE A DAY FOR DX E11.9, 157.4, cm, 08/01/20 11:31:00 EDT, Height Start Date: 10/09/20 Status: Ordered duloxetine 20 mg oral enteric coated capsule See Instructions, TAKE 1 CAPSULE BY MOUTH TWICE A DAY, # 60 capsule, 5 Refills, [facility], 156, cm, 07/26/21 9:18:00 EDT, Height Start Date: 09/05/21 Status: Ordered Fish Oil By Mouth, Daily, 0 Refills, Maintenance, 01/27/19 9:06:45 EST Start Date: 01/27/19 Status: Ordered gabapentin 800 mg oral tablet 1 tablet = 800 mg, By Mouth, 3 times a day with meals, # 270 tablet, 2 Refills, Maintenance, 10/05/21 10:32:00 EDT, Tablet, [facility]/pharmacy #[id number], 156, cm, 07/26/21 9:18:00 EDT, [...] 5 Refills, Maintenance, 07/26/21 9:29:00 EDT, Solution, [facility]/pharmacy #[id number], please fill early . higher [...] tablet, Refills 1, Route to Pharmacy Electronically, [facility], 156, cm, 07/26/21 9:18:00 EDT, Height Start Date: 09/29/21 Status: Ordered LORazepam 0.5 mg oral tablet 1 tablet = 0.5 mg, By Mouth, 3 times a day, PRN for anxiety, for 30 days, # 30 tablet, 3 Refills, Acute 01/05/22 9:32:00 EDT, 09/07/21 9:32:00 EDT, Tablet, [facility]/pharmacy #[id number], 156, cm, 07/26/21 9:18:00 EDT, Height Start Date: 09/07/21 Stop Date: 01/05/22 Status: Ordered Medrol Dosepak 4 mg oral tablet See Instructions, 1 pack/packet By Mouth Once, # 1 pack/packet, 0 Refills, Soft Stop, 09/14/21 13:28:00 EDT, Tablet, [facility]/pharmacy #[id number], Partial fill upon patient request if the prescription is for aschedule II opioid drug., 156, cm, 07/26/21 9:18:00... Start Date: 09/14/21 Status: Ordered Nicoderm C-Q 7 mg/24 hr transdermal film, extended release 1 patch, By Mouth, Daily, # 30 patch, 5 Refills, Maintenance, 07/26/21 9:34:00 EDT, [facility]/pharmacy #0373, 156, cm, 07/26/21 9:18:00 EDT, [...] 10 mg, By Mouth, Every 4 hours, BLANKER PRESS OPERATOR checked.fill on 10/05/21, # 168 tablet, 0 Refills, Acute 03/16/22 8:40:00 EST, 10/04/21 17:29:00 EDT, [id number], Partial fill upon patient request;, 156, cm, 07/26/21 9:18:00 EDT, Height Start Date: 10/04/21 Stop Date: 03/16/22 Status: Ordered oxyCODONE 15 mg oral tablet 1 tablet = 15 mg, By Mouth, Daily at bedtime, PRN as needed for pain, for 28 days, going on vacation ok to fill early, # 28 tablet, 0 Refills, Acute 10/12/21 13:30:00 EDT, 09/14/21 13:30:00 EDT, Tablet, [id number], Partial fill upon patient re... Start Date: 09/14/21 Stop Date: 10/12/21 Status: Ordered Pt.'s Own Meds CBD, Daily, Maintenance, 01/27/19 9:06:59 EST Start Date: 01/27/19 Status: Ordered rOPINIRole 1 mg oral tablet 1 tablet, By Mouth, 2 times a day, # 180 tablet, 1 Refills, Maintenance, 10/06/20 14:51:00 EDT, [facility], 157.4, cm, 08/01/20 11:31:00 EDT, Height Start [...] # 2 Unknown, 2 Refills, [facility], 156, cm, 07/26/21 9:18:00 EDT, Height Start Date: 09/30/21 Status: Ordered Vitamin B Complex oral tablet, extended release 1 tablet, By Mouth, Daily, 0 Refills, Maintenance, 11/26/18 9:26:13 EDT Start Date: 11/26/18 Status: Ordered Vitamin D3 50,000 intl units oral capsule 1 capsule = 1,250 mcg, By Mouth, Every week, # 12 capsule, 2 Refills, Maintenance, 06/26/21 8:37:00EDT, Capsule, [facility]/pharmacy #[id number], Partial fill upon patient request if the prescription is for a schedule II opioid drug., 156, cm, 03/15/21 15:01:00 E... Start Date: 06/26/21 Status: Ordered Zofran 4 mg oral tablet 1 tablet = 4 mg, By Mouth, Every 8 hours, PRN as needed for nausea/vomiting, # 15 tablet, 1 Refills, Maintenance, 06/15/21 14:48:00 EDT, Tablet, [facility]/pharmacy #[id number], Partial fill upon patient request if the [...]
--- OUTSIDE RECORDS SUMMARY | 2023-07-18 03:26 | XMS_ITS | Continuity of Care Document ---
Author Organization [facility] Adult Address [address] [place] [address]- Care Team Providers Care Finish Cleaner Name Role Phone Charo DUMONT, Dayna Primary Care Physician [phone] [place]counter [facility] [place] Date(s): 10/09/20 - 11/08/20 [facility] [address] [place] [address]- Allergies, Adverse Reactions, Alerts Substance Reaction Severity Status codeine Active Lactose Active Immunizations Given and Recorded Vaccine Date Status Refusal Reason influenza virus vaccine, inactivated 1 01/16/17 Gi daniel influenza virus vaccine, inactivated 01/12/16 Give n influenza virus vaccine, inactivated 02/04/15 Give n pneumococcal 23-valent vaccine 02/04/15 Given 1Result Comment: [id number] Medications aspirin 81 mg oral tablet 1 tablet = 81 mg, By Mouth, Daily, # 30 tablet, 0 Refills, Maintenance, Tablet Start Date: 11/12/11 Status: Ordered BD INSULIN SYR UF 1 ML [id number] BD INSULIN SYR UF 1 ML [id number], See Instructions, # 100 Unknown, 3 Refills, [...] 2 Refills, Maintenance, 09/04/20 17:31:00 EDT, Tablet, [facility]/pharmacy #[id number], 157.4, cm, 08/01/20 11:31:00 EDT, [...] 03/06/21 13:42:00 EST, 09/07/20 13:42:00 EDT, Solution, [facility]/pharmacy #[id number], please fill early . higherdose, [...] 8:36:00 EDT, Route to Pharmacy Electronically, [facility]/pharmacy #[id number], 157.4, cm, 08/01/20 11:31:00 EDT, Height Start Date: 10/20/20 Stop Date: 04/18/21 Status: Ordered LORazepam 0.5 mg oral tablet 1 tablet = 0.5 mg, By Mouth, 3 times a day, PRN for anxiety, for 30 days, # 30 tablet, 3 Refills, Acute 02/06/21 9:44:00 EST, 10/09/20 9:44:00 EDT, Tablet, [facility]/pharmacy #[id number], 157.4, cm, 08/01/20 11:31:00 EDT, Height Start Date: 10/09/20 Stop Date: 02/06/21 Status: Ordered Nicoderm C-Q 7 mg/24 hr transdermal film, extended release 1 patch, By Mouth, Daily, # 30 patch, 5 Refills, Maintenance, 09/01/19 9:18:00 EDT, [facility]/pharmacy #0373, 157.4, cm, 09/01/19 8:41:00 EDT, Height Start Date: 09/01/19 Stop Date: 02/28/20 Status: Ordered ondansetron 4 mg oral tablet See Instructions, TAKE 1 TABLET BY MOUTH EVERY 8 HOURS NEEDED FOR NAUSEA AND VOMITING FOR 5 DAYS, # 9 tablet, 3 Refills, Maintenance, [facility]ORE [id number], 157.4, cm, 04/13/20 9:03:00 EST, Height Start [...] 10 mg, By Mouth, Every 4 hours, HIGH SCHOOL MUSIC INSTRUCTOR checked., # 168 tablet, 0 Refills, Acute 03/16/21 14:35:00 EST, 09/12/20 16:45:00 EDT, [facility]/pharmacy #[id number], Partial fill upon patient request;, 09/13/20,157.4, cm, 08/01/20 11:31:00 EDT, Height Start Date: 09/12/20 Stop Date: 03/16/21 Status: Ordered Pt.'s Own Meds CBD, Daily, Maintenance, 01/27/19 9:06:59 EST Start Date: 01/27/19 Status: Ordered rOPINIRole 1 mg oral tablet 1 tablet, By Mouth, 2 times a day, # 180 tablet, 1 Refills, Maintenance, 10/06/20 14:51:00 EDT, [facility], 157.4, cm, 08/01/20 11:31:00 EDT, Height Start Date: 10/06/20 Status: Ordered Trulicity Pen 0.75 mg/0.5 mL subcutaneous solution 0.5 mL = 0.75 mg, Subcutaneous Injection, Every week, rotate injection sites, # 2.5 mL, 5 Refills, Maintenance, 08/31/20 16:54:00 EDT, Solution, [facility]/pharmacy #[id number], Partial fill upon patient request if the [...] Refills, Maintenance, 09/04/20 14:45:00 EDT, Tablet, [id number], Partial fill upon patient request if the [...]
--- OUTSIDE RECORDS SUMMARY | 2023-07-18 03:26 | XMS_ITS | Continuity of Care Document ---
Author Organization [facility] Adult Address [address] [place] [address]- Care Team Providers Care Apprentice Instrument Technician Name Role Phone Charo DUMONT, Dayna Primary Care Physician Encounter [facility] [place] Date(s): 11/18/19 - 12/18/19 [facility] Adult [address] [place] [address]- [facility] Allergies, Adverse Reactions, Alerts Substance Reaction Severity Status codeine Active Lactose Active Immunizations Given and Recorded Vaccine Date Status Refusal Reason influenza virus vaccine, inactivated 1 01/16/17 Gi daniel influenza virus vaccine, inactivated 01/12/16 Give n influenza virus vaccine, inactivated 02/04/15 Give n pneumococcal 23-valent vaccine 02/04/15 Given 1Result Comment: 51174-713-87 Medications aspirin 81 mg oral tablet 1 [...] 2 Refills, Maintenance, 12/15/19 8:56:00 EDT, Tablet, [facility]/pharmacy #4200, 157.4, cm, 09/01/19 8:41:00 EDT, [...] bedtime, # 15 mL, 2 Refills, Maintenance, 11/18/19 15:41:00 EDT, Solution, [facility]/pharmacy #0373, 157.4, cm, 09/01/19 8:41:00 EDT, [...] 10/26/19 8:36:00 EDT, Route to Pharmacy Electronically, [facility]/pharmacy #0373, 157.4, cm, 09/01/19 8:41:00 EDT, Height Start Date: 10/26/19 Stop Date: 04/23/20 Status: Ordered LORazepam 0.5 mg oral tablet 1 tablet = 0.5 mg, By Mouth, 3 times a day, PRN as needed for anxiety, for 10 days, # 30 tablet, 0 Refills, Acute 12/25/19 13:04:00 EDT, 12/15/19 13:04:00 EDT, Tablet, [facility]/pharmacy #4200, 157.4, cm, 09/01/19 8:41:00 EDT, Height Start Date: 12/15/19 Stop Date: 12/25/19 Status: Ordered Nicoderm C-Q 7 mg/24 hr transdermal film, extended release 1 patch, By Mouth, Daily, # 30 patch, 5 Refills, Maintenance, 09/01/19 9:18:00 EDT, [facility]/pharmacy #0373, 157.4, cm, 09/01/19 8:41:00 EDT, [...] 10 mg, By Mouth, Every 4 hours, SMOOTH PLATER checked., # 168 tablet, 0 Refills, Acute 03/16/20 13:16:00 EST, 12/07/19 17:08:00 EDT, [facility]/pharmacy #0373, Partial fill upon patient request;, 12/08/19,157.4, cm, 09/01/19 8:41:00 EDT, Height Start Date: 12/07/19 Stop Date: 03/16/20 Status: Ordered Pt.'s Own [...] tablet, 1 Refills, Maintenance, 10/12/19 15:53:00 EDT, [facility]/pharmacy #0373, 157.4, cm, 09/01/19 8:41:00 EDT, [...]
--- OUTSIDE RECORDS SUMMARY | 2023-07-18 03:26 | XMS_ITS | Continuity of Care Document ---
Author Organization [facility] Adult Address [address] [place] [address]- Care Team Providers Care Ambulatory Nurse Name Role Phone Charo DUMONT, Dayna Primary Care Physician [phone] Encounter [facility] [place] Date(s): 05/18/20 - 06/17/20 [facility] Adult [address] [place] [address]- Allergies, Adverse Reactions, Alerts Substance Reaction Severity Status codeine Active Lactose Active Immunizations Given and Recorded Vaccine Date Status Refusal Reason influenza virus vaccine, inactivated 1 01/16/17 Gi daniel influenza virus vaccine, inactivated 01/12/16 Give n influenza virus vaccine, inactivated 02/04/15 Give n pneumococcal 23-valent vaccine 02/04/15 Given 1Result Comment: 54685-352-62 Medications aspirin 81 mg oral tablet 1 tablet = 81 mg, By Mouth, Daily, # 30 tablet, 0 Refills, Maintenance, Tablet Start Date: 11/12/11 Status: Ordered buPROPion 150 mg/12 hours (SR) oral tablet, extended release 1 tablet = 150 mg, By Mouth, 2 times a day, # 60 tablet, 5 Refills, Maintenance, 05/03/20 11:33:00 EST, ER Tablet, [facility]/pharmacy #0373, 157.4, cm, 04/13/20 9:03:00 EST, Height Start Date: 05/03/20 Stop Date: 10/30/20 Status: Ordered Fish Oil By Mouth, Daily, 0 Refills, Maintenance, 01/27/19 9:06:45 EST Start Date: 01/27/19 Status: Ordered gabapentin 800 mg oral tablet 1 tablet = 800 mg, By Mouth, 3 times a day with meals, # 270 tablet, 2 Refills, Maintenance, 12/15/19 8:56:00 EDT, Tablet, [facility]/pharmacy #4200, 157.4, cm, 09/01/19 8:41:00 EDT, [...] 08/09/20 12:53:00 EDT, 02/11/20 12:53:00 EST, Solution, [facility]/pharmacy #0373, please fill early . higherdose, 157.4, cm, 02/02/20 12:10:00 EST, Height Start Date: 02/11/20 Stop Date: 08/09/20 Status: Ordered insulin detemir 100 units/mL subcutaneous solution = 82 units, Subcutaneous Injection, Daily at bedtime, for 30 days, # 15 mL, 5 Refills, Hard Stop 10/17/20 11:28:00 EDT, 04/20/20 11:28:00 EST, Solution, [facility]/pharmacy #0373, please fill early . higherdose, [...] 04/23/20 8:36:00 EST, [facility], 157.4, cm, 04/13/20 9:03:00 EST, Height Start Date: 04/23/20 Stop Date: 10/20/20 Status: Ordered LORazepam 0.5 mg oral tablet 1 tablet = 0.5 mg, By Mouth, 3 times a day, PRN for anxiety, for 30 days, # 30 tablet, 3 Refills, Acute 10/13/20 16:18:00 EDT, 06/15/20 16:18:00 EDT, Tablet, [facility], 157.4, cm, 04/13/20 9:03:00 EST, Height Start Date: 06/15/20 Stop Date: 10/13/20 Status: Ordered Nicoderm C-Q 7 mg/24 hr transdermal film, extended release 1 patch, By Mouth, Daily, # 30 patch, 5 Refills, Maintenance, 09/01/19 9:18:00 EDT, [facility]/pharmacy #0373, 157.4, cm, 09/01/19 8:41:00 EDT, [...] 10 mg, By Mouth, Every 4 hours, COIL WINDER STRAP checked., # 168 tablet, 0 Refills, Acute 03/16/21 11:21:00 EST, 05/19/20 13:43:00 EST, [facility]/pharmacy #[id number], Partial fill upon patient request; OK to fillearly pt going on vacation, 157.4, cm, 04/13/20 9:0... Start Date: 05/19/20 Stop Date: 03/16/21 Status: Ordered Pt.'s Own [...]
--- OUTSIDE RECORDS SUMMARY | 2023-07-18 03:26 | XMS_ITS | Continuity of Care Document ---
Author Organization [facility] Adult Address [address] [place] [address]- Care Team Providers Care Hand Hide Stretcher Name Role Phone Charo DUMONT, Dayna Primary Care Physician Encounter [facility] Date(s): 11/27/22 - 12/27/22 [facility] [address] [place] [phone]- Allergies, Adverse Reactions, Alerts Substance Reaction Severity Status codeine Active Lactose Active Immunizations Given and Recorded Vaccine Date Status Refusal Reason SARS-CoV-2 (COVID-19) mRNA-1273 vaccine 03/30/21 R ecorded influenza virus vaccine, inactivated 1 01/16/17 Gi daniel influenza virus vaccine, inactivated 01/12/16 Give n influenza virus vaccine, inactivated 02/04/15 Give n pneumococcal 23-valent vaccine 02/04/15 Given 1Result Comment: [id number] Medications aspirin 81 mg oral tablet 1 tablet = 81 mg, By Mouth, Daily, # 30 tablet, 0 Refills, Maintenance, Tablet Start Date: 11/12/11 Status: Ordered BD INSULIN SYR UF 1 ML [id number] BD INSULIN SYR UF 1 ML [id number], See Instructions, # 100 Unknown, 3 Refills, Maintenance, USE TO INJECT INSULIN ONCE A DAY FOR DX E11.9, 157.4, cm, 08/01/20 11:31:00 EDT, Height Start Date: 10/09/20 Status: Ordered BD INSULIN SYR UF 1 ML [id number] BD INSULIN SYR UF 1 ML [id number], See Instructions, # 180 Unknown, 1 Refills, Maintenance, USE TO INJECT INSULIN TWICE A DAY FOR DX E11.9, 04/18/22 10:30:00 EST, 156, cm, 04/18/22 9:46:00 EST, Height Start Date: 04/18/22 Status: Ordered duloxetine 20 mg oral enteric coated capsule 1 capsule, By Mouth, 2 times a day, # 180 capsule, 1 Refills, Maintenance, 10/14/22 11:08:00 EDT, [facility], 156, cm, 07/12/22 13:52:00 EDT, Height Start [...] 2 Refills, Maintenance, 10/05/21 10:32:00 EDT, Tablet, [facility]/pharmacy #207, 156, cm, 07/26/21 9:18:00 EDT, Height Start Date: 10/05/21 Stop Date: 07/02/22 Status: Ordered Humalog Kwik Pen 100 units/mL subcutaneous injection = 15 units, Subcutaneous Injection, 3 times a day before meals, # 15 mL, 5 Refills, Maintenance, 07/12/22 14:12:00 EDT, Solution, [facility]/pharmacy #[id number], Partial fill upon patient request [...] 5 Refills, Maintenance, 06/10/22 11:10:00 EDT, Solution, [facility]/pharmacy #2071, please fill early . higher dose, 156, cm, 05/10/22 10:53:00 EST, Height Start Date: 06/10/22 Stop Date: 12/07/22 Status: Ordered insulin glargine (concentrated) 300 units/mL subcutaneous solution = 40 units, Subcutaneous Injection, 2 times a day, # 6 mL, 4 Refills, Maintenance, 11/27/22 14:19:00 EDT, Solution, [facility]/pharmacy #[id number], Partial fill upon patient request [...] 09/24/22 19:24:00 EDT, Route to Pharmacy Electronically, [id number], 156, cm, 07/12/22 13:52:00 EDT, Height Start [...] 10 mg, By Mouth, Every 4 hours, CUSTOM SHOE DESIGNER AND MAKER checked. fill on 12/24/22, # 168 tablet, 0 Refills, Maintenance, 12/20/22 9:01:00 EDT, [id number], Partial fill upon patient request;, 156, cm, 10/16/22 15:36:00 EDT, Height Start Date: 12/20/22 Stop Date: 01/17/23 Status: Ordered oxyCODONE 15 mg oral tablet 1 tablet = 15 mg, By Mouth, Daily at bedtime, PRN as needed for pain, c application developer checked fill 12/04/22, # 28 tablet, 0 Refills, Maintenance, 12/02/22 12:20:00 EDT, Tablet, [id number], Partial fill upon patient request if the prescription is for a sche... Start Date: 12/02/22 Stop Date: 12/30/22 Status: Ordered Pen [place], 31 G x 5 mm BD Ultra [...] Associate Professional Member Role: PCP Address: Address: [address] [place] [address], [address] [place] [address]- Care Team Related Persons Name: IRMA FUNG Address: [address] [place] [address] Name: NONE, GIVEN Address: [place] [address]
--- OUTSIDE RECORDS SUMMARY | 2023-07-18 03:26 | XMS_ITS | Continuity of Care Document ---
Author Organization [facility] ter Address [address] [place] [address]- Care Team Providers Care Excellence Manager Name Role Phone Charo DUMONT, Dayna Primary Care Physician Encounter [facility] Date(s): 03/04/19 - 03/04/[address] [address]- [facility] Attending Physician: Not on Staff, Attending MD Allergies, Adverse Reactions, Alerts Substance Reaction Severity Status codeine Active Lactose Active Immunizations Given and Recorded Vaccine Date Status Refusal Reason influenza virus vaccine, inactivated 1 01/16/17 Gi daniel influenza virus vaccine, inactivated 01/12/16 Give n influenza virus vaccine, inactivated 02/04/15 Give n pneumococcal 23-valent vaccine 02/04/15 Given 1Result Comment: [id number] Medications aspirin 81 mg oral tablet 1 [...] package labeling Start Date: 11/26/18 Status: Ordered Crestor 40 mg oral tablet 1 tablet = 40 mg, By Mouth, Daily, # 30 tablet, 5 Refills, Maintenance, 07/07/13 11:34:33, Tablet, 1 tablet By Mouth Daily Start Date: 07/07/13 Status: Ordered Fish Oil By Mouth, Daily, 0 Refills, Maintenance, 01/27/19 9:06:45 EST Start Date: 01/27/19 Status: Ordered Freestyle Lite Lancets See Instructions, # 200 each, Refills 5, Tot. Refills 5, Maintenance, use to test blood sugars fourtimes daily Dx:250.00, 05/26/13 11:41:49, Compound Start Date: 05/26/13 Stop Date: 11/22/13 Status: Ordered gabapentin 800 mg oral tablet [...] By Mouth, Daily, # 90 tablet, Refills 0, Tot. Refills 0, Maintenance, 02/09/19 14:31:13 EST, Route to Pharmacy Electronically, [id number], [facility]/pharmacy #[id number] Start Date: 02/09/19 Stop Date: 05/10/19 Status: Ordered One Touch Ultra 2 Glucose [...] 10 mg, By Mouth, Every 4 hours, CLINIC SCHEDULER checked., # 168 tablet, 0 Refills, Acute 03/16/19 14:04:00 EST, 03/02/19 16:38:00 EST, [facility]/pharmacy #0373, Partial fill upon patient request, 03/03/19, 157.4, cm, 01/27/19 9:04:45 EST, Height Start Date: 03/02/19 Stop Date: 03/16/19 Status: Ordered Pt.'s Own Meds CBD, Daily, [...]
--- OUTSIDE RECORDS SUMMARY | 2023-07-18 03:26 | XMS_ITS | Continuity of Care Document ---
Author Organization [facility] Address [address] [place] [address]- Care Team Providers Care Diesel Truck Driver Name Role Phone Charo DUMONT, Dayna Primary Care Physician Encounter [place] Date(s): 12/07/19 - 01/06/20 [facility] [address] [place] [address]- [facility] Allergies, Adverse Reactions, Alerts Substance Reaction Severity Status codeine Active Lactose Active Immunizations Given and Recorded Vaccine Date Status Refusal Reason influenza virus vaccine, inactivated 1 01/16/17 Gi daniel influenza virus vaccine, inactivated 01/12/16 Give n influenza virus vaccine, inactivated 02/04/15 Give n pneumococcal 23-valent vaccine 02/04/15 Given 1Result Comment: 17152-233-38 Medications aspirin 81 mg oral tablet 1 [...] 2 Refills, Maintenance, 12/15/19 8:56:00 EDT, Tablet, [facility]/pharmacy #4200, 157.4, cm, 09/01/19 8:41:00 EDT, [...] 2 Refills, Maintenance, 02/16/20 15:41:00 EST, Solution, [facility]/pharmacy #0373, 157.4, cm, 09/01/19 8:41:00 EDT, Height Start Date: 02/16/20 Stop Date: 05/16/20 Status: Ordered insulin detemir 100 units/mL subcutaneous solution = 55 units, Subcutaneous Injection, Daily at bedtime, for 30 days, # 15 mL, 2 Refills, Hard Stop 02/16/20 15:41:00 EST, 11/18/19 15:41:00 EDT, Solution, [facility]/pharmacy #0373, 157.4, cm, 09/01/19 8:41:00 EDT, [...] 10/26/19 8:36:00 EDT, Route to Pharmacy Electronically, [facility]/pharmacy #0373, 157.4, cm, 09/01/19 8:41:00 EDT, Height Start Date: 10/26/19 Stop Date: 04/23/20 Status: Ordered Nicoderm C-Q 7 mg/24 hr transdermal film, extended release 1 patch, By Mouth, Daily, # 30 patch, 5 Refills, Maintenance, 09/01/19 9:18:00 EDT, [facility]/pharmacy #0373, 157.4, cm, 09/01/19 8:41:00 EDT, [...] 10 mg, By Mouth, Every 4 hours, ENVIRONMENTAL SCIENCE PROFESSOR checked., # 168 tablet, 0 Refills, Acute 03/16/20 13:26:00 EST, 01/04/20 16:46:00 EDT, [facility]/pharmacy #0373, Partial fill upon patient request;, 01/05/20,157.4, [...] tablet, 1 Refills, Maintenance, 10/12/19 15:53:00 EDT, [facility]/pharmacy #0373, 157.4, cm, 09/01/19 8:41:00 EDT, [...]
--- OUTSIDE RECORDS SUMMARY | 2023-07-18 03:26 | XMS_ITS | Continuity of Care Document ---
Author Organization [facility] Address [address] [place] [address]- Care Team Providers Care Service Now Developer Name Role Phone Charo DUMONT, Dayna Primary Care Physician [phone] Encounter [facility] [place] Date(s): 12/24/22 - 01/23/23 [facility] [address] [place] [address]- Allergies, Adverse Reactions, Alerts Substance Reaction Severity Status codeine Active Lactose Active Immunizations Given and Recorded Vaccine Date Status Refusal Reason SARS-CoV-2 (COVID-19) mRNA-1273 vaccine 03/30/21 R ecorded influenza virus vaccine, inactivated 1 01/16/17 Gi daniel influenza virus vaccine, inactivated 01/12/16 Give n influenza virus vaccine, inactivated 02/04/15 Give n pneumococcal 23-valent vaccine 02/04/15 Given 1Result Comment: [id number] Medications aspirin 81 mg oral tablet 1 tablet = 81 mg, By Mouth, Daily, # 30 tablet, 0 Refills, Maintenance, Tablet Start Date: 11/12/11 Status: Ordered duloxetine 20 mg oral enteric coated capsule 1 capsule, By Mouth, 2 times a day, # 180 capsule, 1 Refills, Maintenance, 10/14/22 11:08:00 EDT, [facility], 156, cm, 07/12/22 13:52:00 EDT, Height Start [...] 2 Refills, Maintenance, 10/05/21 10:32:00 EDT, Tablet, [facility]/pharmacy #2071, 156, cm, 07/26/21 9:18:00 EDT, Height Start Date: 10/05/21 Stop Date: 07/02/22 Status: Ordered Humalog Kwik Pen 100 units/mL subcutaneous injection = 15 units, Subcutaneous Injection, 3 times a day before meals, # 15 mL, 5 Refills, Maintenance, 07/12/22 14:12:00 EDT, Solution, [facility]/pharmacy #[id number], Partial fill upon patient [...] EDT, Route to Pharmacy Electronically, [facility], 156, cm, 07/12/22 13:52:00 EDT, Height Start [...] 10 mg, By Mouth, Every 4 hours, LAB ENGINEER checked., # 168 tablet, 0 Refills, Maintenance, 01/17/23 15:16:00 EDT, [id number], [facility] fill upon patient request;, 156, cm, 01/03/23 11:15:00 EDT, Height Start Date: 01/17/23 Stop Date: 02/14/23 Status: Ordered oxyCODONE 15 mg oral tablet 1 tablet = 15 mg, By Mouth, Daily at bedtime, PRN as needed for pain, lung splitter checked fill 12/04/22, # 28 tablet, 0 Refills, Maintenance, 12/31/22 14:48:00 EDT, Tablet, [id number], Partial fill upon patient request if the prescription is for a sche... Start Date: 12/31/22 Stop Date: 01/28/23 Status: Ordered Pen [place], 31 G x 5 mm BD Ultra [...] Team Personnel Name: Dayna Mancilla NP Position: [facility] PCO Associate Professional Member Role: PCP Address: Address: [address] [place] [address], [address] [place] [address]- Care Team Related Persons Name: IRMA FUNG Address: [address] [place] [address] Name: NONE, GIVEN Address: [place] [address]
--- OUTSIDE RECORDS SUMMARY | 2023-07-18 03:26 | XMS_ITS | Continuity of Care Document ---
Author Organization [facility] ter Address [address] [place] [address]- Care Team Providers Care Fitness Coach Name Role Phone Charo DUMONT, Dayna Primary Care Physician [phone] Encounter [facility] Date(s): 04/29/22 - 05/29/[address] [address] Attending Physician: Admtr, Ar8 Admitting Physician: Admtr, Ar8 Referring Physician: Admtr, Ar8 Allergies, Adverse Reactions, Alerts Substance Reaction Severity Status codeine Active Lactose Active Immunizations Given and Recorded Vaccine Date Status Refusal Reason SARS-CoV-2 (COVID-19) mRNA-1273 vaccine 03/30/21 R ecorded influenza virus vaccine, inactivated 1 01/16/17 Gi daniel influenza virus vaccine, inactivated 01/12/16 Give n influenza virus vaccine, inactivated 02/04/15 Give n pneumococcal 23-valent vaccine 02/04/15 Given 1Result Comment: 73161-126-55 Medications aspirin 81 mg oral tablet 1 tablet = 81 mg, By Mouth, Daily, # 30 tablet, 0 Refills, Maintenance, Tablet Start Date: 11/12/11 Status: Ordered BD INSULIN SYR UF 1 ML [id number] BD INSULIN SYR UF 1 ML [id number], See Instructions, # 100 Unknown, 3 Refills, Maintenance, USE TO INJECT INSULIN ONCE A DAY FOR DX E11.9, 157.4, cm, 08/01/20 11:31:00 EDT, Height Start Date: 10/09/20 Status: Ordered BD INSULIN SYR UF 1 ML [id number] BD INSULIN SYR UF 1 ML [id number], See Instructions, # 180 Unknown, 1 Refills, Maintenance, USE TO INJECT INSULIN TWICE A DAY FOR DX E11.9, 04/18/22 10:30:00 EST, 156, cm, 04/18/22 9:46:00 EST, Height Start Date: 04/18/22 Status: Ordered duloxetine 20 mg oral enteric coated capsule 1 capsule, By Mouth, 2 times a day, # 180 capsule, 1 Refills, Maintenance, 02/25/22 9:26:00 EST, [facility], 156, cm, 01/14/22 15:09:00 EDT, Height Start [...] EST, Route to Pharmacy Electronically, [id number], 156, cm, 01/14/22 15:09:00 EDT, Height Start Date: 04/01/22 Status: Ordered LORazepam 0.5 mg oral tablet 1 tablet = 0.5 mg, By Mouth, 3 times a day, PRN for anxiety, for 30 days, # 30 tablet, 1 Refills, Acute 07/12/22 9:53:00 EDT, 05/13/22 9:53:00 EST, Tablet, [facility]/pharmacy #[id number], 156, cm, 05/10/22 10:53:00 EST, Height Start Date: 05/13/22 Stop Date: 07/12/22 Status: Ordered Nicoderm C-Q 7 mg/24 hr transdermal film, extended release 1 patch, By Mouth, Daily, # 30 patch, 5 Refills, Maintenance, 07/26/21 9:34:00 EDT, [facility]/pharmacy #0373, 156, cm, 07/26/21 9:18:00 EDT, Height Start Date: 07/26/21 Stop Date: 01/22/22 Status: Ordered ondansetron 4 mg oral tablet 1 tablet, By Mouth, Every 8 hours, PRN NEEDED FOR NAUSEA AND VOMITING FOR, # 9 tablet, 3 Refills, Maintenance, 03/15/22 15:20:00 EST, [facility], 156, cm, 01/14/22 15:09:00 EDT, Height Start [...] Mouth, Every 4 hours, for 28 days, DRILL BIT SHARPENER checked., # 168 tablet, 0 Refills, Acute 06/10/22 14:02:00 EDT, 05/13/22 14:02:00 EST, [facility]/pharmacy #[id number], Partial fill upon patient request;, 156, cm, 05/10/22 10:53:00 EST, Height Start Date: 05/13/22 Stop Date: 06/10/22 Status: Ordered oxyCODONE 15 mg oral tablet 1 tablet = 15 mg, By Mouth, Daily at bedtime, PRN as needed for pain, fill on 05/24/22, # 28 tablet,0 Refills, Maintenance, 05/23/22 18:35:00 EST, Tablet, [facility]/pharmacy #[id number], Partial fill upon patient request if the prescription is for a schedule II o... Start Date: 05/23/22 Stop Date: 06/20/22 Status: Ordered Pt.'s Own Meds CBD, Daily, Maintenance, 01/27/19 9:06:59 EST Start Date: 01/27/19 Status: Ordered rOPINIRole 1 mg oral tablet 1 tablet, By Mouth, 2 times a day, # 180 tablet, 1 Refills, Maintenance, 03/27/22 18:34:00 EST, [facility], 156, cm, 01/14/22 15:09:00 EDT, Height Start Date: 03/27/22 Status: Ordered Trulicity Pen 1.5 mg/0.5 mL subcutaneous solution See Instructions, INJECT 0.5 ML SUBCUTANEOUS INJECTION EVERY WEEK, # 2 Unknown, 2 Refills, Maintenance, 04/29/22 10:00:00 EST, [facility], 156, cm, 04/18/22 9:46:00 EST, Height Start [...] Associate Professional Member Role: PCP Address: Address: [address] [place] [address], [address] [place] [address]- Care Team Related Persons Name: IRMA FUNG Address: [address] [place] [address] Name: NONE, GIVEN Address: [place] [address]
--- OUTSIDE RECORDS SUMMARY | 2023-07-18 03:26 | XMS_ITS | Continuity of Care Document ---
Author Organization [facility] Adult Address [address] [place] [address]- Care Team Providers Care Industrial Health Engineer Name Role Phone Charo DUMONT, Dayna Primary Care Physician Encounter [facility] Date(s): 08/15/22 - 09/14/22 [facility] Adult [address] [place] [address]- Allergies, Adverse Reactions, Alerts Substance Reaction Severity Status codeine Active Lactose Active Immunizations Given and Recorded Vaccine Date Status Refusal Reason SARS-CoV-2 (COVID-19) mRNA-1273 vaccine 03/30/21 R ecorded influenza virus vaccine, inactivated 1 01/16/17 Gi daniel influenza virus vaccine, inactivated 01/12/16 Give n influenza virus vaccine, inactivated 02/04/15 Give n pneumococcal 23-valent vaccine 02/04/15 Given 1Result Comment: 11394-321-41 Medications aspirin 81 mg oral tablet 1 tablet = 81 mg, By Mouth, Daily, # 30 tablet, 0 Refills, Maintenance, Tablet Start Date: 11/12/11 Status: Ordered BD INSULIN SYR UF 1 ML [id number] BD INSULIN SYR UF 1 ML [id number], See Instructions, # 100 Unknown, 3 Refills, Maintenance, USE TO INJECT INSULIN ONCE A DAY FOR DX E11.9, 157.4, cm, 08/01/20 11:31:00 EDT, Height Start Date: 10/09/20 Status: Ordered BD INSULIN SYR UF 1 ML [id number] BD INSULIN SYR UF 1 ML [id number], See Instructions, # 180 Unknown, 1 Refills, Maintenance, USE TO INJECT INSULIN TWICE A DAY FOR DX E11.9, 04/18/22 10:30:00 EST, 156, cm, 04/18/22 9:46:00 EST, Height Start Date: 04/18/22 Status: Ordered duloxetine 20 mg oral enteric coated capsule 1 capsule, By Mouth, 2 times a day, # 180 capsule, 1 Refills, Maintenance, 02/25/22 9:26:00 EST, [facility], 156, cm, 01/14/22 15:09:00 EDT, Height Start [...] 2 Refills, Maintenance, 10/05/21 10:32:00 EDT, Tablet, [facility]/pharmacy #207, 156, cm, 07/26/21 9:18:00 EDT, Height Start Date: 10/05/21 Stop Date: 07/02/22 Status: Ordered Humalog Kwik Pen 100 units/mL subcutaneous injection = 15 units, Subcutaneous Injection, 3 times a day before meals, # 15 mL, 5 Refills, Maintenance, 07/12/22 14:12:00 EDT, Solution, [facility]/pharmacy #[id number], Partial fill upon patient request [...] 5 Refills, Maintenance, 06/10/22 11:10:00 EDT, Solution, [facility]/pharmacy #[id number], please fill early . higher [...] 04/01/22 6:54:00 EST, Route to Pharmacy Electronically, [id number], 156, cm, 01/14/22 15:09:00 EDT, Height Start Date: 04/01/22 Status: Ordered LORazepam 0.5 mg oral tablet 1 tablet = 0.5 mg, By Mouth, 3 times a day, PRN for anxiety, for 30 days, # 30 tablet, 1 Refills, Acute 09/30/22 18:20:00 EDT, 08/01/22 18:20:00 EDT, Tablet, [facility]/pharmacy #[id number], 156, cm, 07/12/22 13:52:00 EDT, Height Start Date: 08/01/22 Stop Date: 09/30/22 Status: Ordered Nicoderm C-Q 7 mg/24 hr transdermal film, extended release 1 patch, By Mouth, Daily, # 30 patch, 5 Refills, Maintenance, 07/26/21 9:34:00 EDT, [facility]/pharmacy #[id number], 156, cm, 07/26/21 9:18:00 EDT, [...] 10 mg, By Mouth, Every 4 hours, ROLLER CLEANER checked. fill 09/03/22, # 168 tablet, 0 Refills, Maintenance, 09/03/22 7:02:00 EDT, [id number], [facility] fill upon patient request;, 156, cm, 07/12/22 13:52:00 EDT, Height Start Date: 09/03/22 Stop Date: 10/01/22 Status: Ordered oxyCODONE 15 mg oral tablet 1 tablet = 15 mg, By Mouth, Daily at bedtime, PRN as needed for pain, hot packer checked fill 09/11/22, # 28 tablet, 0 Refills, Maintenance, 09/10/22 8:09:00 EDT, Tablet, [id number], Partial fill upon patient request if the prescription is for a sched... Start Date: 09/10/22 Stop Date: 10/08/22 Status: Ordered Pen [place], 31 G x 5 mm BD Ultra [...] 1 Refills, Maintenance, 03/27/22 18:34:00 EST, [facility], 156, cm, 01/14/22 15:09:00 EDT, Height Start [...] Associate Professional Member Role: PCP Address: Address: [address] [place] [address], [address] [place] [address]- Care Team Related Persons Name: IRMA FUNG Address: [address] [place] [address] Name: NONE, GIVEN Address: [place] [address]
--- OUTSIDE RECORDS SUMMARY | 2023-07-18 03:26 | XMS_ITS | Continuity of Care Document ---
Author Organization [facility] ter Address [address] [place] [address]- Care Team Providers Care Dining Server Name Role Phone Charo DUMONT, Dayna Primary Care Physician Encounter [facility] [place] Date(s): 07/31/22 - 09/27/[address] [address] Attending Physician: Chelsea Zhu MD Admitting [...] pneumococcal 23-valent vaccine 02/04/15 Given 1Result Comment: [id number] Medications aspirin 81 mg oral tablet 1 tablet = 81 mg, By Mouth, Daily, # 30 tablet, 0 Refills, Maintenance, Tablet Start Date: 11/12/11 Status: Ordered BD INSULIN SYR UF 1 ML [id number] BD INSULIN SYR UF 1 ML [id number], See Instructions, # 100 Unknown, 3 Refills, Maintenance, USE TO INJECT INSULIN ONCE A DAY FOR DX E11.9, 157.4, cm, 08/01/20 11:31:00 EDT, Height Start Date: 10/09/20 Status: Ordered BD INSULIN SYR UF 1 ML [id number] BD INSULIN SYR UF 1 ML [id number], See Instructions, # 180 Unknown, 1 Refills, Maintenance, USE TO INJECT INSULIN TWICE A DAY FOR DX E11.9, 04/18/22 10:30:00 EST, 156, cm, 04/18/22 9:46:00 EST, Height Start Date: 04/18/22 Status: Ordered duloxetine 20 mg oral enteric coated capsule 1 capsule, By Mouth, 2 times a day, # 180 capsule, 1 Refills, Maintenance, 02/25/22 9:26:00 EST, [id number], 156, cm, 01/14/22 15:09:00 EDT, Height Start [...] a schedule II opioid drug., 156, cm, 04/... Start Date: 07/12/22 Stop Date: 01/08/23 Status: [...] 5 Refills, Maintenance, 06/10/22 11:10:00 EDT, Solution, [facility]/pharmacy #[id number], please fill early . higher [...] 09/24/22 19:24:00 EDT, Route to Pharmacy Electronically, [id number], 156, cm, 07/12/22 13:52:00 EDT, Height Start Date: 09/24/22 Status: Ordered LORazepam 0.5 mg oral tablet 1 tablet = 0.5 mg, By Mouth, 3 times a day, PRN for anxiety, for 30 days, # 30 tablet, 1 Refills, Acute 09/30/22 18:20:00 EDT, 08/01/22 18:20:00 EDT, Tablet, [facility]/pharmacy #[id number], 156, cm, 07/12/22 13:52:00 EDT, Height Start Date: 08/01/22 Stop Date: 09/30/22 Status: Ordered Nicoderm C-Q 7 mg/24 hr transdermal film, extended release 1 patch, By Mouth, Daily, # 30 patch, 5 Refills, Maintenance, 07/26/21 9:34:00 EDT, [facility]/pharmacy #[id number], 156, cm, 07/26/21 9:18:00 EDT, Height Start Date: 07/26/21 Stop Date: 01/22/22 Status: Ordered ondansetron 4 mg oral tablet 1 tablet, By Mouth, Every 8 hours, PRN NEEDED FOR NAUSEA AND VOMITING FOR, # 9 tablet, 3 Refills, Maintenance, 06/27/22 10:42:00 EDT, [facility]/pharmacy #[id number], 156, cm, 05/10/22 10:53:00 EST, [...] 10 mg, By Mouth, Every 4 hours, TUGBOAT MATE checked. fill 09/03/22, # 168 tablet, 0 Refills, Maintenance, 10/01/22 7:02:00 EDT, [facility]/pharmacy #[id number], Partial fill upon patient request;, 156, cm, 07/12/22 13:52:00 EDT, Height Start Date: 10/01/22 Stop Date: 10/29/22 Status: Ordered oxyCODONE 10 mg oral tablet 1 tablet = 10 mg, By Mouth, Every 4 hours, for 28 days, TUGBOAT MATE checked. fill 09/03/22, # 168 tablet, 0 Refills, Hard Stop 10/01/22 7:02:00 EDT, 09/03/22 7:02:00 EDT, [id number] upon[facility];, 156, cm, 07/12/22 13:52:00 EDT, H... Start Date: 09/03/22 Stop Date: 10/01/22 Status: Ordered oxyCODONE 15 mg oral tablet 1 tablet = 15 mg, By Mouth, Daily at bedtime, PRN as needed for pain, benzol operator checked fill 09/11/22, # 28 tablet, 0 Refills, Maintenance, 09/10/22 8:09:00 EDT, Tablet, [facility]/pharmacy #[id number], Partial fill upon patient request if the prescription is for a sched... Start Date: 09/10/22 Stop Date: 10/08/22 Status: Ordered Pen [place], 31 G x 5 mm BD Ultra [...] Refills, Maintenance, 07/21/22 10:38:00 EDT, Capsule, [id number], Partial fill upon patient request if the [...] Team Personnel Name: Dayna Mancilla NP Position: [facility] PCO Associate Professional Member Role: PCP Address: Address: [address] [place] [address], [address] [place] [address]- Care Team Related Persons Name: IRMA FUNG Address: [address] [place] [address] Name: NONE, GIVEN Address: [place] [address]
--- OUTSIDE RECORDS SUMMARY | 2023-07-18 03:27 | XMS_ITS | Continuity of Care Document ---
Author Organization [facility] Adult Address [address] [place] [address]- Care Team Providers Care Color Paste Mixing Supervisor Name Role Phone Charo DUMONT, Dayna Primary Care Physician [place] [facility] [place] 10/04/21 - 11/03/21 [facility] [address] [place] [address]- Allergies, Adverse Reactions, Alerts Substance Reaction Severity Status codeine Active Lactose Active Immunizations Given and Recorded Vaccine Date Status Refusal Reason SARS-CoV-2 (COVID-19) mRNA-1273 vaccine 03/30/21 R ecorded influenza virus vaccine, inactivated 1 01/16/17 Gi daniel influenza virus vaccine, inactivated 01/12/16 Give n influenza virus vaccine, inactivated 02/04/15 Give n pneumococcal 23-valent vaccine 02/04/15 Given 1Result Comment: 12708-852-56 Medications aspirin 81 mg oral tablet 1 tablet = 81 mg, By Mouth, Daily, # 30 tablet, 0 Refills, Maintenance, Tablet Start Date: 11/12/11 Status: Ordered BD INSULIN SYR UF 1 ML [id number] BD INSULIN SYR UF 1 ML [id number], See Instructions, # 100 Unknown, 3 Refills, Maintenance, USE TO INJECT INSULIN ONCE A DAY FOR DX E11.9, 157.4, cm, 08/01/20 11:31:00 EDT, Height Start Date: 10/09/20 Status: Ordered duloxetine 20 mg oral enteric coated capsule See Instructions, TAKE 1 CAPSULE BY MOUTH TWICE A DAY, # 60 capsule, 5 Refills, [facility], 156, cm, 07/26/21 9:18:00 EDT, Height Start [...] Refills, Maintenance, 07/26/21 9:29:00 EDT, Solution, [facility]/pharmacy #[id number], please fill early . higher [...] Pharmacy Electronically, [facility], 156, cm, 07/26/21 9:18:00 EDT, Height Start Date: 09/29/21 Status: Ordered LORazepam 0.5 mg oral tablet 1 tablet = 0.5 mg, By Mouth, 3 times a day, PRN for anxiety, for 30 days, # 30 tablet, 3 Refills, Acute 01/05/22 9:32:00 EDT, 09/07/21 9:32:00 EDT, Tablet, [facility]/pharmacy #[id number], [...] 10 mg, By Mouth, Every 4 hours, ELECTROMATIC TYPIST checked.fill on 11/02/21, # 168 tablet, 0 Refills, Acute 03/16/22 13:10:00 EST, 11/01/21 17:24:00 EDT, [id number], [facility] fill upon patient request;, 156, cm, 07/26/21 9:18:00 EDT, Height Start Date: 11/01/21 Stop Date: 03/16/22 Status: Ordered oxyCODONE 15 [...] 1 Refills, Maintenance, 10/06/20 14:51:00 EDT, [facility], 157.4, cm, 08/01/20 11:31:00 EDT, Height Start [...] # 2 Unknown, 2 Refills, [facility], 156, cm, 07/26/21 9:18:00 EDT, Height Start Date: 09/30/21 Status: Ordered Vitamin B Complex oral tablet, extended release 1 tablet, By Mouth, Daily, 0 Refills, Maintenance, 11/26/18 9:26:13 EDT Start Date: 11/26/18 Status: Ordered Vitamin D3 50,000 intl units oral capsule 1 capsule = 1,250 mcg, By Mouth, Every week, # 12 capsule, 2 Refills, Maintenance, 06/26/21 8:37:00EDT, Capsule, [facility]/pharmacy #[id number], Partial fill upon patient request if the prescription is for a schedule II opioid drug., 156, cm, 03/15/21 15:01:00 E... Start Date: 06/26/21 Status: Ordered Problem List Condition Effective Dates [...]
--- OUTSIDE RECORDS SUMMARY | 2023-07-18 03:27 | XMS_ITS | Continuity of Care Document ---
Author Organization [facility] Adult Address [address] [place] [address]- Care Team Providers Care Air Intercept Controller Name Role Phone Charo DUMONT, Dayna Primary Care Physician Encounter [facility] Date(s): 08/06/22 - 09/05/22 [facility] [address] [place] [id number]- Allergies, Adverse Reactions, Alerts Substance Reaction Severity Status codeine Active Lactose Active Immunizations Given and Recorded Vaccine Date Status Refusal Reason SARS-CoV-2 (COVID-19) mRNA-1273 vaccine 03/30/21 R ecorded influenza virus vaccine, inactivated 1 01/16/17 Gi daniel influenza virus vaccine, inactivated 01/12/16 Give n influenza virus vaccine, inactivated 02/04/15 Give n pneumococcal 23-valent vaccine 02/04/15 Given 1Result Comment: 39064-421-04 Medications aspirin 81 mg oral tablet 1 tablet = 81 mg, By Mouth, Daily, # 30 tablet, 0 Refills, Maintenance, Tablet Start Date: 11/12/11 Status: Ordered BD INSULIN SYR UF 1 ML [id number] BD INSULIN SYR UF 1 ML [id number], See Instructions, # 100 Unknown, 3 Refills, Maintenance, USE TO INJECT INSULIN ONCE A DAY FOR DX E11.9, 157.4, cm, 08/01/20 11:31:00 EDT, Height Start Date: 10/09/20 Status: Ordered BD INSULIN SYR UF 1 ML [id number] BD INSULIN SYR UF 1 ML [id number], See Instructions, # 180 Unknown, 1 Refills, Maintenance, USE TO INJECT INSULIN TWICE A DAY FOR DX E11.9, 04/18/22 10:30:00 EST, 156, cm, 04/18/22 9:46:00 EST, Height Start Date: 04/18/22 Status: Ordered duloxetine 20 mg oral enteric coated capsule 1 capsule, By Mouth, 2 times a day, # 180 capsule, 1 Refills, Maintenance, 02/25/22 9:26:00 EST, [facility], 156, cm, 01/14/22 15:09:00 EDT, Height Start [...] 2 Refills, Maintenance, 10/05/21 10:32:00 EDT, Tablet, [facility]/pharmacy #207, 156, cm, 07/26/21 9:18:00 EDT, Height Start Date: 10/05/21 Stop Date: 07/02/22 Status: Ordered Humalog Kwik Pen 100 units/mL subcutaneous injection = 15 units, Subcutaneous Injection, 3 times a day before meals, # 15 mL, 5 Refills, Maintenance, 07/12/22 14:12:00 EDT, Solution, [facility]/pharmacy #[id number], Partial fill upon patient [...] 5 Refills, Maintenance, 06/10/22 11:10:00 EDT, Solution, [facility]/pharmacy #[id number], please fill early . higher dose, [...] 04/01/22 6:54:00 EST, Route to Pharmacy Electronically, [facility] 537[facility], 156, cm, 01/14/22 15:09:00 EDT, Height Start Date: 04/01/22 Status: Ordered LORazepam 0.5 mg oral tablet 1 tablet = 0.5 mg, By Mouth, 3 times a day, PRN for anxiety, for 30 days, # 30 tablet, 1 Refills, Acute 09/30/22 18:20:00 EDT, 08/01/22 18:20:00 EDT, Tablet, [facility]/pharmacy #[id number], 156, cm, 07/12/22 13:52:00 EDT, Height Start Date: 08/01/22 Stop Date: 09/30/22 Status: Ordered Nicoderm C-Q 7 mg/24 hr transdermal film, extended release 1 patch, By Mouth, Daily, # 30 patch, 5 Refills, Maintenance, 07/26/21 9:34:00 EDT, [facility]/pharmacy #0373, 156, cm, 07/26/21 9:18:00 EDT, Height Start Date: 07/26/21 Stop Date: 01/22/22 Status: Ordered ondansetron 4 mg oral tablet 1 tablet, By Mouth, Every 8 hours, PRN NEEDED FOR NAUSEA AND VOMITING FOR, # 9 tablet, 3 Refills, Maintenance, 06/27/22 10:42:00 EDT, [facility]/pharmacy #[id number], 156, cm, 05/10/22 10:53:00 [...] 10 mg, By Mouth, Every 4 hours, APPLIED EXERCISE PHYSIOLOGIST checked. fill 09/03/22, # 168 tablet, 0 Refills, Maintenance, 09/03/22 7:02:00 EDT, [facility]/pharmacy #[id number], Partial fill upon patient request;, 156, cm, 07/12/22 13:52:00 EDT, Height Start Date: 09/03/22 Stop Date: 10/01/22 Status: Ordered oxyCODONE 15 mg oral tablet 1 tablet = 15 mg, By Mouth, Daily at bedtime, PRN as needed for pain, development technical lead checked fill 07/19 23, # 28tablet, 0 Refills, Maintenance, 07/16/22 7:43:00 EDT, Tablet, [id number], Partial fill uponpatient request if the prescription is for a schedu... Start Date: 07/16/22 Stop Date: 08/13/22 Status: Ordered Pen [place], 31 G x 5 mm BD Ultra [...] 1 Refills, Maintenance, 03/27/22 18:34:00 EST, [facility], 156, cm, 01/14/22 15:09:00 EDT, Height Start [...] Associate Professional Member Role: PCP Address: Address: [address] [place] [address], [address] [place] [address]- Care Team Related Persons Name: IRMA FUNG Address: [address] [place] [address] Name: NONE, GIVEN Address: [place] [address]
--- OUTSIDE RECORDS SUMMARY | 2023-07-18 03:27 | XMS_ITS | Continuity of Care Document ---
Author Organization [facility] Adult Address [address] [place] [address]- Care Team Providers Care Bench Molder Name Role Phone Charo DUMONT, Dayna Primary Care Physician Encounter [facility] Date(s): 05/13/22 - 06/12/22 [facility] [address] [place] [address]- Allergies, Adverse Reactions, Alerts Substance Reaction Severity Status codeine Active Lactose Active Immunizations Given and Recorded Vaccine Date Status Refusal Reason SARS-CoV-2 (COVID-19) mRNA-1273 vaccine 03/30/21 R ecorded influenza virus vaccine, inactivated 1 01/16/17 Gi daniel influenza virus vaccine, inactivated 01/12/16 Give n influenza virus vaccine, inactivated 02/04/15 Give n pneumococcal 23-valent vaccine 02/04/15 Given 1Result Comment: 86509-431-36 Medications aspirin 81 mg oral tablet 1 tablet = 81 mg, By Mouth, Daily, # 30 tablet, 0 Refills, Maintenance, Tablet Start Date: 11/12/11 Status: Ordered BD INSULIN SYR UF 1 ML [id number] BD INSULIN SYR UF 1 ML [id number], See Instructions, # 100 Unknown, 3 Refills, Maintenance, USE TO INJECT INSULIN ONCE A DAY FOR DX E11.9, 157.4, cm, 08/01/20 11:31:00 EDT, Height Start Date: 10/09/20 Status: Ordered BD INSULIN SYR UF 1 ML [id number] BD INSULIN SYR UF 1 ML [id number], See Instructions, # 180 Unknown, 1 Refills, Maintenance, USE TO INJECT INSULIN TWICE A DAY FOR DX E11.9, 04/18/22 10:30:00 EST, 156, cm, 04/18/22 9:46:00 EST, Height Start Date: 04/18/22 Status: Ordered duloxetine 20 mg oral enteric coated capsule 1 capsule, By Mouth, 2 times a day, # 180 capsule, 1 Refills, Maintenance, 02/25/22 9:26:00 EST, [facility] STORE 75965, 156, cm, 01/14/22 15:09:00 EDT, Height Start Date: 02/25/22 Status: Ordered Fish Oil By Mouth, Daily, 0 Refills, Maintenance, 01/27/19 9:06:45 EST Start Date: 01/27/19 Status: Ordered gabapentin 800 mg oral tablet 1 tablet = 800 mg, By Mouth, 3 times a day with meals, # 270 tablet, 2 Refills, Maintenance, 10/05/21 10:32:00 EDT, Tablet, [facility]/pharmacy #[id number], 156, cm, 07/26/21 9:18:00 [...] 04/01/22 6:54:00 EST, Route to Pharmacy Electronically, [facility] STORE 81061, 156, cm, 01/14/22 15:09:00 EDT, Height Start Date: 04/01/22 Status: Ordered LORazepam 0.5 mg oral tablet 1 tablet = 0.5 mg, By Mouth, 3 times a day, PRN for anxiety, for 30 days, # 30 tablet, 1 Refills, Acute 07/12/22 9:53:00 EDT, 05/13/22 9:53:00 EST, Tablet, [facility]/pharmacy #[id number], 156, cm, 05/10/22 10:53:00 EST, Height Start Date: 05/13/22 Stop Date: 07/12/22 Status: Ordered Nicoderm C-Q 7 mg/24 hr transdermal film, extended release 1 patch, By Mouth, Daily, # 30 patch, 5 Refills, Maintenance, 07/26/21 9:34:00 EDT, [facility]/pharmacy #0373, 156, cm, 07/26/21 9:18:00 EDT, Height Start Date: 07/26/21 Stop Date: 01/22/22 Status: Ordered ondansetron 4 mg oral tablet 1 tablet, By Mouth, Every 8 hours, PRN NEEDED FOR NAUSEA AND VOMITING FOR, # 9 tablet, 3 Refills, Maintenance, 03/15/22 15:20:00 EST, [facility], 156, cm, 01/14/22 15:09:00 EDT, Height Start [...] Mouth, Every 4 hours, for 28 days, DUKEY RIDER checked., # 168 tablet, 0 Refills, Acute [...] 05/23/22 Stop Date: 06/20/22 Status: Ordered Pen Mckee, 31 G x 5 mm BD Ultra [...] 1 Refills, Maintenance, 03/27/22 18:34:00 EST, [facility], 156, cm, 01/14/22 15:09:00 EDT, Height Start Date: 03/27/22 Status: Ordered Trulicity Pen 1.5 mg/0.5 mL subcutaneous solution See Instructions, INJECT 0.5 ML SUBCUTANEOUS INJECTION EVERY WEEK, # 2 Unknown, 2 Refills, Maintenance, 04/29/22 10:00:00 EST, [facility] STORE 29147, 156, cm, 04/18/22 9:46:00 EST, Height Start Date: 04/29/22 Status: Ordered Vitamin B Complex oral tablet, extended release 1 tablet, By Mouth, Daily, 0 Refills, Maintenance, 11/26/18 9:26:13 EDT Start Date: 11/26/18 Status: Ordered Vitamin D3 50,000 intl units oral capsule 1 capsule = 1,250 mcg, By Mouth, Every week, # 12 capsule, 2 Refills, Maintenance, 06/26/21 8:37:00EDT, Capsule, [facility]/pharmacy #0373, Partial fill upon patient request if [...] Associate Professional Member Role: PCP Address: Address: [address] [place] [address], [address] Floor [facility] [place] [address]- [place] Care Team Related Persons Name: IRMA FUNG Address: home [address] [place] [address] Name: NONE, GIVEN Address: [place] [address]
--- OUTSIDE RECORDS SUMMARY | 2023-07-18 03:27 | XMS_ITS | Continuity of Care Document ---
Author Organization [facility] Adult Address [address] [place] [address]- Care Team Providers Care Sales Representatives Name Role Phone Charo DUMONT, Dayna Primary Care Physician Encounter [facility] Date(s): 07/12/22 - 07/19/22 [facility] Adult [address] [place] [address]- Attending Physician: Not on Staff, Attending MD [...] pneumococcal 23-valent vaccine 02/04/15 Given 1Result Comment: 29808-875-86 Medications aspirin 81 mg oral tablet 1 tablet = 81 mg, By Mouth, Daily, # 30 tablet, 0 Refills, Maintenance, Tablet Start Date: 11/12/11 Status: Ordered BD INSULIN SYR UF 1 ML [id number] BD INSULIN SYR UF 1 ML [id number], See Instructions, # 100 Unknown, 3 Refills, Maintenance, USE TO INJECT INSULIN ONCE A DAY FOR DX E11.9, 157.4, cm, 08/01/20 11:31:00 EDT, Height Start Date: 10/09/20 Status: Ordered BD INSULIN SYR UF 1 ML [id number] BD INSULIN SYR UF 1 ML [id number], See Instructions, # 180 Unknown, 1 Refills, Maintenance, USE TO INJECT INSULIN TWICE A DAY FOR DX E11.9, 04/18/22 10:30:00 EST, 156, cm, 04/18/22 9:46:00 EST, Height Start Date: 04/18/22 Status: Ordered duloxetine 20 mg oral enteric coated capsule 1 capsule, By Mouth, 2 times a day, # 180 capsule, 1 Refills, Maintenance, 02/25/22 9:26:00 EST, [facility] STORE 13921, 156, cm, 01/14/22 15:09:00 EDT, Height Start [...] 04/01/22 6:54:00 EST, Route to Pharmacy Electronically, [facility] STORE 61075, 156, cm, 01/14/22 15:09:00 EDT, Height Start Date: 04/01/22 Status: Ordered Nicoderm C-Q 7 mg/24 hr transdermal film, extended release 1 patch, By Mouth, Daily, # 30 patch, 5 Refills, Maintenance, 07/26/21 9:34:00 EDT, [facility]/pharmacy #0373, 156, cm, 07/26/21 9:18:00 EDT, Height Start Date: 07/26/21 Stop Date: 01/22/22 Status: Ordered ondansetron 4 mg oral tablet 1 tablet, By Mouth, Every 8 hours, PRN NEEDED FOR NAUSEA AND VOMITING FOR, # 9 tablet, 3 Refills, Maintenance, 06/27/22 10:42:00 EDT, [facility]/pharmacy #[id number], 156, cm, 05/10/22 10:53:00 EST, [...] Mouth, Every 4 hours, for 28 days, CHILD WELFARE MANAGER checked. ok to fill on 07/07/22 doregardprevious script, # 168 tablet, 0 Refills, Acute 08/02/22 17:20:00 EDT, 07/05/22 17:20:00 EDT, [id number], Partial fill upon patient request;, 1... Start Date: 07/05/22 Stop Date: 08/02/22 Status: Ordered oxyCODONE 15 mg oral tablet 1 tablet = 15 mg, By Mouth, Daily at bedtime, PRN as needed for pain, tacker off checked fill 07/19 22, # 28tablet, 0 Refills, Maintenance, 07/16/22 7:43:00 EDT, Tablet, [facility]/pharmacy #[id number], Partial fill uponpatient request if the prescription is for a schedu... Start Date: 07/16/22 Stop Date: 08/13/22 Status: Ordered Pen Eola, 31 G x 5 mm BD Ultra [...] tablet, 1 Refills, Maintenance, 03/27/22 18:34:00 EST, [facility], 156, cm, 01/14/22 15:09:00 EDT, Height Start Date: 03/27/22 Status: Ordered Vitamin B Complex oral tablet, extended release 1 tablet, By Mouth, Daily, 0 Refills, Maintenance, 11/26/18 9:26:13 EDT Start Date: 11/26/18 Status: Ordered Vitamin D3 50,000 intl units oral capsule 1 capsule = 1,250 mcg, By Mouth, Every week, # 12 capsule, 2 Refills, Maintenance, 06/26/21 8:37:00EDT, Capsule, [facility], Partial fill upon patient request if the [...] oldest [Reference Range]: 1 Height 156 cm (07/12/22 1:52 PM) Weight 98.1 kg (07/12/22 1:52 PM) Oxygen Saturation [94-100 %] 96 % (07/12/22 1:52 PM) Pulse Rate [55-90 bpm] 100 bpm *H* (07/12/22 1:52 PM) Body Mass Index [18.5-24.99 kg/m2] 40.31 kg/m2 *>HHI* (07/12/22 1:52 PM) Blood Pressure [90-138/55-84 mm Hg] 138/ 87mm Hg (07/12/22 1:52 PM) Blood pressure sites Arm, right (07/12/22 1:52 PM) Weight Obtained Via Patient lift hanging scale (07/12/22 1:52 PM) Social History Social History Type Response Smoking Status Current every day sm oker; Type: Cigarettes; Tobacco use times per day: 4-5; entered on: 01/16/17 Sex Note * Louann Roy: PERFORM, SIGN, VERIFY Event Display: Patient Education/Instruction Authored Date: [id number] [facility] *[facility] Clinical Summary Name FRANCIS FUNG Age 62 Years 1960 PCP Charo DUMONT, Dayna PCP Visit Date 07/12/2022 13:43:00 Additional Instructions: Scheduled Appointments?? Future Appointments ?Diabetic??Teachi ?Phone:??--?Fax:??-- ?Appt. Date:??07/31/2022?1:00 PM ?Scheduled Provider:??Maryuri Dutta Follow-Up Instructions ?? Diagnosis Vitamin D deficiency, unspecified; Hyperlipidemia, unspecified; Spondylosis without myelopathy or radiculopathy, cervical region; Type 2 diabetes mellitus without complications; Essential (primary) hypertension; Polyneuropathy, unspecified Medications: Please continue your medications until treatment is completed or stopped by your provider. Discuss any questions related to medications with your provider. Medications to Continue with No Changes [id number] [address], [place] [id number], [phone] Insulin Lispro (Humalog Kwik Pen 100 units/mL subcutaneous injection) 15 unit(s) Subcutaneous Injection 3 times a day before meals for 30 Days. Refills: 5. Next Dose: Oxycodone (oxyCODONE 15 mg oral tablet) 1 tab(s) Oral Daily at Bedtime as needed as needed for painfor 28 Days. tacker off checked. Refills: 0. Next Dose: These medications were [...] Refills: 1. Next Dose: Durable Medical Equipment (Insulin Syringe, [...] 3. Next Dose: Durable Medical Equipment (Pen Eola, 31 G x 5 mm BD Ultra [...] Rx (BD INSULIN SYR UF 1 ML [id number]) USE TO INJECT INSULIN ONCE A DAY FOR DX E11.9. Refills: 3. Next Dose: Miscellaneous Rx (BD INSULIN SYR UF 1 ML [id number]) USE TO INJECT INSULIN TWICE A DAY FOR DX E11.9. Refills: 1. Next Dose: Multivitamin (Vitamin B Complex oral tablet, extended release) 1 tab(s) Oral Daily. Next Dose: Nicotine (Nicoderm C-Q 7 mg/24 hr transdermal film, extended release) 1 patch(es) Oral Daily for 30Days. Refills: 5. Next Dose: Webber-3 Polyunsaturated Fatty Acids (Fish Oil) Oral Daily. Next Dose: Ondansetron (ondansetron 4 mg oral tablet) 1 tab(s) Oral every 8 hours as needed NEEDED FOR NAUSEA AND VOMITING FOR for 5 Days. Refills: 3. Next Dose: Oxycodone (oxyCODONE 10 mg oral tablet) 1 tab(s) Oral every 4 hours for 28 Days. CHILD WELFARE MANAGER checked. ok tofill on 07/07/22 cedric previous script. Refills: 0. Next Dose: Pt.'s Own Meds CBD Daily. Next Dose: Ropinirole (rOPINIRole 1 mg oral tablet) 1 tab(s) Oral twice a day. Refills: 1. Next Dose: No Longer Take the Following Medications dulaglutide (Trulicity Pen 1.5 mg/0.5 mL subcutaneous solution) INJECT 0.5 ML SUBCUTANEOUS INJECTION EVERY WEEK. Refills: 2. Allergy Info:?? Lactose; codeine Medications Given This Visit Future Orders ?No future orders Vital Signs Height 156 cm Weight 98.1 kg BMI 40.31 kg/m2 Blood Pressure 138 mm Hg/87 mm Hg Temperature Pulse Rate 100 bpm Respiratory Rate 02 Sat Mode of Delivery 96 %/ You can now view a summary of your hospital visit from the comfort of your home through a free online portal called [facility]. [facility] is a website that allows you to securely view your medical information including discharge summary, medications and follow-up visits. ??You can alsosend a secure electronic message to your doctor???s office to request appointments, renew medications or just ask a question. You can enroll at [email or web address] or register during your next office visit. [...] primary care provider, you may find a [facility] provider by calling [facility] DNS:Net Link at [phone]. For information about the plan of care including goals and instructions for your diagnosis, please see the patient education orders section of this document. Patient Education Materials?? The content of this educational material or handout may have been modified, supplemented, or adapted from its original content and format to support your individualized medical care. Patient Care team information Care Team Personnel Name: Dayan Mancilla NP Position: [facility] PCO Associate Professional Member Role: PCP Address: Address: [address], [address] [place] [address]- Care Team Related Persons Name: IRMA FUNG Address: home [address] [place] [address] Name: NONE, GIVEN Address: [place] [address]
--- OUTSIDE RECORDS SUMMARY | 2023-07-18 03:27 | XMS_ITS | Continuity of Care Document ---
Author Organization [facility] Adult Address [address] [place] [address]- Care Team Providers Care Explosive Ordnance Manager Name Role Phone Charo DUMONT, Dayna Primary Care Physician [phone] Encounter [facility] Date(s): 04/18/22 - 04/25/22 [facility] Adult [address] [place] [address]- Attending Physician: Dayna Mancilla NP Allergies, Adverse Reactions, Alerts Substance Reaction Severity Status codeine Active Lactose Active Immunizations Given and Recorded Vaccine Date Status Refusal Reason SARS-CoV-2 (COVID-19) mRNA-1273 vaccine 03/30/21 R ecorded influenza virus vaccine, inactivated 1 01/16/17 Gi daniel influenza virus vaccine, inactivated 01/12/16 Give n influenza virus vaccine, inactivated 02/04/15 Give n pneumococcal 23-valent vaccine 02/04/15 Given 1Result Comment: 09102-803-69 Medications aspirin 81 mg oral tablet 1 tablet = 81 mg, By Mouth, Daily, # 30 tablet, 0 Refills, Maintenance, Tablet Start Date: 11/12/11 Status: Ordered BD INSULIN SYR UF 1 ML [id number] BD INSULIN SYR UF 1 ML [id number], See Instructions, # 100 Unknown, 3 Refills, Maintenance, USE TO INJECT INSULIN ONCE A DAY FOR DX E11.9, 157.4, cm, 08/01/20 11:31:00 EDT, Height Start Date: 10/09/20 Status: Ordered BD INSULIN SYR UF 1 ML [id number] BD INSULIN SYR UF 1 ML [id number], See Instructions, # 180 Unknown, 1 Refills, Maintenance, USE TO INJECT INSULIN TWICE A DAY FOR DX E11.9, 04/18/22 10:30:00 EST, 156, cm, 04/18/22 9:46:00 EST, Height Start Date: 04/18/22 Status: Ordered duloxetine 20 mg oral enteric coated capsule 1 capsule, By Mouth, 2 times a day, # 180 capsule, 1 Refills, Maintenance, 02/25/22 9:26:00 EST, [facility], 156, cm, 01/14/22 15:09:00 EDT, Height Start [...] 04/01/22 6:54:00 EST, Route to Pharmacy Electronically, [facility] STORE [id number], 156, cm, 01/14/22 15:09:00 EDT, Height Start Date: 04/01/22 Status: Ordered LORazepam 0.5 mg oral tablet 1 tablet = 0.5 mg, By Mouth, 3 times a day, PRN for anxiety, for 30 days, # 30 tablet, 3 Refills, Acute 05/14/22 17:30:00 EST, 01/14/22 17:30:00 EDT, Tablet, [facility]/pharmacy #[id number], 156, cm, 01/14/22 15:09:00 EDT, Height Start Date: 01/14/22 Stop Date: 05/14/22 Status: Ordered Nicoderm C-Q 7 mg/24 hr transdermal film, extended release 1 patch, By Mouth, Daily, # 30 patch, 5 Refills, Maintenance, 07/26/21 9:34:00 EDT, [facility]/pharmacy #0373, 156, cm, 07/26/21 9:18:00 EDT, Height Start Date: 07/26/21 Stop Date: 01/22/22 Status: Ordered ondansetron 4 mg oral tablet 1 tablet, By Mouth, Every 8 hours, PRN NEEDED FOR NAUSEA AND VOMITING FOR, # 9 tablet, 3 Refills, Maintenance, 03/15/22 15:20:00 EST, [facility] 704[facility], 156, cm, 01/14/22 15:09:00 EDT, Height Start [...] 10 mg, By Mouth, Every 4 hours, CONCRETE BLOCK PLANT SUPERVISOR checked. ok to fill early pt is [...] 1 Refills, Maintenance, 03/27/22 18:34:00 EST, [facility], 156, cm, 01/14/22 15:09:00 EDT, Height Start Date: 03/27/22 Status: Ordered Trulicity Pen 3 mg/0.5 mL subcutaneous solution See Instructions, INJECT 1 PEN UNDER THE SKIN ONCE A WEEK, # 2 Unknown, 0 Refills, Maintenance, 03/25/22 15:08:00 EST, [facility], 156, cm, 01/14/22 15:09:00 EDT, Height Start Date: 03/25/22 Status: Ordered Trulicity Pen 3 mg/0.5 mL subcutaneous solution See Instructions, INJECT 1 PEN UNDER THE SKIN ONCE A WEEK, # 2 Unknown, 0 Refills, Maintenance, 04/18/22 10:34:00 EST, [facility], 156, cm, 04/18/22 9:46:00 EST, Height Start Date: 04/18/22 Status: Ordered Vitamin B Complex oral tablet, [...] oldest [Reference Range]: 1 Height 156 cm (04/18/22 9:46 AM) Weight 95.90 kg (04/18/22 9:46 AM) Body Mass Index [18.5-24.99 kg/m2] 39.41 kg/m2 *>HHI* (04/18/22 9:46 AM) Weight Obtained Via Patient/family state d (04/18/22 9:46 AM) Social History Social History Type Response Smoking Status Current every day sm oker; Type: Cigarettes; Tobacco use times per day: 4-5; entered on: 01/16/17 Sex Patient Care team information Care Team Personnel Name: Dayna Mancilla NP Position: S PCO Associate Professional Member Role: PCP Address: Address: [address], [address] [place] [address]- Care Team Related Persons Name: IRMA FUNG Address: home [address] [place] [address] Name: NONE, GIVEN Address: [place] [address]
--- OUTSIDE RECORDS SUMMARY | 2023-07-18 03:27 | XMS_ITS | Continuity of Care Document ---
Author Organization [facility] Adult Address [address] [place] [address]- Care Team Providers Care Port Engineer Name Role Phone Charo DUMONT, Dayna Primary Care Physician Encounter [facility] Date(s): 03/24/20 - 04/23/20 [facility] [address] [place] [address]- Allergies, Adverse Reactions, Alerts Substance Reaction Severity Status codeine Active Lactose Active Immunizations Given and Recorded Vaccine Date Status Refusal Reason influenza virus vaccine, inactivated 1 01/16/17 Gi daniel influenza virus vaccine, inactivated 01/12/16 Give n influenza virus vaccine, inactivated 02/04/15 Give n pneumococcal 23-valent vaccine 02/04/15 Given 1Result Comment: [id number] Medications aspirin 81 mg oral tablet 1 [...] 04/23/20 8:36:00 EST, [facility] 157.4, cm, 04/13/20 9:03:00 EST, Height Start Date: 04/23/20 Stop Date: 10/20/20 Status: Ordered LORazepam 0.5 mg oral tablet 1 tablet = 0.5 mg, By Mouth, 3 times a day, PRN for anxiety, for 30 days, # 30 tablet, 3 Refills, Acute 07/25/20 12:25:00 EDT, 03/27/20 12:25:00 EST, Tablet, [facility], 157.4, cm, 02/02/20 12:10:00 EST, Height [...] 10 mg, By Mouth, Every 4 hours, SCRAP HANDLER checked., # 168 tablet, 0 Refills, Acute 03/16/21 13:19:00 EST, 03/27/20 17:22:00 EST, [id number], [facility] fill upon patient request;, 157.4, cm, 02/02/20 12:10:00 EST, Height Start Date: 03/27/20 Stop Date: 03/16/21 Status: Ordered Pt.'s Own [...]
--- OUTSIDE RECORDS SUMMARY | 2023-07-18 03:27 | XMS_ITS | Continuity of Care Document ---
Author Organization [facility] Adult Address [address] [place] [address]- Care Team Providers Care Sleep Tech Name Role Phone Charo DUMONT, Dayna Primary Care Physician [phone] Encounter [facility] Date(s): 09/27/22 - 10/27/22 [facility] [address] [place] [address]- Allergies, Adverse Reactions, Alerts Substance Reaction Severity Status codeine Active Lactose Active Immunizations Given and Recorded Vaccine Date Status Refusal Reason SARS-CoV-2 (COVID-19) mRNA-1273 vaccine 03/30/21 R ecorded influenza virus vaccine, inactivated 1 01/16/17 Gi daniel influenza virus vaccine, inactivated 01/12/16 Give n influenza virus vaccine, inactivated 02/04/15 Give n pneumococcal 23-valent vaccine 02/04/15 Given 1Result Comment: [id number] Medications aspirin 81 mg oral tablet 1 tablet = 81 mg, By Mouth, Daily, # 30 tablet, 0 Refills, Maintenance, Tablet Start Date: 11/12/11 Status: Ordered BD INSULIN SYR UF 1 ML [id number] BD INSULIN SYR UF 1 ML [id number], See Instructions, # 100 Unknown, 3 Refills, Maintenance, USE TO INJECT INSULIN ONCE A DAY FOR DX E11.9, 157.4, cm, 08/01/20 11:31:00 EDT, Height Start Date: 10/09/20 Status: Ordered BD INSULIN SYR UF 1 ML [id number] BD INSULIN SYR UF 1 ML [id number], See Instructions, # 180 Unknown, 1 Refills, Maintenance, USE TO INJECT INSULIN TWICE A DAY FOR DX E11.9, 04/18/22 10:30:00 EST, 156, cm, 04/18/22 9:46:00 EST, Height Start Date: 04/18/22 Status: Ordered duloxetine 20 mg oral enteric coated capsule 1 capsule, By Mouth, 2 times a day, # 180 capsule, 1 Refills, Maintenance, 10/14/22 11:08:00 EDT, [facility], 156, cm, 07/12/22 13:52:00 EDT, Height Start [...] Refills, Maintenance, 10/05/21 10:32:00 EDT, Tablet, [facility]/pharmacy #2071, 156, cm, 07/26/21 9:18:00 EDT, Height Start Date: 10/05/21 Stop Date: 07/02/22 Status: Ordered Humalog Kwik Pen 100 units/mL subcutaneous injection = 15 units, Subcutaneous Injection, 3 times a day before meals, # 15 mL, 5 Refills, Maintenance, 07/12/22 14:12:00 EDT, Solution, [facility]/pharmacy #[id number], Partial fill upon patient request if [...] Refills, Maintenance, 06/10/22 11:10:00 EDT, Solution, [facility]/pharmacy #2071, please fill early . higher dose, 156, cm, 05/10/22 10:53:00 EST, Height Start Date: 06/10/22 Stop Date: 12/07/22 Status: Ordered insulin glargine (concentrated) 300 units/mL subcutaneous solution = 40 units, Subcutaneous Injection, 2 times a day, # 6 mL, 0 Refills, Maintenance, 10/21/22 10:09:00 EDT, Solution, [facility]/pharmacy #[id number], Partial fill upon patient request if [...] EDT, Route to [facility]acy Electronically, [facility], 156, cm, 07/12/22 13:52:00 EDT, Height Start [...] 10 mg, By Mouth, Every 4 hours, HEARING AID MECHANIC checked. fill on 10/29/22, # 168 tablet, 0 Refills, Maintenance, 10/19/22 8:45:00 EDT, [id number], Partial fill upon patient request;, 156, cm, 10/16/22 15:36:00 EDT, Height Start Date: 10/19/22 Stop Date: 11/16/22 Status: Ordered oxyCODONE 15 mg oral tablet 1 tablet = 15 mg, By Mouth, Daily at bedtime, PRN as needed for pain, surveillance specialist checked fill 10/09/22, # 28 tablet, 0 Refills, Maintenance, 10/08/22 5:58:00 EDT, Tablet, [id number], Partial fill upon patient request if the prescription is for a sched... Start Date: 10/08/22 Stop Date: 11/05/22 Status: Ordered Pen Kelley, 31 G x 5 mm BD Ultra [...] Associate Professional Member Role: PCP Address: Address: [address] [place] [address], [address] [place] [address]- Care Team Related Persons Name: IRMA FUNG Address: [address] [place] [address] Name: NONE, GIVEN Address: [place] [address]
--- OUTSIDE RECORDS SUMMARY | 2023-07-18 03:27 | XMS_ITS | Continuity of Care Document ---
Author Organization [facility] Address [address] [place] [address]- Care Team Providers Care Cash Register Operator Name Role Phone Charo DUMONT, Dayna [id number] Date[facility]s): 07[facility]05[facility]21 - 07/12/21 [facility] [address] [place] [id number]- Attending Physician: Not on Staff, Attending MD [...] pneumococcal 23-valent vaccine 02/04/15 Given 1Result Comment: 12358-187-36 Medications aspirin 81 mg oral tablet 1 tablet = 81 mg, By Mouth, Daily, # 30 tablet, 0 Refills, Maintenance, Tablet Start Date: 11/12/11 Status: Ordered BD INSULIN SYR UF 1 ML [id number] BD INSULIN SYR UF 1 ML [id number], See Instructions, # 100 Unknown, 3 Refills, Maintenance, USE TO INJECT INSULIN ONCE A DAY FOR DX E11.9, 157.4, cm, 08/01/20 11:31:00 EDT, Height Start Date: 10/09/20 Status: Ordered duloxetine 20 mg oral enteric coated capsule 1 capsule = 20 mg, By Mouth, 2 times a day, # 60 capsule, 1 Refills, Maintenance, 07/05/21 16:27:00EDT, EC Capsule, [id number], Partial fill upon patient request if the prescription is for aschedule II opioid drug., 156, cm, 07/05/21 15:52:0... Start Date: 07/05/21 Stop Date: 09/03/21 Status: Ordered Fish Oil By Mouth, Daily, 0 Refills, Maintenance, 01/27/19 9:06:45 EST Start Date: 01/27/19 Status: Ordered gabapentin 800 mg oral tablet 1 tablet = 800 mg, By Mouth, 3 times a day with meals, # 270 tablet, 2 Refills, Maintenance, 09/04/20 17:31:00 EDT, Tablet, [facility]/pharmacy #[id number], 157.4, cm, 08/01/20 11:31:00 EDT, Height [...] 5 Refills, Maintenance, 04/23/21 14:55:00 EST, Solution, [facility]/pharmacy #0373, please fill early [...] tablet, Refills 1, Route to Pharmacy Electronically, [facility], 156, cm, 03/15/21 15:01:00 EST, Height Start Date: 04/01/21 Status: Ordered Nicoderm C-Q 7 mg/24 hr transdermal film, extended release 1 patch, By Mouth, Daily, # 30 patch, 5 Refills, Maintenance, 09/01/19 9:18:00 EDT, [facility]/pharmacy #0373, 157.4, cm, 09/01/19 8:41:00 [...] 10 mg, By Mouth, Every 4 hours, FRETTED INSTRUMENTS INSPECTOR checked. fill on 06/17/21, # 168 tablet, 0 Refills, Acute 03/16/22 14:46:00 EST, 06/17/21 10:53:00 EDT, [facility]/pharmacy #[id number], Partial fill upon patient request;, 156, cm, 03/15/21 15:01:00 EST, Height Start Date: 06/17/21 Stop Date: 03/16/22 Status: Ordered oxyCODONE 15 mg oral tablet 1 tablet = 15 mg, By Mouth, Daily at bedtime, PRN as needed for pain, for 28 days, Fill on 06/26/21,# 28 tablet, 0 Refills, Acute 07/23/21 21:28:00 EDT, 06/25/21 21:28:00 EDT, Tablet, [facility]/pharmacy #[id number], Partial fill upon patient request if the prescr... Start Date: 06/25/21 Stop Date: 07/23/21 Status: Ordered Pt.'s Own Meds CBD, Daily, Maintenance, 01/27/19 9:06:59 EST Start Date: 01/27/19 Status: Ordered rOPINIRole 1 mg oral tablet See Instructions, TAKE 1 TABLET BY MOUTH TWICE A DAY, # 180 tablet, 1 Refills, [facility], 156, cm, 03/15/21 15:01:00 EST, Height Start Date: 04/03/21 Status: Ordered rOPINIRole 1 mg oral tablet 1 tablet, By Mouth, 2 times a day, # 180 tablet, 1 Refills, Maintenance, 10/06/20 14:51:00 EDT, [facility], 157.4, cm, 08/01/20 11:31:00 EDT, Height Start Date: 10/06/20 Status: Ordered Trulicity Pen 0.75 mg/0.5 mL subcutaneous solution See Instructions, INJECT 0.5 ML SUBCUTANEOUS INJECTION EVERY WEEK,X30 DAYS,INSTR:ROTATE INJECTION SITES, # 2 Unknown, 0 Refills, [facility], 156, cm, 03/15/21 15:01:00 EST, Height Start Date: 04/01/21 Status: Ordered Trulicity Pen 1.5 mg/0.5 mL subcutaneous solution 0.5 mL = 1.5 mg, Subcutaneous Injection, Every week, # 2.5 mL, 0 Refills, Maintenance, 07/05/21 16:26:00 EDT, Solution, [facility], Partial fill upon patient request if the prescription is for a schedule II opioid drug., 156, cm, 07/05/21 15:5... Start Date: 07/05/21 Stop Date: 08/04/21 Status: Ordered Vitamin B Complex oral tablet, [...] 1 Refills, Maintenance, 06/15/21 14:48:00 EDT, Tablet, [facility]/pharmacy #[id number], Partial fill upon patient request if the [...] oldest [Reference Range]: 1 Height 156 cm (07/05/21 3:52 PM) Weight 94.5 kg (07/05/21 3:52 PM) Oxygen Saturation [94-100 %] 97 % (07/05/21 3:52 PM) Pulse Rate [55-90 bpm] 102 bpm *H* (07/05/21 3:52 PM) Body Mass Index [18.5-24.99] 38.83 *>HHI* (07/05/21 3:52 PM) Blood Pressure [90-138/55-84 mm Hg] 104/ 62mm Hg (07/05/21 3:52 PM) Temperature [96.8-100.4 DegF] 98.2 DegF (07/05/21 3:52 PM) Mode of Delivery (Oxygen) Room air (07/05/21 3:52 PM) Blood pressure sites Arm, left (07/05/21 3:52 PM) Temperature Route Oral (07/05/21 3:52 PM) Weight Obtained Via Standing scale (07/05/21 3:52 PM) Social History Social History Type Response Smoking Status Current every day osmany lam; Type: Cigarettes; Tobacco use times per day: 4-5; entered on: 01/16/17 Sex
--- OUTSIDE RECORDS SUMMARY | 2023-07-18 03:27 | XMS_ITS | Continuity of Care Document ---
Author Organization [facility] Adult Address [address] [place] [address]- Care Team Providers Care Snowmobile Mechanic Name Role Phone Charo DUMONT, Dayna Primary Care Physician [phone] Encounter [facility] R [id number] Date(s): 07/26/21 - 08/02/21 [facility] [address] [place] [phone]- Encounter Diagnosis DM (diabetes mellitus), type 2(Discharge Diagnosis) - 07/26/21 RSD (reflex sympathetic dystrophy)(Discharge Diagnosis) - 07/26/21 Attending Physician: Not on Staff, Attending MD [...] pneumococcal 23-valent vaccine 02/04/15 Given 1Result Comment: [id number] Medications aspirin 81 mg oral tablet 1 tablet = 81 mg, By Mouth, Daily, # 30 tablet, 0 Refills, Maintenance, Tablet Start Date: 11/12/11 Status: Ordered BD INSULIN SYR UF 1 ML [id number] BD INSULIN SYR UF 1 ML [id number], See Instructions, # 100 Unknown, 3 Refills, Maintenance, USE TO INJECT INSULIN ONCE A DAY FOR DX E11.9, 157.4, cm, 08/01/20 11:31:00 EDT, Height Start Date: 10/09/20 Status: Ordered duloxetine 20 mg oral enteric coated capsule 1 capsule = 20 mg, By Mouth, 2 times a day, # 60 capsule, 1 Refills, Maintenance, 07/05/21 16:27:00EDT, EC Capsule, [facility]/pharmacy #[id number], Partial fill upon patient [...] 2 Refills, Maintenance, 09/04/20 17:31:00 EDT, Tablet, [facility]/pharmacy #2071, 157.4, cm, 08/01/20 11:31:00 EDT, [...] 5 Refills, Maintenance, 07/26/21 9:29:00 EDT, Solution, [facility], [facility] fill [facility] . higher dose, [...] tablet, Refills 1, Route to Pharmacy Electronically, [facility] STORE 97387, 156, cm, 03/15/21 15:01:00 EST, Height Start Date: 04/01/21 Status: Ordered Nicoderm C-Q 7 mg/24 hr transdermal film, extended release 1 patch, By Mouth, Daily, # 30 patch, 5 Refills, Maintenance, 07/26/21 9:34:00 EDT, [facility]/pharmacy #0373, 156, cm, 07/26/21 9:18:00 [...] 10 mg, By Mouth, Every 4 hours, CLINICAL DOCUMENT IMPROVEMENT EDUCATOR checked. fill on 07/16/21, # 168 tablet, 0 Refills, Acute 03/16/22 8:31:00 EST, 07/13/21 17:37:00 EDT, [facility]/pharmacy #6981, Partial fill upon patient request;, 156, cm, 07/05/21 15:52:00 EDT, Height Start Date: 07/13/21 Stop Date: 03/16/22 Status: Ordered oxyCODONE 15 mg oral tablet 1 tablet = 15 mg, By Mouth, Daily at bedtime, PRN as needed for pain, for 28 days, # 28 tablet, 0 Refills, Acute 08/21/21 12:48:00 EDT, 07/24/21 12:48:00 EDT, Tablet, [facility]/pharmacy #2071, Partial fillupon patient request if the prescription is for a s... Start Date: 07/24/21 Stop Date: 08/21/21 Status: Ordered Pt.'s Own Meds CBD, Daily, Maintenance, 01/27/19 9:06:59 EST Start Date: 01/27/19 Status: Ordered rOPINIRole 1 mg oral tablet See Instructions, TAKE 1 TABLET BY MOUTH TWICE A DAY, # 180 tablet, 1 Refills, [facility], 156, cm, 03/15/21 15:01:00 EST, Height Start Date: 04/03/21 Status: Ordered rOPINIRole 1 mg oral tablet 1 tablet, By Mouth, 2 times a day, # 180 tablet, 1 Refills, Maintenance, 10/06/20 14:51:00 EDT, [facility], 157.4, cm, 08/01/20 11:31:00 EDT, Height Start Date: 10/06/20 Status: Ordered Trulicity Pen 1.5 mg/0.5 mL [...] 1 Refills, Maintenance, 06/15/21 14:48:00 EDT, Tablet, [id number], Partial fill upon patient request if the [...] Effective Dates Health Status Clinical Service Informant DM (diabetes mellitus), type 2 Discharge Diagnosis 07/26/21 RSD (reflex sympathetic dystrophy) Discharge Diagnosis 07/26/21 Vital Signs Most recent to oldest [Reference Range]: 1 Height 156 cm (07/26/21 9:18 AM) Weight 94.8 kg (07/26/21 9:18 AM) Oxygen Saturation [94-100 %] 96 % (07/26/21 9:18 AM) Pulse Rate [55-90 bpm] 103 bpm *H* (07/26/21 9:18 AM) Body Mass Index [18.5-24.99] 38.95 *>HHI* (07/26/21 9:18 AM) Blood Pressure [90-138/55-84 mm Hg] 132/ 78mm Hg (07/26/21 9:18 AM) Temperature [96.8-100.4 DegF] 99.4 DegF (07/26/21 9:18 AM) Blood pressure sites Arm, left (07/26/21 9:18 AM) Temperature Route Oral (07/26/21 9:18 AM) Weight Obtained Via Standing scale (07/26/21 9:18 AM) Social History Social History Type Response Smoking Status Current every day osmany lam; Type: Cigarettes; Tobacco use times per day: 4-5; entered on: 01/16/17 Sex
--- OUTSIDE RECORDS SUMMARY | 2023-07-18 03:27 | XMS_ITS | Continuity of Care Document ---
Author Organization [facility] Adult Address [address] [place] [address]- Care Team Providers Care Patients Transporter Name Role Phone Dayna Mancilla NP Primary Care Physician Encounter [facility] Date(s): 04/13/20 - 04/20/20 [facility] Adult [address] [place] [address]- Attending Physician: Dayna Mancilla NP Allergies, Adverse Reactions, Alerts Substance Reaction Severity Status codeine Active Lactose Active Immunizations Given and Recorded Vaccine Date Status Refusal Reason influenza virus vaccine, inactivated 1 01/16/17 Gi daniel influenza virus vaccine, inactivated 01/12/16 Give n influenza virus vaccine, inactivated 02/04/15 Give n pneumococcal 23-valent vaccine 02/04/15 Given 1Result Comment: [id number] Medications aspirin 81 mg oral tablet 1 [...] 2 Refills, Maintenance, 12/15/19 8:56:00 EDT, Tablet, [facility]/pharmacy #[id number], 157.4, cm, 09/01/19 8:41:00 EDT, Height [...] 08/09/20 12:53:00 EDT, 02/11/20 12:53:00 EST, Solution, [facility]/pharmacy #0373, please fill early . higherdose, 157.4, cm, 02/02/20 12:10:00 EST, Height Start Date: 02/11/20 Stop Date: 08/09/20 Status: Ordered insulin detemir 100 units/mL subcutaneous solution = 82 units, Subcutaneous Injection, Daily at bedtime, for 30 days, # 15 mL, 5 Refills, Hard Stop 10/17/20 11:28:00 EDT, 04/20/20 11:28:00 EST, Solution, [facility]/pharmacy #0373, please fill early . higherdose, 157.4, [...] 20 mg, 1, tablet, By Mouth, Daily, for 90 days, # 90 tablet, Refills 1, Tot. Refills 1, Hard Stop 04/23/20 8:36:00 EST, 10/26/19 8:36:00 EDT, Route to Pharmacy Electronically, [facility]/pharmacy #0373, 157.4, cm, 09/01/19 8:41:00 EDT, Height Start Date: 10/26/19 Stop Date: 04/23/20 Status: Ordered lisinopril 20 mg oral tablet 20 mg, 1, tablet, By Mouth, Daily, # 90 tablet, Refills 1, Tot. Refills 1, Maintenance, 04/23/20 8:36:00 EST, Route to Pharmacy Electronically, [facility]/pharmacy #0373, 157.4, cm, 04/13/20 9:03:00 EST, Height Start Date: 04/23/20 Stop Date: 10/20/20 Status: Ordered LORazepam 0.5 mg oral tablet 1 tablet = 0.5 mg, By Mouth, 3 times a day, PRN for anxiety, for 30 days, # 30 tablet, 3 Refills, Acute 07/25/20 12:25:00 EDT, 03/27/20 12:25:00 EST, Tablet, [facility]/pharmacy #0373, 157.4, cm, 02/02/20 12:10:00 EST, Height [...] mg, By Mouth, Every 4 hours, DIRECTOR ALLIANCE MARKETING checked., # 168 tablet, 0 Refills, Acute [...] oldest [Reference Range]: 1 Height 157.40 cm (04/13/20 9:03 AM) Weight 97.72 kg (04/13/20 9:03 AM) Body Mass Index [18.5-24.99] 39.44 *>HHI* (04/13/20 9:03 AM) Weight Obtained Via Patient/family state d (04/13/20 9:03 AM) Social History Social History Type Response Smoking Status Current every day osmany lam; Type: Cigarettes; Tobacco use times per day: 4-5; entered on: 01/16/17 Sex
--- OUTSIDE RECORDS SUMMARY | 2023-07-18 03:27 | XMS_ITS | Continuity of Care Document ---
Author Organization [facility] Adult Address [address] [place] [address]- Care Team Providers Care Pole Lift Operator Name Role Phone Charo DUMONT, Dayna Primary Care Physician Encounter [facility] Date(s): 02/07/21 - 03/09/21 [facility] [address] [place] [address]- Allergies, Adverse Reactions, Alerts Substance Reaction Severity Status codeine Active Lactose Active Immunizations Given and Recorded Vaccine Date Status Refusal Reason influenza virus vaccine, inactivated 1 01/16/17 Gi daniel influenza virus vaccine, inactivated 01/12/16 Give n influenza virus vaccine, inactivated 02/04/15 Give n pneumococcal 23-valent vaccine 02/04/15 Given 1Result Comment: [id number] Medications aspirin 81 mg oral tablet 1 tablet = 81 mg, By Mouth, Daily, # 30 tablet, 0 Refills, Maintenance, Tablet Start Date: 11/12/11 Status: Ordered BD INSULIN SYR UF 1 ML [id number] BD INSULIN SYR UF 1 ML [id number], See Instructions, # 100 Unknown, 3 Refills, [...] 2 Refills, Maintenance, 09/04/20 17:31:00 EDT, Tablet, [facility]/pharmacy #[id number], 157.4, cm, 08/01/20 11:31:00 EDT, [...] 05/21/21 9:09:00 EST, 11/22/20 9:09:00 EDT, Solution, [facility]/pharmacy #[id number], please fill early . higher [...] 10/20/20 8:36:00 EDT, Route to Pharmacy Electronically, [facility]/pharmacy #[id number], 157.4, cm, 08/01/20 11:31:00 EDT, Height Start Date: 10/20/20 Stop Date: 04/18/21 Status: Ordered LORazepam 0.5 mg oral tablet 1 tablet = 0.5 mg, By Mouth, 3 times a day, PRN for anxiety, for 30 days, # 30 tablet, 3 Refills, Acute 06/23/21 8:00:00 EDT, 02/23/21 8:00:00 EST, Tablet, [facility]/pharmacy #[id number], 157.4, cm, 12/11/20 13:18:00 EDT, Height Start Date: 02/23/21 Stop Date: 06/23/21 Status: Ordered Nicoderm C-Q 7 mg/24 hr transdermal film, extended release 1 patch, By Mouth, Daily, # 30 patch, 5 Refills, Maintenance, 09/01/19 9:18:00 EDT, [facility]/pharmacy #0373, 157.4, cm, 09/01/19 8:41:00 EDT, [...] 10 mg, By Mouth, Every 4 hours, MECHANICAL TECHNOLOGIST checked. fill on 02/26/21, # 168 tablet, 0 Refills, Acute 03/16/21 14:30:00 EST, 02/23/21 11:06:00 EST, [facility]/pharmacy #[id number], Partial fill upon patient request;, 02/26/21, 157.4, cm, 12/11/20 13:18:00 EDT,... Start Date: 02/23/21 Stop Date: 03/16/21 Status: Ordered oxyCODONE 15 mg oral tablet 1 tablet = 15 mg, By Mouth, Daily at bedtime, PRN as needed for pain, for 28 days, Fill on 03/06/21, # 28 tablet, 0 Refills, Acute 04/02/21 12:35:00 EST, 03/05/21 12:35:00 EST, Tablet, [facility]/pharmacy #[id number], Partial fill upon patient request if the presc... Start Date: 03/05/21 Stop Date: 04/02/21 Status: Ordered Pt.'s Own Meds CBD, Daily, Maintenance, 01/27/19 9:06:59 EST Start Date: 01/27/19 Status: Ordered rOPINIRole 1 mg oral tablet 1 tablet, By Mouth, 2 times a day, # 180 tablet, 1 Refills, Maintenance, 10/06/20 14:51:00 EDT, [facility], 157.4, cm, 08/01/20 11:31:00 EDT, Height Start Date: 10/06/20 Status: Ordered Trulicity Pen 0.75 mg/0.5 mL subcutaneous solution 0.5 mL = 0.75 mg, Subcutaneous Injection, Every week, rotate injection sites, # 2.5 mL, 5 Refills, Maintenance, 08/31/20 16:54:00 EDT, Solution, [facility]/pharmacy #[id number], Partial fill upon patient request if the [...]
--- OUTSIDE RECORDS SUMMARY | 2023-07-18 03:27 | XMS_ITS | Continuity of Care Document ---
Author Organization [facility] Adult Address [address] [place] [address]- Care Team Providers Care Tooling Specialist Name Role Phone Charo DUMONT, Dayna Primary Care Physician [phone] [place] [facility] Date(s): 04/15/22 - 05/15/22 [facility] Adult [address] [place] [address]- Allergies, Adverse Reactions, Alerts Substance Reaction Severity Status codeine Active Lactose Active Immunizations Given and Recorded Vaccine Date Status Refusal Reason SARS-CoV-2 (COVID-19) mRNA-1273 vaccine 03/30/21 R ecorded influenza virus vaccine, inactivated 1 01/16/17 Gi daniel influenza virus vaccine, inactivated 01/12/16 Give n influenza virus vaccine, inactivated 02/04/15 Give n pneumococcal 23-valent vaccine 02/04/15 Given 1Result Comment: [id number] Medications aspirin 81 mg oral tablet 1 tablet = 81 mg, By Mouth, Daily, # 30 tablet, 0 Refills, Maintenance, Tablet Start Date: 11/12/11 Status: Ordered BD INSULIN SYR UF 1 ML [id number] BD INSULIN SYR UF 1 ML [id number], See Instructions, # 100 Unknown, 3 Refills, Maintenance, USE TO INJECT INSULIN ONCE A DAY FOR DX E11.9, 157.4, cm, 08/01/20 11:31:00 EDT, Height Start Date: 10/09/20 Status: Ordered BD INSULIN SYR UF 1 ML [id number] BD INSULIN SYR UF 1 ML [id number], See Instructions, # 180 Unknown, 1 Refills, Maintenance, USE TO INJECT INSULIN TWICE A DAY FOR DX E11.9, 04/18/22 10:30:00 EST, 156, cm, 04/18/22 9:46:00 EST, Height Start Date: 04/18/22 Status: Ordered duloxetine 20 mg oral enteric coated capsule 1 capsule, By Mouth, 2 times a day, # 180 capsule, 1 Refills, Maintenance, 02/25/22 9:26:00 EST, [facility], 156, cm, 01/14/22 15:09:00 EDT, Height Start Date: 02/25/22 Status: Ordered Fish Oil By Mouth, Daily, 0 Refills, Maintenance, 01/27/19 9:06:45 EST Start Date: 01/27/19 Status: Ordered gabapentin 800 mg oral tablet 1 tablet = 800 mg, By Mouth, 3 times a day with meals, # 270 tablet, 2 Refills, Maintenance, 10/05/21 10:32:00 EDT, Tablet, [facility]/pharmacy #2071, 156, cm, 07/26/21 9:18:00 EDT, [...] 5 Refills, Maintenance, 02/01/22 13:33:00 EST, Solution, [facility]/pharmacy #[id number], please fill early . higher [...] 04/01/22 6:54:00 EST, Route to Pharmacy Electronically, [facility] 29[facility], 156, cm, 01/14/22 15:09:00 EDT, Height Start [...] tablet, 3 Refills, Maintenance, 03/15/22 15:20:00 EST, [facility] ST[facility] 9[facility]98, 156, cm, 01/14/22 15:09:00 EDT, Height Start [...] Mouth, Every 4 hours, for 28 days, MONOTYPE MECHANIC checked., # 168 tablet, 0 Refills, Acute [...] 05/23/22 13:06:00 EST, 04/25/22 13:06:00 EST, Tablet, [facility]/pharmacy #[id number], Partial fill upon patient request if the prescr... Start Date: 04/25/22 Stop Date: 05/23/22 Status: Ordered Pt.'s Own Meds CBD, Daily, Maintenance, 01/27/19 9:06:59 EST Start Date: 01/27/19 Status: Ordered rOPINIRole 1 mg oral tablet 1 tablet, By Mouth, 2 times a day, # 180 tablet, 1 Refills, Maintenance, 03/27/22 18:34:00 EST, [facility], 156, cm, 01/14/22 15:09:00 EDT, Height Start Date: 03/27/22 Status: Ordered Trulicity Pen 1.5 mg/0.5 mL subcutaneous solution See Instructions, INJECT 0.5 ML SUBCUTANEOUS INJECTION EVERY WEEK, # 2 Unknown, 2 Refills, Maintenance, 04/29/22 10:00:00 EST, [facility], 156, cm, 04/18/22 9:46:00 EST, Height Start [...] Associate Professional Member Role: PCP Address: Address: [address] [place] [address], [address] [place] [address]- Care Team Related Persons Name: IRMA FUNG Address: home [address] [place] [address] Name: NONE, GIVEN Address: [place] [address]
--- OUTSIDE RECORDS SUMMARY | 2023-07-18 03:27 | XMS_ITS | Continuity of Care Document ---
Author Organization [facility] Address [address] [place] [address]- Care Team Providers Care Vault Custodian Name Role Phone Charo DUMONT, Dayna Primary Care Physician Encounter [facility] Date(s): 05/19/23 - 06/18/23 [facility] [address] [place] [address]- Allergies, Adverse Reactions, Alerts Substance Reaction Severity Status codeine Active Lactose Active Immunizations Given and Recorded Vaccine Date Status Refusal Reason SARS-CoV-2 (COVID-19) mRNA-1273 vaccine 03/30/21 R ecorded influenza virus vaccine, inactivated 1 01/16/17 Gi daniel influenza virus vaccine, inactivated 01/12/16 Give n influenza virus vaccine, inactivated 02/04/15 Give n pneumococcal 23-valent vaccine 02/04/15 Given 1Result Comment: [id number] Medications aspirin 81 mg oral tablet 1 [...] capsule, 1 Refills, Maintenance, 02/13/23 8:22:00 EST, [facility], 156, cm, 01/03/23 11:15:00 EDT, Height Start [...] Refills, Maintenance, 02/20/23 17:40:00 EST, [facility], 156, cm, 01/03/23 11:15:00 EDT, Height Start [...] mL, 11 Refills, Maintenance, 04/11/23 8:04:00 EST, [facility]/pharmacy #0373, 156, cm, 04/10/23 7:57:00 [...] EST, Route to Pharmacy Electronically, [facility], 156, cm, 01/03/23 11:15:00 EDT, Height Start [...] Refills, Maintenance, 05/19/23 14:51:00 EST, [facility], 156, cm, 04/10/23 7:57:00 EST, Height Start Date: 05/19/23 Stop Date: 05/24/23 Status: Ordered oxyCODONE 10 mg oral tablet 1 tablet = 10 mg, By Mouth, Every 4 hours, LATHE SCALPER OPERATOR checked. fill on 06/05/23, # 168 tablet, 0 Refills, Maintenance, 06/03/23 7:13:00 EDT, [facility], Partial fill upon patient request;, 156, cm, 04/10/23 7:57:00 EST, Height Start Date: 06/03/23 Stop Date: 07/01/23 Status: Ordered oxyCODONE 15 mg oral tablet 1 tablet = 15 mg, By Mouth, Daily at bedtime, PRN as needed for pain, health insurance agent checked. Fill on 06/17/23, # 28 tablet, 0 Refills, Maintenance, 06/16/23 12:11:00 EDT, Tablet, [facility]/pharmacy #2071, Partial fillupon patient request if the prescription is for a s... Start Date: 06/16/23 Stop Date: 07/14/23 Status: Ordered Pen Huntley, 31 G x 5 mm BD Ultra [...] tablet, 1 Refills, Maintenance, 03/12/23 8:31:00 EST, [facility] ST[facility] 12985, 156, cm, 01/03/23 11:15:00 EDT, Height Start Date: 03/12/23 Status: Ordered Toujeo SoloStar 300 units/mL subcutaneous solution See Instructions, INJECT 40 UNITS SUBCUTANEOUS INJECTION 2 TIMES A DAY,X30 DAYS, # 9 Unknown, 2 Refills, Maintenance, 03/30/23 19:14:00 EST, [facility]/pharmacy #2071, 156, cm, 01/03/23 11:15:00 [...] Refills, Maintenance, 07/21/22 10:38:00 EDT, Capsule, [facility], Partial fill upon patient request if the [...] Team Personnel Name: Dayna Mancilla NP [facility] Associate Professional Member Role: PCP Address: Address: [address] [place] [address], [address] [place] [address]- Care Team Related Persons Name: IRMA FUNG Address: [address] [place] [address] Name: NONE, GIVEN Address: [place] [address]
--- OUTSIDE RECORDS SUMMARY | 2023-07-18 03:27 | XMS_ITS | Continuity of Care Document ---
Author Organization [facility] Adult Address [address] [place] [address]- Care Team Providers Care Voting Machine Repairer Name Role Phone Charo DUMONT, Dayna Primary Care Physician Encounter [facility] [place] Date(s): 03/14/21 - 04/13/21 [facility] [address] [place] [address]- Allergies, Adverse Reactions, Alerts Substance Reaction Severity Status codeine Active Lactose Active Immunizations Given and Recorded Vaccine Date Status Refusal Reason SARS-CoV-2 (COVID-19) mRNA-1273 vaccine 03/30/21 R ecorded influenza virus vaccine, inactivated 1 01/16/17 Gi daniel influenza virus vaccine, inactivated 01/12/16 Give n influenza virus vaccine, inactivated 02/04/15 Give n pneumococcal 23-valent vaccine 02/04/15 Given 1Result Comment: [id number] Medications aspirin 81 mg oral tablet 1 tablet = 81 mg, By Mouth, Daily, # 30 tablet, 0 Refills, Maintenance, Tablet Start Date: 11/12/11 Status: Ordered BD INSULIN SYR UF 1 ML [id number] BD INSULIN SYR UF 1 ML [id number], See Instructions, # 100 Unknown, 3 Refills, [...] 2 Refills, Maintenance, 09/04/20 17:31:00 EDT, Tablet, [facility]/pharmacy #2071, 157.4, cm, 08/01/20 11:31:00 EDT, [...] 05/21/21 9:09:00 EST, 11/22/20 9:09:00 EDT, Solution, [facility]/pharmacy #[id number], please fill early . higher [...] tablet, Refills 1, Route to Pharmacy Electronically, [facility] STORE [id number], 156, cm, 03/15/21 15:01:00 EST, Height Start Date: 04/01/21 Status: Ordered LORazepam 0.5 mg oral tablet 1 tablet = 0.5 mg, By Mouth, 3 times a day, PRN for anxiety, for 30 days, # 30 tablet, 3 Refills, Acute 06/23/21 8:00:00 EDT, 02/23/21 8:00:00 EST, Tablet, [facility]/pharmacy #[id number], 157.4, cm, 12/11/20 13:18:00 EDT, Height Start Date: 02/23/21 Stop Date: 06/23/21 Status: Ordered Nicoderm C-Q 7 mg/24 hr transdermal film, extended release 1 patch, By Mouth, Daily, # 30 patch, 5 Refills, Maintenance, 09/01/19 9:18:00 EDT, [facility]/pharmacy #0373, 157.4, cm, 09/01/19 8:41:00 EDT, [...] 10 mg, By Mouth, Every 4 hours, LEAD NETWORK ENGINEER checked. fill on 03/26/21, # 168 tablet, 0 Refills, Acute 03/16/22 13:20:00 EST, 03/23/21 16:43:00 EST, [facility]/pharmacy #[id number], Partial fill upon patient request;, 156, cm, 03/15/21 15:01:00 EST, Height Start Date: 03/23/21 Stop Date: 03/16/22 Status: Ordered oxyCODONE 15 mg oral tablet 1 tablet = 15 mg, By Mouth, Daily at bedtime, PRN as needed for pain, for 28 days, Fill on 04/03/21,# 28 tablet, 0 Refills, Acute 04/27/21 14:48:00 EST, 03/30/21 14:48:00 EST, Tablet, [facility]/pharmacy #[id number], Partial fill upon patient request if the prescr... Start Date: 03/30/21 Stop Date: 04/27/21 Status: Ordered Pt.'s Own Meds CBD, Daily, Maintenance, 01/27/19 9:06:59 EST Start Date: 01/27/19 Status: Ordered rOPINIRole 1 mg oral tablet See Instructions, TAKE 1 TABLET BY MOUTH TWICE A DAY, # 180 tablet, 1 Refills, [facility], 156, cm, 03/15/21 15:01:00 EST, Height Start Date: 04/03/21 Status: Ordered rOPINIRole 1 mg oral tablet 1 tablet, By Mouth, 2 times a day, # 180 tablet, 1 Refills, Maintenance, 10/06/20 14:51:00 EDT, [facility], 157.4, cm, 08/01/20 11:31:00 EDT, Height Start Date: 10/06/20 Status: Ordered Trulicity Pen 0.75 mg/0.5 mL subcutaneous solution See Instructions, INJECT 0.5ML SUBCUTANEOUSLY EVERY WEEK. ROTATE INJECTION SITES, # 2 Unknown, 7 Refills, [facility], 156, cm, 03/15/21 15:01:00 EST, Height Start Date: 04/01/21 Status: Ordered Trulicity Pen 0.75 mg/0.5 mL subcutaneous solution See Instructions, INJECT 0.5 ML SUBCUTANEOUS INJECTION EVERY WEEK,X30 DAYS,INSTR:ROTATE INJECTION SITES, # 2 Unknown, 0 Refills, [facility], 156, cm, 03/15/21 15:01:00 EST, Height Start [...]
--- OUTSIDE RECORDS SUMMARY | 2023-07-18 03:27 | XMS_ITS | Continuity of Care Document ---
Author Organization [facility] Adult Address [address] [place] [address]- Care Team Providers Care Boiler Operator Name Role Phone Danya Mancilla NP Primary Care Physician [phone] [place] [facility] [place] 09/01/19 - 09/08/19 [facility] Adult [address] [place] [address]- [facility] Attending Physician: Dayna Mancilla NP Allergies, Adverse Reactions, Alerts Substance Reaction Severity Status codeine Active Lactose Active Immunizations Given and Recorded Vaccine Date Status Refusal Reason influenza virus vaccine, inactivated 1 01/16/17 Gi daniel influenza virus vaccine, inactivated 01/12/16 Give n influenza virus vaccine, inactivated 02/04/15 Give n pneumococcal 23-valent vaccine 02/04/15 Given 1Result Comment: [id number] Medications aspirin 81 mg oral tablet 1 tablet = 81 mg, By Mouth, Daily, # 30 tablet, 0 Refills, Maintenance, Tablet Start Date: 11/12/11 Status: Ordered buPROPion 150 mg/12 hours (SR) oral tablet, extended release 1 tablet = 150 mg, By Mouth, 2 times a day, # 60 tablet, 0 Refills, Maintenance, 09/01/19 9:20:00 EDT, ER Tablet, [facility], 157.4, cm, 09/01/19 8:41:00 EDT, Height Start Date: 09/01/19 Stop Date: 10/01/19 Status: Ordered Fish Oil By Mouth, Daily, [...] 05/03/19 12:16:00 EST, Route to Pharmacy Electronically, [facility]/pharmacy #0373, 157.4, cm, 04/26/19 15:53:00 EST, Height Start Date: 05/03/19 Stop Date: 10/30/19 Status: Ordered LORazepam 0.5 mg oral tablet 1 tablet = 0.5 mg, By Mouth, 3 times a day, PRN as needed for anxiety, for 10 days, # 30 tablet, 0 Refills, Acute 09/11/19 9:04:00 EDT, 09/01/19 9:04:00 EDT, Tablet, [facility]/pharmacy #0373, 157.4, cm, 09/01/19 8:41:00 EDT, Height Start Date: 09/01/19 Stop Date: 09/11/19 Status: Ordered Nicoderm C-Q 7 mg/24 hr transdermal film, extended release 1 patch, By Mouth, Daily, # 30 patch, 5 Refills, Maintenance, 09/01/19 9:18:00 EDT, [facility]/pharmacy #0373, 157.4, cm, 09/01/19 8:41:00 [...] 10 mg, By Mouth, Every 4 hours, TRIBAL COUNCIL MEMBER checked., # 168 tablet, 0 Refills, Acute 03/16/20 10:12:00 EST, 09/07/19 12:33:00 EDT, [facility]/pharmacy #0373, Partial fill upon patient [...] tablet, 0 Refills, Maintenance, 07/08/19 10:01:00 EDT, [facility]/pharmacy #0373, 157.4, cm, 06/03/19 8:51:00 [...] oldest [Reference Range]: 1 Height 157.40 cm (09/01/19 8:41 AM) Social History Social History Type Response Smoking Status Current every day osmany lam; Type: Cigarettes; Tobacco use times per day: 4-5; entered on: 01/16/17 Sex
--- OUTSIDE RECORDS SUMMARY | 2023-07-18 03:27 | XMS_ITS | Continuity of Care Document ---
Author Organization [facility] Adult Address [address] [place] [address]- Care Team Providers Care Agricultural Labor Camp Manager Name Role Phone Charo DUMONT, Dayna Primary Care Physician Encounter [facility] Date(s): 08/22/22 - 09/21/22 [facility] [address] [place] [address]- Allergies, Adverse Reactions, Alerts Substance Reaction Severity Status codeine Active Lactose Active Immunizations Given and Recorded Vaccine Date Status Refusal Reason SARS-CoV-2 (COVID-19) mRNA-1273 vaccine 03/30/21 R ecorded influenza virus vaccine, inactivated 1 01/16/17 Gi daniel influenza virus vaccine, inactivated 01/12/16 Give n influenza virus vaccine, inactivated 02/04/15 Give n pneumococcal 23-valent vaccine 02/04/15 Given 1Result Comment: [id number] Medications aspirin 81 mg oral tablet 1 tablet = 81 mg, By Mouth, Daily, # 30 tablet, 0 Refills, Maintenance, Tablet Start Date: 11/12/11 Status: Ordered BD INSULIN SYR UF 1 ML [id number] BD INSULIN SYR UF 1 ML [id number], See Instructions, # 100 Unknown, 3 Refills, Maintenance, USE TO INJECT INSULIN ONCE A DAY FOR DX E11.9, 157.4, cm, 08/01/20 11:31:00 EDT, Height Start Date: 10/09/20 Status: Ordered BD INSULIN SYR UF 1 ML [id number] BD INSULIN SYR UF 1 ML [id number], See Instructions, # 180 Unknown, 1 Refills, Maintenance, USE TO INJECT INSULIN TWICE A DAY FOR DX E11.9, 04/18/22 10:30:00 EST, 156, cm, 04/18/22 9:46:00 EST, Height Start Date: 04/18/22 Status: Ordered duloxetine 20 mg oral enteric coated capsule 1 capsule, By Mouth, 2 times a day, # 180 capsule, 1 Refills, Maintenance, 02/25/22 9:26:00 EST, [facility], 156, cm, 01/14/22 15:09:00 EDT, Height Start [...] Maintenance, 10/05/21 10:32:00 EDT, Tablet, [facility]/pharmacy #207, 156, cm, 07/26/21 9:18:00 EDT, [...] 5 Refills, Maintenance, 06/10/22 11:10:00 EDT, Solution, [facility]/pharmacy #2071, please fill early . higher [...] EST, Route to Pharmacy Electronically, [facility] STORE 82577, 156, cm, 01/14/22 15:09:00 EDT, Height Start Date: 04/01/22 Status: Ordered LORazepam 0.5 mg oral tablet 1 tablet = 0.5 mg, By Mouth, 3 times a day, PRN for anxiety, for 30 days, # 30 tablet, 1 Refills, Acute 09/30/22 18:20:00 EDT, 08/01/22 18:20:00 EDT, Tablet, [facility]/pharmacy #2071, 156, cm, 07/12/22 13:52:00 EDT, Height Start Date: 08/01/22 Stop Date: 09/30/22 Status: Ordered Nicoderm C-Q 7 mg/24 hr transdermal film, extended release 1 patch, By Mouth, Daily, # 30 patch, 5 Refills, Maintenance, 07/26/21 9:34:00 EDT, [facility]/pharmacy #0373, 156, cm, 07/26/21 9:18:00 EDT, [...] mg, By Mouth, Every 4 hours, SUPERVISOR PULLET FARM checked. fill 09/03/22, # 168 tablet, 0 Refills, Maintenance, 09/03/22 7:02:00 EDT, [id number], Partial fill upon patient request;, 156, cm, 07/12/22 13:52:00 EDT, Height Start Date: 09/03/22 Stop Date: 10/01/22 Status: Ordered oxyCODONE 15 mg oral tablet 1 tablet = 15 mg, By Mouth, Daily at bedtime, PRN as needed for pain, hemmer chainstitch checked fill 09/11/22, # 28 tablet, 0 Refills, Maintenance, 09/10/22 8:09:00 EDT, Tablet, [facility], Partial fill upon patient request if the prescription is for a sched... Start Date: 09/10/22 Stop Date: 10/08/22 Status: Ordered Pen Thornton, 31 G x 5 mm BD Ultra [...] Associate Professional Member Role: PCP Address: Address: [address] [place] [address], [address] [place] [address]- Care Team Related Persons Name: IRMA FUNG Address: home [address] [place] [address] Name: NONE, GIVEN Address: [place] [address]
--- OUTSIDE RECORDS SUMMARY | 2023-07-18 03:27 | XMS_ITS | Continuity of Care Document ---
Author Organization [facility] Adult Address [address] [place] [address]- Care Team Providers Care Nuclear Reactor Technician Name Role Phone Charo DUMONT, Dayna Primary Care Physician Encounter [place] Date(s): 01/22/22 - 02/21/22 [facility] Adult [address] [place] [phone]- Allergies, Adverse Reactions, Alerts Substance Reaction Severity Status codeine Active Lactose Active Immunizations Given and Recorded Vaccine Date Status Refusal Reason SARS-CoV-2 (COVID-19) mRNA-1273 vaccine 03/30/21 R ecorded influenza virus vaccine, inactivated 1 01/16/17 Gi daniel influenza virus vaccine, inactivated 01/12/16 Give n influenza virus vaccine, inactivated 02/04/15 Give n pneumococcal 23-valent vaccine 02/04/15 Given 1Result Comment: [id number] Medications aspirin 81 mg oral tablet 1 tablet = 81 mg, By Mouth, Daily, # 30 tablet, 0 Refills, Maintenance, Tablet Start Date: 11/12/11 Status: Ordered BD INSULIN SYR UF 1 ML [id number] BD INSULIN SYR UF 1 ML [id number], See Instructions, # 100 Unknown, 3 Refills, Maintenance, USE TO INJECT INSULIN ONCE A DAY FOR DX E11.9, 157.4, cm, 08/01/20 11:31:00 EDT, Height Start Date: 10/09/20 Status: Ordered duloxetine 20 mg oral enteric coated capsule See Instructions, TAKE 1 CAPSULE BY MOUTH TWICE A DAY, # 60 capsule, 5 Refills, [facility] STORE 77832, 156, cm, 07/26/21 9:18:00 EDT, Height Start Date: 09/05/21 Status: Ordered Fish Oil By Mouth, Daily, 0 Refills, Maintenance, 01/27/19 9:06:45 EST Start Date: 01/27/19 Status: Ordered gabapentin 800 mg oral tablet 1 tablet = 800 mg, By Mouth, 3 times a day with meals, # 270 tablet, 2 Refills, Maintenance, 10/05/21 10:32:00 EDT, Tablet, [facility]/pharmacy #2071, 156, cm, 07/26/21 9:18:00 [...] 5 Refills, Maintenance, 02/01/22 13:33:00 EST, Solution, [facility]/pharmacy #2071, [...] tablet, Refills 1, Route to Pharmacy Electronically, [facility] STORE [id number], 156, cm, 07/26/21 9:18:00 EDT, Height Start Date: 09/29/21 Status: Ordered LORazepam 0.5 mg oral tablet 1 tablet = 0.5 mg, By Mouth, 3 times a day, PRN for anxiety, for 30 days, # 30 tablet, 3 Refills, Acute 05/14/22 17:30:00 EST, 01/14/22 17:30:00 EDT, Tablet, [facility]/pharmacy #2071, 156, cm, 01/14/22 15:09:00 EDT, Height Start Date: 01/14/22 Stop Date: 05/14/22 Status: Ordered Medrol Dosepak 4 mg oral tablet See Instructions, 1 pack/packet By Mouth Once, # 1 pack/packet, 0 Refills, Soft Stop, 09/14/21 13:28:00 EDT, Tablet, [facility]/pharmacy #[id number], Partial fill upon patient request if the prescription is for aschedule II opioid drug., 156, cm, 07/26/21 9:18:00... Start Date: 09/14/21 Status: Ordered Nicoderm C-Q 7 mg/24 hr transdermal film, extended release 1 patch, By Mouth, Daily, # 30 patch, 5 Refills, Maintenance, 07/26/21 9:34:00 EDT, [facility]/pharmacy #0373, 156, cm, 07/26/21 9:18:00 EDT, Height Start Date: 07/26/21 Stop Date: 01/22/22 Status: Ordered ondansetron 4 mg oral tablet 1 tablet, By Mouth, Every 8 hours, PRN NEEDED FOR NAUSEA AND VOMITING FOR, # 9 tablet, 3 Refills, Maintenance, 01/22/22 16:28:00 EST, [facility] STORE 90880, 156, cm, 01/14/22 15:09:00 EDT, Height Start [...] 10 mg, By Mouth, Every 4 hours, DEPENDENCY COUNSELOR checked.Fill on 02/20/22, # 168 tablet, 0 [...] 1 Refills, Maintenance, 10/06/20 14:51:00 EDT, [facility], 157.4, cm, 08/01/20 11:31:00 EDT, Height Start [...] 2 Refills, Maintenance, 06/26/21 8:37:00EDT, Capsule, [facility], Partial fill upon patient request if the [...] Professional Member Role: PCP Address: Address: [address] [facility], [address] [place] [address]- Care Team Related Persons Name: IRMA FUNG Address: home [address] [place] [address] Name: NONE, GIVEN Address: [place] [address]
--- OUTSIDE RECORDS SUMMARY | 2023-07-18 03:27 | XMS_ITS | Continuity of Care Document ---
Author Organization [facility] Adult Address [address] [place] [address]- Care Team Providers Care Wellness Guide Name Role Phone Charo DUMONT, Dayna Primary Care Physician [place] [facility] [place] 07[place]/20 [facility] [address] [place] [address]- Allergies, Adverse Reactions, Alerts Substance Reaction Severity Status codeine Active Lactose Active Immunizations Given and Recorded Vaccine Date Status Refusal Reason influenza virus vaccine, inactivated 1 01/16/17 Gi daniel influenza virus vaccine, inactivated 01/12/16 Give n influenza virus vaccine, inactivated 02/04/15 Give n pneumococcal 23-valent vaccine 02/04/15 Given 1Result Comment: 72724-643-02 Medications aspirin 81 mg oral tablet 1 tablet = 81 mg, By Mouth, Daily, # 30 tablet, 0 Refills, Maintenance, Tablet Start Date: 11/12/11 Status: Ordered buPROPion 150 mg/12 hours (SR) oral tablet, extended release 1 tablet = 150 mg, By Mouth, 2 times a day, # 60 tablet, 5 Refills, Maintenance, 05/03/20 11:33:00 EST, ER Tablet, [facility]/pharmacy #0373, 157.4, cm, 04/13/20 9:03:00 EST, Height Start Date: 05/03/20 Stop Date: 10/30/20 Status: Ordered Fish Oil By Mouth, Daily, 0 Refills, Maintenance, 01/27/19 9:06:45 EST Start Date: 01/27/19 Status: Ordered gabapentin 800 mg oral tablet 1 tablet = 800 mg, By Mouth, 3 times a day with meals, # 270 tablet, 2 Refills, Maintenance, 12/15/19 8:56:00 EDT, Tablet, [facility]/pharmacy #4200, 157.4, cm, 09/01/19 8:41:00 EDT, Height [...] 08/09/20 12:53:00 EDT, 02/11/20 12:53:00 EST, Solution, [facility]/pharmacy #0373, please fill early . higherdose, 157.4, cm, 02/02/20 12:10:00 EST, Height Start Date: 02/11/20 Stop Date: 08/09/20 Status: Ordered insulin detemir 100 units/mL subcutaneous solution = 82 units, Subcutaneous Injection, Daily at bedtime, for 30 days, # 15 mL, 5 Refills, Hard Stop 10/17/20 11:28:00 EDT, 04/20/20 11:28:00 EST, Solution, [facility]/pharmacy #0373, please fill early . higherdose, 157.4, [...] 04/23/20 8:36:00 EST, [facility] 157.4, cm, 04/13/20 9:03:00 EST, Height Start Date: 04/23/20 Stop Date: 10/20/20 Status: Ordered LORazepam 0.5 mg oral tablet 1 tablet = 0.5 mg, By Mouth, 3 times a day, PRN for anxiety, for 30 days, # 30 tablet, 3 Refills, Acute 10/13/20 16:18:00 EDT, 06/15/20 16:18:00 EDT, Tablet, [facility]/pharmacy #0373, 157.4, cm, 04/13/20 9:03:00 EST, Height Start Date: 06/15/20 Stop Date: 10/13/20 Status: Ordered Nicoderm C-Q 7 mg/24 hr transdermal film, extended release 1 patch, By Mouth, Daily, # 30 patch, 5 Refills, Maintenance, 09/01/19 9:18:00 EDT, [facility]/pharmacy #0373, 157.4, cm, 09/01/19 8:41:00 EDT, Height Start Date: 09/01/19 Stop Date: 02/28/20 Status: Ordered ondansetron 4 mg oral tablet See Instructions, TAKE 1 TABLET BY MOUTH EVERY 8 HOURS NEEDED FOR NAUSEA AND VOMITING FOR 5 DAYS, # 9 tablet, 3 Refills, Maintenance, [facility] STORE 95749, 157.4, cm, 04/13/20 9:03:00 EST, Height Start [...] 10 mg, By Mouth, Every 4 hours, MANUFACTURING ENGINEER checked., # 168 tablet, 0 Refills, Acute 03/16/21 15:47:00 EST, 07/17/20 15:54:00 EDT, [facility]/pharmacy #2071, Partial fill upon patient request; OK to fillearly pt going on vacation, 07/19/20, 157.4, cm, 01... Start Date: 07/17/20 Stop Date: 03/16/21 Status: Ordered Pt.'s Own Meds CBD, Daily, Maintenance, 01/27/19 9:06:59 EST Start Date: 01/27/19 Status: Ordered rOPINIRole 1 mg oral tablet 1 tablet = 1 mg, By Mouth, 2 times a day, # 180 tablet, 1 Refills, Maintenance, 04/17/20 13:52:00 EST, [facility]/pharmacy #0373, 157.4, cm, 04/13/20 9:03:00 EST, Height Start Date: 04/17/20 Status: Ordered Trulicity Pen 0.75 mg/0.5 mL subcutaneous solution 0.5 mL = 0.75 mg, Subcutaneous Injection, Every week, rotate injection sites, # 2.5 mL, 0 Refills, Maintenance, 07/25/20 14:16:00 EDT, Solution, [facility]/pharmacy #0373, Partial fill upon patient request if [...] 1 Refills, Maintenance, 04/13/20 9:35:00 EST, Tablet, [facility]/pharmacy #4473, Partial fill upon patient request if the [...]
--- OUTSIDE RECORDS SUMMARY | 2023-07-18 03:28 | XMS_ITS | Continuity of Care Document ---
Author Organization [facility] Adult Address [address] [place] [address]- Care Team Providers Care Family And Consumer Sciences Professor Name Role Phone Charo DUMONT, Dayna Primary Care Physician Encounter [facility] [place] Date(s): 06/03/19 - 06/10/19 [facility] [address] [place] [address] Encounter Diagnosis DM (diabetes mellitus), type 2(Discharge Diagnosis) - 06/03/19 Current use of insulin(Discharge Diagnosis) - 06/03/19 Long-term current use of opiate analgesic(Discharge Diagnosis) - 06/03/19 RSD (reflex sympathetic dystrophy)(Discharge Diagnosis) - 06/03/19 Tobacco abuse disorder(Discharge Diagnosis) - 06/03/19 Attending Physician: Not on Staff, Attending MD Allergies, Adverse Reactions, Alerts Substance Reaction Severity Status codeine Active Lactose Active Immunizations Given and Recorded Vaccine Date Status Refusal Reason influenza virus vaccine, inactivated 1 01/16/17 Gi daniel influenza virus vaccine, inactivated 01/12/16 Give n influenza virus vaccine, inactivated 02/04/15 Give n pneumococcal 23-valent vaccine 02/04/15 Given 1Result Comment: [id number] Medications aspirin 81 mg oral tablet 1 [...] 05/03/19 12:16:00 EST, Route to Pharmacy Electronically, [facility]/pharmacy #0373, 157.4, cm, 04/26/19 15:53:00 EST, Height Start Date: 05/03/19 Stop Date: 10/30/19 Status: Ordered LORazepam 0.5 mg oral tablet 1 tablet = 0.5 mg, By Mouth, 3 times a day, PRN as needed for anxiety, for 10 days, # 30 tablet, 0 Refills, Acute 06/11/19 14:43:00 EDT, 06/01/19 14:43:00 EDT, Tablet, [facility]/pharmacy #0373, 157.4, cm, 04/26/19 15:53:00 EST, Height Start Date: 06/01/19 Stop Date: 06/11/19 Status: Ordered One Touch Ultra 2 Glucose [...] 10 mg, By Mouth, Every 4 hours, MANAGEMENT PROFESSOR checked., # 168 tablet, 0 Refills, Acute 03/16/20 16:17:00 EST, 05/25/19 21:09:00 EDT, [facility]/pharmacy #0373, Partial fill upon patient request; ok to fillearly traveling, 05/26/19, 157.4, cm, 04/26/19 15:5... Start Date: 05/25/19 Stop Date: 03/16/20 Status: Ordered Pt.'s Own [...] DM (diabetes mellitus), type 2 Discharge Diagnosis 06/03/19 Current use of insulin Discharge Diagnosis 06/03/19 Tobacco abuse disorder Discharge Diagnosis 06/03/19 RSD (reflex sympathetic dystrophy) Discharge Diagnosis 06/03/19 Long-term current use of opiate analgesic Discharge Diagnosis 06/03/19 Vital Signs Most recent to oldest [Reference Range]: 1 Height 157.40 cm (06/03/19 8:51 AM) Weight 98.4 kg (06/03/19 8:51 AM) Oxygen Saturation [94-100 %] 97 % (06/03/19 8:51 AM) Pulse Rate [55-90 bpm] 83 bpm (06/03/19 8:51 AM) Body Mass Index [18.5-24.99] 39.72 *>HHI* (06/03/19 8:51 AM) Blood Pressure [90-138/55-84 mm Hg] 110/ 80mm Hg (06/03/19 8:51 AM) Blood pressure sites Arm, left (06/03/19 8:51 AM) Temperature Route Oral (06/03/19 8:51 AM) Weight Obtained Via Standing scale (06/03/19 8:51 AM) Social History Social History Type Response Smoking Status Current every day sm oker; Type: Cigarettes; Tobacco use times per day: 4-5; entered on: 01/16/17 Sex
--- OUTSIDE RECORDS SUMMARY | 2023-07-18 03:28 | XMS_ITS | Continuity of Care Document ---
Author Organization [facility] Adult Address [address] [place] [address]- Care Team Providers Care Boat Canvas Maker And Installer Name Role Phone Charo DUMONT, Dayna Primary Care Physician Encounter [facility] Date(s): 08/06/22 - 09/05/22 [facility] Adult [address] [place] [phone]- Allergies, Adverse Reactions, Alerts Substance Reaction Severity Status codeine Active Lactose Active Immunizations Given and Recorded Vaccine Date Status Refusal Reason SARS-CoV-2 (COVID-19) mRNA-1273 vaccine 03/30/21 R ecorded influenza virus vaccine, inactivated 1 01/16/17 Gi daniel influenza virus vaccine, inactivated 01/12/16 Give n influenza virus vaccine, inactivated 02/04/15 Give n pneumococcal 23-valent vaccine 02/04/15 Given 1Result Comment: [id number] Medications aspirin 81 mg oral tablet 1 tablet = 81 mg, By Mouth, Daily, # 30 tablet, 0 Refills, Maintenance, Tablet Start Date: 11/12/11 Status: Ordered BD INSULIN SYR UF 1 ML [id number] BD INSULIN SYR UF 1 ML [id number], See Instructions, # 100 Unknown, 3 Refills, Maintenance, USE TO INJECT INSULIN ONCE A DAY FOR DX E11.9, 157.4, cm, 08/01/20 11:31:00 EDT, Height Start Date: 10/09/20 Status: Ordered BD INSULIN SYR UF 1 ML [id number] BD INSULIN SYR UF 1 ML [id number], See Instructions, # 180 Unknown, 1 Refills, Maintenance, USE TO INJECT INSULIN TWICE A DAY FOR DX E11.9, 04/18/22 10:30:00 EST, 156, cm, 04/18/22 9:46:00 EST, Height Start Date: 04/18/22 Status: Ordered duloxetine 20 mg oral enteric coated capsule 1 capsule, By Mouth, 2 times a day, # 180 capsule, 1 Refills, Maintenance, 02/25/22 9:26:00 EST, [facility], 156, cm, 01/14/22 15:09:00 EDT, Height Start [...] 2 Refills, Maintenance, 10/05/21 10:32:00 EDT, Tablet, [facility]/pharmacy #207, 156, cm, 07/26/21 9:18:00 EDT, [...] 5 Refills, Maintenance, 06/10/22 11:10:00 EDT, Solution, [facility]/pharmacy #2071, please fill early . higher [...] 04/01/22 6:54:00 EST, Route to Pharmacy Electronically, [id number], 156, cm, 01/14/22 15:09:00 EDT, Height Start Date: 04/01/22 Status: Ordered LORazepam 0.5 mg oral tablet 1 tablet = 0.5 mg, By Mouth, 3 times a day, PRN for anxiety, for 30 days, # 30 tablet, 1 Refills, Acute 09/30/22 18:20:00 EDT, 08/01/22 18:20:00 EDT, Tablet, [facility]/pharmacy #[id number], 156, cm, 07/12/22 13:52:00 EDT, Height Start Date: 08/01/22 Stop Date: 09/30/22 Status: Ordered Nicoderm C-Q 7 mg/24 hr transdermal film, extended release 1 patch, By Mouth, Daily, # 30 patch, 5 Refills, Maintenance, 07/26/21 9:34:00 EDT, [facility]/pharmacy #0373, 156, cm, 07/26/21 9:18:00 EDT, Height Start Date: 07/26/21 Stop Date: 01/22/22 Status: Ordered ondansetron 4 mg oral tablet 1 tablet, By Mouth, Every 8 hours, PRN NEEDED FOR NAUSEA AND VOMITING FOR, # 9 tablet, 3 Refills, Maintenance, 06/27/22 10:42:00 EDT, [facility]/pharmacy #2071, 156, cm, 05/10/22 10:53:00 EST, [...] 10 mg, By Mouth, Every 4 hours, TITLE CLERK checked. fill 09/03/22, # 168 tablet, 0 Refills, Maintenance, 09/03/22 7:02:00 EDT, [facility]/pharmacy #[id number], Partial fill upon patient request;, 156, cm, 07/12/22 13:52:00 EDT, Height Start Date: 09/03/22 Stop Date: 10/01/22 Status: Ordered oxyCODONE 15 mg oral tablet 1 tablet = 15 mg, By Mouth, Daily at bedtime, PRN as needed for pain, director agency & strategic partnerships checked fill 07/19 23, # 28tablet, 0 Refills, Maintenance, 07/16/22 7:43:00 EDT, Tablet, [facility], Partial fill uponpatient request if the prescription is for a schedu... Start Date: 07/16/22 Stop Date: 08/13/22 Status: Ordered Pen [place], 31 G x 5 mm BD Ultra [...] 1 Refills, Maintenance, 03/27/22 18:34:00 EST, [facility], 156, cm, 01/14/22 15:09:00 EDT, Height Start [...] Professional Member Role: PCP Address: Address: [address] [place] [address], [address] [place] [address]- Care Team Related Persons Name: IRMA FUNG Address: home [address] [place] [address] Name: NONE, GIVEN Address: [place] [address]
--- OUTSIDE RECORDS SUMMARY | 2023-07-18 03:28 | XMS_ITS | Continuity of Care Document ---
Author Organization [facility] Adult Address [address] [place] [address]- Care Team Providers Care Gun Sealing Machine Operator Name Role Phone Charo DUMONT, aDyna Primary Care Physician [place] [facility] [place] 04/17/22 - 05/17/22 [facility] Adult [address] [place] [phone]- Allergies, Adverse Reactions, Alerts Substance Reaction Severity Status codeine Active Lactose Active Immunizations Given and Recorded Vaccine Date Status Refusal Reason SARS-CoV-2 (COVID-19) mRNA-1273 vaccine 03/30/21 R ecorded influenza virus vaccine, inactivated 1 01/16/17 Gi daniel influenza virus vaccine, inactivated 01/12/16 Give n influenza virus vaccine, inactivated 02/04/15 Give n pneumococcal 23-valent vaccine 02/04/15 Given 1Result Comment: [id number] Medications aspirin 81 mg oral tablet 1 tablet = 81 mg, By Mouth, Daily, # 30 tablet, 0 Refills, Maintenance, Tablet Start Date: 11/12/11 Status: Ordered BD INSULIN SYR UF 1 ML [id number] BD INSULIN SYR UF 1 ML [id number], See Instructions, # 100 Unknown, 3 Refills, Maintenance, USE TO INJECT INSULIN ONCE A DAY FOR DX E11.9, 157.4, cm, 08/01/20 11:31:00 EDT, Height Start Date: 10/09/20 Status: Ordered BD INSULIN SYR UF 1 ML [id number] BD INSULIN SYR UF 1 ML [id number], See Instructions, # 180 Unknown, 1 Refills, Maintenance, USE TO INJECT INSULIN TWICE A DAY FOR DX E11.9, 04/18/22 10:30:00 EST, 156, cm, 04/18/22 9:46:00 EST, Height Start Date: 04/18/22 Status: Ordered duloxetine 20 mg oral enteric coated capsule 1 capsule, By Mouth, 2 times a day, # 180 capsule, 1 Refills, Maintenance, 02/25/22 9:26:00 EST, [facility], 156, cm, 01/14/22 15:09:00 EDT, Height Start Date: 02/25/22 Status: Ordered Fish Oil By Mouth, Daily, 0 Refills, Maintenance, 01/27/19 9:06:45 EST Start Date: 01/27/19 Status: Ordered gabapentin 800 mg oral tablet 1 tablet = 800 mg, By Mouth, 3 times a day with meals, # 270 tablet, 2 Refills, Maintenance, 10/05/21 10:32:00 EDT, Tablet, [facility]/pharmacy #[id number], 156, cm, 07/26/21 9:18:00 EDT, Height [...] 5 Refills, Maintenance, 02/01/22 13:33:00 EST, Solution, [facility]/pharmacy #2071, please fill early . higher dose, [...] 04/01/22 6:54:00 EST, Route to Pharmacy Electronically, [facility], 156, cm, 01/14/22 15:09:00 EDT, Height Start Date: 04/01/22 Status: Ordered LORazepam 0.5 mg oral tablet 1 tablet = 0.5 mg, By Mouth, 3 times a day, PRN for anxiety, for 30 days, # 30 tablet, 1 Refills, Acute 07/12/22 9:53:00 EDT, 05/13/22 9:53:00 EST, Tablet, [facility]/pharmacy #[id number], 156, cm, 05/10/22 10:53:00 EST, Height Start Date: 05/13/22 Stop Date: 07/12/22 Status: Ordered Nicoderm C-Q 7 mg/24 hr transdermal film, extended release 1 patch, By Mouth, Daily, # 30 patch, 5 Refills, Maintenance, 07/26/21 9:34:00 EDT, [facility]/pharmacy #0373, 156, cm, 07/26/21 9:18:00 EDT, Height Start Date: 07/26/21 Stop Date: 01/22/22 Status: Ordered ondansetron 4 mg oral tablet 1 tablet, By Mouth, Every 8 hours, PRN NEEDED FOR NAUSEA AND VOMITING FOR, # 9 tablet, 3 Refills, Maintenance, 03/15/22 15:20:00 EST, [facility], 156, cm, 01/14/22 15:09:00 EDT, Height Start [...] Mouth, Every 4 hours, for 28 days, TRANSIT DRIVER checked., # 168 tablet, 0 Refills, Acute 06/10/22 14:02:00 EDT, 05/13/22 14:02:00 EST, [facility]/pharmacy #[id number], Partial fill upon patient request;, 156, cm, 05/10/22 10:53:00 EST, Height Start Date: 05/13/22 Stop Date: 06/10/22 Status: Ordered oxyCODONE 15 mg oral tablet 1 tablet = 15 mg, By Mouth, Daily at bedtime, PRN as needed for pain, for 28 days, fill on 04/26/22,# 28 tablet, 0 Refills, Acute 05/23/22 13:06:00 EST, 04/25/22 13:06:00 EST, Tablet, [facility]/pharmacy #[id number], Partial fill upon patient request if the prescr... Start Date: 04/25/22 Stop Date: 05/23/22 Status: Ordered Pt.'s Own Meds CBD, Daily, Maintenance, 01/27/19 9:06:59 EST Start Date: 01/27/19 Status: Ordered rOPINIRole 1 mg oral tablet 1 tablet, By Mouth, 2 times a day, # 180 tablet, 1 Refills, Maintenance, 03/27/22 18:34:00 EST, [facility], 156, cm, 01/14/22 15:09:00 EDT, Height Start Date: 03/27/22 Status: Ordered Trulicity Pen 1.5 mg/0.5 mL subcutaneous solution See Instructions, INJECT 0.5 ML SUBCUTANEOUS INJECTION EVERY WEEK, # 2 Unknown, 2 Refills, Maintenance, 04/29/22 10:00:00 EST, [facility], 156, cm, 04/18/22 9:46:00 EST, Height Start [...] Team Personnel Name: Dayna Mancilla NP Position: [facility] PCO Associate Professional Member Role: PCP Address: Address: [address] [place] [address], [address] [place] [address]- Care Team Related Persons Name: IRMA FUNG Address: [address] [place] [address] Name: NONE, GIVEN Address: home [facility] [id number]
--- OUTSIDE RECORDS SUMMARY | 2023-07-18 03:28 | XMS_ITS | Continuity of Care Document ---
Author Organization [facility] Adult Address [address] [place] [address]- Care Team Providers Care Ampoule Inspector Name Role Phone Dayna Mancilla NP Primary Care Physician [phone] Encounter [facility] [place] Date(s): 12/11/20 - 12/18/20 [facility] Adult [address] [place] [address]- Encounter Diagnosis RSD (reflex sympathetic dystrophy)(Discharge Diagnosis) - 12/13/20 Attending Physician: Dayna Mancilla NP Allergies, Adverse Reactions, Alerts Substance Reaction Severity Status codeine Active Lactose Active Immunizations Given and Recorded Vaccine Date Status Refusal Reason influenza virus vaccine, inactivated 1 01/16/17 Gi daniel influenza virus vaccine, inactivated 01/12/16 Give n influenza virus vaccine, inactivated 02/04/15 Give n pneumococcal 23-valent vaccine 02/04/15 Given 1Result Comment: [id number] Medications aspirin 81 mg oral tablet 1 tablet = 81 mg, By Mouth, Daily, # 30 tablet, 0 Refills, Maintenance, Tablet Start Date: 11/12/11 Status: Ordered BD INSULIN SYR UF 1 ML [id number] BD INSULIN SYR UF 1 ML [id number], See Instructions, # 100 Unknown, 3 Refills, [...] 2 Refills, Maintenance, 09/04/20 17:31:00 EDT, Tablet, [facility]/pharmacy #[id number], 157.4, cm, 08/01/20 11:31:00 [...] 05/21/21 9:09:00 EST, 11/22/20 9:09:00 EDT, Solution, [facility]/pharmacy #[id number], please fill early . higher [...] 10/20/20 8:36:00 EDT, Route to Pharmacy Electronically, [facility]/pharmacy #[id number], 157.4, cm, 08/01/20 11:31:00 EDT, Height Start Date: 10/20/20 Stop Date: 04/18/21 Status: Ordered LORazepam 0.5 mg oral tablet 1 tablet = 0.5 mg, By Mouth, 3 times a day, PRN for anxiety, for 30 days, # 30 tablet, 3 Refills, Acute 02/06/21 9:44:00 EST, 10/09/20 9:44:00 EDT, Tablet, [facility]/pharmacy #[id number], 157.4, cm, 08/01/20 11:31:00 EDT, Height Start Date: 10/09/20 Stop Date: 02/06/21 Status: Ordered Nicoderm C-Q 7 mg/24 hr transdermal film, extended release 1 patch, By Mouth, Daily, # 30 patch, 5 Refills, Maintenance, 09/01/19 9:18:00 EDT, [facility]/pharmacy #0373, 157.4, cm, 09/01/19 8:41:00 [...] 10 mg, By Mouth, Every 4 hours, GUNNERY/ORDNANCE OFFICER checked. fill on 01/01/21, # 168 tablet, 0 Refills, Acute 03/16/21 15:21:00 EST, 12/13/20 18:22:00 EDT, [facility]/pharmacy #[id number], Partial fill upon patient request;, 01/01/21, 157.4, cm, 12/11/20 13:18:00 EDT,... Start Date: 12/13/20 Stop Date: 03/16/21 Status: Ordered oxyCODONE 15 mg oral tablet 1 tablet = 15 mg, By Mouth, Daily at bedtime, PRN as needed for pain, for 28 days, # 28 tablet, 0 Refills, Acute 01/08/21 13:31:00 EDT, 12/11/20 13:31:00 EDT, Tablet, [facility]/pharmacy #2071, Partial fillupon patient request if the prescription is for a s... Start Date: 12/11/20 Stop Date: 01/08/21 Status: Ordered Pt.'s Own Meds CBD, Daily, Maintenance, 01/27/19 9:06:59 EST Start Date: 01/27/19 Status: Ordered rOPINIRole 1 mg oral tablet 1 tablet, By Mouth, 2 times a day, # 180 tablet, 1 Refills, Maintenance, 10/06/20 14:51:00 EDT, [facility], 157.4, cm, 08/01/20 11:31:00 EDT, Height Start Date: 10/06/20 Status: Ordered Trulicity Pen 0.75 mg/0.5 mL subcutaneous solution 0.5 mL = 0.75 mg, Subcutaneous Injection, Every week, rotate injection sites, # 2.5 mL, 5 Refills, Maintenance, 08/31/20 16:54:00 EDT, Solution, [facility]/pharmacy #1593, Partial fill upon patient request if the [...] Effective Dates Health Status Clinical Service Informant RSD (reflex sympathetic dystrophy) Discharge Diagnosis 12/13/20 Vital Signs Most recent to oldest [Reference Range]: 1 Height 157.40 cm (12/11/20 1:18 PM) Social History Social History Type Response Smoking Status Current every day osmany lam; Type: Cigarettes; Tobacco use times per day: 4-5; entered on: 01/16/17 Sex
--- OUTSIDE RECORDS SUMMARY | 2023-07-18 03:28 | XMS_ITS | Continuity of Care Document ---
Author Organization [facility] Adult Address [address] [place] [address]- Care Team Providers Care Fixed Income Trading Vice President Name Role Phone Charo DUMONT, Dayna Primary Care Physician [phone] [place] [facility] [place](s): 11/30/21 - 12/30/21 [facility] Adult [address] [place] [phone]- Allergies, Adverse Reactions, Alerts Substance Reaction Severity Status codeine Active Lactose Active Immunizations Given and Recorded Vaccine Date Status Refusal Reason SARS-CoV-2 (COVID-19) mRNA-1273 vaccine 03/30/21 R ecorded influenza virus vaccine, inactivated 1 01/16/17 Gi daniel influenza virus vaccine, inactivated 01/12/16 Give n influenza virus vaccine, inactivated 02/04/15 Give n pneumococcal 23-valent vaccine 02/04/15 Given 1Result Comment: [id number] Medications aspirin 81 mg oral tablet 1 tablet = 81 mg, By Mouth, Daily, # 30 tablet, 0 Refills, Maintenance, Tablet Start Date: 11/12/11 Status: Ordered BD INSULIN SYR UF 1 ML [id number] BD INSULIN SYR UF 1 ML [id number], See Instructions, # 100 Unknown, 3 Refills, Maintenance, USE TO INJECT INSULIN ONCE A DAY FOR DX E11.9, 157.4, cm, 08/01/20 11:31:00 EDT, Height Start Date: 10/09/20 Status: Ordered duloxetine 20 mg oral enteric coated capsule See Instructions, TAKE 1 CAPSULE BY MOUTH TWICE A DAY, # 60 capsule, 5 Refills, [facility], 156, cm, 07/26/21 9:18:00 EDT, Height Start Date: 09/05/21 Status: Ordered Fish Oil By Mouth, Daily, 0 Refills, Maintenance, 01/27/19 9:06:45 EST Start Date: 01/27/19 Status: Ordered gabapentin 800 mg oral tablet 1 tablet = 800 mg, By Mouth, 3 times a day with meals, # 270 tablet, 2 Refills, Maintenance, 10/05/21 10:32:00 EDT, Tablet, [facility]/pharmacy #2071, 156, cm, 07/26/21 9:18:00 EDT, Height [...] 5 Refills, Maintenance, 07/26/21 9:29:00 EDT, Solution, [facility]/pharmacy #0373, please fill early . higher dose, [...] tablet, Refills 1, Route to Pharmacy Electronically, [facility], 156, cm, 07/26/21 9:18:00 EDT, Height Start Date: 09/29/21 Status: Ordered LORazepam 0.5 mg oral tablet 1 tablet = 0.5 mg, By Mouth, 3 times a day, PRN for anxiety, for 30 days, # 30 tablet, 3 Refills, Acute 01/05/22 9:32:00 EDT, 09/07/21 9:32:00 EDT, Tablet, [facility]/pharmacy #2071, 156, cm, 07/26/21 9:18:00 EDT, Height Start Date: 09/07/21 Stop Date: 01/05/22 Status: Ordered Medrol Dosepak 4 mg oral tablet See Instructions, 1 pack/packet By Mouth Once, # 1 pack/packet, 0 Refills, Soft Stop, 09/14/21 13:28:00 EDT, Tablet, [facility]/pharmacy #2071, Partial fill upon patient request if the prescription is for aschedule II opioid drug., 156, cm, 07/26/21 9:18:00... Start Date: 09/14/21 Status: Ordered Nicoderm C-Q 7 mg/24 hr transdermal film, extended release 1 patch, By Mouth, Daily, # 30 patch, 5 Refills, Maintenance, 07/26/21 9:34:00 EDT, [facility]/pharmacy #0373, 156, cm, 07/26/21 9:18:00 EDT, Height Start Date: 07/26/21 Stop Date: 01/22/22 Status: Ordered ondansetron 4 mg oral tablet 1 tablet, By Mouth, Every 8 hours, PRN NEEDED FOR NAUSEA AND VOMITING FOR, # 15 tablet, 1 Refills, Maintenance, 12/03/21 9:44:00 EDT, [facility], 156, cm, 07/26/21 9:18:00 EDT, Height Start [...] 10 mg, By Mouth, Every 4 hours, STRUCTURAL TEST ENGINEER checked.fill on 12/28/21, # 168 tablet, 0 [...] 1 Refills, Maintenance, 10/06/20 14:51:00 EDT, [facility], 157.4, cm, 08/01/20 11:31:00 EDT, Height Start [...] Refills, Maintenance, 12/24/21 14:39:00 EDT, [facility], 156, cm, 07/26/21 9:18:00 EDT, Height Start [...] Name: Dayna Mancilla NP Address: Address: [address] [place] [address], [address] Floor [place], [place] [address]
--- OUTSIDE RECORDS SUMMARY | 2023-07-18 03:28 | XMS_ITS | Continuity of Care Document ---
Author Organization [facility] Adult Address [address] [place] [address]- Care Team Providers Care Bioinformatics Assistant Name Role Phone Charo DUMONT, Dayna Primary Care Physician [place] [facility] [place] 01/14/20 [facility] Adult [address] [place] [address]- [facility] Attending Physician: Not on Staff, Attending MD Allergies, Adverse Reactions, Alerts Substance Reaction Severity Status codeine Active Lactose Active Immunizations Given and Recorded Vaccine Date Status Refusal Reason influenza virus vaccine, inactivated 1 01/16/17 Gi daniel influenza virus vaccine, inactivated 01/12/16 Give n influenza virus vaccine, inactivated 02/04/15 Give n pneumococcal 23-valent vaccine 02/04/15 Given 1Result Comment: [id number] Medications aspirin 81 mg oral tablet 1 [...] 2 Refills, Maintenance, 12/15/19 8:56:00 EDT, Tablet, [facility]/pharmacy #4200, 157.4, cm, 09/01/19 8:41:00 [...] 2 Refills, Maintenance, 02/16/20 15:41:00 EST, Solution, [facility]/pharmacy #0373, 157.4, cm, 09/01/19 8:41:00 EDT, Height Start Date: 02/16/20 Stop Date: 05/16/20 Status: Ordered insulin detemir 100 units/mL subcutaneous solution = 55 units, Subcutaneous Injection, Daily at bedtime, for 30 days, # 15 mL, 2 Refills, Hard Stop 02/16/20 15:41:00 EST, 11/18/19 15:41:00 EDT, Solution, [facility]/pharmacy #0373, 157.4, cm, 09/01/19 8:41:00 [...] 10/26/19 8:36:00 EDT, Route to Pharmacy Electronically, [facility]/pharmacy #0373, 157.4, cm, 09/01/19 8:41:00 EDT, Height Start Date: 10/26/19 Stop Date: 04/23/20 Status: Ordered LORazepam 0.5 mg oral tablet 1 tablet = 0.5 mg, By Mouth, 3 times a day, PRN for anxiety, for 30 days, # 30 tablet, 3 Refills, Acute 05/06/20 16:04:00 EST, 01/07/20 16:04:00 EDT, Tablet, [facility]/pharmacy #0373, 157.4, cm, 01/07/20 15:32:00 EDT, Height Start Date: 01/07/20 Stop Date: 05/06/20 Status: Ordered Nicoderm C-Q 7 mg/24 hr transdermal film, extended release 1 patch, By Mouth, Daily, # 30 patch, 5 Refills, Maintenance, 09/01/19 9:18:00 EDT, [facility]/pharmacy #0373, 157.4, cm, 09/01/19 8:41:00 [...] 10 mg, By Mouth, Every 4 hours, SOLIDWORKS MECHANICAL DESIGNER checked., # 168 tablet, 0 Refills, Acute 03/16/20 13:26:00 EST, 01/04/20 16:46:00 EDT, [facility]/pharmacy #0373, Partial fill upon patient request;, 01/05/20,157.4, [...] tablet, 1 Refills, Maintenance, 10/12/19 15:53:00 EDT, [facility]/pharmacy #0373, 157.4, cm, 09/01/19 8:41:00 [...] oldest [Reference Range]: 1 Height 157.40 cm (01/07/20 3:32 PM) Weight 93.3 kg (01/07/20 3:32 PM) Oxygen Saturation [94-100 %] 98 % (01/07/20 3:32 PM) Pulse Rate [55-90 bpm] 93 bpm *H* (01/07/20 3:32 PM) Body Mass Index [18.5-24.99] 37.66 *>HHI* (01/07/20 3:32 PM) Blood Pressure [90-138/55-84 mm Hg] 100/ 70mm Hg (01/07/20 3:32 PM) Blood pressure sites Arm, right (01/07/20 3:32 PM) Weight Obtained Via Standing scale (01/07/20 3:32 PM) Social History Social History Type Response Smoking Status Current every day osmany lam; Type: Cigarettes; Tobacco use times per day: 4-5; entered on: 01/16/17 Sex
--- OUTSIDE RECORDS SUMMARY | 2023-07-18 03:28 | XMS_ITS | Continuity of Care Document ---
Author Organization [facility] Adult Address [address] [place] [address]- Care Team Providers Care Strand And Binder Controller Name Role Phone Charo DUMONT, Dayna Primary Care Physician [place] [facility] [place] 12[place]22 [facility] [address] [place] [address]- Allergies, Adverse Reactions, Alerts Substance Reaction Severity Status codeine Active Lactose Active Immunizations Given and Recorded Vaccine Date Status Refusal Reason SARS-CoV-2 (COVID-19) mRNA-1273 vaccine 03/30/21 R ecorded influenza virus vaccine, inactivated 1 01/16/17 Gi daniel influenza virus vaccine, inactivated 01/12/16 Give n influenza virus vaccine, inactivated 02/04/15 Give n pneumococcal 23-valent vaccine 02/04/15 Given 1Result Comment: [id number] Medications aspirin 81 mg oral tablet 1 tablet = 81 mg, By Mouth, Daily, # 30 tablet, 0 Refills, Maintenance, Tablet Start Date: 11/12/11 Status: Ordered BD INSULIN SYR UF 1 ML [id number] BD INSULIN SYR UF 1 ML [id number], See Instructions, # 100 Unknown, 3 Refills, Maintenance, USE TO INJECT INSULIN ONCE A DAY FOR DX E11.9, 157.4, cm, 08/01/20 11:31:00 EDT, Height Start Date: 10/09/20 Status: Ordered BD INSULIN SYR UF 1 ML [id number] BD INSULIN SYR UF 1 ML [id number], See Instructions, # 180 Unknown, 1 Refills, Maintenance, USE TO INJECT INSULIN TWICE A DAY FOR DX E11.9, 04/18/22 10:30:00 EST, 156, cm, 04/18/22 9:46:00 EST, Height Start Date: 04/18/22 Status: Ordered duloxetine 20 mg oral enteric coated capsule 1 capsule, By Mouth, 2 times a day, # 180 capsule, 1 Refills, Maintenance, 10/14/22 11:08:00 EDT, [facility], 156, cm, 07/12/22 13:52:00 EDT, Height Start [...] Refills, Maintenance, 10/05/21 10:32:00 EDT, Tablet, [facility]/pharmacy #2071, 156, cm, 07/26/21 9:18:00 EDT, [...] Refills, Maintenance, 06/10/22 11:10:00 EDT, Solution, [facility]/pharmacy #[id number], please fill early . higher dose, 156, cm, 05/10/22 10:53:00 EST, Height Start Date: 06/10/22 Stop Date: 12/07/22 Status: Ordered insulin glargine (concentrated) 300 units/mL subcutaneous solution = 40 units, Subcutaneous Injection, 2 times a day, # 6 mL, 4 Refills, Maintenance, 11/27/22 14:19:00 EDT, Solution, [facility]/pharmacy #[id number], Partial fill upon patient request [...] 09/24/22 19:24:00 EDT, Route to Pharmacy Electronically, [facility] 856[facility], 156, cm, 07/12/22 13:52:00 EDT, Height Start Date: 09/24/22 Status: Ordered Nicoderm C-Q 7 mg/24 hr transdermal film, extended release 1 patch, By Mouth, Daily, # 30 patch, 5 Refills, Maintenance, 07/26/21 9:34:00 EDT, [facility]/pharmacy #0373, 156, cm, 07/26/21 9:18:00 EDT, Height Start Date: 07/26/21 Stop Date: 01/22/22 Status: Ordered ondansetron 4 mg oral tablet 1 tablet, By Mouth, Every 8 hours, PRN NEEDED FOR NAUSEA AND VOMITING FOR, # 9 tablet, 3 Refills, Maintenance, 06/27/22 10:42:00 EDT, [facility]/pharmacy #[id number], 156, cm, 05/10/22 10:53:00 EST, [...] 10 mg, By Mouth, Every 4 hours, HOUSEKEEPER MANAGER checked. fill on 12/24/22, # 168 tablet, 0 Refills, Maintenance, 12/20/22 9:01:00 EDT, [facility]/pharmacy #[id number], Partial fill upon patient request;, 156, cm, 10/16/22 15:36:00 EDT, Height Start Date: 12/20/22 Stop Date: 01/17/23 Status: Ordered oxyCODONE 15 mg oral tablet 1 tablet = 15 mg, By Mouth, Daily at bedtime, PRN as needed for pain, fly maker checked fill 12/04/22, # 28 tablet, 0 Refills, Maintenance, 12/02/22 12:20:00 EDT, Tablet, [facility], Partial fill upon patient request if the prescription is for a sche... Start Date: 12/02/22 Stop Date: 12/30/22 Status: Ordered Pen Gilliam, 31 G x 5 mm BD Ultra [...] Associate Professional Member Role: PCP Address: Address: [address] [place] [address], [address] [place] [address]- Care Team Related Persons Name: IRMA FUNG Address: [address] [place] [address] Name: NONE, GIVEN Address: [place] [address]
--- OUTSIDE RECORDS SUMMARY | 2023-07-18 03:28 | XMS_ITS | Continuity of Care Document ---
Author Organization [facility] Adult Address [address] [place] [address]- Care Team Providers Care Coverstitch Elastic Attacher Name Role Phone Charo DUMONT, Dayna Primary Care Physician [place] [facility] [place] 09/[place] - 10/28/19 [facility] [address] [place] [address]- [facility] Allergies, Adverse Reactions, Alerts Substance Reaction Severity Status codeine Active Lactose Active Immunizations Given and Recorded Vaccine Date Status Refusal Reason influenza virus vaccine, inactivated 1 01/16/17 Gi daniel influenza virus vaccine, inactivated 01/12/16 Give n influenza virus vaccine, inactivated 02/04/15 Give n pneumococcal 23-valent vaccine 02/04/15 Given 1Result Comment: 48185-533-32 Medications aspirin 81 mg oral tablet 1 [...] 2 Refills, Maintenance, 09/09/19 13:23:00 EDT, Solution, [facility]/pharmacy #0373, 157.4, cm, 09/01/19 8:41:00 EDT, Height [...] 8:36:00 EDT, Route to Pharmacy Electronically, [facility]/pharmacy #0373, 157.4, cm, 09/01/19 8:41:00 EDT, Height [...] 10 mg, By Mouth, Every 4 hours, FARM ADVISER checked., # 168 tablet, 0 Refills, Acute 03/16/20 11:44:00 EST, 10/08/19 12:04:00 EDT, [facility]/pharmacy #0373, Partial fill upon patient request; [place] to fil[place] for travel, 10/13/19, 157.4, cm, 09/01/19 8:4... Start Date: 10/08/19 Stop Date: 03/16/20 Status: Ordered Pt.'s Own [...]
--- OUTSIDE RECORDS SUMMARY | 2023-07-18 03:28 | XMS_ITS | Continuity of Care Document ---
Author Organization [facility] Adult Address [address] [place] [address]- Care Team Providers Care [place] Seamer Name Role Phone Charo DUMONT, Dayna Primary Care Physician [place] [facility] [place]04[place] 03/11/19 [facility] [address] [place] [address]- [facility] Attending Physician: Not on Staff, Attending MD Allergies, Adverse Reactions, Alerts Substance Reaction Severity Status codeine Active Lactose Active Immunizations Given and Recorded Vaccine Date Status Refusal Reason influenza virus vaccine, inactivated 1 01/16/17 Gi daniel influenza virus vaccine, inactivated 01/12/16 Give n influenza virus vaccine, inactivated 02/04/15 Give n pneumococcal 23-valent vaccine 02/04/15 Given 1Result Comment: 34757-012-00 Medications aspirin 81 mg oral tablet 1 [...] 02/09/19 14:31:13 EST, Route to Pharmacy Electronically, [id number], [facility]/pharmacy #0373 Start Date: 02/09/19 Stop Date: 05/10/19 Status: Ordered LORazepam 0.5 mg oral tablet [...] 10 mg, By Mouth, Every 4 hours, REAL ESTATE MANAGEMENT SPECIALIST checked., # 168 tablet, 0 Refills, Acute 03/16/19 14:04:00 EST, 03/02/19 16:38:00 EST, [facility]/pharmacy #0373, Partial fill upon patient request, 03/03/19, [...] oldest [Reference Range]: 1 Height 157.40 cm (03/04/19 8:46 AM) Weight 99.7 kg (03/04/19 8:46 AM) Oxygen Saturation [94-100 %] 97 % (03/04/19 8:46 AM) Pulse Rate [55-90 bpm] 105 bpm *H* (03/04/19 8:46 AM) Body Mass Index [18.5-24.99] 40.24 *>HHI* (03/04/19 8:46 AM) Blood Pressure [90-138/55-84 mm Hg] 138/ 76mm Hg (03/04/19 8:46 AM) Blood pressure sites Arm, left (03/04/19 8:46 AM) Temperature Route Oral (03/04/19 8:46 AM) Weight Obtained Via Standing scale (03/04/19 8:46 AM) Social History Social History Type Response Smoking Status Current every day osmany lam; Type: Cigarettes; Tobacco use times per day: 4-5; entered on: 01/16/17 Sex
--- OUTSIDE RECORDS SUMMARY | 2023-07-18 03:28 | XMS_ITS | Continuity of Care Document ---
Author Organization [facility] Adult Address [address] [place] [address]- Care Team Providers Care Quality Control Manager Name Role Phone Dayna Mancilla NP Primary Care Physician Encounter [facility] [place] Date(s): 04/15/20 - 08/13/20 [facility] [address] [place] [address]- Attending Physician: Dayna Mancilla NP Allergies, Adverse Reactions, Alerts Substance Reaction Severity Status codeine Active Lactose Active Immunizations Given and Recorded Vaccine Date Status Refusal Reason influenza virus vaccine, inactivated 1 01/16/17 Gi daniel influenza virus vaccine, inactivated 01/12/16 Give n influenza virus vaccine, inactivated 02/04/15 Give n pneumococcal 23-valent vaccine 02/04/15 Given 1Result Comment: [id number] Medications aspirin 81 mg oral tablet 1 [...] Refills, Maintenance, 12/15/19 8:56:00 EDT, Tablet, [facility]/pharmacy #[id number], 157.4, cm, 09/01/19 8:41:00 EDT, Height [...] 13:11:00 EST, 08/09/20 13:11:00 EDT, Solution, [facility]/pharmacy #0373, please fill early . higherdose, 157.4, [...] 8:36:00 EST, Route to Pharmacy Electronically, [facility]/pharmacy #0373, 157.4, cm, 04/13/20 9:03:00 EST, Height Start Date: 04/23/20 Stop Date: 10/20/20 Status: Ordered LORazepam 0.5 mg oral tablet 1 tablet = 0.5 mg, By Mouth, 3 times a day, PRN for anxiety, for 30 days, # 30 tablet, 3 Refills, Acute 10/13/20 16:18:00 EDT, 06/15/20 16:18:00 EDT, Tablet, [facility]/pharmacy #0373, 157.4, cm, 04/13/20 9:03:00 EST, Height [...] 9 tablet, 3 Refills, Maintenance, [facility], 157.4, cm, 04/13/20 9:03:00 EST, Height Start [...] 10 mg, By Mouth, Every 4 hours, PAINTING MACHINE OPERATOR checked., # 168 tablet, 0 Refills, Acute 03/16/21 15:47:00 EST, 07/17/20 15:54:00 EDT, [facility], Partial fill upon patient request; OK to [...] 08/01/20 15:15:00 EDT, Route to Pharmacy Electronically, [facility]/pharmacy #7414, Partial fill upon patient... Start Date: 08/01/20 Stop Date: 08/15/20 Status: Ordered Pt.'s Own Meds CBD, Daily, Maintenance, 01/27/19 9:06:59 EST Start Date: 01/27/19 Status: Ordered rOPINIRole 1 mg oral tablet 1 tablet = 1 mg, By Mouth, 2 times a day, # 180 tablet, 1 Refills, Maintenance, 04/17/20 13:52:00 EST, [facility]/pharmacy #0373, 157.4, cm, 04/13/20 9:03:00 EST, Height Start Date: 04/17/20 Status: Ordered Trulicity Pen 0.75 mg/0.5 mL subcutaneous solution 0.5 mL = 0.75 mg, Subcutaneous Injection, Every week, rotate injection sites, # 2.5 mL, 0 Refills, Maintenance, 07/25/20 14:16:00 EDT, Solution, [facility]/pharmacy #0373, Partial fill upon patient request if [...] Refills, Maintenance, 04/13/20 9:35:00 EST, Tablet, [facility]/pharmacy #4260, Partial fill upon patient request if the [...]
--- OUTSIDE RECORDS SUMMARY | 2023-07-18 03:28 | XMS_ITS | Continuity of Care Document ---
Author Organization [facility] Adult Address [address] [place] [address]- Care Team Providers Care Campus Recruiting Internship Name Role Phone Charo DUMONT, Dayna Primary Care Physician [phone] Encounter [facility] Date(s): 10/04/20 - 11/03/[address] [facility] [address] [place] [address]- Allergies, Adverse Reactions, Alerts Substance Reaction Severity Status codeine Active Lactose Active Immunizations Given and Recorded Vaccine Date Status Refusal Reason influenza virus vaccine, inactivated 1 01/16/17 Gi daniel influenza virus vaccine, inactivated 01/12/16 Give n influenza virus vaccine, inactivated 02/04/15 Give n pneumococcal 23-valent vaccine 02/04/15 Given 1Result Comment: 05602-945-41 Medications aspirin 81 mg oral tablet 1 tablet = 81 mg, By Mouth, Daily, # 30 tablet, 0 Refills, Maintenance, Tablet Start Date: 11/12/11 Status: Ordered BD INSULIN SYR UF 1 ML [id number] BD INSULIN SYR UF 1 ML [id number], See Instructions, # 100 Unknown, 3 Refills, [...] 2 Refills, Maintenance, 09/04/20 17:31:00 EDT, Tablet, [facility]/pharmacy #[id number], 157.4, cm, 08/01/20 11:31:00 EDT, Height [...] 03/06/21 13:42:00 EST, 09/07/20 13:42:00 EDT, Solution, [facility]/pharmacy #[id number], please fill early . higherdose, 157.4, [...] 8:36:00 EDT, [id number], cm, 08/01/20 11:31:00 EDT, Height Start Date: 10/20/20 Stop Date: 04/18/21 Status: Ordered LORazepam 0.5 mg oral tablet 1 tablet = 0.5 mg, By Mouth, 3 times a day, PRN for anxiety, for 30 days, # 30 tablet, 3 Refills, Acute 02/06/21 9:44:00 EST, 10/09/20 9:44:00 EDT, Tablet, [facility]/pharmacy #[id number], 157.4, cm, 08/01/20 11:31:00 EDT, Height Start Date: 10/09/20 Stop Date: 02/06/21 Status: Ordered Nicoderm C-Q 7 mg/24 hr transdermal film, extended release 1 patch, By Mouth, Daily, # 30 patch, 5 Refills, Maintenance, 09/01/19 9:18:00 EDT, [facility]/pharmacy #0373, 157.4, cm, 09/01/19 8:41:00 EDT, Height Start Date: 09/01/19 Stop Date: 02/28/20 Status: Ordered ondansetron 4 mg oral tablet See Instructions, TAKE 1 TABLET BY MOUTH EVERY 8 HOURS NEEDED FOR NAUSEA AND VOMITING FOR 5 DAYS, # 9 tablet, 3 Refills, Maintenance, [facility], 157.4, cm, 04/13/20 9:03:00 EST, Height Start [...] 10 mg, By Mouth, Every 4 hours, WARDROBE COORDINATOR checked., # 168 tablet, 0 Refills, Acute 10/09/21 14:21:00 EDT, 10/09/20 14:54:00 EDT, [facility], Partial fill upon patient request;,157.4, cm, 08/01/20 11:31:00 EDT, Height Start Date: 10/09/20 Stop Date: 10/09/21 Status: Ordered oxyCODONE 10 mg oral tablet 1 tablet = 10 mg, By Mouth, Every 4 hours, WARDROBE COORDINATOR checked., # 168 tablet, 0 Refills, Acute [...] 1 Refills, Maintenance, 10/06/20 14:51:00 EDT, [facility], 157.4, cm, 08/01/20 11:31:00 EDT, Height Start Date: 10/06/20 Status: Ordered Trulicity Pen 0.75 mg/0.5 mL subcutaneous solution 0.5 mL = 0.75 mg, Subcutaneous Injection, Every week, rotate injection sites, # 2.5 mL, 5 Refills, Maintenance, 08/31/20 16:54:00 EDT, [facility], [facility], Partial fill upon patient request if the [...] 1 Refills, Maintenance, 09/04/20 14:45:00 EDT, Tablet, [facility]/pharmacy #0792, Partial fill upon patient request if the [...]
--- OUTSIDE RECORDS SUMMARY | 2023-07-18 03:28 | XMS_ITS | Continuity of Care Document ---
Author Organization [facility] Adult Address [address] [place] [address]- Care Team Providers Care Shoe Sewing Machine Operator And Tender Name Role Phone Charo DUMONT, Dayna Primary Care Physician [place] [facility] [place](s[place] 03/14/21 - 04/13/21 [facility] Adult [address] [place] [address]- Allergies, Adverse Reactions, Alerts Substance Reaction Severity Status codeine Active Lactose Active Immunizations Given and Recorded Vaccine Date Status Refusal Reason SARS-CoV-2 (COVID-19) mRNA-1273 vaccine 03/30/21 R ecorded influenza virus vaccine, inactivated 1 01/16/17 Gi daniel influenza virus vaccine, inactivated 01/12/16 Give n influenza virus vaccine, inactivated 02/04/15 Give n pneumococcal 23-valent vaccine 02/04/15 Given 1Result Comment: 79803-433-45 Medications aspirin 81 mg oral tablet 1 tablet = 81 mg, By Mouth, Daily, # 30 tablet, 0 Refills, Maintenance, Tablet Start Date: 11/12/11 Status: Ordered BD INSULIN SYR UF 1 ML [id number] BD INSULIN SYR UF 1 ML [id number], See Instructions, # 100 Unknown, 3 Refills, Maintenance, USE TO INJECT INSULIN ONCE A DAY FOR DX E11.9, 157.4, cm, 08/01/20 11:31:00 EDT, Height Start Date: 10/09/20 Status: Ordered buPROPion 150 mg/12 hours (SR) oral tablet, extended release 1 tablet = 150 mg, By Mouth, 2 times a day, # 60 tablet, 5 Refills, Maintenance, 05/03/20 11:33:00 EST, ER Tablet, [facility], 157.4, cm, 04/13/20 9:03:00 EST, Height Start Date: 05/03/20 Stop Date: 10/30/20 Status: Ordered Fish Oil By Mouth, Daily, 0 Refills, Maintenance, 01/27/19 9:06:45 EST Start Date: 01/27/19 Status: Ordered gabapentin 800 mg oral tablet 1 tablet = 800 mg, By Mouth, 3 times a day with meals, # 270 tablet, 2 Refills, Maintenance, 09/04/20 17:31:00 EDT, Tablet, [facility]/pharmacy #2071, 157.4, cm, 08/01/20 11:31:00 EDT, Height [...] 05/21/21 9:09:00 EST, 11/22/20 9:09:00 EDT, Solution, [facility]/pharmacy #[id number], please fill early . higher dose, [...] tablet, Refills 1, Route to Pharmacy Electronically, [facility], 156, cm, 03/15/21 15:01:00 EST, Height Start Date: 04/01/21 Status: Ordered LORazepam 0.5 mg oral tablet 1 tablet = 0.5 mg, By Mouth, 3 times a day, PRN for anxiety, for 30 days, # 30 tablet, 3 Refills, Acute 06/23/21 8:00:00 EDT, 02/23/21 8:00:00 EST, Tablet, [facility]/pharmacy #2071, 157.4, cm, 12/11/20 13:18:00 EDT, Height Start Date: 02/23/21 Stop Date: 06/23/21 Status: Ordered Nicoderm C-Q 7 mg/24 hr transdermal film, extended release 1 patch, By Mouth, Daily, # 30 patch, 5 Refills, Maintenance, 09/01/19 9:18:00 EDT, [facility]/pharmacy #0373, 157.4, cm, 09/01/19 8:41:00 EDT, Height [...] 10 mg, By Mouth, Every 4 hours, BODY STYLIST checked. fill on 03/26/21, # 168 tablet, 0 Refills, Acute 03/16/22 13:20:00 EST, 03/23/21 16:43:00 EST, [facility]/pharmacy #[id number], Partial fill upon patient request;, 156, cm, 03/15/21 15:01:00 EST, Height Start Date: 03/23/21 Stop Date: 03/16/22 Status: Ordered oxyCODONE 15 mg oral tablet 1 tablet = 15 mg, By Mouth, Daily at bedtime, PRN as needed for pain, for 28 days, Fill on 04/03/21,# 28 tablet, 0 Refills, Acute 04/27/21 14:48:00 EST, 03/30/21 14:48:00 EST, Tablet, [facility]/pharmacy #2071, Partial fill upon patient request if the prescr... Start Date: 03/30/21 Stop Date: 04/27/21 Status: Ordered Pt.'s Own Meds CBD, Daily, Maintenance, 01/27/19 9:06:59 EST Start Date: 01/27/19 Status: Ordered rOPINIRole 1 mg oral tablet See Instructions, TAKE 1 TABLET BY MOUTH TWICE A DAY, # 180 tablet, 1 Refills, [facility], 156, cm, 03/15/21 15:01:00 EST, Height Start Date: 04/03/21 Status: Ordered rOPINIRole 1 mg oral tablet 1 tablet, By Mouth, 2 times a day, # 180 tablet, 1 Refills, Maintenance, 10/06/20 14:51:00 EDT, [facility], 157.4, cm, 08/01/20 11:31:00 EDT, Height Start Date: 10/06/20 Status: Ordered Trulicity Pen 0.75 mg/0.5 mL subcutaneous solution See Instructions, INJECT 0.5ML SUBCUTANEOUSLY EVERY WEEK. ROTATE INJECTION SITES, # 2 Unknown, 7 Refills, [facility], 156, cm, 03/15/21 15:01:00 EST, Height Start Date: 04/01/21 Status: Ordered Trulicity Pen 0.75 mg/0.5 mL subcutaneous solution See Instructions, INJECT 0.5 ML SUBCUTANEOUS INJECTION EVERY WEEK,X30 DAYS,INSTR:ROTATE INJECTION SITES, # 2 Unknown, 0 Refills, [facility], 156, cm, 03/15/21 15:01:00 EST, Height Start [...]
--- OUTSIDE RECORDS SUMMARY | 2023-07-18 03:28 | XMS_ITS | Continuity of Care Document ---
Author Organization [facility] Adult Address [address] [place] [address]- Care Team Providers Care Acoustical Carpenter Name Role Phone Dayna Mancilla NP Primary Care Physician [place] [facility] [id number] Date(s): 11/09/20 - 11/16/20 [facility] [address] [place] [address]- Attending Physician: Dayna Mancilla NP Allergies, Adverse Reactions, Alerts Substance Reaction Severity Status codeine Active Lactose Active Immunizations Given and Recorded Vaccine Date Status Refusal Reason influenza virus vaccine, inactivated 1 01/16/17 Gi daniel influenza virus vaccine, inactivated 01/12/16 Give n influenza virus vaccine, inactivated 02/04/15 Give n pneumococcal 23-valent vaccine 02/04/15 Given 1Result Comment: 52702-233-70 Medications aspirin 81 mg oral tablet 1 tablet = 81 mg, By Mouth, Daily, # 30 tablet, 0 Refills, Maintenance, Tablet Start Date: 11/12/11 Status: Ordered BD INSULIN SYR UF 1 ML [id number] BD INSULIN SYR UF 1 ML [id number], See Instructions, # 100 Unknown, 3 Refills, [...] Refills, Maintenance, 09/04/20 17:31:00 EDT, Tablet, [facility]/pharmacy #2071, 157.4, cm, 08/01/20 11:31:00 EDT, Height [...] # 20 mL, 5 Refills, Hard Stop 05/08/21 16:26:00 EST, 11/09/20 16:26:00 EDT, Solution, please fill early . higher dose Start Date: 11/09/20 Stop Date: 05/08/21 Status: Ordered Insulin Syringe, BD Ultra-Fine 1 [...] 8:36:00 EDT, Route to Pharmacy Electronically, [facility]/pharmacy #2071, 157.4, cm, 08/01/20 11:31:00 EDT, Height Start Date: 10/20/20 Stop Date: 04/18/21 Status: Ordered LORazepam 0.5 mg oral tablet 1 tablet = 0.5 mg, By Mouth, 3 times a day, PRN for anxiety, for 30 days, # 30 tablet, 3 Refills, Acute 02/06/21 9:44:00 EST, 10/09/20 9:44:00 EDT, Tablet, [facility]/pharmacy #2071, 157.4, cm, 08/01/20 11:31:00 EDT, Height Start Date: 10/09/20 Stop Date: 02/06/21 Status: Ordered Nicoderm C-Q 7 mg/24 hr transdermal film, extended release 1 patch, By Mouth, Daily, # 30 patch, 5 Refills, Maintenance, 09/01/19 9:18:00 EDT, [facility]/pharmacy #0373, 157.4, cm, 09/01/19 8:41:00 EDT, Height Start Date: 09/01/19 Stop Date: 02/28/20 Status: Ordered ondansetron 4 mg oral tablet See Instructions, TAKE 1 TABLET BY MOUTH EVERY 8 HOURS NEEDED FOR NAUSEA AND VOMITING FOR 5 DAYS, # 9 tablet, 3 Refills, Maintenance, [facility], 157.4, cm, 04/13/20 9:03:00 EST, Height Start [...] 10 mg, By Mouth, Every 4 hours, MARKETING FINANCE SPECIALIST checked., # 168 tablet, 0 Refills, Acute 03/16/21 14:35:00 EST, 09/12/20 16:45:00 EDT, [facility]/pharmacy #4390, Partial fill upon patient request;, 09/13/20,157.4, cm, 08/01/20 11:31:00 EDT, Height Start Date: 09/12/20 Stop Date: 03/16/21 Status: Ordered OxyCONTIN 15 mg oral tablet, extended release 1 tablet = 15 mg, By Mouth, Daily at bedtime, # 28 tablet, 0 Refills, Maintenance, 11/09/20 16:21:00 EDT, ER Tablet, [facility]/pharmacy #2071, Partial fill upon patient [...] 1 Refills, Maintenance, 10/06/20 14:51:00 EDT, [facility], 157.4, cm, 08/01/20 11:31:00 EDT, Height Start Date: 10/06/20 Status: Ordered Trulicity Pen 0.75 mg/0.5 mL subcutaneous solution 0.5 mL = 0.75 mg, Subcutaneous Injection, Every week, rotate injection sites, # 2.5 mL, 5 Refills, Maintenance, 08/31/20 16:54:00 EDT, Solution, [facility]/pharmacy #7173, Partial fill upon patient request if the [...] 1 Refills, Maintenance, 09/04/20 14:45:00 EDT, Tablet, [facility]/pharmacy #2681, Partial fill upon patient request if the [...] oldest [Reference Range]: 1 Height 157.40 cm (11/09/20 3:53 PM) Weight 98.8 kg (11/09/20 3:53 PM) Oxygen Saturation [94-100 %] 97 % (11/09/20 3:53 PM) Pulse Rate [55-90 bpm] 92 bpm *H* (11/09/20 3:53 PM) Body Mass Index [18.5-24.99] 39.88 *>HHI* (11/09/20 3:53 PM) Blood Pressure [90-138/55-84 mm Hg] 125/ 79mm Hg (11/09/20 3:53 PM) Blood pressure sites Arm, right (11/09/20 3:53 PM) Weight Obtained Via Standing scale (11/09/20 3:53 PM) Social History Social History Type Response Smoking Status Current every day osmany lam; Type: Cigarettes; Tobacco use times per day: 4-5; entered on: 01/16/17 Sex
--- OUTSIDE RECORDS SUMMARY | 2023-07-18 03:28 | XMS_ITS | Continuity of Care Document ---
Author Organization [facility] Adult Address [address] [place] [address]- Care Team Providers Care Transverse Abdominal Muscle Nurse Name Role Phone Charo DUMONT, Dayna Primary Care Physician [place] [facility] [place]20 [facility] Adult [address] [place] [address]- Allergies, Adverse Reactions, Alerts Substance Reaction Severity Status codeine Active Lactose Active Immunizations Given and Recorded Vaccine Date Status Refusal Reason influenza virus vaccine, inactivated 1 01/16/17 Gi daniel influenza virus vaccine, inactivated 01/12/16 Give n influenza virus vaccine, inactivated 02/04/15 Give n pneumococcal 23-valent vaccine 02/04/15 Given 1Result Comment: 42206-392-86 Medications aspirin 81 mg oral tablet 1 tablet = 81 mg, By Mouth, Daily, # 30 tablet, 0 Refills, Maintenance, Tablet Start Date: 11/12/11 Status: Ordered BD INSULIN SYR UF 1 ML [id number] BD INSULIN SYR UF 1 ML [id number], See Instructions, # 100 Unknown, 3 Refills, [...] 2 Refills, Maintenance, 09/04/20 17:31:00 EDT, Tablet, [facility]/pharmacy #[id number], 157.4, cm, 08/01/20 11:31:00 [...] 05/21/21 9:09:00 EST, 11/22/20 9:09:00 EDT, Solution, [facility]/pharmacy #[id number], please fill early . [...] 10/20/20 8:36:00 EDT, Route to Pharmacy Electronically, [facility]/pharmacy #[id number], 157.4, cm, 08/01/20 11:31:00 EDT, Height Start Date: 10/20/20 Stop Date: 04/18/21 Status: Ordered LORazepam 0.5 mg oral tablet 1 tablet = 0.5 mg, By Mouth, 3 times a day, PRN for anxiety, for 30 days, # 30 tablet, 3 Refills, Acute 02/06/21 9:44:00 EST, 10/09/20 9:44:00 EDT, Tablet, [facility]/pharmacy #207, 157.4, cm, 08/01/20 11:31:00 EDT, Height Start Date: 10/09/20 Stop Date: 02/06/21 Status: Ordered Nicoderm C-Q 7 mg/24 hr transdermal film, extended release 1 patch, By Mouth, Daily, # 30 patch, 5 Refills, Maintenance, 09/01/19 9:18:00 EDT, [facility]/pharmacy #0373, 157.4, cm, 09/01/19 8:41:00 [...] 10 mg, By Mouth, Every 4 hours, NAVAL ARCHITECT checked., # 168 tablet, 0 Refills, Acute 03/16/21 9:07:00 EST, 12/04/20 9:12:00 EDT, [facility]/pharmacy #[id number], Partial fill upon patient request;, 157.4, cm, 11/09/20 15:53:00 EDT, Height Start Date: 12/04/20 Stop Date: 03/16/21 Status: Ordered oxyCODONE 15 mg oral tablet 1 tablet = 15 mg, By Mouth, Daily at bedtime, PRN as needed for pain, for 28 days, # 28 tablet, 0 Refills, Acute 01/08/21 13:31:00 EDT, 12/11/20 13:31:00 EDT, Tablet, [facility]/pharmacy #[id number], Partial fillupon patient request if the prescription is for a s... Start Date: 12/11/20 Stop Date: 01/08/21 Status: Ordered Pt.'s Own Meds CBD, Daily, Maintenance, 01/27/19 9:06:59 EST Start Date: 01/27/19 Status: Ordered rOPINIRole 1 mg oral tablet 1 tablet, By Mouth, 2 times a day, # 180 tablet, 1 Refills, Maintenance, 10/06/20 14:51:00 EDT, [facility], 157.4, cm, 08/01/20 11:31:00 EDT, Height Start Date: 10/06/20 Status: Ordered Trulicity Pen 0.75 mg/0.5 mL subcutaneous solution 0.5 mL = 0.75 mg, Subcutaneous Injection, Every week, rotate injection sites, # 2.5 mL, 5 Refills, Maintenance, 08/31/20 16:54:00 EDT, Solution, [facility]/pharmacy #[id number], Partial fill upon patient request if the [...]
--- OUTSIDE RECORDS SUMMARY | 2023-07-18 03:28 | XMS_ITS | Continuity of Care Document ---
Author Organization [facility] Adult Address [address] [place] [address]- Care Team Providers Care Director Of Medical Education Name Role Phone Charo DUMONT, Dayna Primary Care Physician [place] [facility] [place] 02/18/23 - 03/20/23 [facility] Adult [address] [place] [address]- Allergies, Adverse Reactions, Alerts Substance Reaction Severity Status codeine Active Lactose Active Immunizations Given and Recorded Vaccine Date Status Refusal Reason SARS-CoV-2 (COVID-19) mRNA-1273 vaccine 03/30/21 R ecorded influenza virus vaccine, inactivated 1 01/16/17 Gi daniel influenza virus vaccine, inactivated 01/12/16 Give n influenza virus vaccine, inactivated 02/04/15 Give n pneumococcal 23-valent vaccine 02/04/15 Given 1Result Comment: 18783-037-13 Medications aspirin 81 mg oral tablet 1 tablet = 81 mg, By Mouth, Daily, # 30 tablet, 0 Refills, Maintenance, Tablet Start Date: 11/12/11 Status: Ordered duloxetine 20 mg oral enteric coated capsule 1 capsule, By Mouth, 2 times a day, # 180 capsule, 1 Refills, Maintenance, 02/13/23 8:22:00 EST, [facility], 156, cm, 01/03/23 11:15:00 EDT, Height Start [...] Refills, Maintenance, 02/20/23 17:40:00 EST, [facility], 156, cm, 01/03/23 11:15:00 EDT, Height Start [...] 02/13/23 8:22:00 EST, Route to Pharmacy Electronically, [facility], 156, cm, 01/03/23 11:15:00 EDT, Height Start [...] tablet, 1 Refills, Maintenance, 02/27/23 15:56:00 EST, [facility], 156, cm, 01/03/23 11:15:00 EDT, Height Start [...] 10 mg, By Mouth, Every 4 hours, PARTS COUNTER SALES PERSON checked. fill on 03/14/23, # 168 tablet, 0 Refills, Maintenance, 03/13/23 14:40:00 EST, [facility]/pharmacy #2071, Partial fill upon patient request;, 156, cm,01/03/23 11:15:00 EDT, Height Start Date: 03/13/23 Stop Date: 04/10/23 Status: Ordered oxyCODONE 15 mg oral tablet 1 tablet = 15 mg, By Mouth, Daily at bedtime, PRN as needed for pain, acoustical engineer checked fill 02/26/23, # 28 tablet, 0 Refills, Maintenance, 02/24/23 19:09:00 EST, Tablet, [facility]/pharmacy #2071, Partial fill upon patient request if the prescription is for a rex... Start Date: 02/24/23 Stop Date: 03/24/23 Status: Ordered Pen [place], 31 G x 5 mm BD Ultra [...] tablet, 1 Refills, Maintenance, 03/12/23 8:31:00 EST, [facility], 156, cm, 01/03/23 11:15:00 EDT, Height Start Date: 03/12/23 Status: Ordered Vitamin B Complex oral tablet, extended release 1 tablet, By Mouth, Daily, 0 Refills, Maintenance, 11/26/18 9:26:13 EDT Start Date: 11/26/18 Status: Ordered Vitamin D3 50,000 intl units oral capsule 1 capsule = 1,250 mcg, By Mouth, Every week, # 13 capsule, 3 Refills, Maintenance, 07/21/22 10:38:00 EDT, Capsule, [facility], Partial fill upon patient request if the [...] Personnel Name: Dayna Mancilla NP Position: [facility] PCO Associate Professional Member Role: PCP Address: Address: [address] [place] [address], [address] [place] [address]- Care Team Related Persons Name: IRMA FUNG Address: home [address] [place] [id number] Name: NONE, GIVEN Address: [place] [address]
--- OUTSIDE RECORDS SUMMARY | 2023-07-18 03:28 | XMS_ITS | Continuity of Care Document ---
Author Organization [facility] Adult Address [address] [place] [address]- Care Team Providers Care Minute Clerk Name Role Phone Charo DUMONT, Dayna Primary Care Physician [phone] Encounter [facility] Date(s): 07/05/22 - 08/04/22 [facility] Adult [address] [place] [address]- Allergies, Adverse Reactions, Alerts Substance Reaction Severity Status codeine Active Lactose Active Immunizations Given and Recorded Vaccine Date Status Refusal Reason SARS-CoV-2 (COVID-19) mRNA-1273 vaccine 03/30/21 R ecorded influenza virus vaccine, inactivated 1 01/16/17 Gi daniel influenza virus vaccine, inactivated 01/12/16 Give n influenza virus vaccine, inactivated 02/04/15 Give n pneumococcal 23-valent vaccine 02/04/15 Given 1Result Comment: 60844-647-44 Medications aspirin 81 mg oral tablet 1 tablet = 81 mg, By Mouth, Daily, # 30 tablet, 0 Refills, Maintenance, Tablet Start Date: 11/12/11 Status: Ordered BD INSULIN SYR UF 1 ML [id number] BD INSULIN SYR UF 1 ML [id number], See Instructions, # 100 Unknown, 3 Refills, Maintenance, USE TO INJECT INSULIN ONCE A DAY FOR DX E11.9, 157.4, cm, 08/01/20 11:31:00 EDT, Height Start Date: 10/09/20 Status: Ordered BD INSULIN SYR UF 1 ML [id number] BD INSULIN SYR UF 1 ML [id number], See Instructions, # 180 Unknown, 1 Refills, Maintenance, USE TO INJECT INSULIN TWICE A DAY FOR DX E11.9, 04/18/22 10:30:00 EST, 156, cm, 04/18/22 9:46:00 EST, Height Start Date: 04/18/22 Status: Ordered duloxetine 20 mg oral enteric coated capsule 1 capsule, By Mouth, 2 times a day, # 180 capsule, 1 Refills, Maintenance, 02/25/22 9:26:00 EST, [facility], 156, cm, 01/14/22 15:09:00 EDT, Height Start Date: 02/25/22 Status: Ordered Fish Oil By Mouth, Daily, 0 Refills, Maintenance, 01/27/19 9:06:45 EST Start Date: 01/27/19 Status: Ordered Freestyle Ganesh Sensor See Instructions, # 6 each, Refills 3, Tot. Refills 3, Maintenance, use as directed for Type 2 Diabetes Mellitus, 08/03/22 10:36:00 EDT, Supply, 156, cm, 07/12/22 13:52:00 EDT, Height Start Date: 08/03/22 Stop Date: 12/01/22 Status: Ordered gabapentin 800 mg oral tablet 1 tablet = 800 mg, By Mouth, 3 times a day with meals, # 270 tablet, 2 Refills, Maintenance, 10/05/21 10:32:00 EDT, Tablet, [facility]/pharmacy #[id number], 156, cm, 07/26/21 9:18:00 EDT, Height Start Date: 10/05/21 Stop Date: 07/02/22 Status: Ordered Humalog Kwik Pen 100 units/mL subcutaneous injection = 15 units, Subcutaneous Injection, 3 times a day before meals, # 15 mL, 5 Refills, Maintenance, 07/12/22 14:12:00 EDT, Solution, [facility]/pharmacy #[id number], Partial fill upon patient request [...] 5 Refills, Maintenance, 06/10/22 11:10:00 EDT, Solution, [facility]/pharmacy #[id number], please fill early . higher [...] EST, Route to Pharmacy Electronically, [facility], 156, cm, 01/14/22 15:09:00 EDT, Height Start Date: 04/01/22 Status: Ordered LORazepam 0.5 mg oral tablet 1 tablet = 0.5 mg, By Mouth, 3 times a day, PRN for anxiety, for 30 days, # 30 tablet, 1 Refills, Acute 09/30/22 18:20:00 EDT, 08/01/22 18:20:00 EDT, Tablet, [id number], 156, cm, 07/12/22 13:52:00 EDT, Height Start Date: 08/01/22 Stop Date: 09/30/22 Status: Ordered Nicoderm C-Q 7 mg/24 hr transdermal film, extended release 1 patch, By Mouth, Daily, # 30 patch, 5 Refills, Maintenance, 07/26/21 9:34:00 EDT, [facility], 156, cm, 07/26/21 9:18:00 EDT, Height Start Date: 07/26/21 Stop Date: 11/8/22 Status: Ordered ondansetron 4 mg oral tablet 1 tablet, By Mouth, Every 8 hours, PRN NEEDED FOR NAUSEA AND VOMITING FOR, # 9 tablet, 3 Refills, Maintenance, 06/27/22 10:42:00 EDT, [facility]/pharmacy #[id number], 156, cm, 05/10/22 10:53:00 EST, [...] Mouth, Every 4 hours, for 28 days, CLEARANCE CENTER MANAGER checked. ok to fill on 08/05/22, # 168 tablet, 0 Refills, Acute 08/27/22 7:09:00 EDT, 07/30/22 7:09:00 EDT, [facility]/pharmacy #[id number], Partial fillupon patient request;, 156, cm, 07/12/22 13:52:00 E... Start Date: 07/30/22 Stop Date: 08/27/22 Status: Ordered oxyCODONE 15 mg oral tablet 1 tablet = 15 mg, By Mouth, Daily at bedtime, PRN as needed for pain, parking meter collector checked fill 07/19 22, # 28tablet, 0 Refills, Maintenance, 07/16/22 7:43:00 EDT, Tablet, [facility]/pharmacy #[id number], Partial fill uponpatient request if the prescription is for a schedu... Start Date: 07/16/22 Stop Date: 08/13/22 Status: Ordered Pen [place], 31 G x 5 mm BD Ultra [...] 1 Refills, Maintenance, 03/27/22 18:34:00 EST, [facility], 156, cm, 01/14/22 15:09:00 EDT, Height Start [...] Team Personnel Name: Dayna Mancilla NP Position: [facility] PCO Associate Professional Member Role: PCP Address: Address: [address] [facility], [address]rd [place] [address]- Care Team Related Persons Name: IRMA FUNG Address: home [address] [place] [address] Name: NONE, GIVEN Address: [place] [address]
--- OUTSIDE RECORDS SUMMARY | 2023-07-18 03:28 | XMS_ITS | Continuity of Care Document ---
Author Organization [facility] Adult Address [address] [place] [address]- Care Team Providers Care Transfer Professor Name Role Phone Charo DUMONT, Dayna Primary Care Physician [phone] [place] [facility] [place] 08/21/22 - 09/20/22 [facility] Adult [address] [place] [address]- Allergies, Adverse Reactions, Alerts Substance Reaction Severity Status codeine Active Lactose Active Immunizations Given and Recorded Vaccine Date Status Refusal Reason SARS-CoV-2 (COVID-19) mRNA-1273 vaccine 03/30/21 R ecorded influenza virus vaccine, inactivated 1 01/16/17 Gi daniel influenza virus vaccine, inactivated 01/12/16 Give n influenza virus vaccine, inactivated 02/04/15 Give n pneumococcal 23-valent vaccine 02/04/15 Given 1Result Comment: 38153-351-36 Medications aspirin 81 mg oral tablet 1 tablet = 81 mg, By Mouth, Daily, # 30 tablet, 0 Refills, Maintenance, Tablet Start Date: 11/12/11 Status: Ordered BD INSULIN SYR UF 1 ML [id number] BD INSULIN SYR UF 1 ML [id number], See Instructions, # 100 Unknown, 3 Refills, Maintenance, USE TO INJECT INSULIN ONCE A DAY FOR DX E11.9, 157.4, cm, 08/01/20 11:31:00 EDT, Height Start Date: 10/09/20 Status: Ordered BD INSULIN SYR UF 1 ML [id number] BD INSULIN SYR UF 1 ML [id number], See Instructions, # 180 Unknown, 1 Refills, Maintenance, USE TO INJECT INSULIN TWICE A DAY FOR DX E11.9, 04/18/22 10:30:00 EST, 156, cm, 04/18/22 9:46:00 EST, Height Start Date: 04/18/22 Status: Ordered duloxetine 20 mg oral enteric coated capsule 1 capsule, By Mouth, 2 times a day, # 180 capsule, 1 Refills, Maintenance, 02/25/22 9:26:00 EST, [facility], 156, cm, 01/14/22 15:09:00 EDT, Height Start [...] 2 Refills, Maintenance, 10/05/21 10:32:00 EDT, Tablet, [facility]/pharmacy #207, 156, cm, 07/26/21 9:18:00 EDT, [...] 5 Refills, Maintenance, 06/10/22 11:10:00 EDT, Solution, [facility]/pharmacy #2071, please fill early . [...] 04/01/22 6:54:00 EST, Route to Pharmacy Electronically, [facility], 156, cm, 01/14/22 15:09:00 EDT, Height Start Date: 04/01/22 Status: Ordered LORazepam 0.5 mg oral tablet 1 tablet = 0.5 mg, By Mouth, 3 times a day, PRN for anxiety, for 30 days, # 30 tablet, 1 Refills, Acute 09/30/22 18:20:00 EDT, 08/01/22 18:20:00 EDT, Tablet, [facility]/pharmacy #[id number], 156, cm, 07/12/22 13:52:00 EDT, Height Start Date: 08/01/22 Stop Date: 09/30/22 Status: Ordered Nicoderm C-Q 7 mg/24 hr transdermal film, extended release 1 patch, By Mouth, Daily, # 30 patch, 5 Refills, Maintenance, 07/26/21 9:34:00 EDT, [facility]/pharmacy #0373, 156, cm, 07/26/21 [...] 10 mg, By Mouth, Every 4 hours, RIG MANAGER checked. fill 09/03/22, # 168 tablet, 0 Refills, Maintenance, 09/03/22 7:02:00 EDT, [id number], Partial fill upon patient request;, 156, cm, 07/12/22 13:52:00 EDT, Height Start Date: 09/03/22 Stop Date: 10/01/22 Status: Ordered oxyCODONE 15 mg oral tablet 1 tablet = 15 mg, By Mouth, Daily at bedtime, PRN as needed for pain, communications clerk checked fill 09/11/22, # 28 tablet, 0 Refills, Maintenance, 09/10/22 8:09:00 EDT, Tablet, [facility], Partial fill upon patient request if the prescription is for a sched... Start Date: 09/10/22 Stop Date: 10/08/22 Status: Ordered Pen [place], 31 G x 5 mm BD Ultra [...] Associate Professional Member Role: PCP Address: Address: [address] [place] [address], [address] [place] [address]- Care Team Related Persons Name: IRMA FUNG Address: home [address] [place] [address] Name: NONE, GIVEN Address: [place] [address]
--- OUTSIDE RECORDS SUMMARY | 2023-07-18 03:28 | XMS_ITS | Continuity of Care Document ---
Author Organization [facility] Adult Address [address] [place] [address]- Care Team Providers Care Government Instructor Name Role Phone Charo SPANISH LECTURER, Dayna Primary Care Physician Encounter [facility] Date(s): 05/09/23 - 06/08/23 [facility] Adult [address] [place] [phone]- Allergies, Adverse Reactions, Alerts Substance Reaction Severity Status codeine Active Lactose Active Immunizations Given and Recorded Vaccine Date Status Refusal Reason SARS-CoV-2 (COVID-19) mRNA-1273 vaccine 03/30/21 R ecorded influenza virus vaccine, inactivated 1 01/16/17 Gi daniel influenza virus vaccine, inactivated 01/12/16 Give n influenza virus vaccine, inactivated 02/04/15 Give n pneumococcal 23-valent vaccine 02/04/15 Given 1Result Comment: [id number] Medications aspirin 81 mg oral tablet 1 [...] Refills, Maintenance, 02/13/23 8:22:00 EST, [facility], 156, cm, 01/03/23 11:15:00 EDT, Height Start [...] Refills, Maintenance, 02/20/23 17:40:00 EST, [facility], 156, cm, 01/03/23 11:15:00 EDT, Height Start [...] mL, 11 Refills, Maintenance, 04/11/23 8:04:00 EST, [facility]/pharmacy #0373, 156, cm, 04/10/23 7:57:00 EST, [...] EST, Route to Pharmacy Electronically, [facility], 156, cm, 01/03/23 11:15:00 EDT, Height Start Date: 02/13/23 Status: Ordered Nicoderm C-Q 7 mg/24 hr transdermal film, extended release 1 patch, By Mouth, Daily, # 30 patch, 5 Refills, Maintenance, 07/26/21 9:34:00 EDT, [facility]/pharmacy #0373, 156, cm, 07/26/21 9:18:00 EDT, Height Start Date: 07/26/21 Stop Date: 01/22/22 Status: Ordered ondansetron 4 mg oral tablet 1 tablet, By Mouth, Every 8 hours, # 15 tablet, 1 Refills, Maintenance, 05/19/23 14:51:00 EST, [facility], 156, cm, 04/10/23 7:57:00 EST, Height Start Date: 05/19/23 Stop Date: 05/24/23 Status: Ordered oxyCODONE 10 mg oral tablet 1 tablet = 10 mg, By Mouth, Every 4 hours, WIRELESS TECHNICIAN checked. fill on 06/05/23, # 168 tablet, 0 Refills, Maintenance, 06/03/23 7:13:00 EDT, [id number], Partial fill upon patient request;, 156, cm, 04/10/23 7:57:00 EST, Height Start Date: 06/03/23 Stop Date: 07/01/23 Status: Ordered oxyCODONE 15 mg oral tablet 1 tablet = 15 mg, By Mouth, Daily at bedtime, PRN as needed for pain, youth advocate checked. OK to fill today. pt is going on vacation tomorrow, # 28 tablet, 0 Refills, Maintenance, 05/20/23 17:52:00 EST, Tablet, [facility], Partial fill upon patient re... Start Date: 05/20/23 Stop Date: 06/17/23 Status: Ordered Pen [place], 31 G x 5 mm BD Ultra [...] Refills, Maintenance, 03/12/23 8:31:00 EST, [facility], 156, cm, 01/03/23 11:15:00 EDT, Height Start Date: 03/12/23 Status: Ordered Toujeo SoloStar 300 units/mL subcutaneous solution See Instructions, INJECT 40 UNITS SUBCUTANEOUS INJECTION 2 TIMES A DAY,X30 DAYS, # 9 Unknown, 2 Refills, Maintenance, 03/30/23 19:14:00 EST, [facility], 156, cm, 01/03/23 11:15:00 EDT, Height Start Date: 03/30/23 Status: Ordered Vitamin B Complex oral tablet, extended release 1 tablet, By Mouth, Daily, 0 Refills, Maintenance, 11/26/18 9:26:13 EDT Start Date: 11/26/18 Status: Ordered Vitamin D3 50,000 intl units oral capsule 1 capsule = 1,250 mcg, By Mouth, Every week, # 13 capsule, 3 Refills, Maintenance, 07/21/22 10:38:00 EDT, Capsule, [facility]/pharmacy #2561, Partial fill upon patient request if the [...] Team Personnel Name: Dayna Mancilla NP Position: [facility] PCO Associate Professional Member Role: PCP Address: Address: [address] [place] [address], [address] [place], [place] [address] Care Team Related Persons Name: IRMA FUNG Address: home [address] [place] [id number] Name: NONE, GIVEN Address: [place] [address]
--- OUTSIDE RECORDS SUMMARY | 2023-07-18 03:28 | XMS_ITS | Continuity of Care Document ---
Author Organization [facility] Adult Address [address] [place] [address]- Care Team Providers Care Frameman Name Role Phone Charo DUMONT, Dayna Primary Care Physician Encounter [facility] [place] Date(s): 09/09/22 - 10/09/22 [facility] Adult [address] [place] [phone]- Allergies, Adverse Reactions, Alerts Substance Reaction Severity Status codeine Active Lactose Active Immunizations Given and Recorded Vaccine Date Status Refusal Reason SARS-CoV-2 (COVID-19) mRNA-1273 vaccine 03/30/21 R ecorded influenza virus vaccine, inactivated 1 01/16/17 Gi daniel influenza virus vaccine, inactivated 01/12/16 Give n influenza virus vaccine, inactivated 02/04/15 Give n pneumococcal 23-valent vaccine 02/04/15 Given 1Result Comment: [id number] Medications aspirin 81 mg oral tablet 1 tablet = 81 mg, By Mouth, Daily, # 30 tablet, 0 Refills, Maintenance, Tablet Start Date: 11/12/11 Status: Ordered BD INSULIN SYR UF 1 ML [id number] BD INSULIN SYR UF 1 ML [id number], See Instructions, # 100 Unknown, 3 Refills, Maintenance, USE TO INJECT INSULIN ONCE A DAY FOR DX E11.9, 157.4, cm, 08/01/20 11:31:00 EDT, Height Start Date: 10/09/20 Status: Ordered BD INSULIN SYR UF 1 ML [id number] BD INSULIN SYR UF 1 ML [id number], See Instructions, # 180 Unknown, 1 Refills, Maintenance, USE TO INJECT INSULIN TWICE A DAY FOR DX E11.9, 04/18/22 10:30:00 EST, 156, cm, 04/18/22 9:46:00 EST, Height Start Date: 04/18/22 Status: Ordered duloxetine 20 mg oral enteric coated capsule 1 capsule, By Mouth, 2 times a day, # 180 capsule, 1 Refills, Maintenance, 02/25/22 9:26:00 EST, [facility], 156, cm, 01/14/22 15:09:00 EDT, Height Start [...] 06/10/22 11:10:00 EDT, Solution, [facility]/pharmacy #5171, please fill early . higher dose, 156, [...] EDT, Route to Pharmacy Electronically, [facility], 156, cm, 07/12/22 13:52:00 EDT, Height Start [...] 10 mg, By Mouth, Every 4 hours, SIGN MAKER checked. fill 09/03/22, # 168 tablet, 0 Refills, Maintenance, 10/01/22 7:02:00 EDT, [id number], Partial fill upon patient request;, 156, cm, 07/12/22 13:52:00 EDT, Height Start Date: 10/01/22 Stop Date: 10/29/22 Status: Ordered oxyCODONE 15 mg oral tablet 1 tablet = 15 mg, By Mouth, Daily at bedtime, PRN as needed for pain, teletypewriter operator checked fill 10/09/22, # 28 tablet, 0 Refills, Maintenance, 10/08/22 5:58:00 EDT, Tablet, [facility], Partial fill upon patient request if the prescription is for a sched... Start Date: 10/08/22 Stop Date: 11/05/22 Status: Ordered Pen [place], 31 G x 5 mm BD Ultra [...] Professional Member Role: PCP Address: Address: [address] [facility], [address] [place] [address]- [place] Care Team Related Persons Name: IRMA FUNG Address: [address] [place] [address] Name: NONE, GIVEN Address: [place] [address]
--- OUTSIDE RECORDS SUMMARY | 2023-07-18 03:28 | XMS_ITS | Continuity of Care Document ---
Author Organization [facility] Adult Address [address] [place] [address]- Care Team Providers Care Demand Planning Manager Name Role Phone Charo DUMONT, Dayna Primary Care Physician Encounter [facility] Date(s): 11/06/20 - 12/06/20 [facility] Adult [address] [place] [address]- Allergies, Adverse Reactions, Alerts Substance Reaction Severity Status codeine Active Lactose Active Immunizations Given and Recorded Vaccine Date Status Refusal Reason influenza virus vaccine, inactivated 1 01/16/17 Gi daniel influenza virus vaccine, inactivated 01/12/16 Give n influenza virus vaccine, inactivated 02/04/15 Give n pneumococcal 23-valent vaccine 02/04/15 Given 1Result Comment: 75042-775-25 Medications aspirin 81 mg oral tablet 1 tablet = 81 mg, By Mouth, Daily, # 30 tablet, 0 Refills, Maintenance, Tablet Start Date: 11/12/11 Status: Ordered BD INSULIN SYR UF 1 ML [id number] BD INSULIN SYR UF 1 ML [id number], See Instructions, # 100 Unknown, 3 Refills, [...] 2 Refills, Maintenance, 09/04/20 17:31:00 EDT, Tablet, [facility]/pharmacy #2071, 157.4, cm, 08/01/20 11:31:00 EDT, [...] 05/21/21 9:09:00 EST, 11/22/20 9:09:00 EDT, Solution, [facility]/pharmacy #[id number], please fill early . higher [...] 10/20/20 8:36:00 EDT, Route to Pharmacy Electronically, [facility]/pharmacy #[id number], 157.4, cm, 08/01/20 11:31:00 EDT, Height Start Date: 10/20/20 Stop Date: 04/18/21 Status: Ordered LORazepam 0.5 mg oral tablet 1 tablet = 0.5 mg, By Mouth, 3 times a day, PRN for anxiety, for 30 days, # 30 tablet, 3 Refills, Acute 02/06/21 9:44:00 EST, 10/09/20 9:44:00 EDT, Tablet, [facility]/pharmacy #207, 157.4, cm, 08/01/20 11:31:00 EDT, Height Start Date: 10/09/20 Stop Date: 02/06/21 Status: Ordered Nicoderm C-Q 7 mg/24 hr transdermal film, extended release 1 patch, By Mouth, Daily, # 30 patch, 5 Refills, Maintenance, 09/01/19 9:18:00 EDT, [facility]/pharmacy #0373, 157.4, cm, 09/01/19 8:41:00 EDT, [...] 10 mg, By Mouth, Every 4 hours, DRILL HAND checked., # 168 tablet, 0 Refills, Acute 03/16/21 9:07:00 EST, 12/04/20 9:12:00 EDT, [facility]/pharmacy #[id number], Partial fill upon patient request;, 157.4, cm, 11/09/20 15:53:00 EDT, Height Start Date: 12/04/20 Stop Date: 03/16/21 Status: Ordered OxyCONTIN 15 mg oral tablet, extended release 1 tablet = 15 mg, By Mouth, Daily at bedtime, # 28 tablet, 0 Refills, Maintenance, 12/01/20 15:17:00 EDT, ER Tablet, [facility]/pharmacy #2025, Partial fill upon patient request if the prescription is for aschedule II opioid drug., 12/04/20, 157.4, cm, 10/16... Start Date: 12/01/20 Stop Date: 12/29/20 Status: Ordered Pt.'s Own Meds CBD, Daily, Maintenance, 01/27/19 9:06:59 EST Start Date: 01/27/19 Status: Ordered rOPINIRole 1 mg oral tablet 1 tablet, By Mouth, 2 times a day, # 180 tablet, 1 Refills, Maintenance, 10/06/20 14:51:00 EDT, [facility], 157.4, cm, 08/01/20 11:31:00 EDT, Height Start Date: 10/06/20 Status: Ordered Trulicity Pen 0.75 mg/0.5 mL subcutaneous solution 0.5 mL = 0.75 mg, Subcutaneous Injection, Every week, rotate injection sites, # 2.5 mL, 5 Refills, Maintenance, 08/31/20 16:54:00 EDT, Solution, [facility]/pharmacy #[id number], Partial fill upon patient request if the [...]
--- OUTSIDE RECORDS SUMMARY | 2023-07-18 03:28 | XMS_ITS | Continuity of Care Document ---
Author Organization [facility] Adult Address [address] [place] [address]- Care Team Providers Care Cabinetmaker Helper Name Role Phone Charo DUMONT, Dayna Primary Care Physician Encounter [facility] Date(s): 07/26/22 - 08/25/22 [facility] [address] [place] [address]- Allergies, Adverse Reactions, Alerts Substance Reaction Severity Status codeine Active Lactose Active Immunizations Given and Recorded Vaccine Date Status Refusal Reason SARS-CoV-2 (COVID-19) mRNA-1273 vaccine 03/30/21 R ecorded influenza virus vaccine, inactivated 1 01/16/17 Gi daniel influenza virus vaccine, inactivated 01/12/16 Give n influenza virus vaccine, inactivated 02/04/15 Give n pneumococcal 23-valent vaccine 02/04/15 Given 1Result Comment: [id number] Medications aspirin 81 mg oral tablet 1 tablet = 81 mg, By Mouth, Daily, # 30 tablet, 0 Refills, Maintenance, Tablet Start Date: 11/12/11 Status: Ordered BD INSULIN SYR UF 1 ML [id number] BD INSULIN SYR UF 1 ML [id number], See Instructions, # 100 Unknown, 3 Refills, Maintenance, USE TO INJECT INSULIN ONCE A DAY FOR DX E11.9, 157.4, cm, 08/01/20 11:31:00 EDT, Height Start Date: 10/09/20 Status: Ordered BD INSULIN SYR UF 1 ML [id number] BD INSULIN SYR UF 1 ML [id number], See Instructions, # 180 Unknown, 1 Refills, Maintenance, USE TO INJECT INSULIN TWICE A DAY FOR DX E11.9, 04/18/22 10:30:00 EST, 156, cm, 04/18/22 9:46:00 EST, Height Start Date: 04/18/22 Status: Ordered duloxetine 20 mg oral enteric coated capsule 1 capsule, By Mouth, 2 times a day, # 180 capsule, 1 Refills, Maintenance, 02/25/22 9:26:00 EST, [facility], 156, cm, 01/14/22 15:09:00 EDT, Height Start [...] 2 Refills, Maintenance, 10/05/21 10:32:00 EDT, Tablet, [facility]/pharmacy #2071, 156, cm, 07/26/21 9:18:00 [...] 5 Refills, Maintenance, 06/10/22 11:10:00 EDT, Solution, [facility]/pharmacy #2071, please fill early . [...] EST, Route to Pharmacy Electronically, [facility], 156, cm, 01/14/22 15:09:00 EDT, Height Start Date: 04/01/22 Status: Ordered LORazepam 0.5 mg oral tablet 1 tablet = 0.5 mg, By Mouth, 3 times a day, PRN for anxiety, for 30 days, # 30 tablet, 1 Refills, Acute 09/30/22 18:20:00 EDT, 08/01/22 18:20:00 EDT, Tablet, [facility]/pharmacy #[id number], 156, cm, 07/12/22 13:52:00 EDT, Height Start Date: 08/01/22 Stop Date: 09/30/22 Status: Ordered Nicoderm C-Q 7 mg/24 hr transdermal film, extended release 1 patch, By Mouth, Daily, # 30 patch, 5 Refills, Maintenance, 07/26/21 9:34:00 EDT, [facility]/pharmacy #0373, 156, cm, 07/26/21 9:18:00 EDT, Height Start Date: 07/26/21 Stop Date: 01/22/22 Status: Ordered ondansetron 4 mg oral tablet 1 tablet, By Mouth, Every 8 hours, PRN NEEDED FOR NAUSEA AND VOMITING FOR, # 9 tablet, 3 Refills, Maintenance, 06/27/22 10:42:00 EDT, [facility]/pharmacy #2071, 156, cm, 05/10/22 10:53:00 [...] Mouth, Every 4 hours, for 28 days, SCHOOL LABORATORY TECHNICIAN checked., # 168 tablet, 0 Refills, Acute 09/03/22 14:20:00 EDT, 08/06/22 14:20:00 EDT, [facility] #[facility], Partial fill upon patient request;, 156, cm, 07/12/22 13:52:00 EDT, Height Start Date: 08/06/22 Stop Date: 09/03/22 Status: Ordered oxyCODONE 15 mg oral tablet 1 tablet = 15 mg, By Mouth, Daily at bedtime, PRN as needed for pain, chief arson division checked fill 5/5 23, # 28tablet, 0 Refills, Maintenance, 07/16/22 7:43:00 EDT, Tablet, [facility], Partial fill uponpatient request if the prescription is for a schedu... Start Date: 07/16/22 Stop Date: 08/13/22 Status: Ordered Pen [place], 31 G x 5 mm BD Ultra [...] tablet, 1 Refills, Maintenance, 03/27/22 18:34:00 EST, [facility], 156, cm, 01/14/22 15:09:00 EDT, Height Start [...] Response Smoking Status Current every day osmany oker; Type: Cigarettes; Tobacco use times per day: 4-5; entered on: 01/16/17 Sex Patient Care team information Care Team Personnel Name: Dayna Mancilla NP Position: [facility] PCO Associate Professional Member Role: PCP Address: Address: [address] [place] [address], [address] [place] [address]- Care Team Related Persons Name: IRMA FUNG Address: home [address] [place] [address] Name: NONE, GIVEN Address: [place] [address]
--- OUTSIDE RECORDS SUMMARY | 2023-07-18 03:29 | XMS_ITS | Continuity of Care Document ---
Author Organization [facility] Address [address] [place] [address]- Care Team Providers Care Presidential Helicopter Crew Chief Name Role Phone Charo DUMONT, Dayna Primary Care Physician [phone] Encounter [facility] Date(s): 12/25/22 - 05/24/[address] [address] Attending Physician: Chelsea Blue MD Admitting Physician: [...] pneumococcal 23-valent vaccine 02/04/15 Given 1Result Comment: 24778-647-82 Medications aspirin 81 mg oral tablet 1 [...] Refills, Maintenance, 02/13/23 8:22:00 EST, [facility], 156, cm, 01/03/23 11:15:00 EDT, Height Start [...] Refills, Maintenance, 02/20/23 17:40:00 EST, [facility], 156, cm, 01/03/23 11:15:00 EDT, Height Start [...] mL, 11 Refills, Maintenance, 04/11/23 8:04:00 EST, [facility]/pharmacy #0373, 156, cm, 04/10/23 [...] EST, Route to Pharmacy Electronically, [facility], 156, cm, 01/03/23 11:15:00 EDT, Height Start Date: 02/13/23 Status: Ordered Nicoderm C-Q 7 mg/24 hr transdermal film, extended release 1 patch, By Mouth, Daily, # 30 patch, 5 Refills, Maintenance, 07/26/21 9:34:00 EDT, [facility]/pharmacy #0373, 156, cm, 07/26/21 9:18:00 EDT, Height Start Date: 07/26/21 Stop Date: 01/22/22 Status: Ordered ondansetron 4 mg oral tablet 1 tablet, By Mouth, Every 8 hours, # 15 tablet, 1 Refills, Maintenance, 05/19/23 14:51:00 EST, [facility], 156, cm, 04/10/23 7:57:00 EST, Height Start Date: 05/19/23 Stop Date: 05/24/23 Status: Ordered oxyCODONE 10 mg oral tablet 1 tablet = 10 mg, By Mouth, Every 4 hours, LITHOPLATE MAKER checked. fill on 05/08/23, # 168 tablet, 0 Refills, Maintenance, 04/21/23 7:19:00 EST, [facility], [facility] fill upon patient request;, 156, cm, 04/10/23 7:57:00 EST, Height Start Date: 04/21/23 Stop Date: 05/19/23 Status: Ordered oxyCODONE 15 mg oral tablet 1 tablet = 15 mg, By Mouth, Daily at bedtime, PRN as needed for pain, district plant supervisor checked. OK to fill today. pt is going on vacation tomorrow, # 28 tablet, 0 Refills, Maintenance, 05/20/23 17:52:00 EST, Tablet, [facility], Partial fill upon patient re... Start Date: 05/20/23 Stop Date: 06/17/23 Status: Ordered Pen [place], 31 G x 5 mm BD Ultra [...] Refills, Maintenance, 03/12/23 8:31:00 EST, [facility], 156, cm, 01/03/23 11:15:00 EDT, Height Start [...] Refills, Maintenance, 07/21/22 10:38:00 EDT, Capsule, [facility], Partial fill upon patient request if the [...] Team Personnel Name: Dayna Mancilla NP Position: [facility] PCO Associate Professional Member Role: PCP Address: Address: [address] [place] [address], [address] [place] [address]- Care Team Related Persons Name: IRMA FUNG Address: home [address] [place] [address] Name: NONE, GIVEN Address: [place] [address]
--- OUTSIDE RECORDS SUMMARY | 2023-07-18 03:29 | XMS_ITS | Continuity of Care Document ---
Author Organization [facility] Adult Address [address] [place] [address]- Care Team Providers Care Wood Veneer Taper Name Role Phone Charo DUMONT, Dayna Primary Care Physician Encounter [facility] Date(s): 09/04/20 - 10/04/20 [facility] Adult [address] [place] [address]- Allergies, Adverse Reactions, Alerts Substance Reaction Severity Status codeine Active Lactose Active Immunizations Given and Recorded Vaccine Date Status Refusal Reason influenza virus vaccine, inactivated 1 01/16/17 Gi daniel influenza virus vaccine, inactivated 01/12/16 Give n influenza virus vaccine, inactivated 02/04/15 Give n pneumococcal 23-valent vaccine 02/04/15 Given 1Result Comment: [id number] Medications aspirin 81 mg oral tablet 1 tablet = 81 mg, By Mouth, Daily, # 30 tablet, 0 Refills, Maintenance, Tablet Start Date: 11/12/11 Status: Ordered buPROPion 150 mg/12 hours (SR) oral tablet, extended release 1 tablet = 150 mg, By Mouth, 2 times a day, # 60 tablet, 5 Refills, Maintenance, 05/03/20 11:33:00 EST, ER Tablet, [facility]/pharmacy #0373, 157.4, cm, 04/13/20 9:03:00 EST, Height Start Date: 05/03/20 Stop Date: 10/30/20 Status: Ordered Fish Oil By Mouth, Daily, 0 Refills, Maintenance, 01/27/19 9:06:45 EST Start Date: 01/27/19 Status: Ordered gabapentin 800 mg oral tablet 1 tablet = 800 mg, By Mouth, 3 times a day with meals, # 270 tablet, 2 Refills, Maintenance, 09/04/20 17:31:00 EDT, Tablet, [facility]/pharmacy #2071, 157.4, cm, 08/01/20 11:31:00 EDT, Height [...] 09/07/20 13:42:00 EDT, Solution, [facility]/pharmacy #2071, please fill early . higherdose, 157.4, [...] Route to Pharmacy Electronically, [facility]/pharmacy #0373, 157.4, cm, 04/13/20 9:03:00 EST, Height Start Date: 04/23/20 Stop Date: 10/20/20 Status: Ordered LORazepam 0.5 mg oral tablet 1 tablet = 0.5 mg, By Mouth, 3 times a day, PRN for anxiety, for 30 days, # 30 tablet, 3 Refills, Acute 10/13/20 16:18:00 EDT, 06/15/20 16:18:00 EDT, Tablet, [facility]/pharmacy #0373, 157.4, cm, 04/13/20 9:03:00 EST, Height [...] 9 tablet, 3 Refills, Maintenance, [facility], 157.4, cm, 04/13/20 9:03:00 EST, Height Start [...] mg, By Mouth, Every 4 hours, HAND ALTERATIONS SEAMSTRESS checked., # 168 tablet, 0 Refills, Acute [...] 09/04/20 14:45:00 EDT, Tablet, [facility]/pharmacy #0941, Partial fill upon patient request if the [...]
--- OUTSIDE RECORDS SUMMARY | 2023-07-18 03:29 | XMS_ITS | Continuity of Care Document ---
Author Organization [facility] Adult Address [address] [place] [address]- Care Team Providers Care Special Education Administrator Name Role Phone Charo DUMONT, Dayna Primary Care Physician [phone] Encounter [facility] Date(s): 04/02/22 - 05/02/22 [facility] Adult [address] [place] [address]- Allergies, Adverse Reactions, Alerts Substance Reaction Severity Status codeine Active Lactose Active Immunizations Given and Recorded Vaccine Date Status Refusal Reason SARS-CoV-2 (COVID-19) mRNA-1273 vaccine 03/30/21 R ecorded influenza virus vaccine, inactivated 1 01/16/17 Gi daniel influenza virus vaccine, inactivated 01/12/16 Give n influenza virus vaccine, inactivated 02/04/15 Give n pneumococcal 23-valent vaccine 02/04/15 Given 1Result Comment: [id number] Medications aspirin 81 mg oral tablet 1 tablet = 81 mg, By Mouth, Daily, # 30 tablet, 0 Refills, Maintenance, Tablet Start Date: 11/12/11 Status: Ordered BD INSULIN SYR UF 1 ML [id number] BD INSULIN SYR UF 1 ML [id number], See Instructions, # 100 Unknown, 3 Refills, Maintenance, USE TO INJECT INSULIN ONCE A DAY FOR DX E11.9, 157.4, cm, 08/01/20 11:31:00 EDT, Height Start Date: 10/09/20 Status: Ordered BD INSULIN SYR UF 1 ML [id number] BD INSULIN SYR UF 1 ML [id number], See Instructions, # 180 Unknown, 1 Refills, Maintenance, USE TO INJECT INSULIN TWICE A DAY FOR DX E11.9, 04/18/22 10:30:00 EST, 156, cm, 04/18/22 9:46:00 EST, Height Start Date: 04/18/22 Status: Ordered duloxetine 20 mg oral enteric coated capsule 1 capsule, By Mouth, 2 times a day, # 180 capsule, 1 Refills, Maintenance, 02/25/22 9:26:00 EST, [facility], 156, cm, 01/14/22 15:09:00 EDT, Height Start [...] 04/01/22 6:54:00 EST, Route to Pharmacy Electronically, [facility], 156, cm, 01/14/22 15:09:00 EDT, Height Start Date: 04/01/22 Status: Ordered LORazepam 0.5 mg oral tablet 1 tablet = 0.5 mg, By Mouth, 3 times a day, PRN for anxiety, for 30 days, # 30 tablet, 3 Refills, Acute 05/14/22 17:30:00 EST, 01/14/22 17:30:00 EDT, Tablet, [facility]/pharmacy #2071, 156, cm, 01/14/22 15:09:00 EDT, Height Start Date: 01/14/22 Stop Date: 05/14/22 Status: Ordered Nicoderm C-Q 7 mg/24 hr transdermal film, extended release 1 patch, By Mouth, Daily, # 30 patch, 5 Refills, Maintenance, 07/26/21 9:34:00 EDT, [facility]/pharmacy #0373, 156, cm, 07/26/21 9:18:00 EDT, Height Start Date: 07/26/21 Stop Date: 01/22/22 Status: Ordered ondansetron 4 mg oral tablet 1 tablet, By Mouth, Every 8 hours, PRN NEEDED FOR NAUSEA AND VOMITING FOR, # 9 tablet, 3 Refills, Maintenance, 03/15/22 15:20:00 EST, [facility], 156, cm, 01/14/22 15:09:00 EDT, Height Start [...] 10 mg, By Mouth, Every 4 hours, BARREL BUNG REMOVER AND DUMPER checked. ok to fill early pt is [...] 1 Refills, Maintenance, 03/27/22 18:34:00 EST, [facility], 156, cm, 01/14/22 15:09:00 EDT, Height Start Date: 03/27/22 Status: Ordered Trulicity Pen 1.5 mg/0.5 mL subcutaneous solution See Instructions, INJECT 0.5 ML SUBCUTANEOUS INJECTION EVERY WEEK, # 2 Unknown, 2 Refills, Maintenance, 04/29/22 10:00:00 EST, [facility], 156, cm, 04/18/22 9:46:00 EST, Height Start Date: 04/29/22 Status: Ordered Vitamin B Complex oral tablet, extended release 1 tablet, By Mouth, Daily, 0 Refills, Maintenance, 11/26/18 9:26:13 EDT Start Date: 11/26/18 Status: Ordered Vitamin D3 50,000 intl units oral capsule 1 capsule = 1,250 mcg, By Mouth, Every week, # 12 capsule, 2 Refills, Maintenance, 06/26/21 8:37:00EDT, Capsule, [facility], Partial fill upon patient request if the [...] Associate Professional Member Role: PCP Address: Address: [address] [place] [address], [address] [place] [address]- Care Team Related Persons Name: IRMA FUNG Address: home [address] [place] [address] Name: NONE, GIVEN Address: home [place] [address]
--- OUTSIDE RECORDS SUMMARY | 2023-07-18 03:29 | XMS_ITS | Continuity of Care Document ---
Author Organization [facility] Adult Address [address] [place] [address]- Care Team Providers Care Avionics Systems Engineer Name Role Phone Charo DUMONT, Dayna Primary Care Physician Encounter [facility] Date(s): 06/10/22 - 07/10/22 [facility] Adult [address] [place] [address]- Allergies, Adverse Reactions, Alerts Substance Reaction Severity Status codeine Active Lactose Active Immunizations Given and Recorded Vaccine Date Status Refusal Reason SARS-CoV-2 (COVID-19) mRNA-1273 vaccine 03/30/21 R ecorded influenza virus vaccine, inactivated 1 01/16/17 Gi daniel influenza virus vaccine, inactivated 01/12/16 Give n influenza virus vaccine, inactivated 02/04/15 Give n pneumococcal 23-valent vaccine 02/04/15 Given 1Result Comment: [id number] Medications aspirin 81 mg oral tablet 1 tablet = 81 mg, By Mouth, Daily, # 30 tablet, 0 Refills, Maintenance, Tablet Start Date: 11/12/11 Status: Ordered BD INSULIN SYR UF 1 ML [id number] BD INSULIN SYR UF 1 ML [id number], See Instructions, # 100 Unknown, 3 Refills, Maintenance, USE TO INJECT INSULIN ONCE A DAY FOR DX E11.9, 157.4, cm, 08/01/20 11:31:00 EDT, Height Start Date: 10/09/20 Status: Ordered BD INSULIN SYR UF 1 ML [id number] BD INSULIN SYR UF 1 ML [id number], See Instructions, # 180 Unknown, 1 Refills, Maintenance, USE TO INJECT INSULIN TWICE A DAY FOR DX E11.9, 04/18/22 10:30:00 EST, 156, cm, 04/18/22 9:46:00 EST, Height Start Date: 04/18/22 Status: Ordered duloxetine 20 mg oral enteric coated capsule 1 capsule, By Mouth, 2 times a day, # 180 capsule, 1 Refills, Maintenance, 02/25/22 9:26:00 EST, [facility], 156, cm, 01/14/22 15:09:00 EDT, Height Start [...] 6:54:00 EST, Route to Pharmacy Electronically, [facility], 156, cm, 01/14/22 15:09:00 EDT, Height Start Date: 04/01/22 Status: Ordered LORazepam 0.5 mg oral tablet 1 tablet = 0.5 mg, By Mouth, 3 times a day, PRN for anxiety, for 30 days, # 30 tablet, 1 Refills, Acute 07/12/22 9:53:00 EDT, 05/13/22 9:53:00 EST, Tablet, [facility]/pharmacy #2071, 156, cm, 05/10/22 10:53:00 EST, Height Start Date: 05/13/22 Stop Date: 07/12/22 Status: Ordered Nicoderm C-Q 7 mg/24 hr transdermal film, extended release 1 patch, By Mouth, Daily, # 30 patch, 5 Refills, Maintenance, 07/26/21 9:34:00 EDT, [facility]/pharmacy #0373, 156, cm, 07/26/21 9:18:00 EDT, Height Start Date: 07/26/21 Stop Date: 01/22/22 Status: Ordered ondansetron 4 mg oral tablet 1 tablet, By Mouth, Every 8 hours, PRN NEEDED FOR NAUSEA AND VOMITING FOR, # 9 tablet, 3 Refills, Maintenance, 06/27/22 10:42:00 EDT, [facility]/pharmacy #2071, 156, cm, 05/10/22 10:53:00 EST, [...] Mouth, Every 4 hours, for 28 days, TECHNICAL SUPPORT AGENT checked. ok to fill on 07/07/22 doregardprevious script, # 168 tablet, 0 Refills, Acute 08/02/22 17:20:00 EDT, 07/05/22 17:20:00 EDT, [facility], [facility] fill upon patient request;, 1... Start Date: 07/05/22 Stop Date: 08/02/22 Status: Ordered oxyCODONE 15 mg oral tablet 1 tablet = 15 mg, By Mouth, Daily at bedtime, PRN as needed for pain, hydraulic controls technician checked, # 28 tablet, 0 Refills, Maintenance, 06/21/22 7:10:00 EDT, Tablet, [facility], Partial fill upon patient request if the prescription is for a schedule II opioid... Start Date: 06/21/22 Stop Date: 07/19/22 Status: Ordered Pen [place], 31 G x 5 mm BD Ultra [...] 1 Refills, Maintenance, 03/27/22 18:34:00 EST, [facility], 156, cm, 01/14/22 15:09:00 EDT, Height Start Date: 03/27/22 Status: Ordered Trulicity Pen 1.5 mg/0.5 mL subcutaneous solution See Instructions, INJECT 0.5 ML SUBCUTANEOUS INJECTION EVERY WEEK, # 2 Unknown, 2 Refills, Maintenance, 04/29/22 10:00:00 EST, [facility], 156, cm, 04/18/22 9:46:00 EST, Height Start Date: 04/29/22 Status: Ordered Vitamin B Complex oral tablet, extended release 1 tablet, By Mouth, Daily, 0 Refills, Maintenance, 11/26/18 9:26:13 EDT Start Date: 11/26/18 Status: Ordered Vitamin D3 50,000 intl units oral capsule 1 capsule = 1,250 mcg, By Mouth, Every week, # 12 capsule, 2 Refills, Maintenance, 06/26/21 8:37:00EDT, Capsule, [facility]/pharmacy #0373, Partial fill upon patient request [...] Team Personnel Name: Dayna Mancilla NP Position: [facility] PCO Associate Professional Member Role: PCP Address: Address: [address], [address] [place] [address]- Care Team Related Persons Name: IRMA FUNG Address: home [address] [place] [address] Name: NONE, GIVEN Address: [place] [address]
--- OUTSIDE RECORDS SUMMARY | 2023-07-18 03:29 | XMS_ITS | Continuity of Care Document ---
Author Organization [facility] Address [address] [place] [address]- Care Team Providers Care Over Short And Damage Clerk Name Role Phone Charo DUMONT, Dayna Primary Care Physician [phone] Encounter [facility] Date(s): 08/01/20 - 08/08/20 [facility] [address] [place] [address]- Encounter Diagnosis S/P appendectomy(Discharge Diagnosis) - 08/01/20 Attending Physician: Not on Staff, Attending MD Allergies, Adverse Reactions, Alerts Substance Reaction Severity Status codeine Active Lactose Active Immunizations Given and Recorded Vaccine Date Status Refusal Reason influenza virus vaccine, inactivated 1 01/16/17 Gi daniel influenza virus vaccine, inactivated 01/12/16 Give n influenza virus vaccine, inactivated 02/04/15 Give n pneumococcal 23-valent vaccine 02/04/15 Given 1Result Comment: 47588-845-79 Medications aspirin 81 mg oral tablet 1 [...] Maintenance, 12/15/19 8:56:00 EDT, Tablet, [facility]/pharmacy #[id number], 157.4, cm, 09/01/19 8:41:00 [...] 08/09/20 12:53:00 EDT, 02/11/20 12:53:00 EST, Solution, [facility]/pharmacy #0373, please fill early . higherdose, 157.4, cm, 02/02/20 12:10:00 EST, Height Start Date: 02/11/20 Stop Date: 08/09/20 Status: Ordered insulin detemir 100 units/mL subcutaneous solution = 82 units, Subcutaneous Injection, Daily at bedtime, for 30 days, # 15 mL, 5 Refills, Hard Stop 10/17/20 11:28:00 EDT, 04/20/20 11:28:00 EST, Solution, [facility]/pharmacy #0373, please fill early . [...] 04/23/20 8:36:00 EST, [facility], cm, 04/13/20 9:03:00 EST, Height Start Date: 04/23/20 Stop Date: 10/20/20 Status: Ordered LORazepam 0.5 mg oral tablet 1 tablet = 0.5 mg, By Mouth, 3 times a day, PRN for anxiety, for 30 days, # 30 tablet, 3 Refills, Acute 10/13/20 16:18:00 EDT, 06/15/20 16:18:00 EDT, Tablet, [facility]/pharmacy #0373, 157.4, cm, 04/13/20 9:03:00 EST, Height Start Date: 06/15/20 Stop Date: 10/13/20 Status: Ordered Nicoderm C-Q 7 mg/24 hr transdermal film, extended release 1 patch, By Mouth, Daily, # 30 patch, 5 Refills, Maintenance, 09/01/19 9:18:00 EDT, [facility]/pharmacy #0373, 157.4, cm, 09/01/19 8:41:00 EDT, Height Start Date: 09/01/19 Stop Date: 02/28/20 Status: Ordered ondansetron 4 mg oral tablet See Instructions, TAKE 1 TABLET BY MOUTH EVERY 8 HOURS NEEDED FOR NAUSEA AND VOMITING FOR 5 DAYS, # 9 tablet, 3 Refills, Maintenance, [facility] STORE 16201, 157.4, cm, 04/13/20 9:03:00 EST, Height Start [...] 10 mg, By Mouth, Every 4 hours, RUBBER TIRE AND TUBES SUPERVISOR checked., # 168 tablet, 0 Refills, Acute 03/16/21 15:47:00 EST, 07/17/20 15:54:00 EDT, [facility]/pharmacy #[id number], Partial fill upon patient request; OK [...] Refills, Maintenance, 04/13/20 9:35:00 EST, Tablet, [id number], Partial fill upon patient request if the [...] Effective Dates Health Status Clinical Service Informant S/P appendectomy Discharge Diagnosis 08/01/20 Vital Signs Most recent to oldest [Reference Range]: 1 Height 157.40 cm (08/01/20 11:31 AM) Social History Social History Type Response Smoking Status Current every day osmany lam; Type: Cigarettes; Tobacco use times per day: 4-5; entered on: 01/16/17 Sex
--- OUTSIDE RECORDS SUMMARY | 2023-07-18 03:29 | XMS_ITS | Continuity of Care Document ---
Author Organization [facility] Adult Address [address] [place] [address]- Care Team Providers Care Quality Assurance Analyst Name Role Phone Charo DUMONT, Dayna Primary Care Physician Encounter [facility] Date(s): 08/15/22 - 09/14/22 [facility] [address] [place] [address]- Allergies, Adverse Reactions, Alerts Substance Reaction Severity Status codeine Active Lactose Active Immunizations Given and Recorded Vaccine Date Status Refusal Reason SARS-CoV-2 (COVID-19) mRNA-1273 vaccine 03/30/21 R ecorded influenza virus vaccine, inactivated 1 01/16/17 Gi daniel influenza virus vaccine, inactivated 01/12/16 Give n influenza virus vaccine, inactivated 02/04/15 Give n pneumococcal 23-valent vaccine 02/04/15 Given 1Result Comment: [id number] Medications aspirin 81 mg oral tablet 1 tablet = 81 mg, By Mouth, Daily, # 30 tablet, 0 Refills, Maintenance, Tablet Start Date: 11/12/11 Status: Ordered BD INSULIN SYR UF 1 ML [id number] BD INSULIN SYR UF 1 ML [id number], See Instructions, # 100 Unknown, 3 Refills, Maintenance, USE TO INJECT INSULIN ONCE A DAY FOR DX E11.9, 157.4, cm, 08/01/20 11:31:00 EDT, Height Start Date: 10/09/20 Status: Ordered BD INSULIN SYR UF 1 ML [id number] BD INSULIN SYR UF 1 ML [id number], See Instructions, # 180 Unknown, 1 Refills, Maintenance, USE TO INJECT INSULIN TWICE A DAY FOR DX E11.9, 04/18/22 10:30:00 EST, 156, cm, 04/18/22 9:46:00 EST, Height Start Date: 04/18/22 Status: Ordered duloxetine 20 mg oral enteric coated capsule 1 capsule, By Mouth, 2 times a day, # 180 capsule, 1 Refills, Maintenance, 02/25/22 9:26:00 EST, [facility], 156, cm, 01/14/22 15:09:00 EDT, Height Start [...] 10/05/21 10:32:00 EDT, Tablet, [facility]/pharmacy #207, 156, cm, 07/26/21 9:18:00 EDT, Height Start Date: 10/05/21 Stop Date: 07/02/22 Status: Ordered Humalog Kwik Pen 100 units/mL subcutaneous injection = 15 units, Subcutaneous Injection, 3 times a day before meals, # 15 mL, 5 Refills, Maintenance, 07/12/22 14:12:00 EDT, Solution, [facility]/pharmacy #2071, Partial fill upon [...] 5 Refills, Maintenance, 06/10/22 11:10:00 EDT, Solution, [facility]/pharmacy #2071, please fill early . [...] 04/01/22 6:54:00 EST, Route to Pharmacy Electronically, [facility] STORE 56488, 156, cm, 01/14/22 15:09:00 EDT, Height Start Date: 04/01/22 Status: Ordered LORazepam 0.5 mg oral tablet 1 tablet = 0.5 mg, By Mouth, 3 times a day, PRN for anxiety, for 30 days, # 30 tablet, 1 Refills, Acute 09/30/22 18:20:00 EDT, 08/01/22 18:20:00 EDT, Tablet, [facility]/pharmacy #2071, 156, cm, 07/12/22 13:52:00 [...] 10 mg, By Mouth, Every 4 hours, VAT TENDER checked. fill 09/03/22, # 168 tablet, 0 Refills, Maintenance, 09/03/22 7:02:00 EDT, [id number], Partial fill upon patient request;, 156, cm, 07/12/22 13:52:00 EDT, Height Start Date: 09/03/22 Stop Date: 10/01/22 Status: Ordered oxyCODONE 15 mg oral tablet 1 tablet = 15 mg, By Mouth, Daily at bedtime, PRN as needed for pain, interior decorator paperhanging checked fill 09/11/22, # 28 tablet, 0 Refills, Maintenance, 09/10/22 8:09:00 EDT, Tablet, [facility], Partial fill upon patient request if the prescription is for a sched... Start Date: 09/10/22 Stop Date: 10/08/22 Status: Ordered Pen [place], 31 G x 5 mm BD Ultra [...] 1 Refills, Maintenance, 03/27/22 18:34:00 EST, [facility], [facility], cm, 01/14/22 15:09:00 EDT, Height Start [...] Associate Professional Member Role: PCP Address: Address: [address] [place] [address], [address] [place] [address]- Care Team Related Persons Name: IRMA FUNG Address: home [address] [place] [address] Name: NONE, GIVEN Address: [place] [address]
--- OUTSIDE RECORDS SUMMARY | 2023-07-18 03:29 | XMS_ITS | Continuity of Care Document ---
Author Organization [facility] [place] [facility] Adult Address [address] [place] [address]- Care Team Providers Care Pie Bottomer Name Role Phone Charo DUMONT, Dayna Primary Care Physician Encounter [facility] Date(s): 03/27/20 - 04/26/20 [facility] [place] [facility] [address] [place] [address]- Allergies, Adverse Reactions, Alerts Substance Reaction Severity Status codeine Active Lactose Active Immunizations Given and Recorded Vaccine Date Status Refusal Reason influenza virus vaccine, inactivated 1 01/16/17 Gi daniel influenza virus vaccine, inactivated 01/12/16 Give n influenza virus vaccine, inactivated 02/04/15 Give n pneumococcal 23-valent vaccine 02/04/15 Given 1Result Comment: 49907-930-58 Medications aspirin 81 mg oral tablet 1 [...] 2 Refills, Maintenance, 12/15/19 8:56:00 EDT, Tablet, [facility]/pharmacy #4200, 157.4, cm, 09/01/19 [...] 08/09/20 12:53:00 EDT, 02/11/20 12:53:00 EST, Solution, [facility]/pharmacy #0373, please fill early . higherdose, 157.4, cm, 02/02/20 12:10:00 EST, Height Start Date: 02/11/20 Stop Date: 08/09/20 Status: Ordered insulin detemir 100 units/mL subcutaneous solution = 82 units, Subcutaneous Injection, Daily at bedtime, for 30 days, # 15 mL, 5 Refills, Hard Stop 10/17/20 11:28:00 EDT, 04/20/20 11:28:00 EST, Solution, [facility]/pharmacy #0373, [...] 04/23/20 8:36:00 EST, [facility], cm, 04/13/20 9:03:00 EST, Height Start Date: 04/23/20 Stop Date: 10/20/20 Status: Ordered LORazepam 0.5 mg oral tablet 1 tablet = 0.5 mg, By Mouth, 3 times a day, PRN for anxiety, for 30 days, # 30 tablet, 3 Refills, Acute 07/25/20 12:25:00 EDT, 03/27/20 12:25:00 EST, [facility] 157.4, cm, 02/02/20 12:10:00 [...] 10 mg, By Mouth, Every 4 hours, PERSONNEL REPRESENTATIVE checked., # 168 tablet, 0 Refills, Acute 03/16/21 14:07:00 EST, 04/25/20 14:49:00 EST, [facility]/pharmacy #2071, Partial fill [...]
--- OUTSIDE RECORDS SUMMARY | 2023-07-18 03:29 | XMS_ITS | Continuity of Care Document ---
Author Organization [facility] Adult Address [address] [place] [address]- Care Team Providers Care Transportation Solutions Manager Name Role Phone Charo DUMONT, Dayna Primary Care Physician Encounter [facility] Date(s): 01/24/23 - 02/23/23 [facility] [address] [place] [phone]- Allergies, Adverse Reactions, Alerts Substance Reaction Severity Status codeine Active Lactose Active Immunizations Given and Recorded Vaccine Date Status Refusal Reason SARS-CoV-2 (COVID-19) mRNA-1273 vaccine 03/30/21 R ecorded influenza virus vaccine, inactivated 1 01/16/17 Gi daniel influenza virus vaccine, inactivated 01/12/16 Give n influenza virus vaccine, inactivated 02/04/15 Give n pneumococcal 23-valent vaccine 02/04/15 Given 1Result Comment: 27665-338-73 Medications aspirin 81 mg oral tablet 1 tablet = 81 mg, By Mouth, Daily, # 30 tablet, 0 Refills, Maintenance, Tablet Start Date: 11/12/11 Status: Ordered duloxetine 20 mg oral enteric coated capsule 1 capsule, By Mouth, 2 times a day, # 180 capsule, 1 Refills, Maintenance, 02/13/23 8:22:00 EST, [facility], 156, cm, 01/03/23 11:15:00 EDT, Height Start [...] Refills, Maintenance, 02/20/23 17:40:00 EST, [facility], 156, cm, 01/03/23 11:15:00 EDT, Height Start [...] 02/13/23 8:22:00 EST, Route to Pharmacy Electronically, [facility] STORE 73820, 156, cm, 01/03/23 11:15:00 EDT, Height Start Date: 02/13/23 Status: Ordered LORazepam 0.5 mg oral tablet 1 tablet = 0.5 mg, By Mouth, 3 times a day, PRN for anxiety, for 30 days, # 30 tablet, 1 Refills, Acute 03/04/23 11:39:00 EST, 01/03/23 11:39:00 EDT, Tablet, [facility]/pharmacy #2071, 156, cm, 01/03/23 11:15:00 EDT, Height Start Date: 01/03/23 Stop Date: 03/04/23 Status: Ordered Nicoderm C-Q 7 mg/24 hr transdermal film, extended release 1 patch, By Mouth, Daily, # 30 patch, 5 Refills, Maintenance, 07/26/21 9:34:00 EDT, [facility]/pharmacy #0373, 156, cm, 07/26/21 9:18:00 EDT, Height Start Date: 07/26/21 Stop Date: 01/22/22 Status: Ordered ondansetron 4 mg oral tablet 1 tablet = 4 mg, By Mouth, Every 8 hours, # 15 tablet, 1 Refills, Maintenance, 01/03/23 11:41:00 EDT, Tablet, [facility]/pharmacy #2071, Partial fill upon patient request [...] 10 mg, By Mouth, Every 4 hours, CHERRY PICKER OPERATOR checked. fill on 02/14/23, # 168 tablet, 0 Refills, Maintenance, 02/13/23 18:55:00 EST, [id number], Partial fill upon patient request;, 156, cm, 01/03/23 11:15:00 EDT, Height Start Date: 02/13/23 Stop Date: 03/13/23 Status: Ordered oxyCODONE 15 mg oral tablet 1 tablet = 15 mg, By Mouth, Daily at bedtime, PRN as needed for pain, payroll and benefits analyst checked fill 01/29/23, # 28 tablet, 0 Refills, Maintenance, 01/27/23 12:27:00 EST, Tablet, [facility], Partial fill upon patient request if the prescription is for a rex... Start Date: 01/27/23 Stop Date: 02/24/23 Status: Ordered Pen [place], 31 G x 5 mm BD Ultra [...] Professional Member Role: PCP Address: Address: [address], [address] [place] [address]- Care Team Related Persons Name: IRMA FUNG Address: [address] [place] [address] Name: NONE, GIVEN Address: [place] [address]
--- OUTSIDE RECORDS SUMMARY | 2023-07-18 03:29 | XMS_ITS | Continuity of Care Document ---
Author Organization [facility] Address [address] [place] [address]- Care Team Providers Care Retail Assistant Name Role Phone Charo DUMONT, Dayna Primary Care Physician Encounter [facility] Date(s): 04/24/23 - 05/24/23 [facility] [address] [place] [phone]- Allergies, Adverse Reactions, Alerts Substance Reaction Severity Status codeine Active Lactose Active Immunizations Given and Recorded Vaccine Date Status Refusal Reason SARS-CoV-2 (COVID-19) mRNA-1273 vaccine 03/30/21 R ecorded influenza virus vaccine, inactivated 1 01/16/17 Gi daniel influenza virus vaccine, inactivated 01/12/16 Give n influenza virus vaccine, inactivated 02/04/15 Give n pneumococcal 23-valent vaccine 02/04/15 Given 1Result Comment: 22238-776-29 Medications aspirin 81 mg oral tablet 1 [...] Refills, Maintenance, 02/13/23 8:22:00 EST, [facility], 156, cm, 01/03/23 11:15:00 EDT, Height Start [...] Refills, Maintenance, 02/20/23 17:40:00 EST, [facility], 156, cm, 01/03/23 11:15:00 EDT, Height Start [...] mL, 11 Refills, Maintenance, 04/11/23 8:04:00 EST, [facility]/pharmacy #0373, 156, cm, 04/10/23 7:57:00 EST, [...] EST, Route to Pharmacy Electronically, [facility], 156, cm, 01/03/23 11:15:00 EDT, Height Start Date: 02/13/23 Status: Ordered Nicoderm C-Q 7 mg/24 hr transdermal film, extended release 1 patch, By Mouth, Daily, # 30 patch, 5 Refills, Maintenance, 07/26/21 9:34:00 EDT, [facility]/pharmacy #0373, 156, cm, 07/26/21 9:18:00 EDT, Height Start Date: 07/26/21 Stop Date: 01/22/22 Status: Ordered ondansetron 4 mg oral tablet 1 tablet, By Mouth, Every 8 hours, # 15 tablet, 1 Refills, Maintenance, 05/19/23 14:51:00 EST, [facility], 156, cm, 04/10/23 7:57:00 EST, Height Start Date: 05/19/23 Stop Date: 05/24/23 Status: Ordered oxyCODONE 10 mg oral tablet 1 tablet = 10 mg, By Mouth, Every 4 hours, COMPUTER AIDED DESIGN DRAFTER checked. fill on 05/08/23, # 168 tablet, 0 Refills, Maintenance, 04/21/23 7:19:00 EST, [facility], Partial fill upon patient request;, 156, cm, 04/10/23 7:57:00 EST, Height Start Date: 04/21/23 Stop Date: 05/19/23 Status: Ordered oxyCODONE 15 mg oral tablet 1 tablet = 15 mg, By Mouth, Daily at bedtime, PRN as needed for pain, kelp cutter checked. OK to fill today. pt is going on vacation tomorrow, # 28 tablet, 0 Refills, Maintenance, 05/20/23 17:52:00 EST, Tablet, [facility], Partial fill upon patient re... Start Date: 05/20/23 Stop Date: 06/17/23 Status: Ordered Pen [place], 31 G x 5 mm BD Ultra [...] Refills, Maintenance, 03/12/23 8:31:00 EST, [facility], 156, cm, 01/03/23 11:15:00 EDT, Height Start [...] 3 Refills, Maintenance, 07/21/22 10:38:00 EDT, Capsule, [facility]/pharmacy #7101, Partial fill upon patient request if the [...] Team Personnel Name: Dayna Mancilla NP Position: [facility] PCO Associate Professional Member Role: PCP Address: Address: [address] [place] [address], [address] [place], [place] [address] Care Team Related Persons Name: IRMA FUNG Address: home [address] [place] [address] Name: NONE, GIVEN Address: [place] [address]
--- OUTSIDE RECORDS SUMMARY | 2023-07-18 03:29 | XMS_ITS | Continuity of Care Document ---
Author Organization [facility] Adult Address [address] [place] [address]- Care Team Providers Care Group President Name Role Phone Charo DUMONT, Dayna Primary Care Physician Encounter [facility] Date(s): 03/27/20 - 04/26/20 [facility] [address] [place] [address]- Allergies, Adverse Reactions, Alerts Substance Reaction Severity Status codeine Active Lactose Active Immunizations Given and Recorded Vaccine Date Status Refusal Reason influenza virus vaccine, inactivated 1 01/16/17 Gi daniel influenza virus vaccine, inactivated 01/12/16 Give n influenza virus vaccine, inactivated 02/04/15 Give n pneumococcal 23-valent vaccine 02/04/15 Given 1Result Comment: 41504-643-02 Medications aspirin 81 mg oral tablet 1 [...] 2 Refills, Maintenance, 12/15/19 8:56:00 EDT, Tablet, [facility]/pharmacy #4200, 157.4, cm, 09/01/19 8:41:00 EDT, Height [...] 08/09/20 12:53:00 EDT, 02/11/20 12:53:00 EST, Solution, [facility]/pharmacy #0373, please fill early . higherdose, 157.4, cm, 02/02/20 12:10:00 EST, Height Start Date: 02/11/20 Stop Date: 08/09/20 Status: Ordered insulin detemir 100 units/mL subcutaneous solution = 82 units, Subcutaneous Injection, Daily at bedtime, for 30 days, # 15 mL, 5 Refills, Hard Stop 10/17/20 11:28:00 EDT, 04/20/20 11:28:00 EST, Solution, [facility]/pharmacy #0373, please fill early . higherdose, 157.4, [...] 04/23/20 8:36:00 EST, [facility] 157.4, cm, 04/13/20 9:03:00 EST, Height Start Date: 04/23/20 Stop Date: 10/20/20 Status: Ordered LORazepam 0.5 mg oral tablet 1 tablet = 0.5 mg, By Mouth, 3 times a day, PRN for anxiety, for 30 days, # 30 tablet, 3 Refills, Acute 07/25/20 12:25:00 EDT, 03/27/20 12:25:00 EST, [facility] 157.4, cm, 02/02/20 12:10:00 EST, Height Start Date: 03/27/20 Stop Date: 07/25/20 Status: Ordered Nicoderm C-Q 7 mg/24 hr transdermal film, extended release 1 patch, By Mouth, Daily, # 30 patch, 5 Refills, Maintenance, 09/01/19 9:18:00 EDT, [facility]/pharmacy #0373, 157.4, cm, 09/01/19 8:41:00 [...] 10 mg, By Mouth, Every 4 hours, BONDING MOLDER checked., # 168 tablet, 0 Refills, Acute 03/16/21 14:07:00 EST, 04/25/20 14:49:00 EST, [facility]/pharmacy #2071, Partial fill upon patient request;, 04/26/20,157.4, [...]
--- OUTSIDE RECORDS SUMMARY | 2023-07-18 03:29 | XMS_ITS | Continuity of Care Document ---
Author Organization [facility] Adult Address [address] [place] [address]- Care Team Providers Care Melt Supervisor Name Role Phone Charo DUMONT, Dayna Primary Care Physician Encounter [facility] Date(s): 03/09/20 - 04/08/20 [facility] [address] [place] [address]- Allergies, Adverse Reactions, Alerts Substance Reaction Severity Status codeine Active Lactose Active Immunizations Given and Recorded Vaccine Date Status Refusal Reason influenza virus vaccine, inactivated 1 01/16/17 Gi daniel influenza virus vaccine, inactivated 01/12/16 Give n influenza virus vaccine, inactivated 02/04/15 Give n pneumococcal 23-valent vaccine 02/04/15 Given 1Result Comment: 55973-747-05 Medications aspirin 81 mg oral tablet 1 [...] 09/28/19 Stop Date: 03/26/20 Status: Ordered ergocalciferol 52254 iu oral capsule TAKE 1 CAPSULE BY MOUTH ONCE A WEEK Start Date: 01/31/20 Status: Ordered Fish Oil By Mouth, Daily, 0 Refills, Maintenance, 01/27/19 9:06:45 EST Start Date: 11/13/19 Status: Ordered gabapentin 800 mg oral tablet 1 tablet = 800 mg, By Mouth, 3 times a day with meals, # 270 tablet, 2 Refills, Maintenance, 12/15/19 8:56:00 EDT, Tablet, [facility], 157.4, cm, 09/01/19 8:41:00 EDT, Height [...] 2 Refills, Maintenance, 02/16/20 15:41:00 EST, Solution, [facility], 157.4, cm, 09/01/19 8:41:00 EDT, Height Start Date: 02/16/20 Stop Date: 05/16/20 Status: Ordered insulin detemir 100 units/mL subcutaneous solution = 70 units, Subcutaneous Injection, Daily at bedtime, for 30 days, # 15 mL, 5 Refills, Hard Stop 08/09/20 12:53:00 EDT, 02/11/20 12:53:00 EST, [facility], [facility], please fill early . higherdose, 157.4, cm, 02/02/20 12:10:00 EST, Height Start Date: 02/11/20 Stop Date: 08/09/20 Status: Ordered insulin detemir 100 units/mL subcutaneous solution = 70 units, Subcutaneous Injection, Daily at bedtime, for 30 days, # 15 mL, 5 Refills, Hard Stop 02/05/21 12:53:00 EST, 08/09/20 12:53:00 EDT, Solution, [facility], please fill early . higherdose, 157.4, cm, 02/02/20 12:10:00 EST, Height Start Date: 08/09/20 Stop Date: 02/05/21 Status: Ordered Insulin Syringe, BD Ultra-Fine 1 cc 31 G x 8 mm (5in) See Instructions, # 100 each, Refills 3, [...] 10/26/19 8:36:00 EDT, Route to Pharmacy Electronically, [facility]/pharmacy #0373, 157.4, cm, 09/01/19 8:41:00 EDT, Height Start Date: 10/26/19 Stop Date: 04/23/20 Status: Ordered LORazepam 0.5 mg oral tablet 1 tablet = 0.5 mg, By Mouth, 3 times a day, PRN for anxiety, for 30 days, # 30 tablet, 3 Refills, Acute 07/25/20 12:25:00 EDT, 03/27/20 12:25:00 EST, Tablet, [facility]/pharmacy #0373, 157.4, cm, 02/02/20 12:10:00 EST, Height Start Date: 03/27/20 Stop Date: 07/25/20 Status: Ordered Nicoderm C-Q 7 mg/24 hr transdermal film, extended release 1 patch, By Mouth, Daily, # 30 patch, 5 Refills, Maintenance, 09/01/19 9:18:00 EDT, [facility]/pharmacy #0373, 157.4, cm, 09/01/19 8:41:00 EDT, Height Start Date: 09/01/19 Stop Date: 02/28/20 Status: Ordered One Touch Ultra 2 Glucose Meter See Instructions, # 1 each, Refills 0, Tot. Refills 0, Maintenance, Test Blood sugar twice daily Dxe11.9, 05/30/17 15:14:47, Replacement meter. Pt meter is not working, Compound Start Date: 3/16/18 Status: Ordered One Touch Ultra Test Strips See Instructions, # 200 each, Refills 3, Tot. Refills 3, Maintenance, DX: E11.9 test blood sugars 2times daily 90 day supply, 12/08/19 11:14:00 EDT, [facility], 157.4, cm, 09/01/19 8:41:00 EDT, Height Start Date: 12/08/19 Status: Ordered oxyCODONE 10 mg oral tablet 1 tablet = 10 mg, By Mouth, Every 4 hours, PAINTER TOUCH UP checked., # 168 tablet, 0 Refills, Acute 03/16/21 13:19:00 EST, 03/27/20 17:22:00 EST, [facility]/pharmacy #2071, Partial fill upon patient request;, 157.4, cm, 02/02/20 12:10:00 EST, Height Start Date: 03/27/20 Stop Date: 03/16/21 Status: Ordered Pt.'s Own Meds CBD, Daily, Maintenance, 01/27/19 9:06:59 EST Start Date: 01/27/19 Status: Ordered rOPINIRole 1 mg oral tablet 1 tablet = 1 mg, By Mouth, 2 times a day, # 180 tablet, 1 Refills, Maintenance, 10/12/19 15:53:00 EDT, [facility]/pharmacy #0373, 157.4, cm, 09/01/19 8:41:00 EDT, Height [...] as needed for nausea/vomiting, # 15 tablet, 0 Refills, Maintenance, 04/06/20 11:25:00 EST, Tablet, [facility], Partial fill upon patient request if the prescription is for a schedule II opioid drug... Start Date: 04/06/20 Stop Date: 04/11/20 Status: Ordered Problem List Condition Effective Dates [...]
--- OUTSIDE RECORDS SUMMARY | 2023-07-18 03:29 | XMS_ITS | Continuity of Care Document ---
Author Organization 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 [address] [place] [address]- Allergies, Adverse Reactions, Alerts Substance Reaction Severity Status codeine Active Lactose Active Immunizations Given and Recorded Vaccine Date Status Refusal Reason SARS-CoV-2 (COVID-19) mRNA-1273 vaccine 03/30/21 R ecorded influenza virus vaccine, inactivated 1 01/16/17 Gi daniel influenza virus vaccine, inactivated 01/12/16 Give n influenza virus vaccine, inactivated 02/04/15 Give n pneumococcal 23-valent vaccine 02/04/15 Given 1Result Comment: [id number] Medications aspirin 81 mg oral tablet 1 tablet = 81 mg, By Mouth, Daily, # 30 tablet, 0 Refills, Maintenance, Tablet Start Date: 11/12/11 Status: Ordered BD INSULIN SYR UF 1 ML [id number] BD INSULIN SYR UF 1 ML [id number], See Instructions, # 100 Unknown, 3 Refills, Maintenance, USE TO INJECT INSULIN ONCE A DAY FOR DX E11.9, 157.4, cm, 08/01/20 11:31:00 EDT, Height Start Date: 10/09/20 Status: Ordered BD INSULIN SYR UF 1 ML [id number] BD INSULIN SYR UF 1 ML [id number], See Instructions, # 180 Unknown, 1 Refills, Maintenance, USE TO INJECT INSULIN TWICE A DAY FOR DX E11.9, 04/18/22 10:30:00 EST, 156, cm, 04/18/22 9:46:00 EST, Height Start Date: 04/18/22 Status: Ordered duloxetine 20 mg oral enteric coated capsule 1 capsule, By Mouth, 2 times a day, # 180 capsule, 1 Refills, Maintenance, 02/25/22 9:26:00 EST, [id number], 156, cm, 01/14/22 15:09:00 EDT, Height Start [...] 04/01/22 6:54:00 EST, Route to Pharmacy Electronically, [id number], 156, cm, 01/14/22 15:09:00 EDT, Height Start [...] tablet, 3 Refills, Maintenance, 06/27/22 10:42:00 EDT, [facility]/pharmacy #[id number], 156, cm, 05/10/22 10:53:00 [...] Mouth, Every 4 hours, for 28 days, CHANNEL SUPERVISOR checked. ok to fill on 07/07/22 [email or web address] script, # 168 tablet, 0 Refills, Acute 08/02/22 17:20:00 EDT, 07/05/22 17:20:00 EDT, [id number], Partial fill upon patient request;, 1... Start Date: 07/05/22 Stop Date: 08/02/22 Status: Ordered oxyCODONE 15 mg oral tablet 1 tablet = 15 mg, By Mouth, Daily at bedtime, PRN as needed for pain, small business representative checked, # 28 tablet, 0 Refills, Maintenance, 06/21/22 7:10:00 EDT, Tablet, [id number], Partial fill upon patient request if the prescription is for a schedule II opioid... Start Date: 06/21/22 Stop Date: 07/19/22 Status: Ordered Pen [place], 31 G x 5 mm BD Ultra [...] 1 Refills, Maintenance, 03/27/22 18:34:00 EST, [facility], 156, cm, 01/14/22 15:09:00 EDT, Height Start Date: 03/27/22 Status: Ordered Trulicity Pen 1.5 mg/0.5 mL subcutaneous solution See Instructions, INJECT 0.5 ML SUBCUTANEOUS INJECTION EVERY WEEK, # 2 Unknown, 2 Refills, Maintenance, 04/29/22 10:00:00 EST, [facility], 156, cm, 04/18/22 9:46:00 EST, Height Start Date: 04/29/22 Status: Ordered Vitamin B Complex oral tablet, extended release 1 tablet, By Mouth, Daily, 0 Refills, Maintenance, 11/26/18 9:26:13 EDT Start Date: 11/26/18 Status: Ordered Vitamin D3 50,000 intl units oral capsule 1 capsule = 1,250 mcg, By Mouth, Every week, # 12 capsule, 2 Refills, Maintenance, 06/26/21 8:37:00EDT, Capsule, [facility]/pharmacy #0373, Partial fill upon patient request [...] Associate Professional Member Role: PCP Address: Address: [address] [place] [address], [address] [facility] [place] [address]- [place] Care Team Related Persons Name: IRMA FUNG Address: home [address] [place] [address] Name: NONE, GIVEN Address: [place] [address]
--- OUTSIDE RECORDS SUMMARY | 2023-07-18 03:29 | XMS_ITS | Continuity of Care Document ---
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 Operator Name Role Phone Charo DUMONT, Dayna Primary Care Physician [facility] Date[facility]): 08/27/22 - 09/26/22 [facility] [address] [place] [address]- Allergies, Adverse Reactions, Alerts Substance Reaction Severity Status codeine Active Lactose Active Immunizations Given and Recorded Vaccine Date Status Refusal Reason SARS-CoV-2 (COVID-19) mRNA-1273 vaccine 03/30/21 R ecorded influenza virus vaccine, inactivated 1 01/16/17 Gi daniel influenza virus vaccine, inactivated 01/12/16 Give n influenza virus vaccine, inactivated 02/04/15 Give n pneumococcal 23-valent vaccine 02/04/15 Given 1Result Comment: 99186-443-70 Medications aspirin 81 mg oral tablet 1 tablet = 81 mg, By Mouth, Daily, # 30 tablet, 0 Refills, Maintenance, Tablet Start Date: 11/12/11 Status: Ordered BD INSULIN SYR UF 1 ML [id number] BD INSULIN SYR UF 1 ML [id number], See Instructions, # 100 Unknown, 3 Refills, Maintenance, USE TO INJECT INSULIN ONCE A DAY FOR DX E11.9, 157.4, cm, 08/01/20 11:31:00 EDT, Height Start Date: 10/09/20 Status: Ordered BD INSULIN SYR UF 1 ML [id number] BD INSULIN SYR UF 1 ML [id number], See Instructions, # 180 Unknown, 1 Refills, Maintenance, USE TO INJECT INSULIN TWICE A DAY FOR DX E11.9, 04/18/22 10:30:00 EST, 156, cm, 04/18/22 9:46:00 EST, Height Start Date: 04/18/22 Status: Ordered duloxetine 20 mg oral enteric coated capsule 1 capsule, By Mouth, 2 times a day, # 180 capsule, 1 Refills, Maintenance, 02/25/22 9:26:00 EST, [facility], 156, cm, 01/14/22 15:09:00 EDT, Height Start [...] 2 Refills, Maintenance, 10/05/21 10:32:00 EDT, Tablet, [facility]/pharmacy #207, 156, cm, 07/26/21 9:18:00 EDT, Height Start Date: 10/05/21 Stop Date: 07/02/22 Status: Ordered Humalog Kwik Pen 100 units/mL subcutaneous injection = 15 units, Subcutaneous Injection, 3 times a day before meals, # 15 mL, 5 Refills, Maintenance, 07/12/22 14:12:00 EDT, Solution, [facility]/pharmacy #[id number], Partial fill upon patient request [...] 5 Refills, Maintenance, 06/10/22 11:10:00 EDT, Solution, [facility]/pharmacy #[id number], please fill early . higher [...] 09/24/22 19:24:00 EDT, Route to Pharmacy Electronically, [facility] [id number], 156, cm, 07/12/22 13:52:00 EDT, Height Start Date: 09/24/22 Status: Ordered LORazepam 0.5 mg oral tablet 1 tablet = 0.5 mg, By Mouth, 3 times a day, PRN for anxiety, for 30 days, # 30 tablet, 1 Refills, Acute 09/30/22 18:20:00 EDT, 08/01/22 18:20:00 EDT, Tablet, [facility]/pharmacy #[id number], 156, cm, 07/12/22 13:52:00 EDT, Height Start Date: 08/01/22 Stop Date: 09/30/22 Status: Ordered Nicoderm C-Q 7 mg/24 hr transdermal film, extended release 1 patch, By Mouth, Daily, # 30 patch, 5 Refills, Maintenance, 07/26/21 9:34:00 EDT, [facility]/pharmacy #0373, 156, cm, 07/26/21 9:18:00 EDT, Height Start Date: 07/26/21 Stop Date: 01/22/22 Status: Ordered ondansetron 4 mg oral tablet 1 tablet, By Mouth, Every 8 hours, PRN NEEDED FOR NAUSEA AND VOMITING FOR, # 9 tablet, 3 Refills, Maintenance, 06/27/22 10:42:00 EDT, [facility]/pharmacy #[id number], 156, cm, 05/10/22 10:53:00 EST, [...] 10 mg, By Mouth, Every 4 hours, PRODUCTION CONTROL ANALYST checked. fill 09/03/22, # 168 tablet, 0 Refills, Maintenance, 09/03/22 7:02:00 EDT, [id number], Partial fill upon patient request;, 156, cm, 07/12/22 13:52:00 EDT, Height Start Date: 09/03/22 Stop Date: 10/01/22 Status: Ordered oxyCODONE 15 mg oral tablet 1 tablet = 15 mg, By Mouth, Daily at bedtime, PRN as needed for pain, batt machine operator checked fill 09/11/22, # 28 tablet, 0 Refills, Maintenance, 09/10/22 8:09:00 EDT, Tablet, [id number], Partial fill upon patient request if the prescription is for a sched... Start Date: 09/10/22 Stop Date: 10/08/22 Status: Ordered Pen [place], 31 G x 5 mm BD Ultra [...] Professional Member Role: PCP Address: Address: [address] [place] [address], [address] [place] [address]- Care Team Related Persons Name: IRMA FUNG Address: home [address] [place] [address] Name: NONE, GIVEN Address: [place] [address]
--- OUTSIDE RECORDS SUMMARY | 2023-07-18 03:29 | XMS_ITS | Continuity of Care Document ---
Author Organization [facility] Adult Address [address] [place] [address]- Care Team Providers Care Emblem Fuser Tender Name Role Phone Charo SYSTEMS ADMINISTRATOR, Dayna Primary Care Physician Encounter [facility] Date(s): 02/11/20 - 03/12/20 [facility] [address] [place] [address]- Allergies, Adverse Reactions, Alerts Substance Reaction Severity Status codeine Active Lactose Active Immunizations Given and Recorded Vaccine Date Status Refusal Reason influenza virus vaccine, inactivated 1 01/16/17 Gi daniel influenza virus vaccine, inactivated 01/12/16 Give n influenza virus vaccine, inactivated 02/04/15 Give n pneumococcal 23-valent vaccine 02/04/15 Given 1Result Comment: 60302-745-88 Medications aspirin 81 mg oral tablet 1 [...] 09/28/19 Stop Date: 03/26/20 Status: Ordered ergocalciferol 73056 iu oral capsule TAKE 1 CAPSULE BY [...] 10/26/19 8:36:00 EDT, Route to Pharmacy Electronically, [facility]/pharmacy #[id number], 157.4, cm, 09/01/19 8:41:00 EDT, Height Start Date: 10/26/19 Stop Date: 04/23/20 Status: Ordered LORazepam 0.5 mg oral tablet 1 tablet = 0.5 mg, By Mouth, 3 times a day, PRN for anxiety, for 30 days, # 30 tablet, 3 Refills, Acute 05/06/20 16:04:00 EST, 01/07/20 16:04:00 EDT, Tablet, [facility]/pharmacy #0373, 157.4, cm, 01/07/20 15:32:00 EDT, Height Start Date: 01/07/20 Stop Date: 05/06/20 Status: Ordered Nicoderm C-Q 7 mg/24 hr transdermal film, extended release 1 patch, By Mouth, Daily, # 30 patch, 5 Refills, Maintenance, 09/01/19 9:18:00 EDT, [facility]/pharmacy #0373, 157.4, cm, 09/01/19 8:41:00 EDT, Height [...] 10 mg, By Mouth, Every 4 hours, PUBLIC RELATIONS COUNSELOR checked., # 168 tablet, 0 Refills, Acute 03/16/20 13:59:00 EST, 02/29/20 14:33:00 EST, [facility]/pharmacy #[id number], Partial fill upon patient request;, 157.4, cm, 02/02/20 12:10:00 EST, Height Start Date: 02/29/20 Stop Date: 03/16/20 Status: Ordered Pt.'s Own Meds CBD, Daily, Maintenance, 01/27/19 9:06:59 EST Start Date: 01/27/19 Status: Ordered rOPINIRole 1 mg oral tablet 1 tablet = 1 mg, By Mouth, 2 times a day, # 180 tablet, 1 Refills, Maintenance, 10/12/19 15:53:00 EDT, [facility]/pharmacy #0373, 157.4, cm, 09/01/19 8:41:00 EDT, Height [...]
--- OUTSIDE RECORDS SUMMARY | 2023-07-18 03:29 | XMS_ITS | Continuity of Care Document ---
Author Organization [facility] Adult Address [address] [place] [address]- Care Team Providers Care Farm Machinery Mechanic Name Role Phone Charo TOOLS DEVELOPER, Dayna Primary Care Physician [phone] Encounter [facility] Date(s): 03/30/23 - 04/29/23 [facility] [address] [place] [address]- Allergies, Adverse Reactions, Alerts Substance Reaction Severity Status codeine Active Lactose Active Immunizations Given and Recorded Vaccine Date Status Refusal Reason SARS-CoV-2 (COVID-19) mRNA-1273 vaccine 03/30/21 R ecorded influenza virus vaccine, inactivated 1 01/16/17 Gi daniel influenza virus vaccine, inactivated 01/12/16 Give n influenza virus vaccine, inactivated 02/04/15 Give n pneumococcal 23-valent vaccine 02/04/15 Given 1Result Comment: [id number] Medications aspirin 81 mg oral tablet 1 tablet = 81 mg, By Mouth, Daily, # 30 tablet, 0 Refills, Maintenance, Tablet Start Date: 11/12/11 Status: Ordered DEXCOM G7 sensors DEXCOM G7 sensors, See Instructions, # 3 each, Refills 11, Maintenance, apply yo skin every 10 days, 04/29/23 8:53:00 EST, Compound Start Date: 04/29/23 Status: Ordered duloxetine 20 mg oral enteric coated capsule 1 capsule, By Mouth, 2 times a day, # 180 capsule, 1 Refills, Maintenance, 02/13/23 8:22:00 EST, [facility], 156, cm, 01/03/23 11:15:00 EDT, Height Start [...] tablet, 2 Refills, Maintenance, 02/20/23 17:40:00 EST, [facility], 156, cm, 01/03/23 11:15:00 EDT, Height Start [...] EST, Route to Pharmacy Electronically, [facility], 156, cm, 01/03/23 11:15:00 EDT, Height Start [...] tablet, 1 Refills, Maintenance, 02/27/23 15:56:00 EST, [facility], 156, cm, 01/03/23 11:15:00 EDT, Height Start [...] 10 mg, By Mouth, Every 4 hours, EXECUTIVE RELATIONS SPECIALIST checked. fill on 05/08/23, # 168 tablet, 0 Refills, Maintenance, 04/21/23 7:19:00 EST, [id number], Partial fill upon patient request;, 156, cm, 04/10/23 7:57:00 EST, Height Start Date: 04/21/23 Stop Date: 05/19/23 Status: Ordered oxyCODONE 15 mg oral tablet 1 tablet = 15 mg, By Mouth, Daily at bedtime, PRN as needed for pain, senior sales consultant checked fill 04/23/23, # 28tablet, 0 Refills, Maintenance, 04/17/23 17:59:00 EST, Tablet, [id number], Partial fill upon patient request if the prescription is for a sched... Start Date: 04/17/23 Stop Date: 05/15/23 Status: Ordered Pen [place], 31 G x 5 mm BD Ultra [...] Refills, Maintenance, 03/12/23 8:31:00 EST, [facility], 156, cm, 01/03/23 11:15:00 EDT, Height Start [...] Professional Member Role: PCP Address: Address: [address] [facility], [address]rd [place] [address]- Care Team Related Persons Name: IRMA FUNG Address: home [address] [place] [address] Name: NONE, GIVEN Address: [place] [address]
--- OUTSIDE RECORDS SUMMARY | 2023-07-18 03:29 | XMS_ITS | Continuity of Care Document ---
Author Organization [facility] Adult Address [address] [place] [address]- Care Team Providers Care Project Estimator Name Role Phone Charo DUMONT, Dayna Primary Care Physician [facility] Date(s): 08/05/22 - 09/04/22 [facility] Adult [address] [place] [address]- Allergies, Adverse Reactions, Alerts Substance Reaction Severity Status codeine Active Lactose Active Immunizations Given and Recorded Vaccine Date Status Refusal Reason SARS-CoV-2 (COVID-19) mRNA-1273 vaccine 03/30/21 R ecorded influenza virus vaccine, inactivated 1 01/16/17 Gi daniel influenza virus vaccine, inactivated 01/12/16 Give n influenza virus vaccine, inactivated 02/04/15 Give n pneumococcal 23-valent vaccine 02/04/15 Given 1Result Comment: [id number] Medications aspirin 81 mg oral tablet 1 tablet = 81 mg, By Mouth, Daily, # 30 tablet, 0 Refills, Maintenance, Tablet Start Date: 11/12/11 Status: Ordered BD INSULIN SYR UF 1 ML [id number] BD INSULIN SYR UF 1 ML [id number], See Instructions, # 100 Unknown, 3 Refills, Maintenance, USE TO INJECT INSULIN ONCE A DAY FOR DX E11.9, 157.4, cm, 08/01/20 11:31:00 EDT, Height Start Date: 10/09/20 Status: Ordered BD INSULIN SYR UF 1 ML [id number] BD INSULIN SYR UF 1 ML [id number], See Instructions, # 180 Unknown, 1 Refills, Maintenance, USE TO INJECT INSULIN TWICE A DAY FOR DX E11.9, 04/18/22 10:30:00 EST, 156, cm, 04/18/22 9:46:00 EST, Height Start Date: 04/18/22 Status: Ordered duloxetine 20 mg oral enteric coated capsule 1 capsule, By Mouth, 2 times a day, # 180 capsule, 1 Refills, Maintenance, 02/25/22 9:26:00 EST, [facility], 156, cm, 01/14/22 15:09:00 EDT, Height Start [...] 2 Refills, Maintenance, 10/05/21 10:32:00 EDT, Tablet, [facility]/pharmacy #207, 156, cm, 07/26/21 [...] 5 Refills, Maintenance, 06/10/22 11:10:00 EDT, Solution, [facility]/pharmacy #[id number], please fill early [...] 04/01/22 6:54:00 EST, Route to Pharmacy Electronically, [facility] [id number], 156, cm, 01/14/22 15:09:00 EDT, Height Start Date: 04/01/22 Status: Ordered LORazepam 0.5 mg oral tablet 1 tablet = 0.5 mg, By Mouth, 3 times a day, PRN for anxiety, for 30 days, # 30 tablet, 1 Refills, Acute 09/30/22 18:20:00 EDT, 08/01/22 18:20:00 EDT, Tablet, [facility]/pharmacy #[id number], 156, cm, 07/12/22 13:52:00 EDT, Height Start Date: 08/01/22 Stop Date: 09/30/22 Status: Ordered Nicoderm C-Q 7 mg/24 hr transdermal film, extended release 1 patch, By Mouth, Daily, # 30 patch, 5 Refills, Maintenance, 07/26/21 9:34:00 EDT, [facility]/pharmacy #0373, 156, cm, 07/26/21 9:18:00 EDT, Height Start Date: 07/26/21 Stop Date: 01/22/22 Status: Ordered ondansetron 4 mg oral tablet 1 tablet, By Mouth, Every 8 hours, PRN NEEDED FOR NAUSEA AND VOMITING FOR, # 9 tablet, 3 Refills, Maintenance, 06/27/22 10:42:00 EDT, [facility]/pharmacy #[id number], 156, cm, 05/10/22 10:53:00 [...] 10 mg, By Mouth, Every 4 hours, SITE DAMAGE PREVENTION TECHNICIAN checked. fill 09/03/22, # 168 tablet, 0 Refills, Maintenance, 09/03/22 7:02:00 EDT, [facility]/pharmacy #[id number], Partial fill upon patient request;, 156, cm, 07/12/22 13:52:00 EDT, Height Start Date: 09/03/22 Stop Date: 10/01/22 Status: Ordered oxyCODONE 15 mg oral tablet 1 tablet = 15 mg, By Mouth, Daily at bedtime, PRN as needed for pain, billing supervisor checked fill 07/19 23, # 28tablet, 0 Refills, Maintenance, 07/16/22 7:43:00 EDT, Tablet, [id number], Partial fill uponpatient request if the prescription is for a schedu... Start Date: 07/16/22 Stop Date: 08/13/22 Status: Ordered Pen [place], 31 G x 5 mm BD Ultra [...] 1 Refills, Maintenance, 03/27/22 18:34:00 EST, [facility], 156, cm, 01/14/22 15:09:00 EDT, Height Start [...] Associate Professional Member Role: PCP Address: Address: [address] [place] [address], [address] [place] [address]- Care Team Related Persons Name: IRMA FUNG Address: [address] [place] [address] Name: NONE, GIVEN Address: [place] [address]
--- OUTSIDE RECORDS SUMMARY | 2023-07-18 03:29 | XMS_ITS | Continuity of Care Document ---
Author Organization [facility] Adult Address [address] [place] [address]- Care Team Providers Care Duct Layer Helper Name Role Phone Charo DUMONT, Dayna Primary Care Physician [place] [facility] [place] Date(s): 05/10/22 - 06/09/[address] [facility] [address] [place] [address]- Attending Physician: Delvin Bustillos Admitting Physician: AdmDelvin [...] pneumococcal 23-valent vaccine 02/04/15 Given 1Result Comment: [id number] Medications aspirin 81 mg oral tablet 1 tablet = 81 mg, By Mouth, Daily, # 30 tablet, 0 Refills, Maintenance, Tablet Start Date: 11/12/11 Status: Ordered BD INSULIN SYR UF 1 ML [id number] BD INSULIN SYR UF 1 ML [id number], See Instructions, # 100 Unknown, 3 Refills, Maintenance, USE TO INJECT INSULIN ONCE A DAY FOR DX E11.9, 157.4, cm, 08/01/20 11:31:00 EDT, Height Start Date: 10/09/20 Status: Ordered BD INSULIN SYR UF 1 ML [id number] BD INSULIN SYR UF 1 ML [id number], See Instructions, # 180 Unknown, 1 Refills, Maintenance, USE TO INJECT INSULIN TWICE A DAY FOR DX E11.9, 04/18/22 10:30:00 EST, 156, cm, 04/18/22 9:46:00 EST, Height Start Date: 04/18/22 Status: Ordered duloxetine 20 mg oral enteric coated capsule 1 capsule, By Mouth, 2 times a day, # 180 capsule, 1 Refills, Maintenance, 02/25/22 9:26:00 EST, [facility], 156, cm, 01/14/22 15:09:00 EDT, Height Start Date: 02/25/22 Status: Ordered Fish Oil By Mouth, Daily, 0 Refills, Maintenance, 01/27/19 9:06:45 EST Start Date: 01/27/19 Status: Ordered gabapentin 800 mg oral tablet 1 tablet = 800 mg, By Mouth, 3 times a day with meals, # 270 tablet, 2 Refills, Maintenance, 10/05/21 10:32:00 EDT, Tablet, [facility]/pharm[facility] #[id number], 156, cm, 07/26/21 9:18:00 EDT, Height Start Date: 10/05/21 Stop Date: 07/02/22 Status: Ordered Humalog Kwik Pen 100 units/mL subcutaneous injection = 15 units, Subcutaneous Injection, 3 times a day before meals, # 15 mL, 0 Refills, Maintenance, 06/07/22 12:45:00 EDT, Solution, [facility]/pharmacy #[id number], Partial fill upon patient [...] EST, Route to Pharmacy Electronically, [facility], 156, cm, 01/14/22 15:09:00 EDT, Height Start Date: 04/01/22 Status: Ordered LORazepam 0.5 mg oral tablet 1 tablet = 0.5 mg, By Mouth, 3 times a day, PRN for anxiety, for 30 days, # 30 tablet, 1 Refills, Acute 07/12/22 9:53:00 EDT, 05/13/22 9:53:00 EST, Tablet, [id number], 156, cm, 05/10/22 10:53:00 EST, [...] Refills, Maintenance, 03/15/22 15:20:00 EST, [facility], 156, cm, 01/14/22 15:09:00 EDT, Height Start [...] Mouth, Every 4 hours, for 28 days, ICE CREAM SERVER checked., # 168 tablet, 0 Refills, Acute 06/10/22 14:02:00 EDT, 05/13/22 14:02:00 EST, [facility]/pharmacy #[id number], Partial fill upon patient request;, 156, cm, 05/10/22 10:53:00 EST, Height Start Date: 05/13/22 Stop Date: 06/10/22 Status: Ordered oxyCODONE 15 mg oral tablet 1 tablet = 15 mg, By Mouth, Daily at bedtime, PRN as needed for pain, fill on 05/24/22, # 28 tablet,0 Refills, Maintenance, 05/23/22 18:35:00 EST, Tablet, [facility]/pharmacy #[id number], Partial fill upon patient request if the prescription is for a schedule II o... Start Date: 05/23/22 Stop Date: 06/20/22 Status: Ordered Pen [place], 31 G x 5 mm BD Ultra Fine III See Instructions, # 100 each, Refills 5, Tot. Refills 5, Maintenance, use as directed for Type 2 Diabetes Mellitus, 06/07/22 12:51:00 EDT, Supply, 156, cm, 05/10/22 10:53:00 EST, Height Start Date: 06/07/22 Stop Date: 12/04/22 Status: Ordered Pt.'s Own Meds CBD, Daily, Maintenance, 11/13/19 9:06:59 EST Start Date: 01/27/19 Status: Ordered rOPINIRole 1 mg oral tablet 1 tablet, By Mouth, 2 times a day, # 180 tablet, 1 Refills, Maintenance, 03/27/22 18:34:00 EST, [facility], 156, cm, 01/14/22 15:09:00 EDT, Height Start Date: 03/27/22 Status: Ordered Trulicity Pen 1.5 mg/0.5 mL subcutaneous solution See Instructions, INJECT 0.5 ML SUBCUTANEOUS INJECTION EVERY WEEK, # 2 Unknown, 2 Refills, Maintenance, 04/29/22 10:00:00 EST, [facility], 156, cm, 04/18/22 9:46:00 EST, Height Start Date: 04/29/22 Status: Ordered Vitamin B Complex oral tablet, extended release 1 tablet, By Mouth, Daily, 0 Refills, Maintenance, 11/26/18 9:26:13 EDT Start Date: 11/26/18 Status: Ordered Vitamin D3 50,000 intl units oral capsule 1 capsule = 1,250 mcg, By Mouth, Every week, # 12 capsule, 2 Refills, Maintenance, 06/26/21 8:37:00EDT, Capsule, [facility]/pharmacy #0373, Partial fill upon patient request [...] Date: * Event Display: EKG Authored Date: Note * Event Display: Non BH Lab Results Authored Date: * Event Display: Laboratory Result Scanned Authored Date: * Event Display: Ultrasound Abdomen, Non-BH Authored Date: * Event Display: Laboratory Result Scanned Authored Date: * Event Display: X-Ray Spine, Non- BH Authored Date: Patient Care team information Care Team Personnel Name: Dayna Mancilla NP Position: S PCO Associate Professional Member Role: PCP Address: Address: [address] [place] [address], [address] [place], [place] [address] Care Team Related Persons Name: IRMA FUNG Address: home [address] [place] [id number] Name: NONE, GIVEN Address: [place] [address]
== END 2023-07-18 03:44 | disposition left against medical advice (07) ==
PROVIDERS: Emergency Provider Emergency Medicine
DX: M79.601 Pain in right arm (principal); R07.9 Chest pain, unspecified
CPT/HCPCS: 36415; 80048; 84484; 85025; 93005; 99283

== ENCOUNTER → 2023-07-18 00:53 | Outpatient (BNV) | payer OTHER, SELFPAY | PROVIDERS: Emergency Provider Emergency Medicine; Visit Provider Internal Medicine | DX: R07.9 Chest pain, unspecified (principal) | CPT/HCPCS: 93010 ==